=== PATIENT | male | born 1945 | race Caucasian/White ===

== ENCOUNTER → 2017-04-09 | Outpatient (CLI) | payer MEDICARE, BC ==
[2017-04-09 17:31] LABS: HCT 45.3 % (39.0-53.0); HGB 14.8 gm/dL (13.0-17.5); MCHC 32.7 g/dL (31.0-37.0); MCV 94.9 fL (80.0-100.0); Mean Platelet Volume 7.2; Platelet Count 237 k/uL (150-450); RBC 4.78 m/uL (4.30-5.90); RDW 14.6 % (11.5-15.5); WBC 8.3 k/uL (3.8-10.6)
[2017-04-09 17:47] LABS: Anion Gap 9 mmol/L; Blood Urea Nitrogen 32 mg/dL (9-20); Carbon Dioxide 28 mmol/L (22-30); Chloride 107 mmol/L (98-107); Potassium 5.3 mmol/L (3.5-5.1); Sodium 144 mmol/L (137-145)
== END | disposition home or self-care (01) ==
LOC: LABPAT 16:37
PROVIDERS: ATTEND Internal Medicine Cardiovascular Disease
DX: Z01.812 Encounter for preprocedural laboratory examination (principal); I25.10 Atherosclerotic heart disease of native coronary artery without angina pectoris
CPT/HCPCS: 36415; 80051; 82565; 84520; 85027

== ENCOUNTER → 2017-04-18 | Day surgery (SDC) | payer MEDICARE, BC ==
[2017-04-11 14:07] VITALS: BMI 38.6
[~2017-04-18] MED LIST: ADENOSINE 180 MG in SODIUM CHLORIDE 0.9% 30 ML IVP ONE; ADENOSINE 3 MG/ML 4 ML VIAL IVP ONE; ALBUTEROL NEBULIZED 2.5 MG/3 ML INHALATION PRN; ALPRAZolam 0.25 MG TAB PO PRN; ASPIRIN 325 MG TAB PO ONE; ASPIRIN 81 MG PO SCH; ATORVASTATIN 20 MG TAB PO SCH; BUDESONIDE 1 MG/2 ML NEBU INHALATION PRN; CLOPIDOGREL 75 MG TAB PO SCH; HEPARIN SODIUM 1,000 UN/ML (10ML VL) IV ONE; HEPARIN SODIUM 1,000 UN/ML (10ML VL) ONE; IOHEXOL 350 MG/ML 125ML BOTTLE INJ ONE; ISOSORBIDE MONONITRATE ER 30 MG TAB.ER.24H PO SCH; LIDOCAINE 2% INJ 20 MG/ML (20 ML MDV) ONE; LIDOCAINE 2% INJ 20 MG/ML SQ ONE; METOPROLOL TARTRATE 50 MG TAB PO SCH; MIDAZOLAM 2 MG/2 ML VIAL IVP ONE; MIDAZOLAM 2 MG/2 ML VIAL ONE; MONTELUKAST 10 MG TAB PO SCH; NITROGLYCERIN 1000MCG/10ML SYRINGE INTRACORON ONE; NON-FORMULARY DRUG (Multivitamin [Men's Multi-Vitamin] 1 TAB) PO SCH; QUINAPRIL HCL 10 MG PO SCH; RX INFO: IV CONTRAST WAS GIVEN 1 EACH MISC MISCELLANE PRN; SODIUM CHLORIDE 0.9% 1,000 ML IV SCH; SODIUM CHLORIDE 0.9% 1,000 ML in EMPTY BAG 1 BAG IV ONE; VERAPAMIL 2.5 MG/ML 2 ML AMP ONE; fentaNYL (PF) 50 MCG/ML 2 ML AMP IVP ONE; fentaNYL (PF) 50 MCG/ML 2 ML AMP ONE
[2017-04-18 07:06] VITALS: RESP 18
[2017-04-18] MEDS: VERAPAMIL SYRINGE (5 MG/10 ML) INTRAARTER ONE ×2 (07:51→08:32)
--- NOTE | 2017-04-18 08:34 | P.PCN ---
Date of Procedure: 04/18/17 Preoperative Diagnosis: Chest pain and positive stress test and history of CAD Postoperative Diagnosis: Borderline lesion in the OM branch of the circumflex, moderate disease in the proximal LAD, patent stents in the mid LAD, OM branch and also in the right coronary artery Description of Procedure: HISTORY: This is a 71-year-old gentleman with history of previous inferior wall AR and multivessel disease. Patient had stent placement of the RCA, OM branch and also left anterior descending coronary artery. Patient was recently seen with complaints of chest pain and had a stress test which showed a partially reversible defect involving the inferolateral segments. Patient is advised to have a cardiac catheterization for definite diagnosis. CONSENT:I have discussed the risks, benefits and alternative therapies for the above-mentioned procedure and for both sedation/analgesia as well as necessary blood product administration, if indicated, as they pertain to this patient. The patient has indicated understanding and acceptance of the risks and procedures discussed. PROCEDURE: Patient was brought to the lab in a fasting state. Patient was given some IV sedation. The right wrist is infiltrated with lidocaine and right radial artery was entered using Seldinger technique. A 6-Georgian catheter was left in place and selective coronary arteriography was performed. Patient tolerated the procedure well. Pt went on to have FFR of the OM branch by Dr. Rodriguez. No immediate complications were noted . Conscious Sedation: Versed 0.5mg Fentanyl 50 g Duration 20minutes HEMODYNAMICS: The aortic pressure is 120/70. Left ventricle end-diastolic pressure is a 12-15. There was no gradient across the aortic valve. SELECTIVE CORONARY ARTERIOGRAPHY: LEFT MAIN: Normal length and patent. THE LEFT ANTERIOR DESCENDING CORONARY ARTERY: This is a fair caliber vessel with a moderate disease in the proximal portion with about 50-60% stenosis. There is a diagonal branch which arises from the midportion which has about 80-90% ostial stenosis. The stent in mid LAD appears to be patent. The LAD becomes rather small in caliber in the distal distribution, but doesn't have any significant obstructive disease. THE LEFT CIRCUMFLEX AND IS CORONARY ARTERY: This is a moderate caliber vessel giving rise to good-sized OM branch. The stent in the OM branch is patent but proximal to the stent there appears to be an area of stenosis of about 60-70%. There is total occlusion of the distal circumflex THE RIGHT CORONARY ARTERY:. The right coronary artery is ectatic and huge in caliber but seemed to be patent throat its length and also the stent placement. PDA and PLV are good in caliber and free of occlusive disease except ectasia LEFT VENTRICULOGRAPHY: Not performed FINAL IMPRESSION:. Diffuse coronary artery disease with borderline lesion in the OM branch, Proximal to the stent, moderate disease in the proximal LAD with patent stent in the mid LAD and ectatic right coronary artery without any significant disease PLAN: Maximum medical therapy. FFR of the OM branch is being done by Dr. Rodriguez. If the FFR is normal patient will be continued on medical therapy. Otherwise patient will have stent placement of the OM branch PROGNOSIS: Fair
--- NOTE | 2017-04-18 10:07 | AS ---
ARTERIAL STUDY FRACTIONAL FLOW RESERVE MEASUREMENT: Mr. Moreira is a 71-year-old male with known history of coronary artery disease who has been complaining of episode of chest discomfort, underwent cardiac catheterization by Dr. Forde, was found to have a borderline lesion in the left circumflex. In view of that, recommendation made regarding fractional flow reserve measurement. The procedures, risks and complication were discussed with the patient who is in full understanding and agreement. PROCEDURE: A 6-[place] 3.5 guiding catheter introduced into the system after cannulating the left main. A Doppler flow wire was advanced across the lesion and positioned distally. Following that, IFR was measured at 1.0 and FFR after the infusion of adenosine per protocol measured at 0.95. At that point, the guiding catheter and then the wire were removed. The sheath was removed. Hemostasis was obtained with deployment of a TR band. There was no immediate complication. Patient was returned to his room in stable condition. RESULTS: Non hemodynamic significant lesion off the left circumflex. RECOMMENDATION: Patient will be continued on the present medical therapy and will be followed as an outpatient with Dr. Forde. Those findings and recommendation were discussed with the patient and his family who are in full understanding and agreement. MMODL / IJN: [id number] /
[2017-04-18 10:42] VITALS: TEMP 97.8
[2017-04-18 14:12] VITALS: BP 121/59; PULSE 65
== END | disposition home or self-care (01) ==
LOC: CATHCVL 06:22
PROVIDERS: ATTEND Internal Medicine Cardiovascular Disease
DX: I25.110 Atherosclerotic heart disease of native coronary artery with unstable angina pectoris (principal); Z95.5 Presence of coronary angioplasty implant and graft; R94.39 Abnormal result of other cardiovascular function study; I47.2 Ventricular tachycardia; E78.00 Pure hypercholesterolemia, unspecified; I10 Essential (primary) hypertension; I73.9 Peripheral vascular disease, unspecified; E66.9 Obesity, unspecified; Z68.38 Body mass index [BMI] 38.0-38.9, adult; I25.2 Old myocardial infarction; Z82.49 Family history of ischemic heart disease and other diseases of the circulatory system; Z79.02 Long term (current) use of antithrombotics/antiplatelets; Z79.82 Long term (current) use of aspirin; Z79.51 Long term (current) use of inhaled steroids; Z79.899 Other long term (current) drug therapy; Z87.891 Personal history of nicotine dependence
CPT/HCPCS: 93571; 93458; 84132; C1887; C1894; C1769; J2001; J2250; J3010; J1644; J0153; Q9967

== ENCOUNTER 2017-05-04 15:28 | Emergency (ER) | payer MEDICARE, BC ==
[2017-05-04 15:58] VITALS: BP 140/74; PULSE 56; RESP 16; TEMP 98.5
[2017-05-04] MEDS ORDERED: GELATIN SPONGE,ABSORB (SMALL) 1 EACH SPONGE TOPICAL STA (16:04)
--- NOTE | 2017-05-04 16:29 | ED ---
Wound/Laceration HPI - General Chief Complaint: Wound/Laceration Stated Complaint: Finger Laceration Time Seen by Provider: 05/04/17 15:58 Source: patient, RN notes reviewed Mode of arrival: ambulatory Limitations: no limitations - History of Present Illness Initial Comments: This is a 71-year-old male who presents to the emergency department with chief complaint of left fourth digit injury. Patient states that he was at the [facility] at approximately 1:30 this afternoon and hit his finger on something. He states that he went home and applied a bandage but the bleeding will not get under control. He states he is currently on blood thinners. Denies any other injury or trauma. Denies fever, chills, chest pain, shortness of breath, abdominal pain, nausea or vomiting, constipation or diarrhea, dysuria or hematuria, numbness or tingling, headache or vision changes. - Related Data Home Medications Medication Instructions Recorded Confirmed Albuterol Sulfate [Proair Hfa] 2 puff INHALATION Q6HR PRN 09/11/13 05/04/17 Aspirin 81 mg PO DAILY 09/11/13 05/04/17 Atorvastatin [Lipitor] 20 mg PO Q48H 09/11/13 05/04/17 Beclomethasone Dipropionate [Qvar 2 puff INHALATION BID PRN 09/11/13 05/04/17 80 mcg/puff] Clopidogrel [Plavix] 75 mg PO DAILY 09/11/13 05/04/17 Isosorbide Mononitrate ER [Imdur] 30 mg PO BID 09/11/13 05/04/17 Metoprolol Tartrate [Lopressor] 100 mg PO DAILY 09/11/13 05/04/17 Montelukast [Singulair] 10 mg PO DAILY 09/11/13 05/04/17 Multivitamin [Men's Multi-Vitamin] 1 tab PO DAILY 09/11/13 05/04/17 Nitroglycerin Sl Tabs [Nitrostat] 0.4 mg SL DIRECTED PRN 09/11/13 05/04/17 Quinapril HCl [Accupril] 10 mg PO DAILY 09/11/13 05/04/17 Allergies Allergy/AdvReac Type Severity Reaction Status Date / Time No Known Allergies Allergy Verified 05/04/17 15:58 Review of Systems ROS Statement: Those systems with pertinent positive or pertinent negative responses have been documented in the HPI. ROS Other: All systems not noted in ROS Statement are negative. Past Medical History Past Medical History: Asthma, Coronary Artery Disease (CAD), Hypertension, Myocardial Infarction ([place]) Additional Past Medical History / Comment(s): See Dr Forde's H&P. Multiple Sclerosis Last Myocardial Infarction Date:: 1988 History of Any Multi-Drug Resistant Organisms: None Reported Past Surgical History: Cholecystectomy, Heart Catheterization With Stent Additional Past Surgical History / Comment(s): AAA repair Past Anesthesia/Blood Transfusion Reactions: No Reported Reaction Date of Last Stent Placement:: 1994 Past Psychological History: No Psychological Hx Reported Smoking Status: Former smoker Past Alcohol Use History: None Reported Past Drug Use History: None Reported - Past Family History Mother Family Medical History: Cancer General Exam - General Exam Comments Initial Comments: General: Awake and alert, well-developed; in no apparent distress. Patient is hard of hearing. is at bedside. HEENT: Head atraumatic, normocephalic. Pupils are equal, round and reactive to light. Extraocular movements intact. Oropharynx moist without erythema or exudate. Neck: Supple. Normal ROM. Cardiovascular: Regular rate and rhythm. No murmurs, rubs or gallops. Chest symmetrical. Respiratory: Lungs clear to auscultation bilaterally. No wheezes, rales or rhonchi. Normal respiratory effort with no use of accessory muscles. Musculoskeletal: Normal ROM of the right fourth digit. There is a small avulsion of the skin at distal tip. No involvement of nail or nailbed. Bleeding continues. Sensation is intact. Radial pulses are 2+ equal and palpable bilaterally. Skin: [place], warm and dry without rashes or lesions. Neurological: Alert and oriented x3. CN II-XII grossly intact. Speech is fluent and answers are appropriate. No focal neuro deficits. Psychiatric: Normal mood and affect. No overt signs of depression or anxiety noted. Limitations: no limitations Course Vital Signs 05/04/17 15:56 Temperature 98.5 F Pulse Rate 56 L Respiratory 16 Rate Blood Pressure 140/74 O2 Sat by Pulse 98 Oximetry Medical Decision Making - Medical Decision Making This is a 71-year-old male who presents to the emergency department with chief complaint of right fourth digit laceration. There is an avulsion at the distal tip of the right fourth digit and bleeding is not controlled. Patient states he is on blood thinners. Gelfoam and a dressing were placed. Recommended patient to leave the Gelfoam on for 76 hours and to keep it dry and intact. Return parameters were discussed. Patient is in no acute distress and will be discharged home. Disposition Clinical Impression: Finger avulsion Disposition: HOME SELF-CARE Condition: Good Instructions: Skin Avulsion (ED) Additional Instructions: Please leave dressing and Gelfoam in place for 72 hours. If difficult to remove , may add some water. Please follow up with primary care provider within 1-2 days. Return to emergency department if symptoms should worsen or any concerns arise. Referrals: Cedric Giraldo MD [Primary Care Provider] - 1-2 days Time of Disposition: 16:31
== END 2017-05-04 16:42 | disposition home or self-care (01) ==
LOC: EC 15:28
DX: S61.314A Laceration without foreign body of right ring finger with damage to nail, initial encounter (principal); I25.10 Atherosclerotic heart disease of native coronary artery without angina pectoris; I25.2 Old myocardial infarction; I10 Essential (primary) hypertension; J45.909 Unspecified asthma, uncomplicated; Z87.891 Personal history of nicotine dependence; Z79.899 Other long term (current) drug therapy; Z79.01 Long term (current) use of anticoagulants; W45.8XXA Other foreign body or object entering through skin, initial encounter; Y92.89 Other specified places as the place of occurrence of the external cause
CPT/HCPCS: 99282

== ENCOUNTER 2017-12-13 07:47 | Day surgery (SDC) | payer MEDICARE, BC ==
[2017-12-10 10:38] VITALS: BMI 38.6
[~2017-12-13 07:47] MED LIST changes: -ADENOSINE 180 MG in SODIUM CHLORIDE 0.9% 30 ML IVP ONE; -ADENOSINE 3 MG/ML 4 ML VIAL IVP ONE; -ALBUTEROL NEBULIZED 2.5 MG/3 ML INHALATION PRN; -ALPRAZolam 0.25 MG TAB PO PRN; -ASPIRIN 325 MG TAB PO ONE; -ASPIRIN 81 MG PO SCH; -ATORVASTATIN 20 MG TAB PO SCH; -BUDESONIDE 1 MG/2 ML NEBU INHALATION PRN; -CLOPIDOGREL 75 MG TAB PO SCH; -HEPARIN SODIUM 1,000 UN/ML (10ML VL) IV ONE; -HEPARIN SODIUM 1,000 UN/ML (10ML VL) ONE; -IOHEXOL 350 MG/ML 125ML BOTTLE INJ ONE; -ISOSORBIDE MONONITRATE ER 30 MG TAB.ER.24H PO SCH; +LACTATED RINGERS 1,000 ML IV SCH; -LIDOCAINE 2% INJ 20 MG/ML (20 ML MDV) ONE; -LIDOCAINE 2% INJ 20 MG/ML SQ ONE; -METOPROLOL TARTRATE 50 MG TAB PO SCH; -MIDAZOLAM 2 MG/2 ML VIAL IVP ONE; -MIDAZOLAM 2 MG/2 ML VIAL ONE; -MONTELUKAST 10 MG TAB PO SCH; -NITROGLYCERIN 1000MCG/10ML SYRINGE INTRACORON ONE; -NON-FORMULARY DRUG (Multivitamin [Men's Multi-Vitamin] 1 TAB) PO SCH; -QUINAPRIL HCL 10 MG PO SCH; -RX INFO: IV CONTRAST WAS GIVEN 1 EACH MISC MISCELLANE PRN; -SODIUM CHLORIDE 0.9% 1,000 ML in EMPTY BAG 1 BAG IV ONE; -VERAPAMIL 2.5 MG/ML 2 ML AMP ONE; -fentaNYL (PF) 50 MCG/ML 2 ML AMP IVP ONE; -fentaNYL (PF) 50 MCG/ML 2 ML AMP ONE
[2017-12-13 08:37] VITALS: TEMP 97.6
[2017-12-13] MEDS ORDERED: SODIUM CHLORIDE 0.9% 500 ML IV ONE ×2 (08:57)
[2017-12-13] MEDS ORDERED: PROPOFOL 10 MG/ML 20 ML VIAL IV ONE (09:00)
--- NOTE | 2017-12-13 09:26 | P.PCN ---
Date of Procedure: 12/13/17 Preoperative Diagnosis: Persistent atrial fibrillation Postoperative Diagnosis: Persistent atrial fibrillation, failed cardioversion Procedure(s) Performed: Cardioversion Description of Procedure: This is 72-year-old gentleman with history of ischemic heart disease was noted to have persistent atrial fibrillation. Patient was brought in for cardioversion after anticoagulation for 4 weeks. Procedure: Patient was brought to the lab in a fasting state. He was prepped and draped in the usual fashion. Department of anesthesia provided anesthesia during the procedure with IV propofol. Synchronized shocks of 300 followed with 3602 was applied. Patient remained in atrial fibrillation. Tolerated the procedure well. Final impression: Failed cardioversion. Plan: Patient will be discharged home later today. He'll continue current medical therapy. Follow-up in the office in one week
[2017-12-13] MEDS ORDERED: SODIUM CHLORIDE 0.9% 1,000 ML IV SCH (09:30)
[2017-12-13 10:26] VITALS: BP 110/72; RESP 16
[2017-12-13 10:53] VITALS: PULSE 96
== END 2017-12-13 10:53 | disposition home or self-care (01) ==
LOC: CATHCVL 07:47
PROVIDERS: ATTEND Internal Medicine Cardiovascular Disease
DX: I48.1 Persistent atrial fibrillation (principal); I25.10 Atherosclerotic heart disease of native coronary artery without angina pectoris; I10 Essential (primary) hypertension; I25.2 Old myocardial infarction; I25.9 Chronic ischemic heart disease, unspecified; E78.5 Hyperlipidemia, unspecified; E78.00 Pure hypercholesterolemia, unspecified; I47.2 Ventricular tachycardia; I73.9 Peripheral vascular disease, unspecified; N40.0 Benign prostatic hyperplasia without lower urinary tract symptoms; Z82.49 Family history of ischemic heart disease and other diseases of the circulatory system; Z79.02 Long term (current) use of antithrombotics/antiplatelets; Z79.82 Long term (current) use of aspirin; Z79.51 Long term (current) use of inhaled steroids; Z79.899 Other long term (current) drug therapy; Z95.5 Presence of coronary angioplasty implant and graft; Z79.01 Long term (current) use of anticoagulants
CPT/HCPCS: 92960; J2704

== ENCOUNTER → 2018-02-28 | Outpatient (CLI) | payer MEDICARE, BC ==
--- NOTE | 2018-02-28 20:52 | CONS ---
CONSULTATION DATE OF SERVICE: 02/28/2018 This patient is a 72-year-old gentleman who has been evaluated in the sleep center for possible obstructive sleep apnea-hypopnea syndrome. HISTORY OF PRESENT ILLNESS/SLEEP-WAKE EVALUATION: Patient's usual sleep schedule 7 days a week is from around 10 p.m. until 7 or 8 a.m. Usually no problems with falling asleep, although he has a TV set in the bedroom. He sleeps with his with loud snoring and possible episodes of stopped breathing during sleep, according to her. He wakes up from sleeping gasping for air, dry mouth and nocturia up to 4 times per night. No history of hypnagogic hallucinations, sleep paralysis or cataplexy. Usually patient does not take any naps. [place] Sleepiness Scale is 2. PAST MEDICAL HISTORY: Positive for: 1. Atrial fibrillation. 2. Coronary artery disease, status post multiple stent insertions and cardiac ablation procedure. 3. Hypertension. 4. Asthma. 5. Multiple sclerosis with spine lesions. PAST SURGICAL HISTORY: 1. Surgery for abdominal aortic aneurysm. 2. Skin cancer removed. 3. Cholecystectomy. 4. Multiple stent insertions for coronary artery disease and stent insertion to femoral arteries. MEDICATIONS: 1. Lopressor. 2. Lipitor. 3. Imdur. 4. Singulair. 5. Aspirin. 6. Multivitamins. 7. Eliquis. 8. Lisinopril. 9. Symbicort. 10.ProAir. 11.Albuterol inhalers. SOCIAL HISTORY: Positive for smoking for 15 years up to 2 packs a day. Quit about 40 years ago. Alcohol consumption none at the present time. FAMILY HISTORY: Hypertension, heart problems, hyperlipidemia, asthma, cancer, snoring, diabetes. REVIEW OF SYSTEMS: Multiple awakenings from sleep, irregularities of heart beats. PHYSICAL EXAMINATION: GENERAL: A pleasant gentleman without distress. VITAL SIGNS: BP 132/78, HR 82, RR 18, height 5 feet 11 inches, weight 272.2, body mass index 37.9, temperature 97.0, oxygen saturation at room air 99%. HEENT: PERRLA, EOMI. Evaluation of oropharynx showed tongue protrudes midline. Low position of soft palate. NECK: Supple. No JVD. Thyroid is not palpable. Wide neck measuring 17-3/4 inches in circumference. LUNGS: Clear to percussion and to auscultation. Good air exchange. No wheezing or rhonchi. HEART: S1, S2 irregularly irregular. ABDOMEN: Slightly obese. EXTREMITIES: One to two plus bilateral ankle edema. IMPRESSION: 1. Snoring, witnessed episodes of stopped breathing during sleep, low position of soft palate, wide neck, obesity; obstructive sleep apnea-hypopnea syndrome. 2. Atrial fibrillation. 3. Coronary artery disease, status post multiple stent insertions. 4. Hypertension. 5. Status post surgery for abdominal aortic aneurysm. 6. Status post stent insertion to femoral arteries. 7. History of asthma. 8. 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 9. Status post cholecystectomy. PLAN: 1. Polysomnography for evaluation of patient's breathing during sleep. 2. CPAP/BiPAP titration if sleep study confirms obstructive sleep apnea-hypopnea syndrome. 3. Preferable position during sleep on the side. 4. No driving if patient feels any sleepiness. 5. I will see patient for follow up visit to explain results of testing and following plan. Thank you very much for referring this patient for consultation. Sincerely, Enrique Medina MD, PhD, FAASM Diplomat of [employer] Stockroom Selector of [facility] [place] MMODL / IJN: [id number] /
== END ==
LOC: SLEEP 15:04
PROVIDERS: ATTEND Internal Medicine
DX: G47.33 Obstructive sleep apnea (adult) (pediatric) (principal); I48.91 Unspecified atrial fibrillation; I25.10 Atherosclerotic heart disease of native coronary artery without angina pectoris; I10 Essential (primary) hypertension; J45.998 Other asthma; G35 Multiple sclerosis; Z90.49 Acquired absence of other specified parts of digestive tract; Z98.890 Other specified postprocedural states; Z95.828 Presence of other vascular implants and grafts; Z99.89 Dependence on other enabling machines and devices; Z87.891 Personal history of nicotine dependence; Z79.899 Other long term (current) drug therapy; Z79.82 Long term (current) use of aspirin; Z79.01 Long term (current) use of anticoagulants
CPT/HCPCS: 99211

== ENCOUNTER → 2018-06-06 | Outpatient (CLI) | payer MEDICARE, BC ==
--- NOTE | 2018-06-06 16:07 | PN ---
PROGRESS NOTE DATE OF SERVICE: 06/06/2018 This patient is a 72-year-old gentleman who has been followed in the sleep center for treatment of obstructive sleep apnea-hypopnea syndrome. Recently the patient had a polysomnogram and CPAP titration. Polysomnogram showed mild obstructive sleep apnea- hypopnea syndrome, but because of history of cardiac arrhythmia, coronary artery disease and hypertension, we proceeded with a polysomnogram and treatment with CPAP. Subsequently the patient received his CPAP unit. Today is his first visit after he was started on treatment with CPAP. The patient is able to use the machine every night and according to him he feels better with the machine. He is sleeping better and he feels better during the day; not so tired and sleepy as he felt before. [place] Sleepiness Scale today is zero. I checked his CPAP unit. Range of pressure is from 5 to 12 cm of water. Average pressure is 11.6 cm of water. Usage is 100% of the nights for more than 4 hours; average usage 9 hours. Leak is only 1 L/minute no leak at all. Apnea-hypopnea index is 4.6, which is in normal range, with total apnea index 3.7. MEDICATIONS: 1. Lopressor. 2. Lipitor. 3. Imdur. 4. Singulair. 5. Aspirin. 6. Eliquis. 7. Lisinopril. 8. Symbicort. 9. ProAir. 10.Albuterol inhaler. PHYSICAL EXAMINATION: GENERAL: A pleasant gentleman without distress. VITAL SIGNS: BP 125/76, HR 65, RR 14, weight 264.2, temperature 97.7, oxygen saturation at room air 98%. HEENT: PERRLA, EOMI. Evaluation of oropharynx showed tongue protrudes midline. Extremely low position of soft palate. Mallampati IV. NECK: Supple. No JVD. Thyroid is not palpable. LUNGS: Clear to percussion and to auscultation. Good air exchange. No wheezing or rhonchi. HEART: S1, S2 irregularly irregular. ABDOMEN: Obese. EXTREMITIES: One plus lower leg edema. SUPERVISOR CELL MAINTENANCE: Awake, alert, and oriented X3. Cranial nerves 2 to 7 intact. There is no fasciculation or atrophy. noted. No focal deficits observed. IMPRESSION: 1. Obstructive sleep apnea-hypopnea syndrome. The patient demonstrated 100% compliance with treatment, benefitting from treatment. 2. Atrial fibrillation. 3. Coronary artery disease, status post multiple stent insertions. 4. Hypertension. 5. Status post surgical treatment of abdominal aortic aneurysm. 6. Status post stent insertion to femoral arteries. 7. History of asthma. 8. 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 9. Status post cholecystectomy. PLAN: 1. Patient will continue to continue to use CPAP equipment every night for the whole night. We will increase his CPAP pressure range to 14 cm of water maximal with minimal range still 5. 2. Losing weight. 3. Sleep hygiene with regular time in bed for at least 8 hours. 4. No driving if feeling any sleepiness. Thank you very much for allowing me to participate in the management of your patient. Sincerely, Enrique Medina MD, PhD, FAASM Diplomat of [place] [employer] [place] [employer] Bad Work Gatherer of [facility] [place] MMODL / FREEDOMN: [id number] /
== END | disposition home or self-care (01) ==
LOC: SLEEP 14:01
PROVIDERS: ATTEND Internal Medicine
DX: G47.33 Obstructive sleep apnea (adult) (pediatric) (principal); I48.91 Unspecified atrial fibrillation; I25.10 Atherosclerotic heart disease of native coronary artery without angina pectoris; I10 Essential (primary) hypertension; J45.909 Unspecified asthma, uncomplicated; Z86.69 Personal history of other diseases of the nervous system and sense organs; Z95.5 Presence of coronary angioplasty implant and graft; Z90.49 Acquired absence of other specified parts of digestive tract; Z99.89 Dependence on other enabling machines and devices; Z98.890 Other specified postprocedural states; Z79.82 Long term (current) use of aspirin; Z79.01 Long term (current) use of anticoagulants; Z79.51 Long term (current) use of inhaled steroids; Z79.899 Other long term (current) drug therapy

== ENCOUNTER → 2018-11-21 | Outpatient (CLI) | payer MEDICARE, BC ==
--- NOTE | 2018-11-21 12:26 | PN ---
PROGRESS NOTE DATE OF SERVICE: 11/21/2018 A 73-year-old gentleman who has been followed in the Sleep Center for treatment of obstructive sleep apnea-hypopnea syndrome. Patient continued to use CPAP equipment every night for the whole night. No snoring with CPAP. [place] Sleepiness Scale today is only 1. Patient receiving his CPAP supplies in time. I checked CPAP unit, range of the pressure 5-14, average pressure 12.2, usage is 29/30 nights more than 4 hours with average usage 9 hours per night. Leak is only 2 L/minute. Apnea-hypopnea index for the last month 4.1, for the last 6 months 4.5 with average pressure 12.5 and showed 100% compliance with treatment. Apnea-hypopnea index in normal range. MEDICATIONS: Lopressor, Imdur, Lipitor, Quinapril, Nitrostat, QVAR, ProAir, tamsulosin, Eliquis, lisinopril, Singulair, aspirin. PHYSICAL EXAM: Patient in no distress, BP 122/71, HR 64, RR 18, height 5, 11, weight to 265, body mass index 36.9, temperature 97.6, oxygen saturation at room air 96%. OROPHARYNX: Low position of soft palate, Mallampati 4. HEART: S1, S2 irregularly, irregular. ABDOMEN: Obese. Neck Supple, no JVD. Thyroid is not palpable. LUNGS Clear to percussion and to auscultation. Good air exchange. No wheezing or rhonchi. EXTREMITIES No clubbing or cyanosis. LUNCH COOK Awake, alert, and oriented X3. Cranial nerves 2 to 7 intact. There is no fasciculation or atrophy. noted. No focal deficits observed. IMPRESSION: 1. Obstructive sleep apnea-hypopnea syndrome. Patient demonstrated 100% compliance with treatment benefitting from treatment. 2. Atrial fibrillation. 3. Coronary artery disease, status post multiple stent insertion. 4. Hypertension. 5. Status post surgical treatment for abdominal aortic aneurysm. 6. Status post stent insertion to femoral arteries. 7. History of asthma. 8. History of multiple sclerosis, lesion in the spinal cord. 9. Status post cholecystectomy. PLAN: 1. Patient will continue to use CPAP equipment every night for the whole night. 2. Losing weight. 3. Sleep hygiene with regular time in bed for at least 8 hours. 4. No driving if feeling sleepiness. 5. I will increase pressure to maximal level of 15 cm of water. Thank you very much for allowing me to participate in the management of your patient. Sincerely, Enrique Medina MD, PhD, FAASM Diplomat of [place] [employer] [employer] Cnc Machine Programmer of [facility] [place] MMODL / ASHLEY: [id number] /
== END | disposition home or self-care (01) ==
LOC: SLEEP 09:51
PROVIDERS: ATTEND Internal Medicine
DX: G47.33 Obstructive sleep apnea (adult) (pediatric) (principal); I48.91 Unspecified atrial fibrillation; I25.10 Atherosclerotic heart disease of native coronary artery without angina pectoris; I10 Essential (primary) hypertension; J45.909 Unspecified asthma, uncomplicated; G35 Multiple sclerosis; Z95.5 Presence of coronary angioplasty implant and graft; Z99.89 Dependence on other enabling machines and devices; Z90.49 Acquired absence of other specified parts of digestive tract; Z98.890 Other specified postprocedural states; Z79.01 Long term (current) use of anticoagulants; Z79.51 Long term (current) use of inhaled steroids; Z79.82 Long term (current) use of aspirin; Z79.899 Other long term (current) drug therapy

== ENCOUNTER → 2019-05-29 | Outpatient (CLI) | payer MEDICARE, BC ==
--- NOTE | 2019-05-29 15:28 | PN ---
PROGRESS NOTE DATE OF SERVICE: 05/29/2019 A 73-year-old gentleman who has been followed in the Sleep Center for treatment of obstructive sleep apnea-hypopnea syndrome. The patient continued to use CPAP equipment every night for the whole night without significant problems. He is using a full-face mask, heated tube, [place] Sleepiness Scale today is 0. I checked his CPAP unit, range of the pressure from 5-15 with average pressure 12.3. Usage is 100% of nights more than 4 hours. Average usage is 9.3 hours per night. Leak is 0 L/minute. Apnea-hypopnea index 3.0, which is normal. MEDICATIONS: Loratadine, vitamin B12, baby aspirin, albuterol, Symbicort, metoprolol, isosorbide, montelukast, lisinopril, atorvastatin, nitroglycerin as needed. PHYSICAL EXAM: Patient in no distress, BP 129/76, HR 66, RR 14, height 5,11-1/4 inches, weight 269.4, which is 4 pounds more than during previous visit, temperature 97.4, oxygen saturation on room air 96%. OROPHARYNX: Extremely low position of soft palate. Mallampati IV. HEART: S1, S2, irregular. ABDOMEN: Obese. NECK: Supple, no JVD. Thyroid is not palpable. LUNGS: Clear to percussion and to auscultation. Good air exchange. No wheezing or rhonchi. EXTREMITIES: No clubbing or cyanosis. VEST PRESSER: Awake, alert, and oriented X3. Cranial nerves 2 to 7 intact. There is no fasciculation or atrophy. noted. No focal deficits observed. IMPRESSION: 1. Obstructive sleep apnea-hypopnea syndrome. The patient demonstrated 100% compliance with treatment, benefitting from treatment. 2. History of atrial fibrillation. 3. Hypertension. 4. Coronary artery disease, status post multiple stent insertions. 5. Status post surgical treatment for abdominal aortic aneurysm. 6. Status post stent insertion to femoral arteries. 7. History of asthma. 8. 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 9. Status post cholecystectomy. PLAN: 1. Patient will continue to use CPAP equipment every night for the whole night. 2. Losing weight. 3. Sleep hygiene with regular time in bed for at least 7-1/2 to 8 hours. 4. No driving if feeling sleepiness. 5. Prescription for all necessary CPAP supplies including Simplex medium full-face mask, heated tube, filters. Thank you very much for allowing me to participate in the management of your patient. Sincerely, Enrique Medina MD, PhD, FAASM Diplomat of [place] [employer] Blind Lacer of [facility] [place] MMJOYCEL / FREEDOMN: [id number] /
== END | disposition home or self-care (01) ==
LOC: SLEEP 13:18
PROVIDERS: ATTEND Internal Medicine
DX: G47.33 Obstructive sleep apnea (adult) (pediatric) (principal); I10 Essential (primary) hypertension; I25.10 Atherosclerotic heart disease of native coronary artery without angina pectoris; Z86.79 Personal history of other diseases of the circulatory system; Z87.09 Personal history of other diseases of the respiratory system; Z90.49 Acquired absence of other specified parts of digestive tract; Z87.39 Personal history of other diseases of the musculoskeletal system and connective tissue; Z95.820 Peripheral vascular angioplasty status with implants and grafts; Z98.890 Other specified postprocedural states; Z79.82 Long term (current) use of aspirin; Z79.899 Other long term (current) drug therapy

== ENCOUNTER 2020-08-26 11:47 | Observation (INO) | payer MEDICARE, BC ==
[2020-08-26 12:36] LABS: Basophils # (A) 0.1 k/uL (0-0.2); Basophils % (A) 0 %; Eosinophils # (A) 0.1 k/uL (0-0.7); Eosinophils % (A) 1 %; HGB 15.6 gm/dL (13.0-17.5); Lymphocytes # (A) 1.1 k/uL (1.0-4.8); Lymphocytes % (A) 9 %; MCH 31.4 pg (25.0-35.0); MCHC 33.1 g/dL (31.0-37.0); MCV 94.8 fL (80.0-100.0); Mean Platelet Volume 7.1; Monocytes # (A) 0.5 k/uL (0-1.0); Monocytes % (A) 3 %; Neutrophils # (A) 11.2 k/uL (1.3-7.7); Neutrophils % (A) 86 %; Platelet Count 233 k/uL (150-450); RBC 4.96 m/uL (4.30-5.90); WBC 12.9 k/uL (3.8-10.6)
[2020-08-26 12:46] LABS: African American GFR (CKD) >90 (>60 ml/min/1.73 sqM); Alkaline Phosphatase 58 U/L (38-126); Anion Gap 6 mmol/L; Blood Urea Nitrogen 25 mg/dL (9-20); Calcium 9.3 mg/dL (8.4-10.2); Carbon Dioxide 26 mmol/L (22-30); Chloride 110 mmol/L (98-107); Glucose 147 mg/dL (74-99); Lipase 70 U/L (23-300); Non-African American GFR(CKD) >90 (>60 ml/min/1.73 sqM); Sodium 142 mmol/L (137-145)
[2020-08-26 12:54] LABS: Albumin 4.3 g/dL (3.5-5.0); Magnesium 2.2 mg/dL (1.6-2.3); Potassium 5.3 mmol/L (3.5-5.1); Total Protein 7.1 g/dL (6.3-8.2)
[2020-08-26 12:55] LABS: ALT 26 U/L (4-49); AST 50 U/L (17-59)
--- NOTE | 2020-08-26 12:55 | XR ---
EXAMINATION TYPE: XR chest 2V DATE OF EXAM: 08/26/2020 COMPARISON: 06/03/2014 INDICATION: Chest pain vomiting TECHNIQUE: Frontal and lateral views of the chest are obtained. FINDINGS: The heart size is normal. The pulmonary vasculature is normal. The lungs are clear. IMPRESSION: 1. No acute pulmonary process.
[2020-08-26] MEDS ORDERED: ONDANSETRON 4 MG/2 ML VIAL IVP STA (13:24)
[2020-08-26] MEDS ORDERED: SODIUM CHLORIDE 0.9% 1,000 ML IV ONE (13:24)
--- NOTE | 2020-08-26 13:27 | ED ---
Chest Pain HPI - General Chief Complaint: Chest Pain Stated Complaint: Chest pain/sweaty/vomiting Time Seen by Provider: 08/26/20 11:59 Source: patient, RN notes reviewed Mode of arrival: ambulatory Limitations: no limitations - History of Present Illness Initial Comments: 74-year-old male presents emergency Department with chief complaint of chest discomfort. Patient states he woke up states she's been having increased pressure in his chest, felt dizzy and nauseated with diaphoresis. Patient states that he felt very weak. He states this feels more tired than usual. No abdominal pain, lower extremity symptoms no headache or blurred vision no focal weakness patient does have a history of cardiac stents he states that he is also on blood thinner for A. fib. - Related Data Home Medications Medication Instructions Recorded Confirmed Albuterol Sulfate [Proair Hfa] 2 puff INHALATION Q6HR PRN 09/11/13 12/10/17 Aspirin 81 mg PO DAILY 09/11/13 12/13/17 Atorvastatin [Lipitor] 40 mg PO Q48H 09/11/13 12/13/17 Beclomethasone Dipropionate [Qvar 2 puff INHALATION BID PRN 09/11/13 12/10/17 80 mcg/puff] Isosorbide Mononitrate ER [Imdur] 30 mg PO BID 09/11/13 12/13/17 Metoprolol Tartrate [Lopressor] 75 mg PO BID 09/11/13 12/13/17 Montelukast [Singulair] 10 mg PO DAILY 09/11/13 12/13/17 Multivitamin [Men's Multi-Vitamin] 1 tab PO DAILY 09/11/13 12/13/17 Nitroglycerin Sl Tabs [Nitrostat] 0.4 mg SL DIRECTED PRN 09/11/13 12/10/17 Apixaban [Eliquis] 5 mg PO BID 12/10/17 12/13/17 Cholecalciferol [Vitamin D3] 1,000 unit PO DAILY 12/10/17 12/13/17 Cyanocobalamin (Vitamin B-12) 1,000 mcg PO DAILY 12/10/17 12/13/17 [Vitamin B-12] lisinopriL [Zestril] 10 mg PO DAILY 12/10/17 12/13/17 Allergies Allergy/AdvReac Type Severity Reaction Status Date / Time No Known Allergies Allergy Verified 08/26/20 11:52 Review of Systems ROS Statement: Those systems with pertinent positive or pertinent negative responses have been documented in the HPI. ROS Other: All systems not noted in ROS Statement are negative. EKG Findings - EKG Comments: EKG Findings:: EKG performed at 11:50 A. fib with a rate of 90 QRS 84 QT/QTC 370/452 - EKG Results: EKG: interpreted by ALPHONSO Past Medical History Past Medical History: Asthma, Coronary Artery Disease (CAD), Hypertension, Myocardial Infarction ([place]) Additional Past Medical History / Comment(s): See Dr Forde's H&P. Multiple Sclerosis Last Myocardial Infarction Date:: 1988 History of Any Multi-Drug Resistant Organisms: None Reported Past Surgical History: Cholecystectomy, Heart Catheterization With Stent Additional Past Surgical History / Comment(s): AAA repair ; Cataracts Past Anesthesia/Blood Transfusion Reactions: No Reported Reaction Date of Last Stent Placement:: 1994 Past Psychological History: No Psychological Hx Reported Smoking Status: Never smoker Past Alcohol Use History: None Reported Past Drug Use History: None Reported - Past Family History Mother Family Medical History: Cancer General Exam Limitations: no limitations General appearance: alert, in no apparent distress Head exam: Present: atraumatic, normocephalic, normal inspection Eye exam: Present: normal appearance, PERRL, EOMI. Absent: scleral icterus, conjunctival injection, periorbital swelling ENT exam: Present: normal exam, normal oropharynx, mucous membranes moist Neck exam: Present: normal inspection, full ROM. Absent: tenderness, meningismus, lymphadenopathy Respiratory exam: Present: normal lung sounds bilaterally. Absent: respiratory distress, wheezes, rales, rhonchi, stridor Cardiovascular Exam: Present: irregular rhythm, normal heart sounds. Absent: regular rate, normal rhythm, systolic murmur, diastolic murmur, rubs, gallop, clicks GI/Abdominal exam: Present: soft, normal bowel sounds. Absent: distended, tenderness, guarding, rebound, rigid Course Vital Signs 08/26/20 11:49 Temperature 98.3 F Pulse Rate 89 Respiratory 22 Rate Blood Pressure 162/77 O2 Sat by Pulse 97 Oximetry Chest Pain MDM - MDM Patient's initial troponin is negative though patient has significant cardiac disease with complaints of chest pain diaphoresis case discussed with Dr. Jalloh recommend inpatient treatment. Disposition Clinical Impression: Chest pain Disposition: ADMITTED IP TO THIS HOSP Condition: Fair Referrals: Cedric Giraldo MD [Primary Care Provider] - 1-2 days
[2020-08-26] MEDS ORDERED: NITROGLYCERIN SL TABS 0.4 MG TAB SUBLINGUAL PRN (13:28)
[2020-08-26 14:10] LABS: Partial Thromboplastin Time 21.8 sec (22.0-30.0); Prothrombin Time 10.4 sec (9.0-12.0)
[2020-08-27 07:38] VITALS: BP 111/75; PULSE 65; RESP 18; TEMP 97.5
[2020-08-27] MEDS ORDERED: NITROGLYCERIN SL TABS 0.4 MG TAB SUBLINGUAL PRN (08:12)
[2020-08-27] MEDS ORDERED: ALBUTEROL HFA INHALER INHALATION PRN (08:12)
[2020-08-27] MEDS ORDERED: APIXABAN 5 MG TAB PO SCH (09:00)
[2020-08-27] MEDS ORDERED: LORATADINE 10 MG TAB PO SCH (09:00)
[2020-08-27] MEDS ORDERED: ASPIRIN 81 MG PO SCH (09:00)
[2020-08-27] MEDS ORDERED: MULTIVITAMINS, THERA 1 EACH TAB PO SCH (09:00)
[2020-08-27] MEDS ORDERED: METOPROLOL TARTRATE 25 MG TAB PO SCH (09:00)
[2020-08-27] MEDS ORDERED: ASPIRIN 325 MG TAB PO SCH (09:00)
[2020-08-27] MEDS ORDERED: NON FORMULARY DRUG (Vitamin B Complex [Vitamin B Complex] 1 EACH Capsule) PO SCH (09:00)
[2020-08-27] MEDS ORDERED: ATORVASTATIN 20 MG TAB PO SCH (09:00)
[2020-08-27] MEDS ORDERED: ISOSORBIDE MONONITRATE ER 30 MG TAB.ER.24H PO SCH (09:00)
[2020-08-27] MEDS ORDERED: CHOLECALCIFEROL 25 MCG (1000 IU) TABLET PO SCH (09:00)
[2020-08-27] MEDS: MONTELUKAST 10 MG TAB PO SCH ×2 (09:38→09:43)
[2020-08-27] MEDS: lisinopriL 10 MG TAB PO SCH ×2 (09:39→09:43)
--- NOTE | 2020-08-27 10:12 | P.HPIM ---
History of Present Illness H&P Date: 08/27/20 Chief Complaint: chest pain This is a 74-year-old male patient who presented to the hospital with complaints of chest pain. Patient reports that chest pain was associated with diaphoresis and nausea similar to previous episodes he had with his heart attacks. Patient has a significant past medical history of coronary artery disease with stents, A. fib, AAA repair, multiple sclerosis, hyperlipidemia, hypertension, sleep apnea and chronic pain. Chest x-ray completed showing no acute pulmonary process. Troponins negative 3. EKG completed showing atrial fibrillation. Patient maintained on eliquis for anticoagulation. 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 At this time patient is sitting up in chair. Patient denies any further episodes of chest pain. Cardiology services have been consulted. 2-D echo has been ordered. Will order repeat labs and dimer Review of Systems please refer to HPI otherwise unremarkable Past Medical History Past Medical History: Atrial Fibrillation, Asthma, Coronary Artery Disease (CAD), Chest Pain / Angina, Hyperlipidemia, Hypertension, Myocardial Infarction ([place]), Musculoskeletal Disorder, Neurologic Disorder, Sleep Apnea/CPAP/BIPAP, Vascular Disorder Additional Past Medical History / Comment(s): Ishemic heart disease, paroxysmal VT, AAA with repair, MS treated experimentally with chemo, bilateral feet numbness, [place] with Cpap, cervical and low back pain, Last Myocardial Infarction Date:: 1995 History of Any Multi-Drug Resistant Organisms: None Reported Past Surgical History: Cholecystectomy, Heart Catheterization, Heart Catheterization With Stent Additional Past Surgical History / Comment(s): AAA repair, bilateral cataract removals, colonoscopy. Past Anesthesia/Blood Transfusion Reactions: No Reported Reaction Date of Last Stent Placement:: 1995 Smoking Status: Former smoker - Past Family History Mother Family Medical History: Cancer Additional Family Medical History / Comment(s): Mother at the age of 58yrs from metastatic cancer. Father Family Medical History: Myocardial Infarction ([place]) Additional Family Medical History / Comment(s): Father of a [place] at the age of 52 yrs. Medications and Allergies Home Medications Medication Instructions Recorded Confirmed Type Albuterol Sulfate [Proair Hfa] 2 puff INHALATION RT-QID PRN 09/11/13 08/26/20 History Isosorbide Mononitrate ER [Imdur] 30 mg PO BID 09/11/13 08/26/20 History Metoprolol Tartrate [Lopressor] 75 mg PO BID 09/11/13 08/26/20 History Montelukast [Singulair] 10 mg PO DAILY 09/11/13 08/26/20 History Multivitamin [Men's Multi-Vitamin] 1 tab PO DAILY 09/11/13 08/26/20 History Nitroglycerin Sl Tabs [Nitrostat] 0.4 mg SL Q5M PRN 09/11/13 08/26/20 History Apixaban [Eliquis] 5 mg PO BID 12/10/17 08/26/20 History lisinopriL [Zestril] 10 mg PO DAILY 12/10/17 08/26/20 History Aspirin EC [Ecotrin Low Dose] 81 mg PO DAILY 08/26/20 08/26/20 History Atorvastatin [Lipitor] 20 mg PO DAILY 08/26/20 08/26/20 History Budesonide/Formoterol Fumarate 2 puff INHALATION RT-BID 08/26/20 08/26/20 History [Symbicort 80-4.5 Mcg Inhaler] Cholecalciferol [Vitamin D3 (25 50 mcg PO DAILY 08/26/20 08/26/20 History Mcg = 1000 Iu)] Loratadine [Claritin] 10 mg PO DAILY 08/26/20 08/26/20 History Vitamin B Complex 1 cap PO DAILY 08/26/20 08/26/20 History Allergies Allergy/AdvReac Type Severity Reaction Status Date / Time No Known Allergies Allergy Verified 08/26/20 14:02 Physical Exam Vitals: Vital Signs Temp Pulse Pulse Resp BP BP Pulse Ox 08/27/20 07:53 95 08/27/20 07:00 97.5 F L 65 18 111/75 95 08/27/20 02:00 98.4 F 73 20 131/87 96 08/27/20 01:23 74 20 08/26/20 20:00 97.7 F 74 20 147/77 97 08/26/20 16:15 97.7 F 69 16 138/86 98 08/26/20 15:27 96 16 143/93 96 08/26/20 11:49 98.3 F 89 22 162/77 97 Intake and Output 08/26/20 08/27/20 08/27/20 22:59 06:59 14:59 Other: Voiding Method Toilet Toilet # Voids 1 2 Weight 131.542 kg Head normocephalic Neck supple Lungs clear to auscultation bilaterally no wheezing or crackles Heart regular rate and rhythm S1-S2, no rub or gallop Abdomen is soft nontender nondistended positive bowel sounds no hepatosplenomegaly Extremities no edema Neuro alert and orientated to 3 Results CBC & Chem 7: 08/26/20 12:04 08/26/20 12:04 Labs: Abnormal Lab Results - Last 24 Hours (Table) 08/26/20 08/26/20 08/26/20 Range/Units 12:04 12:04 13:32 WBC 12.9 H (3.8-10.6) k/uL Neutrophils # 11.2 H (1.3-7.7) k/uL APTT 21.8 L (22.0-30.0) sec Potassium 5.3 H (3.5-5.1) mmol/L Chloride 110 H (98-107) mmol/L BUN 25 H (9-20) mg/dL Glucose 147 H (74-99) mg/dL Thrombosis Risk Factor Assmnt - Choose All That Apply Any of the Below Risk Factors Present?: Yes Each Factor Represents 1 point: Obesity (BMI >25) Other Risk Factors: Yes Each Risk Factor Represents 2 Points: Age 61-74 years Other congenital or acquired thrombophilia - If yes, enter type in comment: No Thrombosis Risk Factor Assessment Total Risk Factor Score: 3 Thrombosis Risk Factor Assessment Level: Moderate Risk Assessment and Plan Assessment: 1. Chest pain. Troponins negative 3. Cardiology services have been cons ulted. D-dimer ordered. Chest x-ray negative 2. Significant history for coronary artery disease with multiple stents 3. Paroxysmal atrial fibrillation. maintained on eliquis 4. History of AAA repair 5. History of multiple sclerosis 6. History of hyperlipidemia. Maintained on statin 7. History of hypertension Time with Patient: Greater than 30 (Greater than 60% of the total time spent in counseling and coordination of care)
[2020-08-27 11:11] LABS: Basophils # (A) 0.1 k/uL (0-0.2); Basophils % (A) 1 %; Eosinophils # (A) 0.4 k/uL (0-0.7); Eosinophils % (A) 4 %; HCT 44.1 % (39.0-53.0); HGB 14.7 gm/dL (13.0-17.5); Lymphocytes # (A) 2.3 k/uL (1.0-4.8); Lymphocytes % (A) 25 %; MCH 31.3 pg (25.0-35.0); MCHC 33.2 g/dL (31.0-37.0); MCV 94.2 fL (80.0-100.0); Mean Platelet Volume 7.8; Monocytes # (A) 0.5 k/uL (0-1.0); Monocytes % (A) 5 %; Neutrophils % (A) 65 %; Platelet Count 238 k/uL (150-450); RBC 4.69 m/uL (4.30-5.90); RDW 13.8 % (11.5-15.5); WBC 9.2 k/uL (3.8-10.6)
[2020-08-27 11:32] LABS: ALT 25 U/L (4-49); AST 34 U/L (17-59); African American GFR (CKD) >90 (>60 ml/min/1.73 sqM); Albumin 3.9 g/dL (3.5-5.0); Albumin/Globulin Ratio 1.5; Alkaline Phosphatase 57 U/L (38-126); Anion Gap 8 mmol/L; Blood Urea Nitrogen 23 mg/dL (9-20); Calcium 8.8 mg/dL (8.4-10.2); Carbon Dioxide 24 mmol/L (22-30); Chloride 107 mmol/L (98-107); Globulin 2.6 g/dL; Glucose 145 mg/dL (74-99); Non-African American GFR(CKD) 90 (>60 ml/min/1.73 sqM); Potassium 4.2 mmol/L (3.5-5.1); Sodium 139 mmol/L (137-145); Total Bilirubin 0.7 mg/dL (0.2-1.3); Total Protein 6.5 g/dL (6.3-8.2)
--- NOTE | 2020-08-27 11:40 | P.CRDCN ---
History of Present Illness Consult date: 08/27/20 Chief complaint: chest pain History of present illness: This is a pleasant 74-year-old gentleman who sees Dr. Forde in the past with a past medical history significant for coronary artery disease and prior revascularization as well as permanent atrial fibrillation as well as hypertension and dyslipidemia and sleep apnea presented to the hospital with a chest discomfort. He was in his usual state of health until yesterday when he felt that he needed to go to the bathroom and after he was sitting he had heart time getting up. He felt weak. Subsequently he walked to his bed and when he was laying in his bed he developed chest discomfort. The discomfort was in the middle of the chest without any radiation and without any associated symptoms. He took nitroglycerin with improvement in the symptoms. He came into the hospital where an EKG showed atrial fibrillation without significant ST or T- wave abnormalities and a blood work came in to be unremarkable including negative troponin. Currently he is chest pain-free. He stated that he would like to go home later on today. From the cardiovascular standpoint of view, the patient can be discharged home. He underwent stress test in May of this year and that came in to be unremarkable. Past Medical History Past Medical History: Atrial Fibrillation, Asthma, Coronary Artery Disease (CAD), Chest Pain / Angina, Hyperlipidemia, Hypertension, Myocardial Infarction ([place]), Musculoskeletal Disorder, Neurologic Disorder, Sleep Apnea/CPAP/BIPAP, Vascular Disorder Additional Past Medical History / Comment(s): Ishemic heart disease, paroxysmal VT, AAA with repair, MS treated experimentally with chemo, bilateral feet numbness, [place] with Cpap, cervical and low back pain, Last Myocardial Infarction Date:: 1995 History of Any Multi-Drug Resistant Organisms: None Reported Past Surgical History: Cholecystectomy, Heart Catheterization, Heart Catheterization With Stent Additional Past Surgical History / Comment(s): AAA repair, bilateral cataract removals, colonoscopy. Past Anesthesia/Blood Transfusion Reactions: No Reported Reaction Date of Last Stent Placement:: 1995 Smoking Status: Former smoker - Past Family History Mother Family Medical History: Cancer Additional Family Medical History / Comment(s): Mother at the age of 58yrs from metastatic cancer. Father Family Medical History: Myocardial Infarction ([place]) Additional Family Medical History / Comment(s): Father of a [place] at the age o f 52 yrs. Medications and Allergies Home Medications Medication Instructions Recorded Confirmed Type Albuterol Sulfate [Proair Hfa] 2 puff INHALATION RT-QID PRN 09/11/13 08/26/20 History Isosorbide Mononitrate ER [Imdur] 30 mg PO BID 09/11/13 08/26/20 History Metoprolol Tartrate [Lopressor] 75 mg PO BID 09/11/13 08/26/20 History Montelukast [Singulair] 10 mg PO DAILY 09/11/13 08/26/20 History Multivitamin [Men's Multi-Vitamin] 1 tab PO DAILY 09/11/13 08/26/20 History Nitroglycerin Sl Tabs [Nitrostat] 0.4 mg SL Q5M PRN 09/11/13 08/26/20 History Apixaban [Eliquis] 5 mg PO BID 12/10/17 08/26/20 History lisinopriL [Zestril] 10 mg PO DAILY 12/10/17 08/26/20 History Aspirin EC [Ecotrin Low Dose] 81 mg PO DAILY 08/26/20 08/26/20 History Atorvastatin [Lipitor] 20 mg PO DAILY 08/26/20 08/26/20 History Budesonide/Formoterol Fumarate 2 puff INHALATION RT-BID 08/26/20 08/26/20 History [Symbicort 80-4.5 Mcg Inhaler] Cholecalciferol [Vitamin D3 (25 50 mcg PO DAILY 08/26/20 08/26/20 History Mcg = 1000 Iu)] Loratadine [Claritin] 10 mg PO DAILY 08/26/20 08/26/20 History Vitamin B Complex 1 cap PO DAILY 08/26/20 08/26/20 History Allergies Allergy/AdvReac Type Severity Reaction Status Date / Time No Known Allergies Allergy Verified 08/26/20 14:02 Physical Exam Vitals: Vital Signs Temp Pulse Pulse Resp BP BP Pulse Ox 08/27/20 07:53 95 08/27/20 07:00 97.5 F L 65 18 111/75 95 08/27/20 02:00 98.4 F 73 20 131/87 96 08/27/20 01:23 74 20 08/26/20 20:00 97.7 F 74 20 147/77 97 08/26/20 16:15 97.7 F 69 16 138/86 98 08/26/20 15:27 96 16 143/93 96 08/26/20 11:49 98.3 F 89 22 162/77 97 Intake and Output 08/26/20 08/27/20 08/27/20 22:59 06:59 14:59 Other: Voiding Method Toilet Toilet # Voids 1 2 Weight 131.542 kg - Constitutional General appearance: no acute distress - Respiratory Respiratory: bilateral: diminished - Cardiovascular Rhythm: irregularly irregular Results 08/27/20 10:23 08/27/20 10:23 Cardiac Enzymes 08/26/20 08/26/20 08/26/20 Range/Units 12:04 12:04 15:59 AST 50 (17-59) U/L Troponin I <0.012 <0.012 (0.000-0.034) ng/mL 08/26/20 08/27/20 Range/Units 19:04 10:23 AST 34 (17-59) U/L Troponin I <0.012 (0.000-0.034) ng/mL Coagulation 08/26/20 Range/Units 13:32 PT 10.4 (9.0-12.0) sec APTT 21.8 L (22.0-30.0) sec CBC 08/26/20 08/27/20 Range/Units 12:04 10:23 WBC 12.9 H 9.2 (3.8-10.6) k/uL RBC 4.96 4.69 (4.30-5.90) m/uL Hgb 15.6 14.7 (13.0-17.5) gm/dL Hct 47.0 44.1 (39.0-53.0) % Plt Count 233 238 (150-450) k/uL Comprehensive Metabolic Panel 08/26/20 08/27/20 Range/Units 12:04 10:23 Sodium 142 139 (137-145) mmol/L Potassium 5.3 H 4.2 (3.5-5.1) mmol/L Chloride 110 H 107 (98-107) mmol/L Carbon Dioxide 26 24 (22-30) mmol/L BUN 25 H 23 H (9-20) mg/dL Creatinine 0.67 0.78 (0.66-1.25) mg/dL Glucose 147 H 145 H (74-99) mg/dL Calcium 9.3 8.8 (8.4-10.2) mg/dL AST 50 34 (17-59) U/L ALT 26 25 (4-49) U/L Alkaline Phosphatase 58 57 (38-126) U/L Total Protein 7.1 6.5 (6.3-8.2) g/dL Albumin 4.3 3.9 (3.5-5.0) g/dL Current Medications Generic Name Dose Route Start Last Admin Trade Name Freq PRN Reason Stop Dose Admin Albuterol Sulfate 2 puff 08/27/20 08:12 Albuterol Hfa Inhaler INHALATION RT-QID PRN Shortness Of Breath Or Wheezing Apixaban 5 mg 08/27/20 09:00 08/27/20 09:39 Apixaban 5 Mg Tab PO 5 mg BID EVELIO Administration Protocol Aspirin 81 mg 08/27/20 09:00 08/27/20 09:39 Aspirin 81 Mg PO 81 mg DAILY EVELIO Administration Atorvastatin Calcium 20 mg 08/27/20 09:00 08/27/20 09:39 Atorvastatin 20 Mg Tab PO 20 mg DAILY EVELIO Administration Budesonide/Formoterol Fumarate 2 puff 08/27/20 20:00 Symbicort 80-4.5 Mcg Inhaler INHALATION RT-BID EVELIO Cholecalciferol 50 mcg 08/27/20 09:00 08/27/20 09:38 Cholecalciferol 25 Mcg (1000 Iu) Tablet PO 50 mcg DAILY EVELIO Administration Isosorbide Mononitrate 30 mg 08/27/20 09:00 08/27/20 09:38 Isosorbide Mononitrate Er 30 Mg Tab.Er.24h PO 30 mg BID EVELIO Administration Lisinopril 10 mg 08/27/20 21:00 Lisinopril 10 Mg Tab PO HS [facility] Loratadine 10 mg 08/27/20 09:00 08/27/20 09:39 Loratadine 10 Mg Tab PO 10 mg DAILY EVELIO Administration Metoprolol Tartrate 75 mg 08/27/20 09:00 08/27/20 09:45 Metoprolol Tartrate 25 Mg Tab PO 75 mg BID EVELIO Administration Montelukast Sodium 10 mg 08/27/20 21:00 Montelukast 10 Mg Tab PO HS [facility] Multivitamins 1 each 08/27/20 09:00 08/27/20 09:39 Multivitamins, Thera 1 Each Tab PO 1 each DAILY EVELIO Administration Nitroglycerin 0.4 mg 08/27/20 08:12 Nitroglycerin Sl Tabs 0.4 Mg Tab SUBLINGUAL Q5M PRN chest pain Intake and Output 08/26/20 08/27/20 08/27/20 22:59 06:59 14:59 Other: Voiding Method Toilet Toilet # Voids 1 2 Weight 131.542 kg 08/27/20 10:23 08/27/20 10:23 Assessment and Plan Assessment: assessment #1 atypical chest discomfort #2 coronary artery disease #3 multiple comorbid conditions #4 permanent atrial fibrillation Plan #1 continue the current medical regimen #2 from the cardiovascular standpoint of view, the patient can be discharged home
[2020-08-27 12:26] LABS: Chol/HDL Ratio 4.82; LDL Cholesterol,Calculated 103.6 mg/dL (0.0-131.0); VLDL Calculation 26.4 mg/dL (5.00-40.00)
--- NOTE | 2020-08-27 18:56 | ECHOF ---
Referral Reason:chest pain MEASUREMENTS -------- HEIGHT: 182.9 cm WEIGHT: 131.5 kg BP: RVIDd: 3.3 cm (< 3.3) IVSd: 1.3 cm (0.6 - 1.1) LVIDd: 4.7 cm (3.9 - 5.3) LVPWd: 1.4 cm (0.6 - 1.1) IVSs: 1.8 cm LVIDs: 3.2 cm LVPWs: 1.6 cm LA Diam: 4.0 cm (2.7 - 3.8) LAESV Index (A-L): 24.17 ml/m Ao Diam: 3.6 cm (2.0 - 3.7) AV Cusp: 2.5 cm (1.5 - 2.6) MV EXCURSION: 25.076 mm (> 18.000) MV EF SLOPE: 107 mm/s (70 - 150) EPSS: 0.3 cm RAP: 5.00 mmHg RVSP: 26.24 mmHg FINDINGS -------- Atrial fibrillation. This was a technically adequate study. The left ventricular size is normal. There is moderate concentric left ventricular hypertrophy. O verall left ventricular systolic function is mild-moderately impaired with, an EF between 40 - 45 %. The right ventricle is mildly enlarged. Normal LA size by volume 22+/-6 ml/m2. The right atrium is normal in size. Interatrial and interventricular septum intact. The aortic valve is trileaflet, and appears structurally normal. No aortic stenosis or regurgitation. The mitral valve is normal. The tricuspid valve appears structurally normal. There is no pulmonic regurgitation present. The aortic root size is normal. Normal inferior vena cava with normal inspiratory collapse consistent with estimated right atrial pre ssure of 5 mmHg. There is no pericardial effusion. CONCLUSIONS -------- 1. The left ventricular size is normal. 2. There is moderate concentric left ventricular hypertrophy. 3. Overall left ventricular systolic function is mild-moderately impaired with, an EF between 40 - 45 %. 4. The right ventricle is mildly enlarged. 5. The aortic valve is trileaflet, and appears structurally normal. No aortic stenosis or regurgitati on. 6. There is no pericardial effusion. ASSISTANT BOOKKEEPER: Annie Vicente RDCS
[2020-08-27] MEDS ORDERED: SYMBICORT 80-4.5 MCG INHALER INHALATION SCH (20:00)
[2020-08-27] MEDS ORDERED: lisinopriL 10 MG TAB PO SCH (21:00)
[2020-08-27] MEDS ORDERED: MONTELUKAST 10 MG TAB PO SCH (21:00)
--- NOTE | 2020-09-09 10:09 | P.DS ---
Providers Date of admission: 08/26/20 13:27 Expected date of discharge: 08/27/20 Attending physician: Cedric Giraldo Consults: 08/26/20 13:28 Consult Physician Urgent Consulting Provider: Linden Valdes Consult Reason/Comments: chest pain Do you want consulting provider notified?: Yes Primary care physician: Cedric Kristal [facility] Course: Diagnosis on discharge: 1. Chest pain. Troponins negative 3. Cardiology services have been consulted. D-dimer ordered. Chest x-ray negative 2. Significant history for coronary artery disease with multiple stents 3. Paroxysmal atrial fibrillation. maintained on eliquis 4. History of AAA repair 5. History of multiple sclerosis 6. History of hyperlipidemia. Maintained on statin 7. History of hypertension Hospital course: This is a 74-year-old male patient who presented to the hospital with complaints of chest pain. Patient reports that chest pain was associated with diaphoresis and nausea similar to previous episodes he had with his heart attacks. Patient has a significant past medical history of coronary artery disease with stents, A. fib, AAA repair, multiple sclerosis, hyperlipidemia, hypertension, sleep apnea and chronic pain. Chest x-ray completed showing no acute pulmonary process. Troponins negative 3. EKG completed showing atrial fibrillation. Patient maintained on eliquis for anticoagulation. 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 At this time patient is sitting up in chair. Patient denies any further episodes of chest pain. Cardiology services have been consulted. 2-D echo has been ordered. Will order repeat labs and dimer On 08/27/2020 patient was evaluated by cardiology services chest pain atypical chest discomfort cleared for discharge from cardiology standpoint. Continue current medication regime. This time patient denies chest pain or shortness breath. Patient denies nausea vomiting or diarrhea. Patient denies any urinary burning or frequency Patient Condition at Discharge: Stable Plan - Discharge Summary Discharge Rx Participant: No New Discharge Prescriptions: Continue Nitroglycerin Sl Tabs [Nitrostat] 0.4 mg SL Q5M PRN PRN Reason: chest pain Albuterol Sulfate [Proair Hfa] 2 puff INHALATION RT-QID PRN PRN Reason: Shortness Of Breath Or Wheezing Montelukast [Singulair] 10 mg PO DAILY Metoprolol Tartrate [Lopressor] 75 mg PO BID Isosorbide Mononitrate ER [Imdur] 30 mg PO BID Multivitamin [Men's Multi-Vitamin] 1 tab PO DAILY Apixaban [Eliquis] 5 mg PO BID lisinopriL [Zestril] 10 mg PO DAILY Budesonide/Formoterol Fumarate [Symbicort 80-4.5 Mcg Inhaler] 2 puff INHALATION RT-BID Aspirin EC [Ecotrin Low Dose] 81 mg PO DAILY Vitamin B Complex 1 cap PO DAILY Cholecalciferol [Vitamin D3 (25 Mcg = 1000 Iu)] 50 mcg PO DAILY Atorvastatin [Lipitor] 20 mg PO DAILY Loratadine [Claritin] 10 mg PO DAILY Discharge Medication List Albuterol Sulfate [Proair Hfa] 2 puff INHALATION RT-QID PRN 09/11/13 [History] Isosorbide Mononitrate ER [Imdur] 30 mg PO BID 09/11/13 [History] Metoprolol Tartrate [Lopressor] 75 mg PO BID 09/11/13 [History] Montelukast [Singulair] 10 mg PO DAILY 09/11/13 [History] Multivitamin [Men's Multi-Vitamin] 1 tab PO DAILY 09/11/13 [History] Nitroglycerin Sl Tabs [Nitrostat] 0.4 mg SL Q5M PRN 09/11/13 [History] Apixaban [Eliquis] 5 mg PO BID 12/10/17 [History] lisinopriL [Zestril] 10 mg PO DAILY 12/10/17 [History] Aspirin EC [Ecotrin Low Dose] 81 mg PO DAILY 08/26/20 [History] Atorvastatin [Lipitor] 20 mg PO DAILY 08/26/20 [History] Budesonide/Formoterol Fumarate [Symbicort 80-4.5 Mcg Inhaler] 2 puff INHALATION RT-BID 08/26/20 [History] Cholecalciferol [Vitamin D3 (25 Mcg = 1000 Iu)] 50 mcg PO DAILY 08/26/20 [History] Loratadine [Claritin] 10 mg PO DAILY 08/26/20 [History] Vitamin B Complex 1 cap PO DAILY 08/26/20 [History] Follow up Appointment(s)/Referral(s): Cedric Giraldo MD [Primary Care Provider] - 1-2 days (Please call office Sunday morning to make appointment) Juancarlos Forde MD [STAFF PHYSICIAN] - 09/07/20 10:00 am Patient Instructions/Handouts: Chest Pain (DC)
== END 2020-08-27 14:24 ==
LOC: EC 11:47 → 6NMEDSUR 13:27
PROVIDERS: ADMIT Internal Medicine; ATTEND Internal Medicine
DX: R07.89 Other chest pain (principal); I25.10 Atherosclerotic heart disease of native coronary artery without angina pectoris; I48.21 Permanent atrial fibrillation; Z20.822 Contact with and (suspected) exposure to COVID-19; G35 Multiple sclerosis; I25.2 Old myocardial infarction; E78.5 Hyperlipidemia, unspecified; I10 Essential (primary) hypertension; G47.33 Obstructive sleep apnea (adult) (pediatric); I71.4 Abdominal aortic aneurysm, without rupture; R11.2 Nausea with vomiting, unspecified; R42 Dizziness and giddiness; R20.0 Anesthesia of skin; J45.909 Unspecified asthma, uncomplicated; G89.29 Other chronic pain; M54.5 Low back pain; Z79.899 Other long term (current) drug therapy; Z79.82 Long term (current) use of aspirin; Z79.51 Long term (current) use of inhaled steroids; Z79.01 Long term (current) use of anticoagulants; Z87.891 Personal history of nicotine dependence; Z86.79 Personal history of other diseases of the circulatory system; Z90.49 Acquired absence of other specified parts of digestive tract; Z98.41 Cataract extraction status, right eye; Z95.5 Presence of coronary angioplasty implant and graft; Z98.42 Cataract extraction status, left eye; Z82.49 Family history of ischemic heart disease and other diseases of the circulatory system; Z80.9 Family history of malignant neoplasm, unspecified
CPT/HCPCS: 93005 ×2; 96360; 96361; 99285; 36415; 94760; 93306; 85379; 83880; 80061; 80053 ×2; 83690; 83735; 84484; 85025 ×2; 85610; 85730; 87635; 71046; G0378 ×2

== ENCOUNTER → 2021-01-06 | Outpatient (CLI) | payer MEDICARE, BC ==
--- NOTE | 2021-01-06 21:39 | SFUN ---
SLEEP CENTER FOLLOW UP NOTE DATE OF SERVICE: 01/06/2021 This 75-year-old gentleman has been followed in Sleep Center for treatment of obstructive sleep apnea-hypopnea syndrome. The patient has not been seen in the office for about 1-1/2 years. He continues to use his equipment. His weight has significantly changed; it is up by 32 pounds since previous visit. [place] Sleepiness Scale today is 1, which is normal. I checked his CPAP unit. Range of the pressure is 5 to 15, average pressure 13.8. Usage 30/30 nights for more than 4 hours, average 9.5 hours per night. Leak is only 1 L/minute, which is perfect. Apnea-hypopnea index increased to 10.8, which includes apnea index 8.9 and central apnea index 2.9. MEDICATIONS: 1. Loratadine. 2. Vitamin B12. 3. Aspirin 81 mg once a day. 4. Albuterol. 5. Symbicort. 6. Metoprolol. 7. Isosorbide. 8. Montelukast. 9. Lisinopril. 10.Atorvastatin. 11.Nitroglycerin as needed. The patient did not bring a list of his medications; said there are no changes of medications. This is the list of medications from the previous visit. PHYSICAL EXAMINATION: GENERAL: Pleasant patient in no distress. VITAL SIGNS: BP 133/91, HR 70, RR 18, height 5 feet 11 inches, weight 301.6, body mass index 41.9, temperature 96.2, oxygen saturation at room air 96%. HEENT: PERRLA, EOMI, evaluation of oropharynx showed tongue protrudes midline. Extremely low position of soft palate; Mallampati IV. NECK: Supple, no JVD. Thyroid is not palpable. LUNGS: Clear to percussion and to auscultation. Good air exchange. No wheezing or rhonchi. HEART: S1, S2 irregular. ABDOMEN: Obese. EXTREMITIES: No clubbing or cyanosis. RAWHIDE TRIMMER: Awake, alert, and oriented X3. Cranial nerves 2 to 7 intact. There is no fasciculation or atrophy. noted. No focal deficits observed. IMPRESSION: 1. Obstructive sleep apnea-hypopnea syndrome. Patient demonstrated 100% compliance with treatment. Apnea-hypopnea index from the reading from the machine increased to 10.8. During previous visit 1-1/2 years ago, it was 3.0. Increasing index is most probably related to increasing weight. 2. Obesity. Patient's weight increased by 32 pounds; body mass index 41.9. 3. Atrial fibrillation. 4. Hypertension. 5. Coronary artery disease, status post multiple stent insertions. 6. Status post surgical treatment for abdominal aortic aneurysm. 7. Status post stent insertion to femoral arteries. 8. History of asthma. 9. 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 10.Status post cholecystectomy. PLAN: 1. I changed regimen of the machine to the range of the pressure 5 to 20 cm of water, automatic regimen. 2. Patient will continue to use PAP equipment every night for the whole night. 3. Sleep hygiene with regular time in bed for at least 7-1/2 to 8 hours. 4. Precautions related to driving. No driving if feeling sleepiness. 5. I will maintain all necessary prescription for PAP supplies including mask, tube, filters. 6. Watching weight. 7. Follow-up visit in 6 months or earlier if patient has any problems. Thank you very much for allowing me to participate in the management of your patient. Sincerely, Enrique Medina MD, PhD, FAASM Diplomat of [employer] Sleep Medicine Board of [employer] Neurology Specialist of [facility] [place] [email or web address] / FREEDOMN: [id number] /
== END | disposition home or self-care (01) ==
LOC: SLEEP 15:01
PROVIDERS: ATTEND Internal Medicine
DX: G47.33 Obstructive sleep apnea (adult) (pediatric) (principal); E66.9 Obesity, unspecified; I48.91 Unspecified atrial fibrillation; I10 Essential (primary) hypertension; I25.10 Atherosclerotic heart disease of native coronary artery without angina pectoris; Z68.41 Body mass index [BMI] 40.0-44.9, adult

== ENCOUNTER → 2021-07-06 | Outpatient (CLI) | payer MEDICARE, BC ==
--- NOTE | 2021-07-06 18:32 | SFUN ---
SLEEP CENTER FOLLOW UP NOTE DATE OF SERVICE: 07/06/2021 75-year-old gentleman has been followed in Sleep Center for treatment of obstructive sleep apnea-hypopnea syndrome. Patient continued to use his CPAP equipment every night for the whole night. During the previous visit I changed range of the pressure from 5-15 cm of water to 5 to 20 cm of water. [place] Sleepiness Scale today is 3 which is totally normal. I checked CPAP unit. Range of pressure 5-20 average 15.2, usage 30/30 nights for more than 4 hours. Average 9.2 hours per night. Great compliance. Leak is only 2 L/minute. Apnea-hypopnea index increased to 13.6 and that is included central apnea-hypopnea index of 4.7. CURRENT MEDICATIONS: Loratadine 10 mg once a day, lisinopril 10 mg once a day, isosorbide 30 mg twice a day, metoprolol 50 mg 1-1/2 tablet twice a day, apixaban 5 mg twice a day, aspirin 81 mg once a day, albuterol inhaler, fluticasone, montelukast 10 mg once a day, atorvastatin 40 mg once a day, nitroglycerin as needed, Lasix 20 mg once a day, Klor-Con supplement. PHYSICAL EXAMINATION: gentleman without distress. BP 116/70, HR around 100, RR 18, weight 303.8 which is only 2 pounds more than during previous visit. Temperature 97.2, oxygen saturation at room air 97%. Oropharynx: Extremely low position of soft palate, Mallampati 4. NECK: Supple, no JVD. Thyroid is not palpable. LUNGS: Clear to percussion and to auscultation. Good air exchange. No wheezing or rhonchi. HEART: S1, S2 irregular. No murmurs, gallops, or rubs. ABDOMEN: Obese. Soft and nontender. Bowel sounds are present. No organomegaly appreciated. EXTREMITIES: No clubbing or cyanosis. ASSEMBLER GARMENT FORM: Awake, alert, and oriented X3. Cranial nerves 2 to 7 intact. There is no fasciculation or atrophy. noted. No focal deficits observed. IMPRESSION: 1. Obstructive sleep apnea-hypopnea syndrome. Patient demonstrated great compliance with treatment, benefitting from treatment. Apnea-hypopnea index increased to mild range, including some central events. 2. Obesity. 3. Atrial fibrillation. 4. Hypertension. 5. Coronary artery disease, status post multiple stent insertions. 6. Status post surgical treatment for abdominal aortic aneurysm. 7. Status post stent insertion to femoral arteries. 8. Asthma. 9. History of multiple sclerosis with lesions in the spinal cord. 10.Status post cholecystectomy. PLAN: 1. Patient will continue to use PAP equipment every night for the whole night. 2. Sleep hygiene with regular time in bed for at least 7-1/2 to 8 hours. 3. Precautions related to driving. No driving if feeling sleepiness. 4. I will maintain all necessary prescription for PAP supplies including mask, tube, filters. 5. Watching weight. 6. Follow-up visit in 4 months or earlier if patient has any problems. Thank you very much for allowing me to participate in management of your patient. Sincerely, Enrique Medina MD, PhD, FAASM Diplomat of [employer] Sleep Medicine Board of [employer] Reducing Salon Attendant of [facility] [place] MMODL / FREEDOMN: [id number] /
== END | disposition home or self-care (01) ==
LOC: SLEEP 13:53
PROVIDERS: ATTEND Internal Medicine
DX: G47.33 Obstructive sleep apnea (adult) (pediatric) (principal); J45.909 Unspecified asthma, uncomplicated; E66.9 Obesity, unspecified; I10 Essential (primary) hypertension; I48.91 Unspecified atrial fibrillation; I25.10 Atherosclerotic heart disease of native coronary artery without angina pectoris; G35 Multiple sclerosis; Z90.49 Acquired absence of other specified parts of digestive tract

== ENCOUNTER → 2021-10-03 | Outpatient (CLI) | payer MEDICARE, BC ==
[2021-10-03 11:05] LABS: ALT 25 U/L (10-49); AST 32 U/L (14-35); African American GFR (CKD) 97.8 (60.0-200.0); Albumin 3.9 g/dL (3.8-4.9); Albumin/Globulin Ratio 1.39 (1.60-3.17); Alkaline Phosphatase 56 U/L (41-126); BUN/Creat Ratio 27.87 Ratio (12.00-20.00); Blood Urea Nitrogen 24.3 mg/dL (9.0-27.0); Calcium 9.1 mg/dL (8.7-10.3); Carbon Dioxide 27.3 mmol/L (20.0-27.5); Chloride 106 mmol/L (96-109); Chol/HDL Ratio 4.47 Ratio; Globulin 2.8 g/dL (1.6-3.3); Glucose 111 mg/dL (70-110); LDL Cholesterol,Calculated 76.5 mg/dL (0.0-131.0); Non-African American GFR(CKD) 84.3 (60.0-200.0); Potassium 4.8 mmol/L (3.5-5.5); Sodium 142 mmol/L (135-145); Total Protein 6.8 g/dL (6.2-8.2)
== END | disposition home or self-care (01) ==
LOC: LABWHC1 07:11
PROVIDERS: ATTEND Internal Medicine Interventional Cardiology
DX: E78.2 Mixed hyperlipidemia (principal)
CPT/HCPCS: 36415; 80053; 80061

== ENCOUNTER 2022-06-02 14:04 | Observation (INO) | payer MEDICARE, BC ==
--- NOTE | 2022-06-02 15:27 | XR ---
EXAMINATION TYPE: XR chest 2V DATE OF EXAM: 06/02/2022 3:24 PM COMPARISON: Chest radiographs from 08/26/2020. TECHNIQUE: XR chest 2V Frontal and lateral views of the chest. CLINICAL INDICATION:Male, 76 years old with history of Chest Pain; FINDINGS: Lungs/Pleura: There is no evidence of pleural effusion, focal consolidation, or pneumothorax. Pulmonary vascularity: Unremarkable. Heart/mediastinum: Cardiomediastinal silhouette is unremarkable. Atherosclerotic calcifications are seen in the aorta. Musculoskeletal: Multiple level degenerative disc disease changes seen throughout the spine. No acute osseous abnormality. Other findings: Surgical clips in upper abdomen. IMPRESSION: No acute cardiopulmonary disease/process.
--- NOTE | 2022-06-02 15:28 | ED ---
Chest Pain HPI - General Chief Complaint: Chest Pain Stated Complaint: NVD Time Seen by Provider: 06/02/22 15:07 Source: patient Mode of arrival: ambulatory Limitations: no limitations - History of Present Illness Initial Comments: This patient is 76-year-old man who presents here to have evaluation for constellation of symptoms that started this morning when he was at the pool. The patient states that he had been swimming and then when he got out of the pool he started feeling lightheaded. He had 2 leaning against the wall for balance. The patient also noted that there was a little bit of nausea, diffuse lately sweating, and he had some lower sternal discomfort. He states that this was very similar to what he had with the previous myocardial infarction. The patient also then experienced some dry heaves and diarrhea, then his convinced him to come to the hospital after he got home. The patient states all of the symptoms have resolved now. MD Complaint: chest pain -: hour(s) Onset: during exertion Pain Location: substernal Pain Radiation: none Severity: mild Quality: dull Consistency: now resolved Improves With: rest Worsens With: nothing Anginal Symptoms: nausea, vomiting, diaphoresis Treatments Prior to Arrival: none - Related Data Home Medications Medication Instructions Recorded Confirmed Albuterol Sulfate [Proair Hfa] 2 puff INHALATION RT-QID PRN 09/11/13 06/02/22 Isosorbide Mononitrate ER [Imdur] 30 mg PO DIRECTED 09/11/13 06/02/22 Metoprolol Tartrate [Lopressor] 75 mg PO BID 09/11/13 06/02/22 Montelukast [Singulair] 10 mg PO DAILY 09/11/13 06/02/22 Multivitamin [Men's Multi-Vitamin] 1 tab PO DAILY 09/11/13 06/02/22 Nitroglycerin Sl Tabs [Nitrostat] 0.4 mg SL Q5M PRN 09/11/13 06/02/22 Apixaban [Eliquis] 5 mg PO BID 12/10/17 06/02/22 lisinopriL [Zestril] 10 mg PO HS 12/10/17 06/02/22 Aspirin EC [Ecotrin Low Dose] 81 mg PO DAILY 08/26/20 06/02/22 Atorvastatin [Lipitor] 20 mg PO Q48H 08/26/20 06/02/22 Loratadine [Claritin] 10 mg PO DAILY 08/26/20 06/02/22 Cholecalciferol [Vitamin D3 (125 125 mcg PO DAILY 06/02/22 06/02/22 Mcg = 5000 Iu)] Cyanocobalamin (Vitamin B-12) 1,000 mcg PO DAILY 06/02/22 06/02/22 [Vitamin B-12] Fluticasone Propion/Salmeterol 1 puff INHALATION RT-BID 06/02/22 06/02/22 [Fluticasone-Salmeterol 250-50] Furosemide [Lasix] 20 mg PO DAILY 06/02/22 06/02/22 HYDROcodone/APAP 10-325MG [[place] 1 tab PO Q8H PRN 06/02/22 06/02/22 10-325] Neuriva Brain Supplement 1 tab PO BID 06/02/22 06/02/22 Potassium Chloride ER [K-Dur 10] 10 meq PO DAILY 06/02/22 06/02/22 Allergies Allergy/AdvReac Type Severity Reaction Status Date / Time No Known Allergies Allergy Verified 06/02/22 15:18 Review of Systems ROS Statement: Those systems with pertinent positive or pertinent negative responses have been documented in the HPI. ROS Other: All systems not noted in ROS Statement are negative. Constitutional: Denies: fever, chills, weakness Eyes: Denies: vision change Respiratory: Denies: cough, dyspnea Cardiovascular: Reports: chest pain Gastrointestinal: Reports: nausea, vomiting, diarrhea. Denies: abdominal pain Genitourinary: Denies: dysuria, hematuria Musculoskeletal: Denies: back pain Skin: Denies: rash Neurological: Reports: vertigo. Denies: headache, weakness, numbness EKG Findings - EKG Results: EKG: interpreted by ERMD, normal axis EKG shows: atrial fibrillation (With occasional PVCs, rate approximately 91 bpm) - Blocks, [place], Hypertrophy, ST Abn: Repolarization changes or abnormalities: nonspecific abnormality, ST segment, and/or T wave Past Medical History Past Medical History: Atrial Fibrillation, Asthma, Coronary Artery Disease (CAD), Chest Pain / Angina, Hyperlipidemia, Hypertension, Myocardial Infarction (IA), Musculoskeletal Disorder, Neurologic Disorder, Sleep Apnea/CPAP/BIPAP, Vascular Disorder Additional Past Medical History / Comment(s): Ishemic heart disease, paroxysmal VT, AAA with repair, MS treated experimentally with chemo, bilateral feet numbness, [place] with Cpap, cervical and low back pain, Last Myocardial Infarction Date:: 1995 History of Any Multi-Drug Resistant Organisms: None Reported Past Surgical History: Cholecystectomy, Heart Catheterization, Heart Cath eterization With Stent Additional Past Surgical History / Comment(s): AAA repair, bilateral cataract removals, colonoscopy. Past Anesthesia/Blood Transfusion Reactions: No Reported Reaction Date of Last Stent Placement:: 1995 Past Psychological History: No Psychological Hx Reported Smoking Status: Former smoker Past Alcohol Use History: None Reported Past Drug Use History: None Reported - Past Family History Mother Family Medical History: Cancer Additional Family Medical History / Comment(s): Mother at the age of 58yrs from metastatic cancer. Father Family Medical History: Myocardial Infarction (IA) Additional Family Medical History / Comment(s): Father of a IA at the age of 52 yrs. General Exam Limitations: no limitations General appearance: alert, in no apparent distress Head exam: Present: atraumatic, normocephalic Eye exam: Present: normal appearance. Absent: scleral icterus, conjunctival injection Neck exam: Present: normal inspection Respiratory exam: Present: normal lung sounds bilaterally. Absent: respiratory distress, wheezes, rales, rhonchi, stridor Cardiovascular Exam: Present: irregular rhythm, normal heart sounds. Absent: systolic murmur, diastolic murmur, rubs, gallop GI/Abdominal exam: Present: soft. Absent: distended, tenderness, guarding, rebound, rigid, mass Extremities exam: Present: normal inspection, normal capillary refill. Absent: pedal edema, calf tenderness Back exam: Present: normal inspection. Absent: CVA tenderness (R), CVA tenderness (L) Neurological exam: Present: alert Skin exam: Present: warm, dry, intact, normal color. Absent: rash Course Vital Signs 06/02/22 06/02/22 14:11 19:26 Pulse Rate 52 L 78 Respiratory 24 16 Rate Blood Pressure 134/73 150/90 O2 Sat by Pulse 99 96 Oximetry Chest Pain MDM - MDM The patient had chest x-ray which I interpreted as not showing acute infiltrate, congestive heart failure or pneumothorax. This patient is 76-year-old man who presents with constellation of symptoms, some suggestive of possible anginal etiology, some suggestive possible GI etiology. His initial workup here is negative. Patient will be admitted to have serial cardiac enzymes, telemetry monitoring, cardiology consultation. Was pt. sent in by a medical professional or institution (BRIAN Tucker, ORGANIZATIONAL DEVELOPMENT SPECIALIST, urgent care, hospital, or fpc...) When possible be specific @ -[No] Did you speak to anyone other than the patient for history (EMS, parent, family, police, friend...)? What history was obtained from this source @ -[ Did you review nursing and triage notes (agree or disagree)? Why? @ -[I reviewed and agree with nursing and triage notes] Were old charts reviewed (outside hosp., previous admission, EMS record, old EKG, old radiological studies, urgent care reports/EKG's, fpc records)? Report findings @ -[No old charts were reviewed] Differential Diagnosis (chest pain, altered mental status, abdominal pain women, abdominal pain men, vaginal bleeding, weakness, fever, dyspnea, syncope, headache, dizziness, GI bleed, back pain, seizure, CVA, palpatations, mental health, musculoskeletal)? @ -[Differential Chest Pain: Stable Angina, Unstable Angina, STEMI, NSTEMI Aortic Dissection, Pneumothorax, Musculoskeletal, Esophageal Spasm GERD, Cholecystitis, Pancreatitis, Zoster, this is not meant to be an all-inclusive list. EKG interpreted by me (3pts min.). @ -[As above] X-rays interpreted by me (1pt min.). @ -[As above CT interpreted by me (1pt min.). @ -[None done] U/S interpreted by me (1pt. min.). @ -[None done] What testing was considered but not performed or refused? (CT, X-rays, U/S, labs)? Why? @ -[None] What meds were considered but not given or refused? Why? @ -[None] Did you discuss the management of the patient with other professionals (professionals i.e. BRIAN Tucker, ORGANIZATIONAL DEVELOPMENT SPECIALIST, lab, RT, psych nurse, social work professor, radial drill press operator for plastic, teacher, commanding officer motorized squad, telephonic nurse case manager)? Give summary @ -[Case discussed with admitting physician Was smoking cessation discussed for >3mins.? @ -[No] Was critical care preformed (if so, how long)? @ -[No] Were there social determinants of health that impacted care today? How? (Homelessness, low income, unemployed, alcoholism, drug addiction, transportation, low edu. Level, literacy, decrease access to med. care, half-way, rehab)? @ -[No] Was there de-escalation of care discussed even if they declined (Discuss DNR or withdrawal of care, Hospice)? DNR status @ -[No] What co-morbidities impacted this encounter? (DM, HTN, Smoking, COPD, CAD, Cancer, CVA, ARF, Chemo, Hep., AIDS, mental health diagnosis, sleep apnea, morbid obesity)? @ -[CAD/hypertension Was patient admitted / discharged? Hospital course, mention meds given and route, prescriptions, significant lab abnormalities, going to OR and other pertinent info. @ -[Patient admitted Undiagnosed new problem with uncertain prognosis? @ -[No] Drug Therapy requiring intensive monitoring for toxicity (Heparin, Nitro, Insulin, Cardizem)? @ -[No] Were any procedures done? @ -[No] Diagnosis/symptom? @ -[Acute chest pain, uncomplicated Acute, or Chronic, or Acute on Chronic? @ -[default] Uncomplicated (without systemic symptoms) or Complicated (systemic symptoms)? @ -[default] Side effects of treatment? @ -[No] Exacerbation, Progression, or Severe Exacerbation? @ -[No] Poses a threat to life or bodily function? How? (Chest pain, [place], [place], pneumonia, PE, COPD, DKA, ARF, appy, cholecystitis, CVA, Diverticulitis, Homicidal, S uicidal, threat to staff... and all critical care pts) @ -[Yes Disposition Clinical Impression: Chest pain Disposition: ADMITTED IP TO THIS HOSP Condition: Good Instructions (If sedation given, give patient instructions): Chest Pain (ED) Is patient prescribed a controlled substance at d/c from ED?: No Referrals: Cedric Giraldo MD [Primary Care Provider] - 1-2 days
[2022-06-02 15:42] LABS: ALT 54 U/L (4-49); AST 48 U/L (17-59); African American GFR (CKD) >90 (>60 ml/min/1.73 sqM); Alkaline Phosphatase 65 U/L (38-126); Anion Gap 2 mmol/L; Blood Urea Nitrogen 30 mg/dL (9-20); Calcium 9.2 mg/dL (8.4-10.2); Carbon Dioxide 32 mmol/L (22-30); Chloride 106 mmol/L (98-107); Glucose 137 mg/dL (74-99); Magnesium 2.5 mg/dL (1.6-2.3); Non-African American GFR(CKD) 88 (>60 ml/min/1.73 sqM); Potassium 5.3 mmol/L (3.5-5.1); Sodium 140 mmol/L (137-145); Total Bilirubin 0.4 mg/dL (0.2-1.3); Total Protein 6.9 g/dL (6.3-8.2)
[2022-06-02 15:50] LABS: Basophils # (A) 0.1 k/uL (0-0.2); Basophils % (A) 1 %; Eosinophils # (A) 0.1 k/uL (0-0.7); Eosinophils % (A) 1 %; HCT 44.8 % (39.0-53.0); HGB 15.2 gm/dL (13.0-17.5); Lymphocytes # (A) 1.3 k/uL (1.0-4.8); Lymphocytes % (A) 11 %; MCH 31.8 pg (25.0-35.0); MCV 93.5 fL (80.0-100.0); Mean Platelet Volume 7.4; Monocytes # (A) 0.5 k/uL (0-1.0); Monocytes % (A) 4 %; Neutrophils # (A) 9.5 k/uL (1.3-7.7); Neutrophils % (A) 82 %; Platelet Count 295 k/uL (150-450); RBC 4.79 m/uL (4.30-5.90); RDW 13.7 % (11.5-15.5); WBC 11.5 k/uL (3.8-10.6)
[2022-06-02 15:52] LABS: Partial Thromboplastin Time 23.7 sec (22.0-30.0); Prothrombin Time 10.8 sec (9.0-12.0)
[2022-06-02 19:27] LABS: Appearance,Urine Turbid (Clear); Bacteria,Urine Many /hpf; Bilirubin,Urine Negative (Negative); Blood,Urine Large (Negative); Color,Urine Red; Glucose,Urine (UA) Negative (Negative); Ketones,Urine 1+ (Negative); Leukocyte Esterase,Urine Trace (Negative); Mucus,Urine Few /hpf; Nitrite,Urine Negative (Negative); PH, Urine 5.5 (5.0-8.0); Protein,Urine 1+ (Negative); RBC,Urine >182 /hpf (0-5); Specific Gravity,Urine 1.023 (1.001-1.035); Urobilinogen,Urine <2.0 mg/dL (<2.0); WBC,Urine 5 /hpf (0-5)
[2022-06-02] MEDS ORDERED: NITROGLYCERIN SL TABS 0.4 MG TAB SUBLINGUAL PRN (20:23)
[2022-06-02] MEDS ORDERED: HYDROcodone/APAP 10-325MG 1 EACH TAB PO PRN (20:25)
[2022-06-02] MEDS ORDERED: ALBUTEROL HFA INHALER INHALATION PRN (20:25)
[2022-06-02] MEDS ORDERED: ALBUTEROL NEBULIZED 2.5 MG/3 ML INHALATION PRN (20:45)
[2022-06-02] MEDS ORDERED: lisinopriL 10 MG TAB PO SCH (21:00)
[2022-06-02] MEDS: APIXABAN 5 MG TAB PO SCH (21:44)
[2022-06-02] MEDS: METOPROLOL TARTRATE 25 MG TAB PO SCH (21:44)
[2022-06-02] MEDS: ISOSORBIDE MONONITRATE ER 30 MG TAB.ER.24H PO SCH (21:44)
[2022-06-03 07:50] VITALS: BP 118/60; PULSE 63; RESP 16; TEMP 97.4
[2022-06-03] MEDS ORDERED: SYMBICORT 80-4.5 MCG INHALER INHALATION SCH (08:00)
[2022-06-03] MEDS ORDERED: ASPIRIN 325 MG TAB PO SCH (09:00)
[2022-06-03] MEDS ORDERED: ASPIRIN 81 MG PO SCH (09:00)
[2022-06-03] MEDS ORDERED: POTASSIUM CHLORIDE ER 10 MEQ TAB.ER.PRT PO SCH (09:00)
[2022-06-03] MEDS ORDERED: MONTELUKAST 10 MG TAB PO SCH (09:00)
[2022-06-03] MEDS ORDERED: FUROSEMIDE 20 MG TAB PO SCH (09:00)
[2022-06-03] MEDS ORDERED: CYANOCOBALAMIN 500 MCG TAB PO SCH (09:00)
[2022-06-03] MEDS ORDERED: ATORVASTATIN 40 MG TAB PO SCH (09:00)
[2022-06-03] MEDS ORDERED: CHOLECALCIFEROL 125 MCG (5000 IU) TABLET PO SCH (09:00)
[2022-06-03] MEDS ORDERED: NITROGLYCERIN SL TABS 0.4 MG TAB SUBLINGUAL PRN (09:14)
--- NOTE | 2022-06-03 10:45 | P.CRDCN ---
History of Present Illness History of present illness: HISTORY OF PRESENTING ILLNESS Patient is pleasant 76-year-old male with history of CAD status post PCI, paroxysmal atrial fibrillation, hypertension, hyperlipidemia, sleep apnea, multiple sclerosis who presents secondary chest pain. He states overall he had been feeling fine and had actually just finished swimming at the [employer] which she does 3 days a week. In the locker room he started to develop substernal chest pain associated with some nausea however no diaphoresis and no shortness breath. He states he felt somewhat foggy as well. Chest pain persisted for a few hours until he had a room up in the hospital. He had been feeling better however convinced him to go the hospital. EKG initially showed atrial fibrillation however this morning patient is in normal sinus rhythm. For his atrial fibrillation appeared relatively controlled with heart rates in the 80s to 90s. Currently he feels like his normal self and denies any chest pain or shortness breath. He does have testing scheduled including stress test and echo in the office. Troponin was noted to be normal 3. REVIEW OF SYSTEMS At the time of my exam: CONSTITUTIONAL: Denies fever or chills. CARDIOVASCULAR: +chest pain, no shortness of breath, orthopnea, PND or palpitations. RESPIRATORY: Denies cough. GASTROINTESTINAL: Denies abdominal pain, diarrhea, constipation, +nausea, no vomiting. MUSCULOSKELETAL: Denies myalgias. NEUROLOGIC: Denies numbness, tingling or weakness. ENDOCRINE: Denies fatigue, weight change, polydipsia or polyurina. GENITOURINARY: Denies burning, hematuria or urgency with micturation. HEMATOLOGIC: Denies history of anemia or bleeding. PHYSICAL EXAMINATION Vital signs reviewed. CONSTITUTIONAL: No apparent distress. HEENT: Head is normocephalic. Pupils are equal, round. Sclerae anicteric. Mucous membranes of the mouth are moist. No JVD. No carotid bruit. CHEST EXAMINATION: Lungs are clear to auscultation. No chest wall tenderness is noted on palpation or with deep breathing. HEART EXAMINATION: Regular rate and rhythm. S1, S2 heard. No murmurs, gallops or rub. ABDOMEN: Soft, nontender. Positive bowel sounds. EXTREMITIES: 2+ peripheral pulses, no lower extremity edema and no calf tenderness. NEUROLOGIC EXAMINATION: Patient is awake, alert and oriented x3. ASSESSMENT 1. Episode of chest pain atypical and may be musculoskeletal however also noted to be in A. fib with a relatively controlled ventricular rates on presentation and back in sinus rhythm this morning. May be related to symptomatic A. fib 2. Paroxysmal atrial fibrillation 3. CAD with history of PCI in the past 4. Hypertension 5. Hyperlipidemia 6. Obstructive sleep apnea 7. History of multiple sclerosis PLAN Patient's chest pain is atypical with troponins noted to be normal 3. He was however noted to be in A. fib with a relatively controlled ventricular rates and episode may be related to symptomatic A. fib with patient being in normal rhythm currently. Not a clear correlation if the chest pain resolved with him converting to normal sinus rhythm. Recommend outpatient event monitor to evaluate Afib burden. Otherwise patient may have outpatient stress testing which is artery been scheduled. Appears stable for discharge home. Continue with current regimen including anticoagulation as well as beta paige and as needed nitro. Follow-up with Dr. Rodriguez in one week. Past Medical History Past Medical History: Atrial Fibrillation, Asthma, Coronary Artery Disease (CAD), Chest Pain / Angina, Hyperlipidemia, Hypertension, Myocardial Infarction ([place]), Musculoskeletal Disorder, Neurologic Disorder, Sleep Apnea/CPAP/BIPAP, Vascular Disorder Additional Past Medical History / Comment(s): Ishemic heart disease, paroxysmal VT, AAA with repair, MS treated experimentally with chemo, bilateral feet numbness, [place] with Cpap, cervical and low back pain, Last Myocardial Infarction Date:: 1995 History of Any Multi-Drug Resistant Organisms: None Reported Past Surgical History: Cholecystectomy, Heart Catheterization, Heart Catheterization With Stent Additional Past Surgical History / Comment(s): AAA repair, bilateral cataract removals, colonoscopy. Past Anesthesia/Blood Transfusion Reactions: No Reported Reaction Date of Last Stent Placement:: 1995 Past Psychological History: No Psychological Hx Reported Additional Psychological History / Comment(s): Pt resides with his spouse. He uses a rollator walker. He is independent. He served in the [employer]. Smoking Status: Former smoker Past Alcohol Use History: None Reported Additional Past Alcohol Use History / Comment(s): Pt started smoking as a teen and quit in 1987. He was a 2.5 ppd smoker. Past Drug Use History: None Reported - Past Family History Mother Family Medical History: Cancer Additional Family Medical History / Comment(s): Mother at the age of 58yrs from metastatic cancer. Father Family Medical History: Myocardial Infarction ([place]) Additional Family Medical History / Comment(s): Father of a [place] at the age of 52 yrs. Medications and Allergies Home Medications Medication Instructions Recorded Confirmed Type Albuterol Sulfate [Proair Hfa] 2 puff INHALATION RT-QID PRN 09/11/13 06/02/22 History Isosorbide Mononitrate ER [Imdur] 30 mg PO DIRECTED 09/11/13 06/02/22 History Metoprolol Tartrate [Lopressor] 75 mg PO BID 09/11/13 06/02/22 History Montelukast [Singulair] 10 mg PO DAILY 09/11/13 06/02/22 History Multivitamin [Men's Multi-Vitamin] 1 tab PO DAILY 09/11/13 06/02/22 History Nitroglycerin Sl Tabs [Nitrostat] 0.4 mg SL Q5M PRN 09/11/13 06/02/22 History Apixaban [Eliquis] 5 mg PO BID 12/10/17 06/02/22 History lisinopriL [Zestril] 10 mg PO HS 12/10/17 06/02/22 History Aspirin EC [Ecotrin Low Dose] 81 mg PO DAILY 08/26/20 06/02/22 History Atorvastatin [Lipitor] 20 mg PO Q48H 08/26/20 06/02/22 History Loratadine [Claritin] 10 mg PO DAILY 08/26/20 06/02/22 History Cholecalciferol [Vitamin D3 (125 125 mcg PO DAILY 06/02/22 06/02/22 History Mcg = 5000 Iu)] Cyanocobalamin (Vitamin B-12) 1,000 mcg PO DAILY 06/02/22 06/02/22 History [Vitamin B-12] Fluticasone Propion/Salmeterol 1 puff INHALATION RT-BID 06/02/22 06/02/22 History [Fluticasone-Salmeterol 250-50] Furosemide [Lasix] 20 mg PO DAILY 06/02/22 06/02/22 History HYDROcodone/APAP 10-325MG [[place] 1 tab PO Q8H PRN 06/02/22 06/02/22 History 10-325] Neuriva Brain Supplement 1 tab PO BID 06/02/22 06/02/22 History Potassium Chloride ER [K-Dur 10] 10 meq PO DAILY 06/02/22 06/02/22 History Allergies Allergy/AdvReac Type Severity Reaction Status Date / Time No Known Allergies Allergy Verified 06/02/22 15:18 Physical Exam Vitals: Vital Signs Temp Pulse Pulse Resp BP BP Pulse Ox 06/03/22 09:03 95 06/03/22 07:00 97.4 F L 63 16 118/60 93 L 06/03/22 05:08 97.6 F 74 18 126/73 96 06/03/22 01:40 20 06/02/22 22:33 83 20 137/78 96 06/02/22 21:43 90 14 140/86 96 06/02/22 19:26 78 16 150/90 96 06/02/22 14:11 52 L 24 134/73 99 FiO2 06/03/22 09:03 21 06/03/22 07:00 06/03/22 05:08 06/03/22 01:40 06/02/22 22:33 06/02/22 21:43 06/02/22 19:26 06/02/22 14:11 Intake and Output 06/02/22 06/03/22 06/03/22 22:59 06:59 14:59 Intake Total 250 250 Balance 250 250 Intake: Oral 250 250 Other: Voiding Method Toilet # Voids 1 Weight 131.542 kg Results 06/02/22 15:12 06/02/22 15:12 Cardiac Enzymes 06/02/22 06/02/22 06/02/22 Range/Units 15:12 15:12 20:49 AST 48 (17-59) U/L Troponin I <0.012 <0.012 (0.000-0.034) ng/mL 06/02/22 Range/Units 23:42 AST (17-59) U/L Troponin I <0.012 (0.000-0.034) ng/mL Coagulation 06/02/22 Range/Units 15:12 PT 10.8 (9.0-12.0) sec APTT 23.7 (22.0-30.0) sec Lipids 06/02/22 Range/Units 15:12 Triglycerides 191.00 H (0.00-149.00) mg/dL Cholesterol 197.00 (0.00-200.00) mg/dL HDL Cholesterol 35.80 L (40.00-60.00) mg/dL Cholesterol/HDL Ratio 5.50 Ratio CBC 06/02/22 Range/Units 15:12 WBC 11.5 H (3.8-10.6) k/uL RBC 4.79 (4.30-5.90) m/uL Hgb 15.2 (13.0-17.5) gm/dL Hct 44.8 (39.0-53.0) % Plt Count 295 (150-450) k/uL Comprehensive Metabolic Panel 06/02/22 Range/Units 15:12 Sodium 140 (137-145) mmol/L Potassium 5.3 H (3.5-5.1) mmol/L Chloride 106 (98-107) mmol/L Carbon Dioxide 32 H (22-30) mmol/L BUN 30 H (9-20) mg/dL Creatinine 0.80 (0.66-1.25) mg/dL Glucose 137 H (74-99) mg/dL Calcium 9.2 (8.4-10.2) mg/dL AST 48 (17-59) U/L ALT 54 H (4-49) U/L Alkaline Phosphatase 65 (38-126) U/L Total Protein 6.9 (6.3-8.2) g/dL Albumin 4.0 (3.5-5.0) g/dL Current Medications Generic Name Dose Route Start Last Admin Trade Name Freq PRN Reason Stop Dose Admin Hydrocodone Bitart/Acetaminophen 1 each 06/02/22 20:25 Hydrocodone/Apap 10-325mg 1 Each Tab PO Q8H PRN Pain Albuterol Sulfate 2.5 mg 06/02/22 20:45 Albuterol Nebulized 2.5 Mg/3 Ml INHALATION RT-QID PRN Shortness Of Breath Or Wheezing Apixaban 5 mg 06/02/22 21:00 06/02/22 21:44 Apixaban 5 Mg Tab PO 5 mg BID EVELIO Administration Protocol Aspirin 81 mg 06/03/22 09:00 Aspirin 81 Mg PO DAILY [facility] Atorvastatin Calcium 20 mg 06/03/22 09:00 Atorvastatin 40 Mg Tab PO Q48H [facility] Budesonide/Formoterol Fumarate 2 puff 06/03/22 08:00 06/03/22 08:57 Symbicort 80-4.5 Mcg Inhaler INHALATION 2 puff RT-BID EVELIO Administration Cholecalciferol 125 mcg 06/03/22 09:00 Cholecalciferol 125 Mcg (5000 Iu) Tablet PO DAILY [facility] Cyanocobalamin 1,000 mcg 06/03/22 09:00 Cyanocobalamin 500 Mcg Tab PO DAILY [facility] Furosemide 20 mg 06/03/22 09:00 Furosemide 20 Mg Tab PO DAILY [facility] Isosorbide Mononitrate 30 mg 06/02/22 21:00 06/02/22 21:44 Isosorbide Mononitrate Er 30 Mg Tab.Er.24h PO 30 mg BID [facility] Administration Lisinopril 10 mg 06/02/22 21:00 06/02/22 21:44 Lisinopril 10 Mg Tab PO 10 mg HS EVELIO Administration Loratadine 10 mg 06/04/22 09:00 Loratadine 10 Mg Tab PO DAILY [facility] Metoprolol Tartrate 75 mg 06/02/22 21:00 06/02/22 21:44 Metoprolol Tartrate 25 Mg Tab PO 75 mg BID [facility] Administration Montelukast Sodium 10 mg 06/03/22 09:00 Montelukast 10 Mg Tab PO DAILY [facility] Multivitamins 1 each 06/04/22 09:00 Multivitamins, Thera 1 Each Tab PO DAILY [facility] Nitroglycerin 0.4 mg 06/03/22 09:14 Nitroglycerin Sl Tabs 0.4 Mg Tab SUBLINGUAL Q5M PRN chest pain Potassium Chloride 10 meq 06/03/22 09:00 Potassium Chloride Er 10 Meq Tab.Er.Prt PO DAILY [facility] Intake and Output 06/02/22 06/03/22 06/03/22 22:59 06:59 14:59 Intake Total 250 250 Balance 250 250 Intake: Oral 250 250 Other: Voiding Method Toilet # Voids 1 Weight 131.542 kg 06/02/22 15:12 06/02/22 15:12
[2022-06-03] MEDS: METOPROLOL TARTRATE 25 MG TAB PO SCH (11:11)
[2022-06-03] MEDS: ISOSORBIDE MONONITRATE ER 30 MG TAB.ER.24H PO SCH (11:11)
[2022-06-03] MEDS: APIXABAN 5 MG TAB PO SCH (11:11)
--- NOTE | 2022-06-03 12:22 | P.HPIM ---
History of Present Illness H&P Date: 06/03/22 José Miguel Moreira, is a 76-year-old male who presented to [facility] emergency room with a chief complaint of chest pain, patient describes an episode of chest pain that started while he was in the pool, he was also feeling nauseated and lightheaded and diffuse sweating He was evaluated in the emergency room vital examination on presentation revealed a temperature of 98 pulse 52 respiration 24 blood pressure 134/73 pulse ox 99% on room air Laboratory data revealed a white blood count of 11.5 hemoglobin 15.2 platelet count 295 potassium 5.6 platelet creatinine 0.8 magnesium level 2.5 troponin level 0.012 Testing in the emergency room revealed chest x-ray done in the emergency room revealed no acute cardiopulmonary process EKG done in the emergency room revealed atrial fibrillation heart rate 90 Patient was admitted to medical floor for further evaluation and treatment Past Medical History Past Medical History: Atrial Fibrillation, Asthma, Coronary Artery Disease (CAD), Chest Pain / Angina, Hyperlipidemia, Hypertension, Myocardial Infarction ([place]), Musculoskeletal Disorder, Neurologic Disorder, Sleep Apnea/CPAP/BIPAP, Vascular Disorder Additional Past Medical History / Comment(s): Ishemic heart disease, paroxysmal VT, AAA with repair, MS treated experimentally with chemo, bilateral feet numbness, [place] with Cpap, cervical and low back pain, Last Myocardial Infarction Date:: 1995 History of Any Multi-Drug Resistant Organisms: None Reported Past Surgical History: Cholecystectomy, Heart Catheterization, Heart Catheterization With Stent Additional Past Surgical History / Comment(s): AAA repair, bilateral cataract removals, colonoscopy. Past Anesthesia/Blood Transfusion Reactions: No Reported Reaction Date of Last Stent Placement:: 1995 Past Psychological History: No Psychological Hx Reported Additional Psychological History / Comment(s): Pt resides with his spouse. He uses a rollator walker. He is independent. He served in the [employer]. Smoking Status: Former smoker Past Alcohol Use History: None Reported Additional Past Alcohol Use History / Comment(s): Pt started smoking as a teen and quit in 1987. He was a 2.5 ppd smoker. Past Drug Use History: None Reported - Past Family History Mother Family Medical History: Cancer Additional Family Medical History / Comment(s): Mother at the age of 58yrs from metastatic cancer. Father Family Medical History: Myocardial Infarction ([place]) Additional Family Medical History / Comment(s): Father of a [place] at the age of 52 yrs. Medications and Allergies Home Medications Medication Instructions Recorded Confirmed Type Albuterol Sulfate [Proair Hfa] 2 puff INHALATION RT-QID PRN 09/11/13 06/02/22 History Isosorbide Mononitrate ER [Imdur] 30 mg PO DIRECTED 09/11/13 06/02/22 History Metoprolol Tartrate [Lopressor] 75 mg PO BID 09/11/13 06/02/22 History Montelukast [Singulair] 10 mg PO DAILY 09/11/13 06/02/22 History Multivitamin [Men's Multi-Vitamin] 1 tab PO DAILY 09/11/13 06/02/22 History Nitroglycerin Sl Tabs [Nitrostat] 0.4 mg SL Q5M PRN 09/11/13 06/02/22 History Apixaban [Eliquis] 5 mg PO BID 12/10/17 06/02/22 History lisinopriL [Zestril] 10 mg PO HS 12/10/17 06/02/22 History Aspirin EC [Ecotrin Low Dose] 81 mg PO DAILY 08/26/20 06/02/22 History Atorvastatin [Lipitor] 20 mg PO Q48H 08/26/20 06/02/22 History Loratadine [Claritin] 10 mg PO DAILY 08/26/20 06/02/22 History Cholecalciferol [Vitamin D3 (125 125 mcg PO DAILY 06/02/22 06/02/22 History Mcg = 5000 Iu)] Cyanocobalamin (Vitamin B-12) 1,000 mcg PO DAILY 06/02/22 06/02/22 History [Vitamin B-12] Fluticasone Propion/Salmeterol 1 puff INHALATION RT-BID 06/02/22 06/02/22 History [Fluticasone-Salmeterol 250-50] Furosemide [Lasix] 20 mg PO DAILY 06/02/22 06/02/22 History HYDROcodone/APAP 10-325MG [[place] 1 tab PO Q8H PRN 06/02/22 06/02/22 History 10-325] Neuriva Brain Supplement 1 tab PO BID 06/02/22 06/02/22 History Potassium Chloride ER [K-Dur 10] 10 meq PO DAILY 06/02/22 06/02/22 History Allergies Allergy/AdvReac Type Severity Reaction Status Date / Time No Known Allergies Allergy Verified 06/02/22 15:18 Physical Exam Vitals: Vital Signs Temp Pulse Pulse Resp BP BP Pulse Ox 06/03/22 09:03 95 06/03/22 07:00 97.4 F L 63 16 118/60 93 L 06/03/22 05:08 97.6 F 74 18 126/73 96 06/03/22 01:40 20 06/02/22 22:33 83 20 137/78 96 06/02/22 21:43 90 14 140/86 96 06/02/22 19:26 78 16 150/90 96 06/02/22 14:11 52 L 24 134/73 99 FiO2 06/03/22 09:03 21 06/03/22 07:00 06/03/22 05:08 06/03/22 01:40 06/02/22 22:33 06/02/22 21:43 06/02/22 19:26 06/02/22 14:11 Intake and Output 06/02/22 06/03/22 06/03/22 22:59 06:59 14:59 Intake Total 250 250 Balance 250 250 Intake: Oral 250 250 Other: Voiding Method Toilet # Voids 1 Weight 131.542 kg In general patient is alert and oriented x 3 in no distress HEENT head normocephalic and atraumatic Neck is supple no JVD no goiter no lymphadenopathy no carotid bruit Chest examination is clear to auscultation no crackles no wheezing Cardiac exam reveals regular heart sounds S1 and S2 no gallops no murmurs Abdomen is soft nontender no organomegaly with normal bowel sounds Extremity exam reveals no edema no cyanosis or clubbing Neurological examination reveals no gross focal deficits Results CBC & Chem 7: 06/02/22 15:12 06/02/22 15:12 Labs: Abnormal Lab Results - Last 24 Hours (Table) 06/02/22 06/02/22 06/02/22 Range/Units 15:12 15:12 19:10 WBC 11.5 H (3.8-10.6) k/uL Neutrophils # 9.5 H (1.3-7.7) k/uL Potassium 5.3 H (3.5-5.1) mmol/L Carbon Dioxide 32 H (22-30) mmol/L BUN 30 H (9-20) mg/dL Glucose 137 H (74-99) mg/dL Magnesium 2.5 H (1.6-2.3) mg/dL ALT 54 H (4-49) U/L Urine Protein 1+ H (Negative) Urine Ketones 1+ H (Negative) Urine Blood Large H (Negative) Ur Leukocyte Esterase Trace H (Negative) Urine RBC >182 H (0-5) /hpf Urine Bacteria Many H (None) /hpf Urine Mucus Few H (None) /hpf Assessment and Plan Plan: Episode of chest pain Atrial fibrillation with controlled heart rate on presentation Known history of paroxysmal atrial fibrillation Known history of coronary artery disease with history of angioplasty and stent placement in the past Underlying history of hypertension Underlying history of hyperlipidemia Underlying history of obstructive sleep. Underlying history of multiple sclerosis At this time patient is admitted to telemetry floor Serial EKG and cardiac enzymes were ordered cardiology consultation requested Home medications reviewed and reordered Continue with Eliquis as prior to admission Will follow closely.
--- NOTE | 2022-06-03 12:27 | P.DS ---
Providers Date of admission: 06/02/22 20:23 Expected date of discharge: 06/03/22 Attending physician: Cedric Giraldo Consults: 06/02/22 20:23 Consult Physician Routine Consulting Provider: Linden Valdes Consult Reason/Comments: chest pain Do you want consulting provider notified?: Yes Primary care physician: Cedric Giraldo [facility] Course: Diagnosis on discharge: Episode of chest pain Atrial fibrillation with controlled heart rate on presentation Known history of paroxysmal atrial fibrillation Known history of coronary artery disease with history of angioplasty and stent placement in the past Underlying history of hypertension Underlying history of hyperlipidemia Underlying history of obstructive sleep. Underlying history of multiple sclerosis Hospital course: José Miguel Moreira, is a 76-year-old male who presented to [facility] emergency room with a chief complaint of chest pain, patient describes an episode of chest pain that started while he was in the pool, he was also feeling nauseated and lightheaded and diffuse sweating He was evaluated in the emergency room vital examination on presentation revealed a temperature of 98 pulse 52 respiration 24 blood pressure 134/73 pulse ox 99% on room air Laboratory data revealed a white blood count of 11.5 hemoglobin 15.2 platelet count 295 potassium 5.6 platelet creatinine 0.8 magnesium level 2.5 troponin level 0.012 Testing in the emergency room revealed chest x-ray done in the emergency room revealed no acute cardiopulmonary process EKG done in the emergency room revealed atrial fibrillation heart rate 90 Patient was admitted to medical floor for further evaluation and treatment On 06/03/2022 patient was seen and examined on the telemetry floor he is alert and oriented times daily no apparent distress he denies any symptoms at this time there is no fever or chills no headache or dizziness no chest pain no shortness of breath no cough no nausea or vomiting no abdominal pain no diarrhea no blood in the stools no burning with urination no frequency or urgency and no hematuria. There is no weakness or numbness in any of the extremities there is no change in vision speech or gait. Patient was evaluated by cardiology and was cleared for discharge, recommendation is to follow-up was Dr. Rodriguez in 1 week, for further evaluation with outpatient stress test and event monitor. Patient Condition at Discharge: Good Plan - Discharge Summary New Discharge Prescriptions: Continue Nitroglycerin Sl Tabs [Nitrostat] 0.4 mg SL Q5M PRN PRN Reason: chest pain Albuterol Sulfate [Proair Hfa] 2 puff INHALATION RT-QID PRN PRN Reason: Shortness Of Breath Or Wheezing Montelukast [Singulair] 10 mg PO DAILY Metoprolol Tartrate [Lopressor] 75 mg PO BID Isosorbide Mononitrate ER [Imdur] 30 mg PO DIRECTED Multivitamin [Men's Multi-Vitamin] 1 tab PO DAILY Apixaban [Eliquis] 5 mg PO BID lisinopriL [Zestril] 10 mg PO HS Aspirin EC [Ecotrin Low Dose] 81 mg PO DAILY Atorvastatin [Lipitor] 20 mg PO Q48H Loratadine [Claritin] 10 mg PO DAILY HYDROcodone/APAP 10-325MG [[place] 10-325] 1 tab PO Q8H PRN PRN Reason: Pain Neuriva Brain Supplement 1 tab PO BID Cyanocobalamin (Vitamin B-12) [Vitamin B-12] 1,000 mcg PO DAILY Potassium Chloride ER [K-Dur 10] 10 meq PO DAILY Cholecalciferol [Vitamin D3 (125 Mcg = 5000 Iu)] 125 mcg PO DAILY Fluticasone Propion/Salmeterol [Fluticasone-Salmeterol 250-50] 1 puff INHALATION RT-BID Furosemide [Lasix] 20 mg PO DAILY Discharge Medication List Albuterol Sulfate [Proair Hfa] 2 puff INHALATION RT-QID PRN 09/11/13 [History] Isosorbide Mononitrate ER [Imdur] 30 mg PO DIRECTED 09/11/13 [History] Metoprolol Tartrate [Lopressor] 75 mg PO BID 09/11/13 [History] Montelukast [Singulair] 10 mg PO DAILY 09/11/13 [History] Multivitamin [Men's Multi-Vitamin] 1 tab PO DAILY 09/11/13 [History] Nitroglycerin Sl Tabs [Nitrostat] 0.4 mg SL Q5M PRN 09/11/13 [History] Apixaban [Eliquis] 5 mg PO BID 12/10/17 [History] lisinopriL [Zestril] 10 mg PO HS 12/10/17 [History] Aspirin EC [Ecotrin Low Dose] 81 mg PO DAILY 08/26/20 [History] Atorvastatin [Lipitor] 20 mg PO Q48H 08/26/20 [History] Loratadine [Claritin] 10 mg PO DAILY 08/26/20 [History] Cholecalciferol [Vitamin D3 (125 Mcg = 5000 Iu)] 125 mcg PO DAILY 06/02/22 [History] Cyanocobalamin (Vitamin B-12) [Vitamin B-12] 1,000 mcg PO DAILY 06/02/22 [History] Fluticasone Propion/Salmeterol [Fluticasone-Salmeterol 250-50] 1 puff INHALATION RT-BID 06/02/22 [History] Furosemide [Lasix] 20 mg PO DAILY 06/02/22 [History] HYDROcodone/APAP 10-325MG [[place] 10-325] 1 tab PO Q8H PRN 06/02/22 [History] Neuriva Brain Supplement 1 tab PO BID 06/02/22 [History] Potassium Chloride ER [K-Dur 10] 10 meq PO DAILY 06/02/22 [History] Follow up Appointment(s)/Referral(s): Cedric Giraldo MD [Primary Care Provider] - 1-2 days Patient Instructions/Handouts: Chest Pain (ED)
[2022-06-04] MEDS ORDERED: MULTIVITAMINS, THERA 1 EACH TAB PO SCH (09:00)
[2022-06-04] MEDS ORDERED: LORATADINE 10 MG TAB PO SCH (09:00)
== END 2022-06-03 14:02 | disposition home or self-care (01) ==
LOC: EC 14:04 → 6NMEDSUR 20:23
PROVIDERS: ADMIT Internal Medicine; ATTEND Internal Medicine
DX: I48.0 Paroxysmal atrial fibrillation (principal); I25.10 Atherosclerotic heart disease of native coronary artery without angina pectoris; I10 Essential (primary) hypertension; E78.5 Hyperlipidemia, unspecified; G47.33 Obstructive sleep apnea (adult) (pediatric); G35 Multiple sclerosis; Z87.891 Personal history of nicotine dependence; Z98.890 Other specified postprocedural states; J45.909 Unspecified asthma, uncomplicated; I25.2 Old myocardial infarction; R29.90 Unspecified symptoms and signs involving the nervous system; Z92.21 Personal history of antineoplastic chemotherapy; M54.2 Cervicalgia; M54.50 Low back pain, unspecified; Z90.49 Acquired absence of other specified parts of digestive tract; Z95.5 Presence of coronary angioplasty implant and graft; Z98.42 Cataract extraction status, left eye; Z98.41 Cataract extraction status, right eye; Z80.9 Family history of malignant neoplasm, unspecified; Z82.49 Family history of ischemic heart disease and other diseases of the circulatory system; Z79.01 Long term (current) use of anticoagulants; Z79.82 Long term (current) use of aspirin; Z79.899 Other long term (current) drug therapy
CPT/HCPCS: 99285; 36415; 94640; 94760; 93005; 80061; 80053; 83735; 84484; 85025; 85610; 85730; 81001; 71046; G0378 ×2

== ENCOUNTER → 2022-08-03 | Outpatient (CLI) | payer MEDICARE, BC ==
[2022-08-03 14:59] LABS: ALT 22 U/L (10-49); AST 21 U/L (14-35); Chol/HDL Ratio 3.57 Ratio; LDL Cholesterol,Calculated 63.1 mg/dL (0.0-131.0)
== END | disposition home or self-care (01) ==
LOC: LABWHC1 09:12
PROVIDERS: ATTEND Nurse Practitioner Adult Health
DX: E78.2 Mixed hyperlipidemia (principal)
CPT/HCPCS: 36415; 80061; 84450; 84460

== ENCOUNTER → 2022-08-10 | Outpatient (CLI) | payer MEDICARE, BC ==
--- NOTE | 2022-08-10 12:08 | P.PN ---
Subjective DATE: 08/10/2022 FOLLOW UP VISIT. Patient with obstructive sleep apnea hypopnea syndrome return to sleep center for follow-up visit. Information from previous visit have been reviewed. Patient received new BiPAP unit. Patient is using PAP equipment every night for the whole night, getting PAP supplies in time. The patient does not have significant problems with the mask, BPAP unit and humidification. [place] sleepiness scale is 2. I checked information from BPAP unit. BPAP unit pressure maximal inspiratory pressure 20, minimal expiratory pressure 10, pressure-support 4, average pressure 17.3 over 13.3 cm H2O. Usage is 100 % for more then 4 hours, average 9 hours per night. Leak is 17.0 l/m, which is in acceptable range. Apnea Hypopnea Index is 9.5, which include 6.8 central apneas. Patient sleeps well. MEDICATIONS:1. Metoprolol 75 mg twice a day 2. Eliquis 5 mg twice a day 3. Lisinopril 10 mg once a day 4. Atorvastatin 40 mg every other day 5. Singulair 10 mg once a day During physical exam: GENERAL: A pleasant patient without any distress. VITAL SIGNS: BP 123/80, HR 51, RR 16 , weight 290, temperature 97.7, oxygen saturation at room air 97 % . HEENT: PERRLA, EOMI.low position of soft palate, Mallapati 4 . NECK: Supple. No JVD. LUNGS: Clear to percussion and to auscultation. Good air exchange. No wheezing or rhonchi. HEART: S1, S2 regular. ABDOMEN: Soft and nontender. Obese EXTREMITIES: No clubbing or cyanosis. ASSOCIATE GENETICS PROFESSOR: Awake, alert, and oriented x3. No focal deficit. Impressions: 1. Obstructive sleep apnea-hypopnea syndrome with central apneas. Patient demonstrated great compliance with treatment, benefiting from treatment. 2. Obesity, patient lost 15 pounds since previous visit. 3. atrial fibrillation. 4. Hypertension. 5. Coronary artery disease status post multiple stent insertion. 6. Status post surgical treatment for abdominal aortic aneurysm. 7. Status post stent insertion to femoral arteries. 8. Asthma. 9. 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 10. Status post cholecystectomy. Plan: 1. Continue using PAP equipment every night for the whole night. 2. To change air filter at least 1-2 times per month. 3. PAP unit should stay lower then position of the head. 4. Advised patient to remove all remaining water from humidifier canister daily and make it dry after each usage. Refill canister with fresh distilled water before each usage. 5. Sleep hygiene with regular time in bed for at least 8 hours. 6. Precautions related to driving. No driving if feel any sleepiness. 7. I will maintain prescription for PAP supplies including mask, tube, filters. 8. Watching and continue losing weight. 9. Follow up visit in 6 months or earlier if patient has any problems. Thank you very much for allowing me to participate in the management of your patient. Enrique Medina MD, PhD, FAASM. Diplomat of [place] [employer], Sleep Medicine Board by [place] [employer] Conference Service Coordinator of [facility]
== END ==
LOC: SLEEP 11:07
PROVIDERS: ATTEND Internal Medicine
DX: G47.33 Obstructive sleep apnea (adult) (pediatric) (principal); Z79.899 Other long term (current) drug therapy; Z79.01 Long term (current) use of anticoagulants; E66.9 Obesity, unspecified; I48.91 Unspecified atrial fibrillation; G35 Multiple sclerosis; I10 Essential (primary) hypertension; I25.10 Atherosclerotic heart disease of native coronary artery without angina pectoris; J45.909 Unspecified asthma, uncomplicated; Z86.79 Personal history of other diseases of the circulatory system; Z90.49 Acquired absence of other specified parts of digestive tract; Z95.5 Presence of coronary angioplasty implant and graft; Z99.89 Dependence on other enabling machines and devices; Z87.891 Personal history of nicotine dependence
CPT/HCPCS: 99212

== ENCOUNTER 2023-01-26 02:05 | Observation (INO) | payer MEDICARE, BC ==
[2023-01-26] MEDS ORDERED: SODIUM CHLORIDE 0.9% 1,000 ML IV STA ×2 (02:27)
[2023-01-26] MEDS ORDERED: ACETAMINOPHEN IV (For NPO) 1,000 MG in EMPTY BAG 1 BAG IVPB STA (02:30)
--- NOTE | 2023-01-26 02:31 | ED ---
Weakness HPI - General Chief complaint: Back Pain/Injury Stated complaint: Weakness Time Seen by Provider: 01/26/23 02:14 Source: EMS, RN notes reviewed, old records reviewed, Caregiver Mode of arrival: EMS Limitations: language barrier, altered mental status, physical limitation (Significantly difficult hearing) - History of Present Illness Initial comments: This is a 77-year-old male DF today. This patient Dese for evaluation regards to weakness. Patient states he has not been feeling well all day reiterates that he has not been feeling all day he is complaining of significant generalized body aches and pains and was unable to get out of bed tonight. Patient called EMS to come the house where he was found to be sweating lightheaded dizzy and weak. MD Complaint: generalized weakness -: hour(s) Location: generalized Severity: severe Severity scale (1-10): 10 Consistency: constant Improves with: none Worsens with: none Context: recent illness (Patient has not been feeling well all day) Associated Symptoms: denies other symptoms - Related Data Home Medications Medication Instructions Recorded Confirmed Albuterol Sulfate [Proair Hfa] 2 puff INHALATION RT-QID PRN 09/11/13 06/02/22 Isosorbide Mononitrate ER [Imdur] 30 mg PO DIRECTED 09/11/13 06/02/22 Metoprolol Tartrate [Lopressor] 75 mg PO BID 09/11/13 06/02/22 Montelukast [Singulair] 10 mg PO DAILY 09/11/13 06/02/22 Multivitamin [Men's Multi-Vitamin] 1 tab PO DAILY 09/11/13 06/02/22 Nitroglycerin Sl Tabs [Nitrostat] 0.4 mg SL Q5M PRN 09/11/13 06/02/22 Apixaban [Eliquis] 5 mg PO BID 12/10/17 06/02/22 lisinopriL [Zestril] 10 mg PO HS 12/10/17 06/02/22 Aspirin EC [Ecotrin Low Dose] 81 mg PO DAILY 08/26/20 06/02/22 Atorvastatin [Lipitor] 20 mg PO Q48H 08/26/20 06/02/22 Loratadine [Claritin] 10 mg PO DAILY 08/26/20 06/02/22 Cholecalciferol [Vitamin D3 (125 125 mcg PO DAILY 06/02/22 06/02/22 Mcg = 5000 Iu)] Cyanocobalamin (Vitamin B-12) 1,000 mcg PO DAILY 06/02/22 06/02/22 [Vitamin B-12] Fluticasone Propion/Salmeterol 1 puff INHALATION RT-BID 06/02/22 06/02/22 [Fluticasone-Salmeterol 250-50] Furosemide [Lasix] 20 mg PO DAILY 06/02/22 06/02/22 HYDROcodone/APAP 10-325MG [[place] 1 tab PO Q8H PRN 06/02/22 06/02/22 10-325] Neuriva Brain Supplement 1 tab PO BID 06/02/22 06/02/22 Potassium Chloride ER [K-Dur 10] 10 meq PO DAILY 06/02/22 06/02/22 Allergies Allergy/AdvReac Type Severity Reaction Status Date / Time No Known Allergies Allergy Verified 01/26/23 02:12 Review of Systems ROS Statement: Those systems with pertinent positive or pertinent negative responses have been documented in the HPI. ROS Other: All systems not noted in ROS Statement are negative. Past Medical History Past Medical History: Atrial Fibrillation, Asthma, Coronary Artery Disease (CAD), Chest Pain / Angina, Hyperlipidemia, Hypertension, Myocardial Infarction (CO), Musculoskeletal Disorder, Neurologic Disorder, Sleep Apnea/CPAP/BIPAP, Vascular Disorder Additional Past Medical History / Comment(s): Ishemic heart disease, paroxysmal VT, AAA with repair, MS treated experimentally with chemo, bilateral feet numbness, [place] with Cpap, cervical and low back pain, Last Myocardial Infarction Date:: 1995 History of Any Multi-Drug Resistant Organisms: None Reported Past Surgical History: Cholecystectomy, Heart Catheterization, Heart Catheterization With Stent Additional Past Surgical History / Comment(s): AAA repair, bilateral cataract removals, colonoscopy. Past Anesthesia/Blood Transfusion Reactions: No Reported Reaction Date of Last Stent Placement:: 1995 Past Psychological History: No Psychological Hx Reported Smoking Status: Former smoker Past Alcohol Use History: None Reported Past Drug Use History: None Reported - Past Family History Mother Family Medical History: Cancer Additional Family Medical History / Comment(s): Mother at the age of 58yrs from metastatic cancer. Father Family Medical History: Myocardial Infarction (CO) Additional Family Medical History / Comment(s): Father of a CO at the age of 52 yrs. General Exam General appearance: alert, in no apparent distress Head exam: Present: atraumatic, normocephalic, normal inspection Eye exam: Present: normal appearance, PERRL, EOMI. Absent: scleral icterus, conjunctival injection, periorbital swelling ENT exam: Present: normal exam, mucous membranes moist Neck exam: Present: normal inspection. Absent: tenderness, meningismus, lymphadenopathy Respiratory exam: Present: normal lung sounds bilaterally. Absent: respiratory distress, wheezes, rales, rhonchi, stridor Cardiovascular Exam: Present: regular rate, normal rhythm, normal heart sounds. Absent: systolic murmur, diastolic murmur, rubs, gallop, clicks GI/Abdominal exam: Present: soft, normal bowel sounds. Absent: distended, tende rness, guarding, rebound, rigid Extremities exam: Present: normal inspection, full ROM, normal capillary refill. Absent: tenderness, pedal edema, joint swelling, calf tenderness Back exam: Present: normal inspection Neurological exam: Present: alert, oriented X3, CN II-XII intact Psychiatric exam: Present: normal affect, normal mood Skin exam: Present: warm, dry, intact, normal color. Absent: rash Course Vital Signs 01/26/23 01/26/23 01/26/23 02:06 03:12 04:12 Temperature 97.8 F Pulse Rate 85 72 68 Respiratory 18 18 18 Rate Blood Pressure 125/67 112/68 124/72 O2 Sat by Pulse 96 95 95 Oximetry 01/26/23 06:26 Temperature Pulse Rate 67 Respiratory 18 Rate Blood Pressure 133/70 O2 Sat by Pulse 96 Oximetry - Reevaluation(s) Reevaluation #1: 01/26/23 02:31 Medical records reviewed Reevaluation #2: 01/26/23 07:28 A she has no recurrent syncope here in the ER Reevaluation #3: 01/26/23 07:28 Patient informed of results questions answered Reevaluation #4: 01/26/23 02:31 Was pt. sent in by a medical professional or institution (, PA, RECOATING MACHINE OPERATOR, urgent ca re, hospital, or prison...) When possible be specific @ -no Did you speak to anyone other than the patient for history (EMS, parent, family, police, friend...)? What history was obtained from this source @ -no Did you review nursing and triage notes (agree or disagree)? Why? @ -agree Are old charts reviewed (outside hosp., previous admission, EMS record, old EKG, old radiological studies, urgent care reports/EKG's, prison records)? Report findings @ -yes Differential Diagnosis (chest pain, altered mental status, abdominal pain women, abdominal pain men, vaginal bleeding, weakness, fever, dyspnea, syncope, headache, dizziness, GI bleed, back pain, seizure, CVA, palpatations, mental health, musculoskeletal)? @ -prior EKG interpreted by me (3pts min.). @ -yes X-rays interpreted by me (1pt min.). @ -yes CT interpreted by me (1pt min.). @ -no U/S interpreted by me (1pt. min.). @ -no What testing was considered but not performed or refused? (CT, X-rays, U/S, labs)? Why? @ -none What meds were considered but not given or refused? Why? @ -none Did you discuss the management of the patient with other professionals (professionals i.e. , PA, RECOATING MACHINE OPERATOR, lab, RT, psych nurse, social services director, supervisor boilermaking shop, teacher, chief clinical officer, case technician)? Give summary @ -no Was smoking cessation discussed for >3mins.? @ -no Was critical care preformed (if so, how long)? @ -no Were there social determinants of health that impacted care today? How? (Homelessness, low income, unemployed, alcoholism, drug addiction, transportation, low edu. Level, literacy, decrease access to med. care, detention, rehab)? @ -none Was there de-escalation of care discussed even if they declined (Discuss DNR or withdrawal of care, Hospice)? DNR status @ -no What co-morbidities impacted this encounter? (DM, HTN, Smoking, COPD, CAD, Cancer, CVA, ARF, Chemo, Hep., AIDS, mental health diagnosis, sleep apnea, morbid obesity)? @ -none Was patient admitted / discharged? Hospital course, mention meds given and route, prescriptions, significant lab abnormalities, going to OR and other pertinent info. @ - Undiagnosed new problem with uncertain prognosis? @ -no Drug Therapy requiring intensive monitoring for toxicity (Heparin, Nitro, Insulin, Cardizem)? @ -no Were any procedures done? @ -no Diagnosis/symptom? @ - Acute, or Chronic, or Acute on Chronic? @ -Acute Uncomplicated (without systemic symptoms) or Complicated (systemic symptoms)? @ -Complicated Side effects of treatment? @ -no Exacerbation, Progression, or Severe Exacerbation? @ -exacerbation Poses a threat to life or bodily function? How? (Chest pain, [place], CO, pneumonia, PE, COPD, DKA, ARF, appy, cholecystitis, CVA, Diverticulitis, Homicidal, Suicidal, threat to staff... and all critical care pts) @ -yes Reevaluation #5: 01/26/23 02:31 Differential Weakness: Hypoglycemia, shock, sepsis, hyponatremia, anemia, infection, CO, ETOH, adverse medicine reaction, overdose, stroke, this is not meant to be an all-inclusive list. - Consultations Consultation #1: Spoke with Dr. Giraldo who agrees to admit this patient EKG Findings - EKG Comments: EKG Findings:: EKG is A. fib 85 QRS 89 QTC 421 Medical Decision Making - Medical Decision Making 77 male with a near syncopal event. No acute cause of near syncope found here and near-syncope, patient has no recurrent syncope here in the ER. Patient states she does not feel well he feels little lightheaded is concerned about his heart is having significant heart history and concern for arrhythmia. - Lab Data Result diagrams: 01/26/23 02:37 01/26/23 02:37 Lab Results 01/26/23 01/26/23 01/26/23 Range/Units 02:37 02:37 02:37 WBC 11.4 H (3.8-10.6) k/uL RBC 4.60 (4.30-5.90) m/uL Hgb 14.7 (13.0-17.5) gm/dL Hct 44.8 (39.0-53.0) % MCV 97.3 (80.0-100.0) fL MCH 31.9 (25.0-35.0) pg MCHC 32.8 (31.0-37.0) g/dL RDW 13.7 (11.5-15.5) % Plt Count 211 (150-450) k/uL MPV 8.3 Neutrophils % 73 % Lymphocytes % 17 % Monocytes % 7 % Eosinophils % 1 % Basophils % 0 % Neutrophils # 8.4 H (1.3-7.7) k/uL Lymphocytes # 2.0 (1.0-4.8) k/uL Monocytes # 0.8 (0-1.0) k/uL Eosinophils # 0.1 (0-0.7) k/uL Basophils # 0.0 (0-0.2) k/uL PT 11.4 (10.0-12.5) sec INR 1.1 (<1.2) APTT 24.1 (22.0-30.0) sec Sodium (137-145) mmol/L Potassium (3.5-5.1) mmol/L Chloride (98-107) mmol/L Carbon Dioxide (22-30) mmol/L Anion Gap mmol/L BUN (9-20) mg/dL Creatinine (0.66-1.25) mg/dL Est GFR (CKD-EPI)AfAm (>60 ml/min/1.73 sqM) Est GFR (CKD-EPI)NonAf (>60 ml/min/1.73 sqM) Glucose (74-99) mg/dL Lactic Ac Sepsis Rflx Plasma Lactic Acid Caleb (0.7-2.0) mmol/L Calcium (8.4-10.2) mg/dL Phosphorus (2.5-4.5) mg/dL Magnesium (1.6-2.3) mg/dL Total Bilirubin (0.2-1.3) mg/dL AST (17-59) U/L ALT (4-49) U/L Alkaline Phosphatase (38-126) U/L Troponin I (0.000-0.034) ng/mL NT-Pro-B Natriuret Pep pg/mL Total Protein (6.3-8.2) g/dL Albumin (3.5-5.0) g/dL Influenza Type A (PCR) Not Detected (Not Detectd) Influenza Type B (PCR) Not Detected (Not Detectd) RSV (PCR) Not Detected (Not Detectd) SARS-CoV-2 (PCR) Not Detected (Not Detectd) 01/26/23 01/26/23 01/26/23 Range/Units 02:37 02:37 02:37 WBC (3.8-10.6) k/uL RBC (4.30-5.90) m/uL Hgb (13.0-17.5) gm/dL Hct (39.0-53.0) % MCV (80.0-100.0) fL MCH (25.0-35.0) pg MCHC (31.0-37.0) g/dL RDW (11.5-15.5) % Plt Count (150-450) k/uL MPV Neutrophils % % Lymphocytes % % Monocytes % % Eosinophils % % Basophils % % Neutrophils # (1.3-7.7) k/uL Lymphocytes # (1.0-4.8) k/uL Monocytes # (0-1.0) k/uL Eosinophils # (0-0.7) k/uL Basophils # (0-0.2) k/uL PT (10.0-12.5) sec INR (<1.2) APTT (22.0-30.0) sec Sodium 139 (137-145) mmol/L Potassium 4.7 (3.5-5.1) mmol/L Chloride 104 (98-107) mmol/L Carbon Dioxide 25 (22-30) mmol/L Anion Gap 10 mmol/L BUN 26 H (9-20) mg/dL Creatinine 0.86 (0.66-1.25) mg/dL Est GFR (CKD-EPI)AfAm >90 (>60 ml/min/1.73 sqM) Est GFR (CKD-EPI)NonAf 84 (>60 ml/min/1.73 sqM) Glucose 209 H (74-99) mg/dL Lactic Ac Sepsis Rflx Plasma Lactic Acid Caleb 2.2 H* (0.7-2.0) mmol/L Calcium 8.6 (8.4-10.2) mg/dL Phosphorus 3.7 (2.5-4.5) mg/dL Magnesium 2.1 (1.6-2.3) mg/dL Total Bilirubin 0.8 (0.2-1.3) mg/dL AST 35 (17-59) U/L ALT 25 (4-49) U/L Alkaline Phosphatase 52 (38-126) U/L Troponin I <0.012 (0.000-0.034) ng/mL NT-Pro-B Natriuret Pep 1140 pg/mL Total Protein 6.6 (6.3-8.2) g/dL Albumin 3.7 (3.5-5.0) g/dL Influenza Type A (PCR) (Not Detectd) Influenza Type B (PCR) (Not Detectd) RSV (PCR) (Not Detectd) SARS-CoV-2 (PCR) (Not Detectd) 01/26/23 Range/Units 04:04 WBC (3.8-10.6) k/uL RBC (4.30-5.90) m/uL Hgb (13.0-17.5) gm/dL Hct (39.0-53.0) % MCV (80.0-100.0) fL MCH (25.0-35.0) pg MCHC (31.0-37.0) g/dL RDW (11.5-15.5) % Plt Count (150-450) k/uL MPV Neutrophils % % Lymphocytes % % Monocytes % % Eosinophils % % Basophils % % Neutrophils # (1.3-7.7) k/uL Lymphocytes # (1.0-4.8) k/uL Monocytes # (0-1.0) k/uL Eosinophils # (0-0.7) k/uL Basophils # (0-0.2) k/uL PT (10.0-12.5) sec INR (<1.2) APTT (22.0-30.0) sec Sodium (137-145) mmol/L Potassium (3.5-5.1) mmol/L Chloride (98-107) mmol/L Carbon Dioxide (22-30) mmol/L Anion Gap mmol/L BUN (9-20) mg/dL Creatinine (0.66-1.25) mg/dL Est GFR (CKD-EPI)AfAm (>60 ml/min/1.73 sqM) Est GFR (CKD-EPI)NonAf (>60 ml/min/1.73 sqM) Glucose (74-99) mg/dL Lactic Ac Sepsis Rflx Y Plasma Lactic Acid Caleb (0.7-2.0) mmol/L Calcium (8.4-10.2) mg/dL Phosphorus (2.5-4.5) mg/dL Magnesium (1.6-2.3) mg/dL Total Bilirubin (0.2-1.3) mg/dL AST (17-59) U/L ALT (4-49) U/L Alkaline Phosphatase (38-126) U/L Troponin I (0.000-0.034) ng/mL NT-Pro-B Natriuret Pep pg/mL Total Protein (6.3-8.2) g/dL Albumin (3.5-5.0) g/dL Influenza Type A (PCR) (Not Detectd) Influenza Type B (PCR) (Not Detectd) RSV (PCR) (Not Detectd) SARS-CoV-2 (PCR) (Not Detectd) - Radiology Data Radiology results: report reviewed (Chest x-ray and CT and she'll aorta is negative for acute disease does have postsurgical changes in the abdomen), image reviewed Disposition Clinical Impression: Weakness, Near syncope Disposition: HOME SELF-CARE Condition: Good Is patient prescribed a controlled substance at d/c from ED?: No Referrals: Cedric Giraldo MD [Primary Care Provider] - 1-2 days Time of Disposition: 07:10
[2023-01-26 03:02] LABS: INR 1.1 (<1.2)
[2023-01-26 03:03] LABS: Partial Thromboplastin Time 24.1 sec (22.0-30.0); Prothrombin Time 11.4 sec (10.0-12.5)
[2023-01-26 03:05] LABS: ALT 25 U/L (4-49); AST 35 U/L (17-59); African American GFR (CKD) >90 (>60 ml/min/1.73 sqM); Albumin 3.7 g/dL (3.5-5.0); Alkaline Phosphatase 52 U/L (38-126); Anion Gap 10 mmol/L; Blood Urea Nitrogen 26 mg/dL (9-20); Calcium 8.6 mg/dL (8.4-10.2); Carbon Dioxide 25 mmol/L (22-30); Chloride 104 mmol/L (98-107); Glucose 209 mg/dL (74-99); Magnesium 2.1 mg/dL (1.6-2.3); Non-African American GFR(CKD) 84 (>60 ml/min/1.73 sqM); Phosphorus 3.7 mg/dL (2.5-4.5); Sodium 139 mmol/L (137-145); Total Bilirubin 0.8 mg/dL (0.2-1.3); Total Protein 6.6 g/dL (6.3-8.2)
[2023-01-26 03:13] LABS: NT-Pro-B-Type Natriuretic Pept 1140 pg/mL
[2023-01-26 03:17] LABS: Basophils % (A) 0 %; Eosinophils # (A) 0.1 k/uL (0-0.7); Eosinophils % (A) 1 %; HCT 44.8 % (39.0-53.0); HGB 14.7 gm/dL (13.0-17.5); Lymphocytes % (A) 17 %; MCH 31.9 pg (25.0-35.0); MCHC 32.8 g/dL (31.0-37.0); MCV 97.3 fL (80.0-100.0); Mean Platelet Volume 8.3; Monocytes # (A) 0.8 k/uL (0-1.0); Monocytes % (A) 7 %; Neutrophils # (A) 8.4 k/uL (1.3-7.7); Neutrophils % (A) 73 %; Platelet Count 211 k/uL (150-450); RDW 13.7 % (11.5-15.5); WBC 11.4 k/uL (3.8-10.6)
[2023-01-26 04:02] LABS: Potassium 4.7 mmol/L (3.5-5.1)
--- NOTE | 2023-01-26 06:37 | XR ---
EXAM: XR Chest, 1 View CLINICAL HISTORY: Cough TECHNIQUE: Frontal view of the chest. COMPARISON: 06 02 22 FINDINGS: Lungs: Low lung volumes. Pleural space: Unremarkable. No pneumothorax. Heart: Enlarged cardiac silhouette may be exaggerated due to low lung volumes. Mediastinum: Unremarkable. Bones/joints: Unremarkable. IMPRESSION: Low lung volumes. No evidence of acute cardiopulmonary disease.
--- NOTE | 2023-01-26 06:54 | CT ---
EXAM: CT Angiography Chest With Intravenous Contrast CLINICAL HISTORY: ITS.REASON CT Reason: pain Patient was brought into facility for all over back pain. EMS states that he was diaphoretic and SOB. Hx of dissection. TECHNIQUE: Axial computed tomographic angiography images of the chest with intravenous contrast. CTDI is 103.5 mGy and DLP is 4673.2 mGy-cm. This CT exam was performed using one or more of the following dose reduction techniques: automated exposure control, adjustment of the mA and/or kV according to patient size, and/or use of iterative reconstruction technique. MIP reconstructed images were created and reviewed. COMPARISON: No relevant prior studies available. FINDINGS: Pulmonary arteries: No central pulmonary embolism.. Breathing motion artifact and suboptimal bolus limits evaluation of the peripheral arteries. Aorta: Moderate thoracic aortic calcifications. No thoracic aortic aneurysm. Lungs: Mild bibasilar atelectasis. No mass. Pleural space: Unremarkable. No significant effusion. No pneumothorax. Heart: Coronary calcifications. No significant pericardial effusion. No evidence of RV dysfunction. 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 No acute fracture. No dislocation. Soft tissues: Unremarkable. Lymph nodes: Unremarkable. No enlarged lymph nodes. IMPRESSION: 1. No evidence of thoracic aortic aneurysm or dissection. 2. Mild bibasilar atelectasis.
--- NOTE | 2023-01-26 07:07 | CT ---
EXAMINATION TYPE: CT abdomen pelvis w con CT DLP: 4673.2 mGycm, Automated exposure control for dose reduction was used. DATE OF EXAM: 01/26/2023 4:47 AM COMPARISON: CTA chest 01/26/2023, CTA abdomen and pelvis 10/25/2011 CLINICAL INDICATION:Male, 77 years old with history of pain; TECHNIQUE: Standard CT of the abdomen and pelvis following the administration of 100 cc of Isovue 3 00 IV contrast material. Coronal and sagittal reformats were performed. FINDINGS: LOWER CHEST: Please see dedicated CT chest for findings ABDOMEN LIVER: Unremarkable GALLBLADDER AND BILE DUCTS: The gallbladder is surgically absent. PANCREAS: Unremarkable. SPLEEN: Unremarkable. ADRENAL GLANDS: Unremarkable. KIDNEYS AND URETERS: No evidence of hydronephrosis. Nonobstructive right inferior pole 8 mm calculus. The kidneys enhance symmetrically. Nonspecific bilateral perinephric fat stranding. Contrast is demo nstrated within both collecting systems on the delayed phase. PELVIS BLADDER: Incompletely distended but grossly unremarkable. REPRODUCTIVE: Unremarkable. ABDOMEN & PELVIS STOMACH AND BOWEL: Small hiatal hernia, duodenum is unremarkable. No focal wall thickening or surroun ding inflammatory changes. The appendix is within normal limits. No evidence of bowel obstruction. PERITONEUM: No evidence of pneumoperitoneum or free fluid. VASCULATURE: Postsurgical changes from aortobiiliac stent graft. This appears grossly patent however evaluation is limited due to phase of contrast. The excluded aneurysm sac measures up to 3.7 cm. MUSCULOSKELETAL: No acute osseous abnormalities. Moderate disc degeneration changes are present throu ghout the thoracolumbar spine. LYMPH NODES: No gross evidence for lymphadenopathy. SOFT TISSUE/ABDOMINAL WALL: Small to moderate sized fat filled umbilical hernia. Fat filled ventral w all epigastric hernia with defect measuring 3.5 cm. IMPRESSION: 1. No acute abdominal/pelvic process. 2. Post surgical changes from aortobiiliac stent graft. 3. Ventral epigastric wall and umbilical fat filled hernias. 4. Nonobstructive right renal calculus.
[2023-01-26] MEDS ORDERED: NALOXONE 0.4 MG/ML 1 ML VIAL IV PRN (07:24)
[2023-01-26] MEDS ORDERED: ONDANSETRON 4 MG/2 ML VIAL IVP PRN (07:24)
[2023-01-26] MEDS ORDERED: MORPHINE SULFATE 4 MG/ML SYRINGE IV PRN (07:24)
[2023-01-26] MEDS: SODIUM CHLORIDE 0.9% 1,000 ML IV SCH ×3 (08:04→23:58)
[2023-01-26] MEDS ORDERED: FUROSEMIDE 10 MG/ML 4 ML VIAL IV STA (08:54)
[2023-01-26] MEDS: METOPROLOL TARTRATE 50 MG TAB PO SCH ×2 (09:20→20:37)
[2023-01-26] MEDS: ASPIRIN 81 MG PO SCH (09:20)
[2023-01-26] MEDS: ISOSORBIDE MONONITRATE ER 30 MG TAB.ER.24H PO SCH (09:20)
[2023-01-26] MEDS: APIXABAN 5 MG TAB PO SCH ×2 (09:20→20:36)
--- NOTE | 2023-01-26 10:05 | P.CRDCN ---
History of Present Illness History of present illness: HISTORY OF PRESENT ILLNESS: This is a 77-year-old male with a past medical history significant for coronary artery disease, atrial fibrillation, peripheral arterial disease, hypertension, hyperlipidemia, and congestive heart failure. Patient follows in the office with Dr. Rodriguez. We have been asked to see the patient in consultation for syncope. Patient examined at the bedside in the emergency room. Patient states last night he went to the bathroom and was unable to get up. He states he has been extremely weak at home. He called his for assistance. He reported feeling dizzy at that time. However he did not pass out. He reports mild shortness of breath which is his baseline. He reports that his heart "didn't feel right' but is not exactly sure if he was having palpitations. * EKG reveals atrial fibrillation with controlled ventricular rate. PVCs. * Chest xray low lung volumes. No evidence for acute cardiopulmonary process * Laboratory data: W BC 11.4. Lactic acid 2.9. Troponin negative 2. ProBNP 1140. * Current home cardiac medications include lisinopril 10 mg at night, metoprolol tartrate 100 mg twice a day, Imdur 30 mg daily, Lasix 20 mg daily, atorvastatin 20 mg every 48 hours, aspirin 81 mg daily, and Eliquis 5 mg twice a day * Most recent echocardiogram obtained in July 2022 revealing ejection fraction 50-55%, mild mitral regurgitation, mild tricuspid regurgitation * Patient underwent Lexiscan stress test in July 2022 revealing evidence of prior myocardial infarction involving basal lateral and basal inferior wall consistent with prior myocardial infarction. No evidence of stress-induced ischemia * Cardiac catheterization history: March 2017 revealing 50% proximal LAD, 100% distal circumflex, 60% proximal OM1, normal FFR of left circumflex. REVIEW OF SYSTEMS: At the time of my exam: CONSTITUTIONAL: Denies fever or chills. HEENT: Denies blurred vision, vision changes, or eye pain. Denies hemoptysis CARDIOVASCULAR: Denies chest pain. Denies orthopnea. Denies PND. Denies palpitations RESPIRATORY: Denies shortness of breath. GASTROINTESTINAL: Denies abdominal pain. Denies nausea or vomiting. HEMATOLOGIC: Denies bleeding disorders. GENITOURINARY: Denies any blood in urine. SKIN: Denies pruitis. Denies rash. PHYSICAL EXAM: VITAL SIGNS: Reviewed. GENERAL: Well-developed in no acute distress. HEENT: Head is normocephalic. Pupils are equal, round. Sclerae anicteric. Mucous membranes of the mouth are moist. Neck supple. No JVD or thyromegaly LUNGS: Respirations even and unlabored. Lungs essentially clear to auscultation bilaterally. HEART: Irregular rate and rhythm. S1 and S2 heard. Systolic murmur noted. ABDOMEN: Soft. Nondistended. Nontender. EXTREMITIES: Normal range of motion. No clubbing or cyanosis. Peripheral pulses intact. 2+ bilateral lower extremity edema NEUROLOGIC: Awake and alert. Oriented x 3. ASSESSMENT: Generalized weakness Elevated lactic acid Presyncope Persistent atrial fibrillation Coronary artery disease with previous stenting of LAD, RCA, and OM branch of left circumflex Peripheral arterial disease Hypertension Hyperlipidemia Chronic congestive heart failure with preserved LV systolic function PLAN: No need to repeat echocardiogram as this was performed in the office in July 2022 Resume home cardiac medications Continue telemetry monitoring Give 1 dose of IV Lasix secondary to lower extremity edema Further recommendations pending patient's course Nurse practitioner note has been reviewed by physician. Signing provider agrees with the documented findings, assessment, and plan of care. Past Medical History Past Medical History: Atrial Fibrillation, Asthma, Coronary Artery Disease (CAD), Chest Pain / Angina, Hyperlipidemia, Hypertension, Myocardial Infarction ([place]), Musculoskeletal Disorder, Neurologic Disorder, Sleep Apnea/CPAP/BIPAP, Vascular Disorder Additional Past Medical History / Comment(s): Ishemic heart disease, paroxysmal VT, AAA with repair, MS treated experimentally with chemo, bilateral feet numbness, [place] with Cpap, cervical and low back pain, Last Myocardial Infarction Date:: 1995 History of Any Multi-Drug Resistant Organisms: None Reported Past Surgical History: Cholecystectomy, Heart Catheterization, Heart Catheterization With Stent Additional Past Surgical History / Comment(s): AAA repair, bilateral cataract removals, colonoscopy. Past Anesthesia/Blood Transfusion Reactions: No Reported Reaction Date of Last Stent Placement:: 1995 Past Psychological History: No Psychological Hx Reported Smoking Status: Former smoker Past Alcohol Use History: None Reported Past Drug Use History: None Reported - Past Family History Mother Family Medical History: Cancer Additional Family Medical History / Comment(s): Mother at the age of 58yrs from metastatic cancer. Father Family Medical History: Myocardial Infarction ([place]) Additional Family Medical History / Comment(s): Father of a SC at the age of 52 yrs. Medications and Allergies Home Medications Medication Instructions Recorded Confirmed Type Isosorbide Mononitrate ER [Imdur] 30 mg PO DAILY 09/11/13 01/26/23 History Montelukast [Singulair] 10 mg PO DAILY 09/11/13 01/26/23 History Multivitamin [Men's Multi-Vitamin] 1 tab PO DAILY 09/11/13 01/26/23 History Nitroglycerin Sl Tabs [Nitrostat] 0.4 mg SL Q5M PRN 09/11/13 01/26/23 History Apixaban [Eliquis] 5 mg PO BID 12/10/17 01/26/23 History lisinopriL [Zestril] 10 mg PO HS 12/10/17 01/26/23 History Aspirin EC [Ecotrin Low Dose] 81 mg PO DAILY 08/26/20 01/26/23 History Atorvastatin [Lipitor] 20 mg PO Q48H 08/26/20 01/26/23 History Loratadine [Claritin] 10 mg PO DAILY 08/26/20 01/26/23 History Cholecalciferol [Vitamin D3 (125 125 mcg PO DAILY 06/02/22 01/26/23 History Mcg = 5000 Iu)] Fluticasone Propion/Salmeterol 1 puff INHALATION RT-BID 06/02/22 01/26/23 H istory [Fluticasone-Salmeterol 250-50] Furosemide [Lasix] 20 mg PO DAILY 06/02/22 01/26/23 History Potassium Chloride ER [K-Dur 10] 10 meq PO DAILY 06/02/22 01/26/23 History Metoprolol Tartrate [Lopressor] 100 mg PO BID 01/26/23 01/26/23 History Vitamin B Complex 1 cap PO DAILY 01/26/23 01/26/23 History Allergies Allergy/AdvReac Type Severity Reaction Status Date / Time No Known Allergies Allergy Verified 01/26/23 07:39 Physical Exam Vitals: Vital Signs Temp Pulse Resp BP Pulse Ox 01/26/23 08:04 75 18 125/81 96 01/26/23 06:26 67 18 133/70 96 01/26/23 04:12 68 18 124/72 95 01/26/23 03:12 72 18 112/68 95 01/26/23 02:06 97.8 F 85 18 125/67 96 Intake and Output 01/25/23 01/26/23 01/26/23 22:59 06:59 14:59 Other: Weight 136.078 kg Results 01/26/23 02:37 01/26/23 02:37 Cardiac Enzymes 01/26/23 01/26/23 Range/Units 02:37 02:37 AST 35 (17-59) U/L Troponin I <0.012 (0.000-0.034) ng/mL Coagulation 01/26/23 Range/Units 02:37 PT 11.4 (10.0-12.5) sec APTT 24.1 (22.0-30.0) sec CBC 01/26/23 Range/Units 02:37 WBC 11.4 H (3.8-10.6) k/uL RBC 4.60 (4.30-5.90) m/uL Hgb 14.7 (13.0-17.5) gm/dL Hct 44.8 (39.0-53.0) % Plt Count 211 (150-450) k/uL Comprehensive Metabolic Panel 01/26/23 Range/Units 02:37 Sodium 139 (137-145) mmol/L Potassium 4.7 (3.5-5.1) mmol/L Chloride 104 (98-107) mmol/L Carbon Dioxide 25 (22-30) mmol/L BUN 26 H (9-20) mg/dL Creatinine 0.86 (0.66-1.25) mg/dL Glucose 209 H (74-99) mg/dL Calcium 8.6 (8.4-10.2) mg/dL AST 35 (17-59) U/L ALT 25 (4-49) U/L Alkaline Phosphatase 52 (38-126) U/L Total Protein 6.6 (6.3-8.2) g/dL Albumin 3.7 (3.5-5.0) g/dL Current Medications Generic Name Dose Route Start Last Admin Trade Name Freq PRN Reason Stop Dose Admin Apixaban 5 mg 01/26/23 09:00 Apixaban 5 Mg Tab PO BID [facility] Protocol Atorvastatin Calcium 20 mg 01/26/23 09:00 Atorvastatin 40 Mg Tab PO Q48H [facility] Sodium Chloride 1,000 mls @ 130 mls/hr 01/26/23 02:27 01/26/23 02:49 Saline 0.9% IV 01/26/23 10:08 130 mls/hr .Q7H42M STA Administration Sodium Chloride 1,000 mls @ 130 mls/hr 01/26/23 07:30 01/26/23 08:04 Saline 0.9% IV Not Given .Q7H42M [facility] Isosorbide Mononitrate 30 mg 01/26/23 09:00 Isosorbide Mononitrate Er 30 Mg Tab.Er.24h PO DAILY [facility] Lisinopril 10 mg 01/26/23 21:00 Lisinopril 10 Mg Tab PO HS [facility] Morphine Sulfate 4 mg 01/26/23 07:24 Morphine Sulfate 4 Mg/Ml Syringe IV Q4HR PRN Severe Pain (Scale 7 to 10) Naloxone HCl 0.2 mg 01/26/23 07:24 Naloxone 0.4 Mg/Ml 1 Ml Vial IV Q2M PRN Opioid Reversal Non-Formulary Medication 81 mg 01/26/23 09:00 Aspirin Ec PO DAILY [facility] Non-Formulary Medication 100 mg 01/26/23 09:00 Metoprolol Tartrate [Lopressor] PO BID [facility] Ondansetron HCl 4 mg 01/26/23 07:24 Ondansetron 4 Mg/2 Ml Vial IVP Q8HR PRN Nausea And Vomiting Intake and Output 01/25/23 01/26/23 01/26/23 22:59 06:59 14:59 Other: Weight 136.078 kg 01/26/23 02:37 01/26/23 02:37
--- NOTE | 2023-01-26 12:21 | P.HPIM ---
History of Present Illness H&P Date: 01/26/23 Chief Complaint: Near syncope This is a 77-year-old male patient who presents to the ER with concerns of weakness and generalized body aches. Per patient's at bedside patient was on the toilet and became very sweaty unable to stand. Patient has a significant past medical history of atrial fibrillation, asthma, CAD, MS, hyperlipidemia, hypertension, myocardial infarction with previous stent placement, sleep apnea, AAA repair and chronic cervical and low back pain. Chest x-ray completed showing low lung volumes no evidence for acute cardiopulmonary disease. CTA c ompleted showing no evidence of thoracic aortic aneurysm or dissection mild bibasilar atelectasis. Abdominal CT completed showing no acute abdominal pelvic process. Post surgical changes from aortic bili stent graft ventral epigastric wall and umbilical fat filled hernia is nonobstructive right renal calculus. Troponins negative. BNP elevated at 1140. Lactic acid elevated at 2.0. Repeat 2.9. Patient negative for influenza Covid and RSV. WBC slightly elevated at 11.4. Patient denies any recent illness. Due to elevated lactic acid will order urine and blood cultures. Carotid Doppler will be ordered for dizziness. 2-D echo recently completed per cardiology no need to repeat. Cardiology service is consulted. We'll also consult neurology services for history of MS and increasing weakness. Patient was given 1 dose IV Lasix per cardiology recommendation. Home meds resumed. At this time patient denies chest pain or shortness breath. Patient denies nausea vomiting or diarrhea. Patient denies any urinary burning or frequency Review of Systems Please refer to HPI otherwise unremarkable Past Medical History Past Medical History: Atrial Fibrillation, Asthma, Coronary Artery Disease (CAD), Chest Pain / Angina, Hyperlipidemia, Hypertension, Myocardial Infarction ([place]), Musculoskeletal Disorder, Neurologic Disorder, Sleep Apnea/CPAP/BIPAP, Vascular Disorder Additional Past Medical History / Comment(s): Ishemic heart disease, paroxysmal VT, AAA with repair, MS treated experimentally with chemo, bilateral feet numbness, [place] with Cpap, cervical and low back pain, Last Myocardial Infarction Date:: 1995 History of Any Multi-Drug Resistant Organisms: None Reported Past Surgical History: Cholecystectomy, Heart Catheterization, Heart Catheterization With Stent Additional Past Surgical History / Comment(s): AAA repair, bilateral cataract removals, colonoscopy. Past Anesthesia/Blood Transfusion Reactions: No Reported Reaction Date of Last Stent Placement:: 1995 Past Psychological History: No Psychological Hx Reported Smoking Status: Former smoker Past Alcohol Use History: None Reported Past Drug Use History: None Reported - Past Family History Mother Family Medical History: Cancer Additional Family Medical History / Comment(s): Mother at the age of 58yrs from metastatic cancer. Father Family Medical History: Myocardial Infarction ([place]) Additional Family Medical History / Comment(s): Father of a [place] at the age of 52 yrs. Medications and Allergies Home Medications Medication Instructions Recorded Confirmed Type Isosorbide Mononitrate ER [Imdur] 30 mg PO DAILY 09/11/13 01/26/23 History Montelukast [Singulair] 10 mg PO DAILY 09/11/13 01/26/23 History Multivitamin [Men's Multi-Vitamin] 1 tab PO DAILY 09/11/13 01/26/23 History Nitroglycerin Sl Tabs [Nitrostat] 0.4 mg SL Q5M PRN 09/11/13 01/26/23 History Apixaban [Eliquis] 5 mg PO BID 12/10/17 01/26/23 History lisinopriL [Zestril] 10 mg PO HS 12/10/17 01/26/23 History Aspirin EC [Ecotrin Low Dose] 81 mg PO DAILY 08/26/20 01/26/23 History Atorvastatin [Lipitor] 20 mg PO Q48H 08/26/20 01/26/23 History Loratadine [Claritin] 10 mg PO DAILY 08/26/20 01/26/23 History Cholecalciferol [Vitamin D3 (125 125 mcg PO DAILY 06/02/22 01/26/23 History Mcg = 5000 Iu)] Fluticasone Propion/Salmeterol 1 puff INHALATION RT-BID 06/02/22 01/26/23 History [Fluticasone-Salmeterol 250-50] Furosemide [Lasix] 20 mg PO DAILY 06/02/22 01/26/23 History Potassium Chloride ER [K-Dur 10] 10 meq PO DAILY 06/02/22 01/26/23 History Metoprolol Tartrate [Lopressor] 100 mg PO BID 01/26/23 01/26/23 History Vitamin B Complex 1 cap PO DAILY 01/26/23 01/26/23 History Allergies Allergy/AdvReac Type Severity Reaction Status Date / Time No Known Allergies Allergy Verified 01/26/23 07:39 Physical Exam Vitals: Vital Signs Temp Pulse Resp BP Pulse Ox 01/26/23 09:24 80 18 124/97 97 01/26/23 09:00 71 18 124/97 97 01/26/23 08:04 75 18 125/81 96 01/26/23 06:26 67 18 133/70 96 01/26/23 04:12 68 18 124/72 95 01/26/23 03:12 72 18 112/68 95 01/26/23 02:06 97.8 F 85 18 125/67 96 Intake and Output 01/25/23 01/26/23 01/26/23 22:59 06:59 14:59 Other: Weight 136.078 kg 136.078 kg Head normocephalic Neck supple Lungs clear to auscultation bilaterally no wheezing or crackles Heart irregular heart rate Abdomen is soft nontender nondistended positive bowel sounds no hepatosplenomegaly Extremities no edema Neuro alert and orientated to 3 Results CBC & Chem 7: 01/26/23 02:37 01/26/23 02:37 Labs: Abnormal Lab Results - Last 24 Hours (Table) 01/26/23 01/26/23 01/26/23 Range/Units 02:37 02:37 02:37 WBC 11.4 H (3.8-10.6) k/uL Neutrophils # 8.4 H (1.3-7.7) k/uL BUN 26 H (9-20) mg/dL Glucose 209 H (74-99) mg/dL Plasma Lactic Acid Caleb 2.2 H* (0.7-2.0) mmol/L 01/26/23 Range/Units 07:12 WBC (3.8-10.6) k/uL Neutrophils # (1.3-7.7) k/uL BUN (9-20) mg/dL Glucose (74-99) mg/dL Plasma Lactic Acid Caleb 2.9 H* (0.7-2.0) mmol/L Assessment and Plan Assessment: Generalized weakness Near-syncope Elevated lactic acid. Acute on chronic diastolic congestive heart failure History of coronary artery disease with previous stenting Persistent atrial fibrillation History of multiple sclerosis History of essential hypertension History of hyperlipidemia History of peripheral arterial disease DVT prophylaxis eliquis. GI prophylaxis Protonix Cardiology consult placed No need for repeat 2-D echo per cardiology completed in July Carotid Doppler ordered Blood and urine cultures ordered Neurology consulted Time with Patient: Greater than 30 (Greater than 60% of the total time spent in counseling and coordination of care)
--- NOTE | 2023-01-26 12:52 | US ---
EXAMINATION TYPE: US carotid duplex BILAT DATE OF EXAM: 01/26/2023 COMPARISON: US 2013 CLINICAL INDICATION: Male, 77 years old with history of near syncope; TECHNIQUE: Carotid duplex ultrasound examination. Indirect Doppler criteria was utilized. FINDINGS: EXAM MEASUREMENTS: RIGHT: Peak Systolic Velocity (PSV) cm/sec ----- Right CCA: 88.6 ----- Right ICA: 56.6 ----- Right ECA: 50.8 ICA/CCA ratio: 0.6 RIGHT: End Diastole cm/sec ----- Right CCA: 12.7 ----- Right ICA: 15.2 ----- Right ECA: 9.7 LEFT: Peak Systolic Velocity (PSV) cm/sec ----- Left CCA: 72.6 ----- Left ICA: 80.3 ----- Left ECA: 64.7 ICA/CCA ratio: 1.1 LEFT: End Diastole cm/sec ----- Left CCA: 13.9 ----- Left ICA: 24.3 ----- Left ECA: 0.0 VERTEBRALS (direction of flow): Right Vertebral: Antegrade Left Vertebral: Antegrade Rhythm: Arrhythmia No significant stenosis. Mild atherosclerotic plaque. IMPRESSION: 1. No significant hemodynamic stenosis. 2. Cardiac dysrhythmia. Criteria for Assigning % of Stenosis / Diameter reduction (Estimation based on the indirect measurements of the internal carotid artery velocities (ICA PSV). 1. Normal (no stenosis)=ICA PSV < 125 cm/s: ratio < 2.0: ICA EDV<40 cm/s. 2. Less than 50% stenosis=ICA PSV < 125 cm/s: ratio < 2.0: ICA EDV<40 cm/s. 3. 50 to 69% stenosis=ICA PSV of 125 to 230 cm/s: ration 2.0 ? 4.0: ICA EDV 40-100 cm/s. 4. Greater than 70% stenosis to near occlusion= ICA PSV > 230 cm/s: ratio > 4.0: ICA EDV > 100 cm/s. 5. Near occlusion= ICA PSV velocities may be low or undetectable: variable ratio and ICA EDV. 6. Total occlusion=unable to detect flow.
--- NOTE | 2023-01-26 15:57 | P.CNNES ---
History of Present Illness Consult date: 01/26/23 Requesting physician: Cedric Giraldo Reason for Consult: hx of MS, increased weakness History of Present Illness: This is a 77-year-old gentleman with history of multiple sclerosis in his 30s and has not been on the MS medication since 1988, vertigo, severe hearing loss with tinnitus, coronary artery disease status post multiple stent , atrial fibrillation on Angie course, congestive heart failure who presents because of dizziness. Patient's is at bedside to helps with some of the history. Neurology is consulted because of MS with increased weakness. The patient states that last 1-2 days he felt dizzy when he got out of bed. He could not describe this dizziness. But felt that was with position. Denies of any nausea or vomiting. Denies of any visual disturbance. It was somewhat hard to get the history from the patient because of his severe hearing loss. Denies of any focal weakness or any falls. He stated that he is having worsening or shortness of breath. He has a history of multiple sclerosis and his 31 years old and follows up with Dr. Catalan and he stated that he had chemotherapy for multiple sclerosis. He stated that the last time he was on the medication for multiple sclerosis was 1988. He does have the severe cervical and lumbar stenosis and followed up with a surgeon is an outpatient and was told that he cannot have surgery because of the severity. Patient also has history of atrial fibrillation on Ahlquist, peripheral vascular disease, hypertension, hyperlipidemia, congestive heart failure Some other workup during his hospital visit consisted of: Initial serum glucoses tone on, sodium, calcium, phosphorus, AST ALT the end creatinine is within normal limits Review of Systems The positive and negative as per HPI. Past Medical History Past Medical History: Atrial Fibrillation, Asthma, Coronary Artery Disease (CAD), Chest Pain / Angina, Hyperlipidemia, Hypertension, Myocardial Infarction (LA), Musculoskeletal Disorder, Neurologic Disorder, Sleep Apnea/CPAP/BIPAP, Vascular Disorder Additional Past Medical History / Comment(s): Ishemic heart disease, paroxysmal VT, AAA with repair, MS treated experimentally with chemo, bilateral feet numbness, [place] with Cpap, cervical and low back pain, Last Myocardial Infarction Date:: 1995 History of Any Multi-Drug Resistant Organisms: None Reported Past Surgical History: Cholecystectomy, Heart Catheterization, Heart Catheterization With Stent Additional Past Surgical History / Comment(s): AAA repair, bilateral cataract removals, colonoscopy. Past Anesthesia/Blood Transfusion Reactions: No Reported Reaction Date of Last Stent Placement:: 1995 Past Psychological History: No Psychological Hx Reported Smoking Status: Former smoker Past Alcohol Use History: None Reported Past Drug Use History: None Reported - Past Family History Mother Family Medical History: Cancer Additional Family Medical History / Comment(s): Mother at the age of 58yrs from metastatic cancer. Father Family Medical History: Myocardial Infarction (LA) Additional Family Medical History / Comment(s): Father of a LA at the age of 52 yrs. Medications and Allergies Home Medications Medication Instructions Recorded Confirmed Type Isosorbide Mononitrate ER [Imdur] 30 mg PO DAILY 09/11/13 01/26/23 History Montelukast [Singulair] 10 mg PO DAILY 09/11/13 01/26/23 History Multivitamin [Men's Multi-Vitamin] 1 tab PO DAILY 09/11/13 01/26/23 History Nitroglycerin Sl Tabs [Nitrostat] 0.4 mg SL Q5M PRN 09/11/13 01/26/23 History Apixaban [Eliquis] 5 mg PO BID 12/10/17 01/26/23 History lisinopriL [Zestril] 10 mg PO HS 12/10/17 01/26/23 History Aspirin EC [Ecotrin Low Dose] 81 mg PO DAILY 08/26/20 01/26/23 History Atorvastatin [Lipitor] 20 mg PO Q48H 08/26/20 01/26/23 History Loratadine [Claritin] 10 mg PO DAILY 08/26/20 01/26/23 History Cholecalciferol [Vitamin D3 (125 125 mcg PO DAILY 06/02/22 01/26/23 History Mcg = 5000 Iu)] Fluticasone Propion/Salmeterol 1 puff INHALATION RT-BID 06/02/22 01/26/23 History [Fluticasone-Salmeterol 250-50] Furosemide [Lasix] 20 mg PO DAILY 06/02/22 01/26/23 History Potassium Chloride ER [K-Dur 10] 10 meq PO DAILY 06/02/22 01/26/23 History Metoprolol Tartrate [Lopressor] 100 mg PO BID 01/26/23 01/26/23 History Vitamin B Complex 1 cap PO DAILY 01/26/23 01/26/23 History Allergies Allergy/AdvReac Type Severity Reaction Status Date / Time No Known Allergies Allergy Verified 01/26/23 07:39 Physical Examination - Vital Signs Vital Signs: Vital Signs Temp Pulse Pulse Resp BP BP Pulse Ox 01/26/23 14:44 97.8 F 50 L 16 101/55 96 01/26/23 09:24 80 18 124/97 97 01/26/23 09:00 71 18 124/97 97 01/26/23 08:04 75 18 125/81 96 01/26/23 06:26 67 18 133/70 96 01/26/23 04:12 68 18 124/72 95 01/26/23 03:12 72 18 112/68 95 01/26/23 02:06 97.8 F 85 18 125/67 96 Intake and Output 01/26/23 01/26/23 01/26/23 06:59 14:59 22:59 Intake Total 118 Balance 118 Intake: Oral 118 Other: # Voids 2 Weight 136.078 kg 136.078 kg GENERAL: The patient is an obese gentleman, lying in bed and is not in acute distress. NEUROLOGICAL: Higher mental function: The patient is awake, alert, oriented to self, place and time. Patient is following commands. No aphasia and no neglect. Cranial nerves: The pupils are round, equal and reactive to light and accommodation. Visual valdes are full to confrontation throughout. Extraocular movement is intact no nystagmus is noted. Facial sensation is normal to touch throughout. The facial strength is normal throughout. Hearing is is severely decreased to hand rub. Tongue is midline and moved [id number] without any difficulty. No dysarthria is noted. Shoulder shrug is normal bilaterally. Motor: Was very short of breath even with few steps but not feeling dizzy. The strength is 5 over 5 throughout. Normal tone and bulk. Cerebellum: Normal finger to nose bilaterally. Sensation: Sensation is normal to touch throughout. Reflexes (right/left): 2+ uppers, patellars are 1-2+ and ankles are 1+. Plantars are mute bilaterally. Results - Laboratory Findings CBC and BMP: 01/26/23 02:37 01/26/23 02:37 Abnormal Lab Findings: Abnormal Labs 01/26/23 01/26/23 01/26/23 02:37 02:37 02:37 WBC 11.4 H Neutrophils # 8.4 H BUN 26 H Glucose 209 H Plasma Lactic Acid Caleb 2.2 H* 01/26/23 01/26/23 01/26/23 07:12 11:01 14:05 WBC Neutrophils # BUN Glucose Plasma Lactic Acid Caleb 2.9 H* 2.8 H* 2.2 H* Assessment and Plan Assessment: This is a 77-year-old gentleman with history of multiple sclerosis was not been on any medication since 1988, he for ablation on eliquis, congestive heart failure, chronic hearing loss resented because of the dizziness with position. Upon examining the patient was very short of breath taken a few steps. He denies of any focal weakness and denies of any generalized weakness. Dizziness with questionable concern of generalized weakness by the primary team seems possible due to worsening of shortness of breath and the patient has underlying congestive heart failure. There is no focality on examination. Patient was very short of breath upon walking a few steps History of multiple sclerosis and has not been on any medication since 1988 and he follows up with a neurologist Dr. Braswell Chronic history of severe hearing loss Congestive heart failure Atrial fibrillation on eliquis History of peripheral artery disease History of coronary artery disease status post multiple stents Hyperlipidemia Severe Obesity Plan: I ordered a CT of the head and the CT cervical spine, orthostatic vitals, vitamin B12, folate, hemoglobin A1c Patient had a recent TSH on 08/23/2022 which was 1.710 and no need for repeat from a neurologic perspective Cardiology is on board Consider 2-D echo if the workup is negative. Consult PT and OT for gait training We'll defer the rest of the medical management to primary team Upon discharge recommend the patient to follow-up with his neurologist as an outpatient Dr. Catalan. Patient stated that the he follows up with Dr. Catalan for years and he has not been on any disease modifying therapy since 1988 for his MS. Plan discussed with the patient, his was at bedside and his nurse Thank you for the consultation Time with Patient: Greater than 30
--- NOTE | 2023-01-26 19:12 | CT ---
EXAMINATION TYPE: CT brain cspine wo con CT DLP: 1812.9 mGycm, Automated exposure control for dose reduction was used. DATE OF EXAM: 01/26/2023 6:29 PM COMPARISON: None. CLINICAL INDICATION:Male, 77 years old with history of vertigo; Vertigo. TECHNIQUE: Brain: Multiple axial CT images of the brain were obtained without IV contrast. Cspine: Axial CT images from the skull base to the inferior aspect of T2 we obtained without intraven ous contrast. Coronal and sagittal reformatted images were also reviewed. FINDINGS: Brain: Extra-axial spaces: No abnormal extra-axial fluid collections. Ventricular system: Dilatation in proportion to cerebral atrophy. Cerebral parenchyma: Mild to moderate generalized atrophy. No acute intraparenchymal hemorrhage or ma ss affect. The haley/white matter distinction appears preserved. There is hypoattenuation in the right parietal lobe which appears relatively defined and there is mild ex vacuo dilatation of the adjacent lateral ventricle suggested, most likely related to remote infarct. Cerebellum: Atrophic. No acute abnormality suggested. Mass effect: No evidence of midline shift. Intracranial vasculature: unremarkable Soft tissues: Normal. Calvarium/osseous structures: No depressed skull fracture. Paranasal sinuses and mastoid air cells: Scattered mucosal thickening in the left maxillary sinus and bilateral ethmoid air cells. Visualized orbits: Orbital contents are grossly intact. *MRI is more sensitive for detecting acute processes such as infarct, and may be considered if clinic ally warranted. Cervical spine: Fracture: None. Osseous structures, canal and neural foramina: Generalized osteopenia. Mild/moderate multilevel degen erative disc disease and facet arthrosis with scattered mild canal and foraminal stenoses. Vertebral alignment: No traumatic malalignment. Neck soft tissues: Prevertebral soft tissues are within normal limits. Other: The airway is patent. The lung apices are clear. IMPRESSION: No CT evidence of an acute intracranial abnormality. Atrophy and chronic microvascular ischemic white matter changes. 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 No evidence of cervical spine fracture. Mild/moderate multilevel cervical spondylosis.
[2023-01-26] MEDS: SYMBICORT 80-4.5 MCG INHALER INHALATION SCH (20:08)
[2023-01-26] MEDS ORDERED: lisinopriL 10 MG TAB PO SCH (21:00)
[2023-01-26 21:12] LABS: Appearance,Urine Cloudy (Clear); Bilirubin,Urine Negative (Negative); Blood,Urine Large (Negative); Color,Urine Yellow; Glucose,Urine (UA) Negative (Negative); Ketones,Urine Negative (Negative); Leukocyte Esterase,Urine Negative (Negative); Mucus,Urine Rare /hpf; Nitrite,Urine Negative (Negative); Protein,Urine Trace (Negative); RBC,Urine >182 /hpf (0-5); Specific Gravity,Urine 1.023 (1.001-1.035); Squamous Epithelial Cell,Urine <1 /hpf (0-4); Urobilinogen,Urine <2.0 mg/dL (<2.0); WBC,Urine 4 /hpf (0-5)
[2023-01-27] MEDS: SODIUM CHLORIDE 0.9% 1,000 ML IV SCH (05:51)
[2023-01-27] MEDS ORDERED: PANTOPRAZOLE 40 MG TABLET PO SCH (07:30)
[2023-01-27 07:50] VITALS: RESP 22; TEMP 97.5
[2023-01-27] MEDS: SYMBICORT 80-4.5 MCG INHALER INHALATION SCH (08:08)
[2023-01-27] MEDS ORDERED: MONTELUKAST 10 MG TAB PO SCH (09:00)
[2023-01-27] MEDS ORDERED: FUROSEMIDE 20 MG TAB PO SCH (09:00)
[2023-01-27] MEDS ORDERED: POTASSIUM CHLORIDE ER 10 MEQ TAB.ER.PRT PO SCH (09:00)
[2023-01-27] MEDS ORDERED: MULTIVITAMINS, THERA 1 EACH TAB PO SCH (09:00)
[2023-01-27] MEDS ORDERED: LORATADINE 10 MG TAB PO SCH (09:00)
[2023-01-27] MEDS ORDERED: ATORVASTATIN 20 MG TAB PO SCH (09:00)
[2023-01-27] MEDS ORDERED: CHOLECALCIFEROL 125 MCG (5000 IU) TABLET PO SCH (09:00)
[2023-01-27] MEDS: METOPROLOL TARTRATE 50 MG TAB PO SCH (09:02)
[2023-01-27] MEDS: ASPIRIN 81 MG PO SCH (09:02)
[2023-01-27] MEDS: APIXABAN 5 MG TAB PO SCH (09:02)
[2023-01-27] MEDS: ISOSORBIDE MONONITRATE ER 30 MG TAB.ER.24H PO SCH (09:02)
--- NOTE | 2023-01-27 09:49 | P.PN ---
Subjective HISTORY OF PRESENT ILLNESS: This is a 77-year-old male with a past medical history significant for coronary artery disease, atrial fibrillation, peripheral arterial disease, hypertension, hyperlipidemia, and congestive heart failure. Patient follows in the office with Dr. Rodriguez. We have been asked to see the patient in consultation for syncope. Patient examined at the bedside in the emergency room. Patient states last night he went to the bathroom and was unable to get up. He states he has been extremely weak at home. He called his for assistance. He reported feeling dizzy at that time. However he did not pass out. He reports mild shortness of breath which is his baseline. He reports that his heart "didn't feel right' but is not exactly sure if he was having palpitations. * EKG reveals atrial fibrillation with controlled ventricular rate. PVCs. * Chest xray low lung volumes. No evidence for acute cardiopulmonary process * Laboratory data: W BC 11.4. Lactic acid 2.9. Troponin negative 2. ProBNP 1140. * Current home cardiac medications include lisinopril 10 mg at night, metoprolol tartrate 100 mg twice a day, Imdur 30 mg daily, Lasix 20 mg daily, atorvastatin 20 mg every 48 hours, aspirin 81 mg daily, and Eliquis 5 mg twice a day * Most recent echocardiogram obtained in July 2022 revealing ejection fraction 50-55%, mild mitral regurgitation, mild tricuspid regurgitation * Patient underwent Lexiscan stress test in July 2022 revealing evidence of prior myocardial infarction involving basal lateral and basal inferior wall consistent with prior myocardial infarction. No evidence of stress-induced ischemia * Cardiac catheterization history: March 2017 revealing 50% proximal LAD, 100% distal circumflex, 60% proximal OM1, normal FFR of left circumflex. 01/27/2023 Patient examined this morning at the bedside. Patient is sitting up in the chair. Patient currently denies chest pain or pressure. He reports mild shortness of breath. He denies any dizziness or lightheadedness. Vital signs are stable. PHYSICAL EXAM: VITAL SIGNS: Reviewed. GENERAL: Well-developed in no acute distress. HEENT: Head is normocephalic. Pupils are equal, round. Sclerae anicteric. Mucous membranes of the mouth are moist. Neck supple. No JVD or thyromegaly LUNGS: Respirations even and unlabored. Lungs essentially clear to auscultation bilaterally. HEART: Irregular rate and rhythm. S1 and S2 heard. Systolic murmur noted. ABDOMEN: Soft. Nondistended. Nontender. EXTREMITIES: Normal range of motion. No clubbing or cyanosis. Peripheral pulses intact. Trace bilateral bilateral lower extremity edema NEUROLOGIC: Awake and alert. Oriented x 3. ASSESSMENT: Generalized weakness Elevated lactic acid Presyncope Persistent atrial fibrillation Coronary artery disease with previous stenting of LAD, RCA, and OM branch of left circumflex Peripheral arterial disease Hypertension Hyperlipidemia Chronic congestive heart failure with preserved LV systolic function PLAN: Continue current cardiac medications Patient is currently stable from a cardiac standpoint with no further inpatient recommendations We will sign off. Please reconsult if needed Nurse practitioner note has been reviewed by physician. Signing provider agrees with the documented findings, assessment, and plan of care. Objective - Vital Signs Vital signs: Vital Signs Temp 97.5 F L 01/27/23 07:00 Pulse 75 01/27/23 07:00 Resp 22 01/27/23 07:00 BP 127/75 01/27/23 07:00 Pulse Ox 96 01/27/23 07:00 FiO2 Intake & Output 01/26/23 01/27/23 01/27/23 18:59 06:59 18:59 Intake Total 118 Output Total 450 Balance 118 -450 Weight 136.078 kg Intake: Oral 118 Output: Urine 450 Other: Voiding Method Urinal # Voids 2 - Labs CBC & Chem 7: 01/26/23 02:37 01/26/23 02:37 Labs: Abnormal Lab Results - Last 24 Hours (Table) 01/26/23 01/26/23 01/26/23 Range/Units 11: 14:05 17:01 Hemoglobin A1c 6.4 H (<=6.0) % Plasma Lactic Acid Caleb 2.8 H* 2.2 H* (0.7-2.0) mmol/L Vitamin B12 (200.0-944.0) pg/mL Urine Protein (Negative) Urine Blood (Negative) Urine RBC (0-5) /hpf Urine Mucus (None) /hpf 01/26/23 01/26/23 01/26/23 Range/Units 17:01 17:01 20:35 Hemoglobin A1c (<=6.0) % Plasma Lactic Acid Caleb 2.1 H* 2.3 H* (0.7-2.0) mmol/L Vitamin B12 1315.0 H (200.0-944.0) pg/mL Urine Protein (Negative) Urine Blood (Negative) Urine RBC (0-5) /hpf Urine Mucus (None) /hpf 01/26/23 Range/Units 20:35 Hemoglobin A1c (<=6.0) % Plasma Lactic Acid Caleb (0.7-2.0) mmol/L Vitamin B12 (200.0-944.0) pg/mL Urine Protein Trace H (Negative) Urine Blood Large H (Negative) Urine RBC >182 H (0-5) /hpf Urine Mucus Rare H (None) /hpf
[2023-01-27 11:02] LABS: Basophils # (A) 0.05 X 10*3/uL (0.00-0.10); Basophils % (A) 0.6 %; Eosinophils # (A) 0.15 X 10*3/uL (0.04-0.35); Eosinophils % (A) 1.7 %; HCT 41.1 % (39.6-50.0); HGB 13.3 g/dL (13.0-17.0); Lymphocytes # (A) 2.38 X 10*3/uL (0.90-5.00); Lymphocytes % (A) 26.2 %; MCH 30.9 pg (27.0-32.0); MCHC 32.4 g/dL (32.0-37.0); MCV 95.6 FL (80.0-97.0); Mean Platelet Volume 10.5 FL (9.5-12.2); Monocytes # (A) 1.12 X 10*3/uL (0.20-1.00); Monocytes % (A) 12.3 %; NRBC Per 100 WBC 0 X 10*3/uL (0.00-0.01); Neutrophils # (A) 5.35 X 10*3/uL (1.80-7.70); Neutrophils % (A) 58.8 %; Platelet Count 191 X 10*3/uL (140-440); RDW 14.5 % (11.5-14.5); WBC 9.09 X 10*3/uL (4.50-10.00)
[2023-01-27 11:22] LABS: ALT 23 U/L (10-49); AST 26 U/L (14-35); Albumin 3.4 g/dL (3.8-4.9); Albumin/Globulin Ratio 1.48 Ratio (1.60-3.17); Alkaline Phosphatase 50 U/L (41-126); BUN/Creat Ratio 27.12 Ratio (12.00-20.00); Blood Urea Nitrogen 21.7 mg/dL (9.0-27.0); Calcium 8.5 mg/dL (8.7-10.3); Carbon Dioxide 23.5 mmol/L (21.6-31.8); Chloride 106 mmol/L (96-109); Globulin 2.3 g/dL (1.6-3.3); Glucose 117 mg/dL (70-110); Magnesium 2.1 mg/dL (1.5-2.4); Phosphorus 3.1 mg/dL (2.4-5.1); Potassium 4.1 mmol/L (3.5-5.5); Sodium 142 mmol/L (135-145); Total Bilirubin 0.3 mg/dL (0.3-1.2); Total Protein 5.7 g/dL (6.2-8.2)
--- NOTE | 2023-01-27 11:28 | P.DS ---
Providers Date of admission: 01/26/23 07:27 Expected date of discharge: 01/27/23 Attending physician: Cedric Giraldo Consults: 01/26/23 10:55 Consult Physician Routine Consulting Provider: River Barnard Consult Reason/Comments: History of MS. Increased weakness Do you want consulting provider notified?: Yes Primary care physician: Cedric Giraldo [facility] Course: Diagnosis on discharge: Generalized weakness Near-syncope Elevated lactic acid. Acute on chronic diastolic congestive heart failure History of coronary artery disease with previous stenting Persistent atrial fibrillation History of multiple sclerosis History of essential hypertension History of hyperlipidemia History of peripheral arterial disease Hospital course: This is a 77-year-old male patient who presents to the ER with concerns of weakness and generalized body aches. Per patient's at bedside patient was on the toilet and became very sweaty unable to stand. Patient has a significant past medical history of atrial fibrillation, asthma, CAD, MS, hyperlipidemia, hypertension, myocardial infarction with previous stent placement, sleep apnea, AAA repair and chronic cervical and low back pain. Chest x-ray completed showing low lung volumes no evidence for acute cardiopulmonary disease. CTA completed showing no evidence of thoracic aortic aneurysm or dissection mild bibasilar atelectasis. Abdominal CT completed showing no acute abdominal pelvic process. Post surgical changes from aortic bili stent graft ventral epigastric wall and umbilical fat filled hernia is nonobstructive right renal calculus. Troponins negative. BNP elevated at 1140. Lactic acid elevated at 2.0. Repeat 2.9. Patient negative for influenza Covid and RSV. WBC slightly elevated at 11.4. Patient denies any recent illness. Due to elevated lactic acid will order urine and blood cultures. Carotid Doppler will be ordered for dizziness. 2-D echo recently completed per cardiology no need to repeat. Cardiology service is consulted. We'll also consult neurology services for history of MS and increasing weakness. Patient was given 1 dose IV Lasix per cardiology recommendation. Home meds resumed. At this time patient denies chest pain or shortness breath. Patient denies nausea vomiting or diarrhea. Patient denies any urinary burning or frequency On 01/27/2023 patient was seen and examined on the telemetry floor he is alert and oriented 3 in no apparent distress he is feeling well at this time and denies any complaints there is no fever or chills no headache or dizziness no chest pain no shortness of breath no cough no nausea or vomiting no abdominal pain no diarrhea and no urinary symptoms. During this admission patient was evaluated by cardiology and neurology, he underwent carotid Doppler, computed tomography scan of the head and cervical spine, CT angiogram of the chest, all tests did not reveal any significant abnormality patient was cleared for discharge he will be followed as outpatient for further evaluation and treatment Patient Condition at Discharge: Good Plan - Discharge Summary New Discharge Prescriptions: Continue Nitroglycerin Sl Tabs [Nitrostat] 0.4 mg SL Q5M PRN PRN Reason: chest pain Montelukast [Singulair] 10 mg PO DAILY Isosorbide Mononitrate ER [Imdur] 30 mg PO DAILY Multivitamin [Men's Multi-Vitamin] 1 tab PO DAILY Apixaban [Eliquis] 5 mg PO BID lisinopriL [Zestril] 10 mg PO HS Aspirin EC [Ecotrin Low Dose] 81 mg PO DAILY Vitamin B Complex 1 cap PO DAILY Atorvastatin [Lipitor] 20 mg PO Q48H Loratadine [Claritin] 10 mg PO DAILY Potassium Chloride ER [K-Dur 10] 10 meq PO DAILY Cholecalciferol [Vitamin D3 (125 Mcg = 5000 Iu)] 125 mcg PO DAILY Fluticasone Propion/Salmeterol [Fluticasone-Salmeterol 250-50] 1 puff INHALATION RT-BID Furosemide [Lasix] 20 mg PO DAILY Metoprolol Tartrate [Lopressor] 100 mg PO BID Discharge Medication List Isosorbide Mononitrate ER [Imdur] 30 mg PO DAILY 09/11/13 [History] Montelukast [Singulair] 10 mg PO DAILY 09/11/13 [History] Multivitamin [Men's Multi-Vitamin] 1 tab PO DAILY 09/11/13 [History] Nitroglycerin Sl Tabs [Nitrostat] 0.4 mg SL Q5M PRN 09/11/13 [History] Apixaban [Eliquis] 5 mg PO BID 12/10/17 [History] lisinopriL [Zestril] 10 mg PO HS 12/10/17 [History] Aspirin EC [Ecotrin Low Dose] 81 mg PO DAILY 08/26/20 [History] Atorvastatin [Lipitor] 20 mg PO Q48H 08/26/20 [History] Loratadine [Claritin] 10 mg PO DAILY 08/26/20 [History] Cholecalciferol [Vitamin D3 (125 Mcg = 5000 Iu)] 125 mcg PO DAILY 06/02/22 [History] Fluticasone Propion/Salmeterol [Fluticasone-Salmeterol 250-50] 1 puff INHALATION RT-BID 06/02/22 [History] Furosemide [Lasix] 20 mg PO DAILY 06/02/22 [History] Potassium Chloride ER [K-Dur 10] 10 meq PO DAILY 06/02/22 [History] Metoprolol Tartrate [Lopressor] 100 mg PO BID 01/26/23 [History] Vitamin B Complex 1 cap PO DAILY 01/26/23 [History] Follow up Appointment(s)/Referral(s): Mandy Rodriguez MD [STAFF PHYSICIAN] - 2 Weeks Cedric Giraldo MD [Primary Care Provider] - 1-2 days
--- NOTE | 2023-01-27 13:17 | P.PN ---
Subjective Progress Note Date: 01/27/23 I am following-up with patient and he feels he is about the same. He continues to feels short of breathing taking few steps. Per nurse he continues to have swelling of lower extremities. Objective - Vital Signs Vital signs: Vital Signs Temp 97.5 F L 01/27/23 07:00 Pulse 75 01/27/23 07:00 Resp 22 01/27/23 07:00 BP 127/75 01/27/23 07:00 Pulse Ox 96 01/27/23 07:00 FiO2 Intake & Output 01/26/23 01/27/23 01/27/23 18:59 06:59 18:59 Intake Total 118 120 Output Total 450 Balance 118 -450 120 Weight 136.078 kg Intake: Oral 118 120 Output: Urine 450 Other: Voiding Method Urinal # Voids 2 - Exam GENERAL: The patient is an obese gentleman, sitting in a recliner chair and is not in acute distress. NEUROLOGICAL: Higher mental function: The patient is awake, alert, oriented to self, place and time. Patient is following commands. No aphasia and no neglect. Cranial nerves: The pupils are round, equal and reactive to light and accommodation. Visual valdes are full to confrontation throughout. Extraocular movement is intact no nystagmus is noted. Facial sensation is normal to touch throughout. The facial strength is normal throughout. Hearing is is severely decreased to hand rub. Tongue is midline and moved [id number] without any difficulty. No dysarthria is noted. Shoulder shrug is normal bilaterally. Motor: The strength is 5 over 5 throughout. Normal tone and bulk. Cerebellum: Normal finger to nose bilaterally. Sensation: Sensation is normal to touch throughout. Some other workup during his hospital visit consisted of: Initial serum glucoses tone on, sodium, calcium, phosphorus, AST ALT the end creatinine is within normal limits Vitamin B12 was 1315. Hemoglobin A1c 6.4. CT head and CT cervical spine is reported as no CT evidence for acute intracranial abnormality. Atrophy and chronic microvascular ischemic white matter changes. 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 No evidence of cervical spine fracture. Mild to moderate multilevel cervical spondylosis. I pursue reviewed the CT of the head and I agree is seems to old right parietal but also seems on the boundary of also temporal region. Carotid duplex was reported as no significant hemodynamic stenosis. Cardiac dysrhythmia. - Labs CBC & Chem 7: 01/27/23 03:59 01/27/23 03:59 Labs: Abnormal Lab Results - Last 24 Hours (Table) 01/26/23 01/26/23 01/26/23 Range/Units 14:05 17:01 17:01 RBC (4.40-5.60) X 10*6/uL Monocytes # (0.20-1.00) X 10*3/uL Anion Gap (4.00-12.00) mmol/L BUN/Creatinine Ratio (12.00-20.00) Ratio Glucose (70-110) mg/dL Hemoglobin A1c 6.4 H (<=6.0) % Plasma Lactic Acid Caleb 2.2 H* (0.7-2.0) mmol/L Calcium (8.7-10.3) mg/dL Total Protein (6.2-8.2) g/dL Albumin (3.8-4.9) g/dL Albumin/Globulin Ratio (1.60-3.17) Ratio Vitamin B12 1315.0 H (200.0-944.0) pg/mL Urine Protein (Negative) Urine Blood (Negative) Urine RBC (0-5) /hpf Urine Mucus (None) /hpf 01/26/23 01/26/23 01/26/23 Range/Units 17:01 20:35 20:35 RBC (4.40-5.60) X 10*6/uL Monocytes # (0.20-1.00) X 10*3/uL Anion Gap (4.00-12.00) mmol/L BUN/Creatinine Ratio (12.00-20.00) Ratio Glucose (70-110) mg/dL Hemoglobin A1c (<=6.0) % Plasma Lactic Acid Caleb 2.1 H* 2.3 H* (0.7-2.0) mmol/L Calcium (8.7-10.3) mg/dL Total Protein (6.2-8.2) g/dL Albumin (3.8-4.9) g/dL Albumin/Globulin Ratio (1.60-3.17) Ratio Vitamin B12 (200.0-944.0) pg/mL Urine Protein Trace H (Negative) Urine Blood Large H (Negative) Urine RBC >182 H (0-5) /hpf Urine Mucus Rare H (None) /hpf 01/27/23 01/27/23 Range/Units 03:59 03:59 RBC 4.30 L (4.40-5.60) X 10*6/uL Monocytes # 1.12 H (0.20-1.00) X 10*3/uL Anion Gap 12.50 H (4.00-12.00) mmol/L BUN/Creatinine Ratio 27.12 H (12.00-20.00) Ratio Glucose 117 H (70-110) mg/dL Hemoglobin A1c (<=6.0) % Plasma Lactic Acid Caleb (0.7-2.0) mmol/L Calcium 8.5 L (8.7-10.3) mg/dL Total Protein 5.7 L (6.2-8.2) g/dL Albumin 3.4 L (3.8-4.9) g/dL Albumin/Globulin Ratio 1.48 L (1.60-3.17) Ratio Vitamin B12 (200.0-944.0) pg/mL Urine Protein (Negative) Urine Blood (Negative) Urine RBC (0-5) /hpf Urine Mucus (None) /hpf Assessment and Plan Assessment: This is a 77-year-old gentleman with history of multiple sclerosis was not been on any medication since 1988, he for ablation on eliquis, congestive heart failure, chronic hearing loss resented because of the dizziness with position. Upon examining the patient was very short of breath taken a few steps. He denies of any focal weakness and denies of any generalized weakness. Dizziness with questionable concern of generalized weakness by the primary team seems possible due to worsening of shortness of breath and the patient has underlying congestive heart failure. There is no focality on examination. Patient was very short of breath upon walking a few steps. Again I feel his symptoms are due to cardiac in etiology. History of multiple sclerosis and has not been on any medication since 1988 since received chemotherapy and he follows up with a neurologist Dr. Braswell Chronic history of severe hearing loss CT head that shows old right parietal and I felt was right parietal/temporal region. Congestive heart failure Atrial fibrillation on eliquis History of peripheral artery disease History of coronary artery disease status post multiple stents Hyperlipidemia Severe Obesity Plan: Orthostatic vitals: Supine is 126/74 with sitting is 140/90 and standing is 1 25/80. Recommend repeat orthostatic. I feel it's mostly due to cardiac in etiology with a history of congestive heart failure and he is very short of breath even take a few steps. Pending folate. Patient had a recent TSH on 08/23/2022 which was 1.710 and no need for repeat from a neurologic perspective Cardiology is on board. Consider 2-D echo if the workup is negative. Consult PT and OT for gait training We'll defer the rest of the medical management to primary team Upon discharge recommend the patient to follow-up with his neurologist as an outpatient Dr. Catalan. Patient stated that the he follows up with Dr. Catalan for years and he has not been on any disease modifying therapy since 1988 for his MS since had chemotherapy. Plan discussed with the patient and his nurse Otherwise there is no further neurological workup. Time with Patient: Less than 30
[2023-01-27 14:02] VITALS: BP 102/70; PULSE 90
== END 2023-01-27 15:04 | disposition home or self-care (01) ==
LOC: EC 02:05 → 6NMEDSUR 07:27
PROVIDERS: ADMIT Internal Medicine; ATTEND Internal Medicine
DX: R53.1 Weakness (principal); R55 Syncope and collapse; I48.19 Other persistent atrial fibrillation; G35 Multiple sclerosis; H91.90 Unspecified hearing loss, unspecified ear; J45.909 Unspecified asthma, uncomplicated; I25.10 Atherosclerotic heart disease of native coronary artery without angina pectoris; E78.5 Hyperlipidemia, unspecified; G47.33 Obstructive sleep apnea (adult) (pediatric); I73.9 Peripheral vascular disease, unspecified; I11.0 Hypertensive heart disease with heart failure; I50.33 Acute on chronic diastolic (congestive) heart failure; R79.89 Other specified abnormal findings of blood chemistry; I25.2 Old myocardial infarction; R22.43 Localized swelling, mass and lump, lower limb, bilateral; E66.01 Morbid (severe) obesity due to excess calories; Z68.41 Body mass index [BMI] 40.0-44.9, adult; Z20.822 Contact with and (suspected) exposure to COVID-19; Z92.21 Personal history of antineoplastic chemotherapy; Z95.5 Presence of coronary angioplasty implant and graft; Z87.891 Personal history of nicotine dependence; Z79.01 Long term (current) use of anticoagulants; Z79.82 Long term (current) use of aspirin; Z79.899 Other long term (current) drug therapy
CPT/HCPCS: 96361 ×2; 96365; 96375; 99285; 36415; 94640 ×2; 93005; 83880; 80053 ×2; 82607; 82746; 83605 ×2; 83735 ×2; 84100 ×2; 84484; 85025 ×2; 85610; 85730; 81001; 87040; 87086; 83036; 87636; 71045; 93880; 72125; 70450; 71275; 74177; G0378 ×2; J1940; J0131; Q9967

== ENCOUNTER → 2023-02-05 | Outpatient (CLI) | payer MEDICARE, BC ==
--- NOTE | 2023-02-05 13:18 | US ---
EXAMINATION TYPE: US venous doppler duplex LE LT DATE OF EXAM: 02/05/2023 1:08 PM COMPARISON: NONE CLINICAL INDICATION: Male, 77 years old with history of M79.662 PAIN IN LEG R22.42 SWELLING IN LEG; P t states left leg pain and swelling SIDE PERFORMED: Left TECHNIQUE: The lower extremity deep venous system is examined utilizing real time linear array sonog jai with graded compression, doppler sonography and color-flow sonography. VESSELS IMAGED: Common Femoral Vein Deep Femoral Vein Greater Saphenous Vein * Femoral Vein Popliteal Vein Small Saphenous Vein * Proximal Calf Veins (* superficial vessels) Left Leg: Negative for DVT Attempted to call Dr's office with results- no answer IMPRESSION: Grayscale, color doppler, spectral doppler imaging performed of the deep veins of the lo wer extremities. There is normal flow, compressibility, vascular waveforms.
== END | disposition home or self-care (01) ==
LOC: RADUSWWP 12:30
PROVIDERS: ATTEND Internal Medicine
DX: M79.662 Pain in left lower leg (principal); R22.42 Localized swelling, mass and lump, left lower limb

== ENCOUNTER → 2023-02-15 | Outpatient (CLI) | payer MEDICARE, BC ==
--- NOTE | 2023-02-15 11:24 | P.PN ---
Subjective DATE: 02/15/2023 FOLLOW UP VISIT. Patient with obstructive sleep apnea hypopnea syndrome return to sleep center for follow-up visit. Information from previous visit have been reviewed. Patient is using PAP equipment every night for the whole night, getting PAP supplies in time. The patient does not have significant problems with the mask, PAP unit and humidification. Irwin sleepiness scale is 0. I checked information from BPAP unit. BPAP unit pressure maximal inspiratory pressure 20, minimal expiratory pressure 10, pressure-support 4, average pressure 16.5 /12.4 cm H2O. Usage is 100 % for more then 4 hours, average 9 hours per night. Leak is 20.1 l/m, which is in acceptable range. Apnea Hypopnea Index is significantly increased to 13.9 including 11.2 central apneas for the last months, 15.3 for the last week and 24.9 including 18.7 central apnea for the last night. MEDICATIONS:1. Metoprolol 75 mg twice a day 2. Isosorbide 30 mg once a day 3. Lisinopril 10 mg once a day 4. Atorvastatin 40 mg once a day 5. Lasix 20 mg once a day During physical exam: GENERAL: A pleasant patient without any distress. VITAL SIGNS: BP 90/67, HR 63, RR 12 , weight 307.8, temperature 98.4, oxygen saturation at room air 97 % . HEENT: PERRLA, EOMI.low position of soft palate, Mallapati 4 . NECK: Supple. No JVD. LUNGS: Clear to percussion and to auscultation. Good air exchange. No wheezing or rhonchi. HEART: S1, S2 irregularly irregular. ABDOMEN: Soft and nontender. Obese EXTREMITIES: No clubbing or cyanosis. MASTER PLUMBER: Awake, alert, and oriented x3. No focal deficit. Impressions: 1. 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 Patient demonstrated great compliance with treatment, benefiting from treatment, but AHI significantly increased. 2. Significant amount of central apneas by reading from the machine. 3. Obesity, patient increased weight 117 pounds comparing with previous visit. 4. On atrial fibrillation. 5. Hypertension, slightly low blood pressure today in the office. 6. Coronary artery disease status post multiple stent insertion. 7. Status post surgical treatment for abdominal aortic aneurysm. 8. Status post stent insertion to femoral arteries. 9. Asthma. 10. 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 11. Status post cholecystectomy. Plan: 1. Continue using BPAP equipment every night for the whole night. 2. We will repeat BiPAP titration, patient will need BiPAP ST mode treatment for central sleep apnea. 3. Following plan after reading sleep study. 4. Advised patient to remove all remaining water from humidifier canister daily and make it dry after each usage. Refill canister with fresh distilled water before each usage. 5. Sleep hygiene with regular time in bed for at least 8 hours. 6. Precautions related to driving. No driving if feel any sleepiness. 7. I will maintain prescription for PAP supplies including mask, tube, filters. 8. Watching and losing weight. Thank you very much for allowing me to participate in the management of your patient. Enrique Medina MD, PhD, FAASM. Diplomat of [place] [employer], Sleep Medicine Board by [employer] Debit Agent of [facility] [place]
== END ==
LOC: 3 N SLEEP 10:25
PROVIDERS: ATTEND Internal Medicine
DX: G47.33 Obstructive sleep apnea (adult) (pediatric) (principal); G47.31 Primary central sleep apnea; E66.9 Obesity, unspecified; G35 Multiple sclerosis; I10 Essential (primary) hypertension; I25.10 Atherosclerotic heart disease of native coronary artery without angina pectoris; I48.91 Unspecified atrial fibrillation; J45.909 Unspecified asthma, uncomplicated; Z79.899 Other long term (current) drug therapy; Z86.79 Personal history of other diseases of the circulatory system; Z90.49 Acquired absence of other specified parts of digestive tract; Z95.5 Presence of coronary angioplasty implant and graft; Z99.89 Dependence on other enabling machines and devices; Z79.82 Long term (current) use of aspirin; Z79.01 Long term (current) use of anticoagulants; Z87.891 Personal history of nicotine dependence
CPT/HCPCS: 99212

== ENCOUNTER 2023-02-28 19:25 | Outpatient (CLI) | payer MEDICARE, BC ==
--- NOTE | 2023-03-05 17:28 | P.PCN ---
Description of Procedure: CLINICAL: Titration with positive air pressure has been done for correction of respiratory abnormalities during sleep. DESCRIPTION OF PROCEDURE: The standard montage for clinical polysomnography included the electroencephalogram, the electrocardiogram, the mentalis surface electromyography and Lead II cardiography. The respiratory battery consisted of measurements of nasal /buccal air flow, pressure transducer measurements from the nose, thoracic and /or abdominal effort and intercostal surface electromyography. Video monitoring has been done to check for any parasomnia events. Nocturnal oxyhemoglobin saturations were obtained by finger oximetry. Step-willard titration with positive airway pressure was utilized to control respiratory events. Raw data of sleep recording has been reviewed and is adequate. RESULTS: Sleep efficiency was decreased to 72.2 %. Latency to sleep onset was short 7 minutes.]. Sleep architecture showed stage N1 was significantly increased to 17.7 %, Delta sleep was absent %, REM sleep was decreased to 16.8 %. Heart rate was minimum 50 BPM, maximum 84 BPM, average 71 BPM. EMG showed 109.1 periodic limb movements per hour with 1.1 micriarousals per hour. PAP titration have been done with CPAP up to the pressure 12 cm H2O. Patient had problems with CPAP, switched to BPAP. BPAP titrated up to 21/[address] mode with respiratory rate 16. The best results were at the pressure 21/[address] mode with respiratory rate 16 . Apnea hypopnea index reduced to 0. IMPRESSION: 1. 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 2. Severe periodic limb movements have been documented but with only few micro- arousals. Please see other impressions from consultation. PLAN: 1. The patient will have treatment with BiPAP ST mode20/16 cm H2O with respiratory rate 16 and should use it every night for the whole night. 2. Watching and losing weight. 3. Sleep hygiene with regular time in bed for at least 8 hours. 4. No driving if feeling any sleepiness. 5. I will see the patient for follow up visit to explain the results of the test, recommendations, check compliance with treatment and make any necessary adjustment related to mask fitting, pressure and humidification. 6. Please check iron profile including ferritin level. Low level of iron may increase risk for periodic limb movements Thank you very much for allowing me to participate in the management of your patient. Sincerely, Enrique Medina MD, PhD, FAASM Diplomat of [employer] [employer] Sleep Medicine Board of [place] [employer] Operator of [facility] [place]
== END 2023-03-01 05:50 | disposition home or self-care (01) ==
LOC: 3 N SLEEP 19:25
PROVIDERS: ATTEND Internal Medicine
DX: G47.33 Obstructive sleep apnea (adult) (pediatric) (principal); G47.61 Periodic limb movement disorder; G47.31 Primary central sleep apnea; Z79.82 Long term (current) use of aspirin; Z87.891 Personal history of nicotine dependence
CPT/HCPCS: 95811

== ENCOUNTER → 2023-08-02 | Outpatient (CLI) | payer MEDICARE, BC ==
[2023-08-02 14:11] VITALS: BP 140/73; PULSE 76; RESP 18; TEMP 97.6
--- NOTE | 2023-08-02 15:00 | P.PROGSL ---
Subjective DATE: [] FOLLOW UP VISIT. Patient with obstructive sleep apnea hypopnea syndrome return to sleep center for follow-up visit. During previous visit it was documented that patient has significant amount of central apneas while using BPAP. Patient had titration which showed that on BiPAP ST mode his respiration normalized. Please see his first visit on treatment with BiPAP ST mode unit. Patient was able to use BPAP equipment every night for the whole night. Patient presently has significant problems related to his fullface mask. Bee sleepiness scale is 2, which is normal. I checked information from BPAP ST unit. BPAP unit pressure 20 over 16 cm of water cm H2O, respiratory rate 16. Usage is 97% % for more then 4 hours, average 8.8 hours per night. Leak is 29.5 l/m, which is in acceptable range. Apnea Hypopnea Index is 6.2, which is borderline and showed significant improvement comparing with the reading from BiPAP during previous visit when it was in the range between 15 and 25. MEDICATIONS: Please see below During physical exam: GENERAL: A pleasant patient without any distress. VITAL SIGNS: Please see below weight 302.2 pounds, BMI 42.1. HEENT: PERRLA, EOMI.low position of soft palate, Mallapati 4 . NECK: Supple. No JVD. LUNGS: Clear to percussion and to auscultation. Good air exchange. No wheezing or rhonchi. HEART: S1, S2 regular. ABDOMEN: Soft and nontender. Obese EXTREMITIES: No clubbing or cyanosis. EXHIBITION ORGANISER: Awake, alert, and oriented x3. No focal deficit. Impressions: 1. Obstructive and central sleep apnea-hypopnea syndrome. Patient demonstrated great compliance with treatment, benefiting from treatment. 2. Obesity, BMI 42.1. 3. History of atrial fibrillation. 4. Hypertension. 5. Coronary artery disease status post multiple stent insertions. 6. Status post surgical treatment for abdominal aortic aneurysm. 7. Status post stent insertion to femoral arteries. 8. 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 9. Asthma. Plan: 1. Continue using PAP equipment every night for the whole night. Prescription for Simplus full facemask medium size. 2. To change air filter at least 1-2 times per month. 3. PAP unit should stay lower then position of the head. 4. Advised patient to remove all remaining water from humidifier canister daily and make it dry after each usage. Refill canister with fresh distilled water before each usage. 5. Sleep hygiene with regular time in bed for at least 8 hours. 6. Precautions related to driving. No driving if feel any sleepiness. 7. I will maintain prescription for PAP supplies including mask, tube, filters. 8. Follow up visit in 6 months or earlier if patient has any problems. 9. Watching and losing weight. Thank you very much for allowing me to participate in the management of your patient. Enrique Medina MD, PhD, FAASM. Diplomat of [place] [employer], Sleep Medicine Board by [place] [employer] Data Warehouse Administrator of [facility] [place] Objective - Vital Signs Vital Signs: Vital Signs Temp 97.6 F 08/02/23 14:03 Pulse 76 08/02/23 14:03 Resp 18 08/02/23 14:03 BP 140/73 08/02/23 14:03 Pulse Ox 96 08/02/23 14:03 FiO2 Intake & Output 08/01/23 08/02/23 08/02/23 18:59 06:59 18:59 Weight 137.042 kg Home Medications: Home Medications Medication Instructions Recorded Confirmed Type Isosorbide Mononitrate ER [Imdur] 30 mg PO DAILY 09/11/13 01/26/23 History Montelukast [Singulair] 10 mg PO DAILY 09/11/13 01/26/23 History Multivitamin [Men's Multi-Vitamin] 1 tab PO DAILY 09/11/13 01/26/23 History Nitroglycerin Sl Tabs [Nitrostat] 0.4 mg SL Q5M PRN 09/11/13 01/26/23 History Apixaban [Eliquis] 5 mg PO BID 12/10/17 01/26/23 History lisinopriL [Zestril] 10 mg PO HS 12/10/17 01/26/23 History Aspirin EC [Ecotrin Low Dose] 81 mg PO DAILY 08/26/20 01/26/23 History Atorvastatin [Lipitor] 20 mg PO Q48H 08/26/20 01/26/23 History Loratadine [Claritin] 10 mg PO DAILY 08/26/20 01/26/23 History Cholecalciferol [Vitamin D3 (125 125 mcg PO DAILY 06/02/22 01/26/23 History Mcg = 5000 Iu)] Fluticasone Propion/Salmeterol 1 puff INHALATION RT-BID 06/02/22 01/26/23 History [Fluticasone-Salmeterol 250-50] Furosemide [Lasix] 20 mg PO DAILY 06/02/22 01/26/23 History Potassium Chloride ER [K-Dur 10] 10 meq PO DAILY 06/02/22 01/26/23 History Metoprolol Tartrate [Lopressor] 100 mg PO BID 01/26/23 01/26/23 History Vitamin B Complex 1 cap PO DAILY 01/26/23 01/26/23 History
== END ==
LOC: 3 N SLEEP 13:47
PROVIDERS: ATTEND Internal Medicine
DX: G47.33 Obstructive sleep apnea (adult) (pediatric) (principal); E66.9 Obesity, unspecified; I48.91 Unspecified atrial fibrillation; I10 Essential (primary) hypertension; I25.10 Atherosclerotic heart disease of native coronary artery without angina pectoris; I71.40 Abdominal aortic aneurysm, without rupture, unspecified; J45.909 Unspecified asthma, uncomplicated; Z99.89 Dependence on other enabling machines and devices; Z68.41 Body mass index [BMI] 40.0-44.9, adult; Z87.891 Personal history of nicotine dependence
CPT/HCPCS: 99212

== ENCOUNTER 2023-08-03 10:30 | Observation (INO) | payer MEDICARE, BC ==
--- NOTE | 2023-08-03 11:03 | ED ---
Back Pain HPI - General Chief Complaint: Back Pain/Injury Stated Complaint: Fall on thinner-R shoulder/back pain Time Seen by Provider: 08/03/23 11:00 Source: patient, family, RN notes reviewed Mode of arrival: ambulatory Limitations: no limitations - History of Present Illness Initial Comments: 77-year-old male presented to the ER with a chief complaint of back pain. Patient does have a past medical history significant of MS and heart failure. reports for the past 3 weeks patient has been having an increase in back pain. He reports he has been having more frequent falls as his legs will "give out". He denies any head injury or loss of consciousness. Patient does take a baby aspirin daily. Patient states he is having difficulty ambulating due to the pain. He does state for the past couple of weeks he has noticed bilateral lower extremity edema and increase in exertional dyspnea. reports she believes this is from the pain. Patient has been using lidocaine patches and [place] for pain control without relief. Patient denies orthopnea but does wear a CPAP at night. Patient denies any chest pain, abdominal pain, constipation /diarrhea or urinary complaints. Denies fever or chills, saddle paresthesias, bowel or bladder incontinence. - Related Data Home Medications Medication Instructions Recorded Confirmed Isosorbide Mononitrate ER [Imdur] 30 mg PO DAILY 09/11/13 08/03/23 Montelukast [Singulair] 10 mg PO DAILY 09/11/13 08/03/23 Apixaban [Eliquis] 5 mg PO BID 12/10/17 08/03/23 lisinopriL [Zestril] 10 mg PO DAILY 12/10/17 08/03/23 Aspirin EC [Ecotrin Low Dose] 81 mg PO DAILY 08/26/20 08/03/23 Atorvastatin [Lipitor] 20 mg PO DAILY 08/26/20 08/03/23 Loratadine [Claritin] 10 mg PO DAILY 08/26/20 08/03/23 Cholecalciferol [Vitamin D3 (125 125 mcg PO DAILY 06/02/22 08/03/23 Mcg = 5000 Iu)] Fluticasone Propion/Salmeterol 1 puff INHALATION RT-BID 06/02/22 08/03/23 [Fluticasone-Salmeterol 250-50] Furosemide [Lasix] 20 mg PO DAILY 06/02/22 08/03/23 Potassium Chloride ER [K-Dur 10] 10 meq PO DAILY 06/02/22 08/03/23 Metoprolol Tartrate [Lopressor] 100 mg PO BID 01/26/23 08/03/23 Albuterol Sulfate [Albuterol 2 puff PO RT-Q6H PRN 08/03/23 08/03/23 Sulfate Hfa] Coffee Xt/Phosphatidyl Serine 1 cap PO DAILY 08/03/23 08/03/23 [Neuriva Original 100-100Mg Cap] HYDROcodone/APAP 10-325MG [[place] 1 tab PO Q8H PRN 08/03/23 08/03/23 10-325] Mv-Min/Folic/K1/Lycopen/Lutein 1 tab PO DAILY 08/03/23 08/03/23 [Centrum Silver Men Tablet] Allergies Allergy/AdvReac Type Severity Reaction Status Date / Time No Known Allergies Allergy Verified 08/03/23 14:44 Review of Systems ROS Statement: Those systems with pertinent positive or pertinent negative responses have been documented in the HPI. ROS Other: All systems not noted in ROS Statement are negative. Past Medical History Past Medical History: Atrial Fibrillation, Asthma, Coronary Artery Disease (CAD), Chest Pain / Angina, Hyperlipidemia, Hypertension, Myocardial Infarction ([place]), Musculoskeletal Disorder, Neurologic Disorder, Sleep Apnea/CPAP/BIPAP, Vascular Disorder Additional Past Medical History / Comment(s): Ishemic heart disease, paroxysmal VT, AAA with repair, MS treated experimentally with chemo, bilateral feet numbness, [place] with Cpap, cervical and low back pain,. MS Last Myocardial Infarction Date:: 1995 History of Any Multi-Drug Resistant Organisms: None Reported Past Surgical History: Cholecystectomy, Heart Catheterization, Heart Catheterization With Stent Additional Past Surgical History / Comment(s): AAA repair, bilateral cataract removals, colonoscopy. Past Anesthesia/Blood Transfusion Reactions: No Reported Reaction Date of Last Stent Placement:: 1995 Past Psychological History: No Psychological Hx Reported Smoking Status: Former smoker Past Alcohol Use History: None Reported Past Drug Use History: None Reported - Past Family History Mother Family Medical History: Cancer Additional Family Medical History / Comment(s): Mother at the age of 58yrs from metastatic cancer. Father Family Medical History: Myocardial Infarction ([place]) Additional Family Medical History / Comment(s): Father of a [place] at the age of 52 yrs. General Exam Limitations: no limitations General appearance: alert, in no apparent distress Neck exam: Present: normal inspection. Absent: tenderness, meningismus, lymphadenopathy Respiratory exam: Present: normal lung sounds bilaterally, other (Patient does appear to be having conversational dyspnea). Absent: respiratory distress, wheezes, rales, rhonchi, stridor Cardiovascular Exam: Present: regular rate, normal rhythm, normal heart sounds. Absent: systolic murmur, diastolic murmur, rubs, gallop, clicks Extremities exam: Present: other (Limited range of motion of bilateral lower extremities due to pain. 1+ pretibial pitting edema bilaterally. 2+ bilateral dorsalis pedis pulse. Sensation intact. Bilateral lower extremity strength is equal) Back exam: Present: tenderness (Lower thoracic and lumbar spine. ) Skin exam: Present: diaphoretic (Mild) Course Vital Signs 08/03/23 08/03/23 08/03/23 10:31 12:01 12:23 Temperature 97.8 F 97.7 F Pulse Rate 83 91 Respiratory 18 26 H Rate Blood Pressure 131/79 143/80 O2 Sat by Pulse 98 95 Oximetry 08/03/23 13:10 Temperature Pulse Rate 65 Respiratory 18 Rate Blood Pressure 127/78 O2 Sat by Pulse 97 Oximetry - Reevaluation(s) Reevaluation #1: 08/03/23 12:09 Upon reevaluation, patient diaphoretic and complaining of nausea. Patient denying any chest pain or shortness of breath. Reevaluation #2: 08/03/23 13:[address] Giraldo who accepts medical admission. Medical Decision Making - Medical Decision Making Was pt. sent in by a medical professional or institution (, PA, SURFACE GRINDING MACHINE [employer], urgent care, hospital, or correction...) When possible be specific @ -No Did you speak to anyone other than the patient for history (EMS, parent, family, police, friend...)? What history was obtained from this source @ - aiding in HPI Did you review nursing and triage notes (agree or disagree)? Why? @ -I reviewed and agree with nursing and triage notes Were old charts reviewed (outside hosp., previous admission, EMS record, old EKG, old radiological studies, urgent care reports/EKG's, correction records)? Report findings @ -No old charts were reviewed Differential Diagnosis (chest pain, altered mental status, abdominal pain women, abdominal pain men, vaginal bleeding, weakness, fever, dyspnea, syncope, headache, dizziness, GI bleed, back pain, seizure, CVA, palpatations, mental health, musculoskeletal)? @ -Differential Back Pain:Strain, zoster, cauda equina syndrome, epidural abscess, vertebral osteomyelitis, discitis, fracture, subluxation, disc he rniation, DJD, spinal stenosis, dissection, AAA, pancreatitis, peptic ulcer disease, pyelonephritis, kidney stone, this is not meant to be an all-inclusive list. EKG interpreted by me (3pts min.). @ -As above X-rays interpreted by me (1pt min.). @ -[Chest x-ray interpreted by me significant for mild pulmonary vascular congestion. CT interpreted by me (1pt min.). @ -CT lumbar spine significant for multilevel degenerative disc disease and mild central stenosis at L2-L3 and L3-L4. U/S interpreted by me (1pt. min.). @ -None done What testing was considered but not performed or refused? (CT, X-rays, U/S, labs)? Why? @ -None What meds were considered but not given or refused? Why? @ -None Did you discuss the management of the patient with other professionals (professionals i.e. , PA, [employer]ACH[employer], lab, RT, psych nurse, mental health social worker, central lab technician, teacher, chief nursing officer, continuous pillowcase cutter)? Give summary @ -Yes, case discussed with Dr. Giraldo who accepts medical admission. Was smoking cessation discussed for >3mins.? @ -No Was critical care preformed (if so, how long)? @ -No Were there social determinants of health that impacted care today? How? (Homelessness, low income, unemployed, alcoholism, drug addiction, transportation, low edu. Level, literacy, decrease access to med. care, alf, rehab)? @ -No Was there de-escalation of care discussed even if they declined (Discuss DNR or withdrawal of care, Hospice)? DNR status @ -No What co-morbidities impacted this encounter? (DM, HTN, Smoking, COPD, CAD, Cancer, CVA, ARF, Chemo, Hep., AIDS, mental health diagnosis, sleep apnea, morbid obesity)? @ -MS, obese Was patient admitted / discharged? Hospital course, mention meds given and route, prescriptions, significant lab abnormalities, going to OR and other pertinent info. @ - Admitted. 77-year-old male presented to the ER with chief complaint of back pain. History and physical exam completed. Vitals stable. Upon examination patient appeared to be having conversational dyspnea. 1+ pretibial pitting edema bilaterally. Patient does take Lasix daily. Due to patient's p ast medical history significant of CHF and physical exam findings laboratory studies obtained. Labs obtained significant for white blood cell count 9.2, D- dimer 0.57, troponin less than 0.012, BNP 876. EKG showing atrial fibrillation with the occasional PVC. Chest x-ray significant for mild pulmonary vascular congestion. CT lumbar spine obtained showing multilevel degenerative disc disease and mild central stenosis at L2-L3 and L3-L4. On reevaluation, patient diaphoretic and nauseated. Patient received IV fluids and Zofran for symptom control, with improvement of symptoms. Due to patient presentation and unclear cause, admission was considered. Case discussed with Dr. Giraldo, who accepts medical admission. Patient agreeable for admission. Case discussed with ED attending, Dr. Trujillo. Undiagnosed new problem with uncertain prognosis? @ -No Drug Therapy requiring intensive monitoring for toxicity (Heparin, Nitro, Insulin, Cardizem)? @ -No Were any procedures done? @ -No Diagnosis/symptom? @ -Back pain Acute, or Chronic, or Acute on Chronic? @ -Chronic Uncomplicated (without systemic symptoms) or Complicated (systemic symptoms)? @ -Uncomplicated Side effects of treatment? @ -No Exacerbation, Progression, or Severe Exacerbation? @ -No Poses a threat to life or bodily function? How? (Chest pain, [place], [place], pneumonia, PE, COPD, DKA, ARF, appy, cholecystitis, CVA, Diverticulitis, Homicidal, Suicidal, threat to staff... and all critical care pts) @ -No - Lab Data Result diagrams: 08/03/23 11:16 08/03/23 11:16 Lab Results 08/03/23 08/03/23 08/03/23 Range/Units 11:16 11:16 11:16 WBC 9.2 (3.8-10.6) k/uL RBC 4.50 (4.30-5.90) m/uL Hgb 14.0 (13.0-17.5) gm/dL Hct 43.1 (39.0-53.0) % MCV 95.8 (80.0-100.0) fL MCH 31.2 (25.0-35.0) pg MCHC 32.5 (31.0-37.0) g/dL RDW 13.5 (11.5-15.5) % Plt Count 205 (150-450) k/uL MPV 7.4 Neutrophils % 74 % Lymphocytes % 14 % Monocytes % 6 % Eosinophils % 4 % Basophils % 1 % Neutrophils # 6.8 (1.3-7.7) k/uL Lymphocytes # 1.3 (1.0-4.8) k/uL Monocytes # 0.6 (0-1.0) k/uL Eosinophils # 0.4 (0-0.7) k/uL Basophils # 0.1 (0-0.2) k/uL PT 11.6 (10.0-12.5) sec INR 1.1 (<1.2) APTT 26.3 (22.0-30.0) sec D-Dimer (<0.60) mg/L FEU Sodium 141 (137-145) mmol/L Potassium 4.1 (3.5-5.1) mmol/L Chloride 110 H (98-107) mmol/L Carbon Dioxide 28 (22-30) mmol/L Anion Gap 3 mmol/L BUN 27 H (9-20) mg/dL Creatinine 0.71 (0.66-1.25) mg/dL Est GFR (CKD-EPI)AfAm >90 (>60 ml/min/1.73 sqM) Est GFR (CKD-EPI)NonAf >90 (>60 ml/min/1.73 sqM) Glucose 135 H (74-99) mg/dL Calcium 8.9 (8.4-10.2) mg/dL Total Bilirubin 0.8 (0.2-1.3) mg/dL AST 32 (17-59) U/L ALT 27 (4-49) U/L Alkaline Phosphatase 63 (38-126) U/L Troponin I (0.000-0.034) ng/mL NT-Pro-B Natriuret Pep 876 pg/mL Total Protein 6.3 (6.3-8.2) g/dL Albumin 3.6 (3.5-5.0) g/dL 08/03/23 08/03/23 Range/Units 11:16 11:16 WBC (3.8-10.6) k/uL RBC (4.30-5.90) m/uL Hgb (13.0-17.5) gm/dL Hct (39.0-53.0) % MCV (80.0-100.0) fL MCH (25.0-35.0) pg MCHC (31.0-37.0) g/dL RDW (11.5-15.5) % Plt Count (150-450) k/uL MPV Neutrophils % % Lymphocytes % % Monocytes % % Eosinophils % % Basophils % % Neutrophils # (1.3-7.7) k/uL Lymphocytes # (1.0-4.8) k/uL Monocytes # (0-1.0) k/uL Eosinophils # (0-0.7) k/uL Basophils # (0-0.2) k/uL PT (10.0-12.5) sec INR (<1.2) APTT (22.0-30.0) sec D-Dimer 0.57 (<0.60) mg/L FEU Sodium (137-145) mmol/L Potassium (3.5-5.1) mmol/L Chloride (98-107) mmol/L Carbon Dioxide (22-30) mmol/L Anion Gap mmol/L BUN (9-20) mg/dL Creatinine (0.66-1.25) mg/dL Est GFR (CKD-EPI)AfAm (>60 ml/min/1.73 sqM) Est GFR (CKD-EPI)NonAf (>60 ml/min/1.73 sqM) Glucose (74-99) mg/dL Calcium (8.4-10.2) mg/dL Total Bilirubin (0.2-1.3) mg/dL AST (17-59) U/L ALT (4-49) U/L Alkaline Phosphatase (38-126) U/L Troponin I <0.012 (0.000-0.034) ng/mL NT-Pro-B Natriuret Pep pg/mL Total Protein (6.3-8.2) g/dL Albumin (3.5-5.0) g/dL - EKG Data -: EKG Interpreted by Me EKG Comments: EKG taken at 11: 11 showing atrial fibrillation with occasional PVC. Ventricular rate 83, QRS duration 87, QT/QTc 347/387. - Radiology Data Radiology results: report reviewed, image reviewed Disposition Clinical Impression: Back pain Disposition: ADMITTED IP TO THIS [facility] Condition: Good Time of Disposition: 13:41
[2023-08-03] MEDS: KETOROLAC 15 MG/ML 1 ML VIAL IVP STA (11:13)
[2023-08-03 11:32] LABS: Basophils # (A) 0.1 k/uL (0-0.2); Basophils % (A) 1 %; Eosinophils # (A) 0.4 k/uL (0-0.7); Eosinophils % (A) 4 %; HCT 43.1 % (39.0-53.0); Lymphocytes # (A) 1.3 k/uL (1.0-4.8); Lymphocytes % (A) 14 %; MCH 31.2 pg (25.0-35.0); MCHC 32.5 g/dL (31.0-37.0); MCV 95.8 fL (80.0-100.0); Mean Platelet Volume 7.4; Monocytes # (A) 0.6 k/uL (0-1.0); Monocytes % (A) 6 %; Neutrophils # (A) 6.8 k/uL (1.3-7.7); Neutrophils % (A) 74 %; Platelet Count 205 k/uL (150-450); RDW 13.5 % (11.5-15.5); WBC 9.2 k/uL (3.8-10.6)
[2023-08-03 11:40] LABS: INR 1.1 (<1.2); Partial Thromboplastin Time 26.3 sec (22.0-30.0); Prothrombin Time 11.6 sec (10.0-12.5)
[2023-08-03 11:49] LABS: ALT 27 U/L (4-49); AST 32 U/L (17-59); African American GFR (CKD) >90 (>60 ml/min/1.73 sqM); Albumin 3.6 g/dL (3.5-5.0); Alkaline Phosphatase 63 U/L (38-126); Anion Gap 3 mmol/L; Blood Urea Nitrogen 27 mg/dL (9-20); Calcium 8.9 mg/dL (8.4-10.2); Carbon Dioxide 28 mmol/L (22-30); Chloride 110 mmol/L (98-107); Glucose 135 mg/dL (74-99); Non-African American GFR(CKD) >90 (>60 ml/min/1.73 sqM); Potassium 4.1 mmol/L (3.5-5.1); Sodium 141 mmol/L (137-145); Total Bilirubin 0.8 mg/dL (0.2-1.3); Total Protein 6.3 g/dL (6.3-8.2)
[2023-08-03 11:58] LABS: NT-Pro-B-Type Natriuretic Pept 876 pg/mL
--- NOTE | 2023-08-03 11:58 | CT ---
Perihilar EXAMINATION TYPE: CT lumbar spine wo con DATE OF EXAM: 08/03/2023 11:49 AM COMPARISON: None HISTORY: pain CT DLP: 1762.4 mGycm Automated exposure control for dose reduction was used. Unenhanced CT of the lumbar spine was performed. Bone and soft tissue window settings are submitted as well as coronal and sagittal reconstructions. L1-L2: Normal disc space height. No disc herniation protrusion or central stenosis. No facet joint arthropathy. No evidence for foraminal encroachment. L2-L3: Vacuum disc changes and posterior disc bulge partially encapsulated resulting disc endplate co mplex there is mild central stenosis noted. Bilateral foraminal encroachment. Facet joint arthropathy . L3-L4: Vacuum disc changes and posterior disc bulge partially encapsulated resulting disc endplate co mplex there is mild central stenosis noted. Bilateral foraminal encroachment. Facet joint arthropathy . L4-L5: Vacuum disc changes noted. Posterior disc bulge with mild effacement of ventral thecal sac. No evidence for herniation or protrusion. Bilateral foraminal encroachment mild in degree. L5-S1: Vacuum disks noted with minimal posterior disc bulge. No herniation or protrusion. No central stenosis. Facet joint arthropathy resulting in bilateral foraminal encroachment. No paraspinal masses are identified. Lumbar segments are intact. Aortoiliac stent graft. Right renal calculus measuring 9 mm. IMPRESSION: 1. Multilevel degenerative disc disease as discussed. 2. Mild central stenosis at L2-3 and L3-4.
--- NOTE | 2023-08-03 12:06 | XR ---
EXAMINATION TYPE: XR chest 2V DATE OF EXAM: 08/03/2023 11:40 AM CLINICAL INDICATION:Male, 77 years old with history of dyspnea; COMPARISON: Chest radiographs from 01/26/2023 TECHNIQUE: XR chest 2V Frontal and lateral views of the chest. FINDINGS: Lungs/Pleura: There is no evidence of pleural effusion, focal consolidation, or pneumothorax. Pulmonary vascularity: Pulmonary vascular congestion. Heart/mediastinum: Cardiomediastinal silhouette is enlarged and stable. Musculoskeletal: No acute osseous pathology. IMPRESSION: Cardiomegaly and mild pulmonary vascular congestion. Correlate with BNP for congestive heart failure.
[2023-08-03] MEDS: ONDANSETRON 4 MG/2 ML VIAL IVP STA (12:17)
[2023-08-03] MEDS: SODIUM CHLORIDE 0.9% 500 ML 500 ML IV STA (12:24)
[2023-08-03] MEDS: HYDROmorphone 1 MG/ML 1 ML SYRINGE IVP STA (12:49)
[2023-08-03] MEDS: METOCLOPRAMIDE 5 MG/ML 2 ML VIAL IVP STA (13:30)
[2023-08-03] MEDS ORDERED: NALOXONE 0.4 MG/ML 1 ML VIAL IV PRN (13:39)
[2023-08-03] MEDS ORDERED: ONDANSETRON 4 MG/2 ML VIAL IVP PRN (13:39)
[2023-08-03] MEDS ORDERED: ACETAMINOPHEN TAB 325 MG TAB PO PRN (13:39)
[2023-08-03] MEDS: HYDROmorphone 0.5 MG/0.5 ML SYRINGE IVP PRN (14:12)
--- NOTE | 2023-08-03 15:23 | P.HPIM ---
History of Present Illness H&P Date: 08/03/23 José Miguel Moreira, is a 77-year-old male who presented to [facility] emergency room with a chief complaint of back pain, patient has a known history of multiple sclerosis, he reports worsening back pain in the last 3 weeks with frequent falls, and difficulty ambulating due to pain. He was also complaining of worsening shortness of breath and bilateral lower extremity edema. He was evaluated in the emergency room vital examination on presentation revealed a temperature of 97.8 pulse 83 respiration 18 blood pressure 131/79 pulse ox 98% on room air Laboratory data revealed a white blood count of 9.2 hemoglobin 14.2 platelet count 205 sodium 141 potassium 4.1 chloride 110 CO2 28 BUN 27 creatinine 0.71 d- dimer 0.57 troponin less than 0.012 BNP 876 Testing in the emergency room revealed lumbar spine computed tomography scan revealed multilevel degenerative disc disease with mild central stenosis at L2-3 and L3-4, chest x-ray revealed cardiomegaly and mild pulmonary vascular c ongestion, EKG revealed atrial fibrillation with controlled heart rate. Patient was admitted to medical floor for further evaluation and treatment Past Medical History Past Medical History: Atrial Fibrillation, Asthma, Coronary Artery Disease (CAD), Chest Pain / Angina, Hyperlipidemia, Hypertension, Myocardial Infarction ([place]), Musculoskeletal Disorder, Neurologic Disorder, Sleep Apnea/CPAP/BIPAP, Vascular Disorder Additional Past Medical History / Comment(s): Ishemic heart disease, paroxysmal VT, AAA with repair, MS treated experimentally with chemo, bilateral feet numbness, [place] with Cpap, cervical and low back pain,. MS Last Myocardial Infarction Date:: 1995 History of Any Multi-Drug Resistant Organisms: None Reported Past Surgical History: Cholecystectomy, Heart Catheterization, Heart Catheterization With Stent Additional Past Surgical History / Comment(s): AAA repair, bilateral cataract removals, colonoscopy. Past Anesthesia/Blood Transfusion Reactions: No Reported Reaction Date of Last Stent Placement:: 1995 Past Psychological History: No Psychological Hx Reported Smoking Status: Former smoker Past Alcohol Use History: None Reported Past Drug Use History: None Reported - Past Family History Mother Family Medical History: Cancer Additional Family Medical History / Comment(s): Mother at the age of 58yrs from metastatic cancer. Father Family Medical History: Myocardial Infarction ([place]) Additional Family Medical History / Comment(s): Father of a [place] at the age of 52 yrs. Medications and Allergies Home Medications Medication Instructions Recorded Confirmed Type Isosorbide Mononitrate ER [Imdur] 30 mg PO DAILY 09/11/13 08/03/23 History Montelukast [Singulair] 10 mg PO DAILY 09/11/13 08/03/23 History Apixaban [Eliquis] 5 mg PO BID 12/10/17 08/03/23 History lisinopriL [Zestril] 10 mg PO DAILY 12/10/17 08/03/23 History Aspirin EC [Ecotrin Low Dose] 81 mg PO DAILY 08/26/20 08/03/23 History Atorvastatin [Lipitor] 20 mg PO DAILY 08/26/20 08/03/23 History Loratadine [Claritin] 10 mg PO DAILY 08/26/20 08/03/23 History Cholecalciferol [Vitamin D3 (125 125 mcg PO DAILY 06/02/22 08/03/23 History Mcg = 5000 Iu)] Fluticasone Propion/Salmeterol 1 puff INHALATION RT-BID 06/02/22 08/03/23 History [Fluticasone-Salmeterol 250-50] Furosemide [Lasix] 20 mg PO DAILY 06/02/22 08/03/23 History Potassium Chloride ER [K-Dur 10] 10 meq PO DAILY 06/02/22 08/03/23 History Metoprolol Tartrate [Lopressor] 100 mg PO BID 01/26/23 08/03/23 History Albuterol Sulfate [Albuterol 2 puff PO RT-Q6H PRN 08/03/23 08/03/23 History Sulfate Hfa] Coffee Xt/Phosphatidyl Serine 1 cap PO DAILY 08/03/23 08/03/23 History [Neuriva Original 100-100Mg Cap] HYDROcodone/APAP 10-325MG [[place] 1 tab PO Q8H PRN 08/03/23 08/03/23 History 10-325] Mv-Min/Folic/K1/Lycopen/Lutein 1 tab PO DAILY 08/03/23 08/03/23 History [Centrum Silver Men Tablet] Allergies Allergy/AdvReac Type Severity Reaction Status Date / Time No Known Allergies Allergy Verified 08/03/23 14:44 Physical Exam Vitals: Vital Signs Temp Pulse Resp BP Pulse Ox 08/03/23 13:10 65 18 127/78 97 08/03/23 12:23 97.7 F 08/03/23 12:01 91 26 H 143/80 95 08/03/23 10:31 97.8 F 83 18 131/79 98 Intake and Output 08/02/23 08/03/23 08/03/23 22:59 06:59 14:59 Other: Weight 133.81 kg In general patient is alert and oriented x 3 in no distress HEENT head normocephalic and atraumatic Neck is supple no JVD no goiter no lymphadenopathy no carotid bruit Chest examination is clear to auscultation no crackles no wheezing Cardiac exam reveals irregular heart sounds S1 and S2 no gallops no murmurs Abdomen is soft nontender no organomegaly with normal bowel sounds Extremity exam reveals no edema no cyanosis or clubbing Neurological examination reveals no gross focal deficits Results CBC & Chem 7: 08/03/23 11:16 08/03/23 11:16 Labs: Abnormal Lab Results - Last 24 Hours (Table) 08/03/23 Range/Units 11:16 Chloride 110 H (98-107) mmol/L BUN 27 H (9-20) mg/dL Glucose 135 H (74-99) mg/dL Assessment and Plan Plan: worsening back pain, with episodes of generalized weakness gait disturbance and multiple falls Underlying history of multiple sclerosis Episodes of upper back pain Underlying history of congestive heart failure Underlying history of atrial fibrillation Underlying history of hypertension Underlying history of hyperlipidemia underlying history of coronary artery disease at this time patient was seen and examined Home medications reviewed and reordered Serial EKG and cardiac enzymes ordered Cardiology consultation and neurology consultation requested Will follow closely
[2023-08-03] MEDS ORDERED: HYDROcodone/APAP 10-325MG 1 EACH TAB PO PRN (15:24)
[2023-08-03] MEDS ORDERED: ALBUTEROL NEBULIZED 2.5 MG/3 ML INHALATION PRN (15:24)
[2023-08-03] MEDS: hydrALAZINE HCL 20 MG/ML 1 ML VIAL IVP PRN (18:12)
[2023-08-03] MEDS: APIXABAN 5 MG TAB PO SCH (20:31)
[2023-08-03] MEDS: METOPROLOL TARTRATE 50 MG TAB PO SCH (20:31)
[2023-08-03] MEDS: SYMBICORT 80-4.5 MCG INHALER INHALATION SCH (21:08)
--- NOTE | 2023-08-04 03:23 | P.CRDCN ---
History of Present Illness Consult date: 08/04/23 History of present illness: HISTORY OF PRESENTING ILLNESS 27-year-old male who is known to Dr. Rodriguez. He has a past medical history of coronary artery disease with known 100% occlusion of distal LCx back from 2018. In July 2022 had a Lexiscan nuclear stress test which showed fixed perfusion defect in inferolateral wall suggestive of prior AR. There was no reversible ischemia. His prior echocardiogram from July 2022 shows preserved EF with no major valvular abnormalities. He also has history of heart failure with preserved ejection fraction and chronic atrial fibrillation on rate control strategy. Medical history includes history of multiple sclerosis. Hearing impairment. He presented to the hospital because of 3 weeks of lower back pain which has been g radually getting worse to the point that is making it difficult to walk. He is also having frequent falls because of that. He denies any passing out. He denies any syncope. He denies any palpitations lightheadedness dizziness. He denies any chest pressure or chest pain. He denies any new or worsening shortness of breath or any new increased lower extremity swelling. His ECG shows atrial fibrillation, rate controlled heart rate 83, not specific ST changes, normal axis Chest x-ray shows mild pulmonary congestion. patient appears minimally hypervolemic, the mild 1+ pitting edema in bilateral lower extremity. No elevated JVD. REVIEW OF SYSTEMS 14 point review of system is negative except what is mentioned above in HPI. PHYSICAL EXAMINATION Vital signs reviewed. Head: Normocephalic. Eyes: Sclerae nonicteric. Neck: Brisk carotid upstroke, no jugular venous distention. Lungs: Clear to auscultation. Minimal crackles in bilateral bases Heart: Irregularly irregular, S1-S2, no S3, no rub. Abdomen: Soft nontender, positive bowel sounds. Extremities:1+ pitting edema bilateral lower extremity, mild erythema bilateral rice Neuro: Alert, oritented, no focal deficits. Detailed neuro exam was not performed. ASSESSMENT Acute back pain causing limitation ambulating Chronic HFpEF. Minimally fluid overloaded. Chronic atrial fibrillation CAD, known 100% distal LCx occlusion. Last MPI stress from July 2022 did not show any reversible ischemia PLAN Initial troponin was negative. Continue to trend troponin. Less likely cardiac etiology. Continue his current medical regimen without any changes. Includes lisinopril 10 mg, Lasix 20 mg, metoprolol 100 mg twice daily, Imdur 30 mg, atorvastatin 20 mg, aspirin 81 mg, Eliquis 5 mg twice daily Add Jardiance 10 mg daily. NO Need to repeat echocardiogram Ger Baker MD, [facility], [facility] Thank you for allowing [facility] to participate in this patient's care. Feel free to reach out in case of any followup questions. Past Medical History Past Medical History: Atrial Fibrillation, Asthma, Coronary Artery Disease (CAD), Chest Pain / Angina, Hyperlipidemia, Hypertension, Myocardial Infarction (AR), Musculoskeletal Disorder, Neurologic Disorder, Sleep Apnea/CPAP/BIPAP, Vascular Disorder Additional Past Medical History / Comment(s): Ishemic heart disease, paroxysmal VT, AAA with repair, MS treated experimentally with chemo, bilateral feet numbness, [place] with Cpap, cervical and low back pain,. MS Last Myocardial Infarction Date:: 1995 History of Any Multi-Drug Resistant Organisms: None Reported Past Surgical History: Cholecystectomy, Heart Catheterization, Heart Catheterization With Stent Additional Past Surgical History / Comment(s): AAA repair, bilateral cataract removals, colonoscopy. Past Anesthesia/Blood Transfusion Reactions: No Reported Reaction Date of Last Stent Placement:: 1995 Past Psychological History: No Psychological Hx Reported Smoking Status: Former smoker Past Alcohol Use History: None Reported Past Drug Use History: None Reported - Past Family History Mother Family Medical History: Cancer Additional Family Medical History / Comment(s): Mother at the age of 58yrs from metastatic cancer. Father Family Medical History: Myocardial Infarction (AR) Additional Family Medical History / Comment(s): Father of a AR at the age of 52 yrs. Medications and Allergies Home Medications Medication Instructions Recorded Confirmed Type Isosorbide Mononitrate ER [Imdur] 30 mg PO DAILY 09/11/13 08/03/23 History Montelukast [Singulair] 10 mg PO DAILY 09/11/13 08/03/23 History Apixaban [Eliquis] 5 mg PO BID 12/10/17 08/03/23 History lisinopriL [Zestril] 10 mg PO DAILY 12/10/17 08/03/23 History Aspirin EC [Ecotrin Low Dose] 81 mg PO DAILY 08/26/20 08/03/23 History Atorvastatin [Lipitor] 20 mg PO DAILY 08/26/20 08/03/23 History Loratadine [Claritin] 10 mg PO DAILY 08/26/20 08/03/23 History Cholecalciferol [Vitamin D3 (125 125 mcg PO DAILY 06/02/22 08/03/23 History Mcg = 5000 Iu)] Fluticasone Propion/Salmeterol 1 puff INHALATION RT-BID 06/02/22 08/03/23 History [Fluticasone-Salmeterol 250-50] Furosemide [Lasix] 20 mg PO DAILY 06/02/22 08/03/23 History Potassium Chloride ER [K-Dur 10] 10 meq PO DAILY 06/02/22 08/03/23 History Metoprolol Tartrate [Lopressor] 100 mg PO BID 01/26/23 08/03/23 History Albuterol Sulfate [Albuterol 2 puff PO RT-Q6H PRN 08/03/23 08/03/23 History Sulfate Hfa] Coffee Xt/Phosphatidyl Serine 1 cap PO DAILY 08/03/23 08/03/23 History [Neuriva Original 100-100Mg Cap] HYDROcodone/APAP 10-325MG [Sarita 1 tab PO Q8H PRN 08/03/23 08/03/23 History 10-325] Mv-Min/Folic/K1/Lycopen/Lutein 1 tab PO DAILY 08/03/23 08/03/23 History [Centrum Silver Men Tablet] Allergies Allergy/AdvReac Type Severity Reaction Status Date / Time No Known Allergies Allergy Verified 08/03/23 14:44 Physical Exam Vitals: Vital Signs Temp Pulse Pulse Resp BP BP Pulse Ox 08/04/23 02:00 99 F 91 16 129/83 96 08/03/23 20:00 97.8 F 60 16 119/74 99 08/03/23 17:10 97.4 F L 82 17 166/99 99 08/03/23 16:43 74 18 122/78 97 08/03/23 13:10 65 18 127/78 97 08/03/23 12:23 97.7 F 08/03/23 12:01 91 26 H 143/80 95 08/03/23 10:31 97.8 F 83 18 131/79 98 Intake and Output 08/03/23 08/03/23 08/04/23 14:59 22:59 06:59 Other: Voiding Method Toilet # Voids 1 Weight 133.81 kg 133.81 kg Results 08/03/23 11:16 08/03/23 11:16 Cardiac Enzymes 08/03/23 08/03/23 Range/Units 11:16 11:16 AST 32 (17-59) U/L Troponin I <0.012 (0.000-0.034) ng/mL Coagulation 08/03/23 Range/Units 11:16 PT 11.6 (10.0-12.5) sec APTT 26.3 (22.0-30.0) sec CBC 08/03/23 Range/Units 11:16 WBC 9.2 (3.8-10.6) k/uL RBC 4.50 (4.30-5.90) m/uL Hgb 14.0 (13.0-17.5) gm/dL Hct 43.1 (39.0-53.0) % Plt Count 205 (150-450) k/uL Comprehensive Metabolic Panel 08/03/23 Range/Units 11:16 Sodium 141 (137-145) mmol/L Potassium 4.1 (3.5-5.1) mmol/L Chloride 110 H (98-107) mmol/L Carbon Dioxide 28 (22-30) mmol/L BUN 27 H (9-20) mg/dL Creatinine 0.71 (0.66-1.25) mg/dL Glucose 135 H (74-99) mg/dL Calcium 8.9 (8.4-10.2) mg/dL AST 32 (17-59) U/L ALT 27 (4-49) U/L Alkaline Phosphatase 63 (38-126) U/L Total Protein 6.3 (6.3-8.2) g/dL Albumin 3.6 (3.5-5.0) g/dL Current Medications Generic Name Dose Route Start Last Admin Trade Name Freq PRN Reason Stop Dose Admin Acetaminophen 650 mg 08/03/23 13:39 Acetaminophen Tab 325 Mg Tab PO Q6HR PRN Mild Pain or Fever > 100.5 Hydrocodone Bitart/Acetaminophen 1 each 08/03/23 15:24 Hydrocodone/Apap 10-325mg 1 Each Tab PO Q8H PRN Pain Albuterol Sulfate 2.5 mg 08/03/23 15:24 Albuterol Nebulized 2.5 Mg/3 Ml INHALATION RT-Q6H PRN Shortness Of Breath Apixaban 5 mg 08/03/23 21:00 08/03/23 20:31 Apixaban 5 Mg Tab PO 5 mg BID [facility] Administration Protocol Aspirin 81 mg 08/04/23 09:00 Aspirin 81 Mg PO DAILY [facility] Atorvastatin Calcium 20 mg 08/04/23 09:00 Atorvastatin 20 Mg Tab PO DAILY [facility] Budesonide/Formoterol Fumarate 2 puff 08/03/23 20:00 08/03/23 21:08 Symbicort 80-4.5 Mcg Inhaler INHALATION 2 puff RT-BID [facility] Administration Cholecalciferol 125 mcg 08/04/23 09:00 Cholecalciferol 125 Mcg (5000 Iu) Tablet PO DAILY [facility] Furosemide 20 mg 08/04/23 09:00 Furosemide 20 Mg Tab PO DAILY [facility] Hydralazine HCl 10 mg 08/03/23 18:04 08/03/23 18:12 Hydralazine Hcl 20 Mg/Ml 1 Ml Vial IVP 10 mg Q6HR PRN Administration Blood Pressure - High Hydromorphone HCl 0.5 mg 08/03/23 13:39 08/03/23 14:12 Hydromorphone 0.5 Mg/0.5 Ml Syringe IVP 0.5 mg Q3HR PRN Administration Moderate Pain (Scale 4 to 6) Isosorbide Mononitrate 30 mg 08/04/23 09:00 Isosorbide Mononitrate Er 30 Mg Tab.Er.24h PO DAILY [facility] Lisinopril 10 mg 08/04/23 09:00 Lisinopril 10 Mg Tab PO DAILY [facility] Loratadine 10 mg 08/04/23 09:00 Loratadine 10 Mg Tab PO DAILY [facility] Metoprolol Tartrate 100 mg 08/03/23 21:00 08/03/23 20:31 Metoprolol Tartrate 50 Mg Tab PO 100 mg BID [facility] Administration Montelukast Sodium 10 mg 08/04/23 09:00 Montelukast 10 Mg Tab PO DAILY [facility] Multivitamins 1 each 08/04/23 09:00 Multivitamins, Thera 1 Each Tab PO DAILY [facility] Naloxone HCl 0.2 mg 08/03/23 13:39 Naloxone 0.4 Mg/Ml 1 Ml Vial IV Q2M PRN Opioid Reversal Ondansetron HCl 4 mg 08/03/23 13:39 Ondansetron 4 Mg/2 Ml Vial IVP Q8HR PRN Nausea And Vomiting Potassium Chloride 10 meq 08/04/23 09:00 Potassium Chloride Er 10 Meq Tab.Er.Prt PO DAILY [facility] Intake and Output 08/03/23 08/03/23 08/04/23 14:59 22:59 06:59 Other: Voiding Method Toilet # Voids 1 Weight 133.81 kg 133.81 kg Patient Weight 08/04/23 06:59 Weight 133.81 kg 08/03/23 11:16 08/03/23 11:16
[2023-08-04 09:40] LABS: Basophils # (A) 0.03 X 10*3/uL (0.00-0.10); Basophils % (A) 0.3 %; Eosinophils # (A) 0.27 X 10*3/uL (0.04-0.35); Eosinophils % (A) 2.6 %; HCT 41.7 % (39.6-50.0); HGB 13.5 g/dL (13.0-17.0); Lymphocytes # (A) 2.05 X 10*3/uL (0.90-5.00); Lymphocytes % (A) 19.8 %; MCH 30.8 pg (27.0-32.0); MCHC 32.4 g/dL (32.0-37.0); Mean Platelet Volume 10.2 FL (9.5-12.2); Monocytes # (A) 1.23 X 10*3/uL (0.20-1.00); Monocytes % (A) 11.9 %; NRBC Per 100 WBC 0 X 10*3/uL (0.00-0.01); Neutrophils # (A) 6.71 X 10*3/uL (1.80-7.70); Platelet Count 198 X 10*3/uL (140-440); RBC 4.39 X 10*6/uL (4.40-5.60); RDW 14.4 % (11.5-14.5); WBC 10.33 X 10*3/uL (4.50-10.00)
[2023-08-04 10:00] LABS: ALT 23 U/L (10-49); AST 24 U/L (14-35); Albumin 3.6 g/dL (3.8-4.9); Albumin/Globulin Ratio 1.71 Ratio (1.60-3.17); Alkaline Phosphatase 60 U/L (41-126); BUN/Creat Ratio 36.43 Ratio (12.00-20.00); Blood Urea Nitrogen 25.5 mg/dL (9.0-27.0); Calcium 8.7 mg/dL (8.7-10.3); Carbon Dioxide 26.9 mmol/L (21.6-31.8); Chloride 108 mmol/L (96-109); Globulin 2.1 g/dL (1.6-3.3); Glucose 98 mg/dL (70-110); Potassium 4.3 mmol/L (3.5-5.5); Sodium 143 mmol/L (135-145); Total Bilirubin 0.6 mg/dL (0.3-1.2); Total Protein 5.7 g/dL (6.2-8.2)
[2023-08-04] MEDS: LORATADINE 10 MG TAB PO SCH (10:25)
[2023-08-04] MEDS: ASPIRIN 81 MG PO SCH (10:25)
[2023-08-04] MEDS: ISOSORBIDE MONONITRATE ER 30 MG TAB.ER.24H PO SCH (10:25)
[2023-08-04] MEDS: FUROSEMIDE 20 MG TAB PO SCH (10:25)
[2023-08-04] MEDS: ATORVASTATIN 20 MG TAB PO SCH (10:25)
[2023-08-04] MEDS: POTASSIUM CHLORIDE ER 10 MEQ TAB.ER.PRT PO SCH (10:25)
[2023-08-04] MEDS: lisinopriL 10 MG TAB PO SCH (10:25)
[2023-08-04] MEDS: MULTIVITAMINS, THERA 1 EACH TAB PO SCH (10:25)
[2023-08-04] MEDS: MONTELUKAST 10 MG TAB PO SCH (10:25)
[2023-08-04] MEDS: CHOLECALCIFEROL 125 MCG (5000 IU) TABLET PO SCH (10:25)
--- NOTE | 2023-08-04 13:31 | P.PN ---
Subjective Progress Note Date: 08/04/23 José Miguel Moreira, is a 77-year-old male who presented to [facility] emergency room with a chief complaint of back pain, patient has a known history of multiple sclerosis, he reports worsening back pain in the last 3 weeks with frequent falls, and difficulty ambulating due to pain. He was also complaining of worsening shortness of breath and bilateral lower extremity edema. He was evaluated in the emergency room vital examination on presentation revealed a temperature of 97.8 pulse 83 respiration 18 blood pressure 131/79 pulse ox 98% on room air Laboratory data revealed a white blood count of 9.2 hemoglobin 14.2 platelet count 205 sodium 141 potassium 4.1 chloride 110 CO2 28 BUN 27 creatinine 0.71 d- dimer 0.57 troponin less than 0.012 BNP 876 Testing in the emergency room revealed lumbar spine computed tomography scan revealed multilevel degenerative disc disease with mild central stenosis at L2-3 and L3-4, chest x-ray revealed cardiomegaly and mild pulmonary vascular conges tion, EKG revealed atrial fibrillation with controlled heart rate. Patient was admitted to medical floor for further evaluation and treatment on 08/04/2023 patient was seen and examined on the medical floor he is alert and oriented 3 in no apparent distress he is still complaining of back pain and complaining of frequency and discoloration in his urine today otherwise he denies any complaints there is no fever or chills no headache or dizziness no chest pain no shortness of breath no cough no nausea or vomiting no abdominal pain no diarrhea. At this time will check urine analysis and urine culture if needed will check kidney ultrasound. Objective - Vital Signs Vital signs: Vital Signs Temp 98.2 F 08/04/23 07:30 Pulse 72 08/04/23 07:30 Resp 17 08/04/23 07:30 BP 117/58 08/04/23 07:30 Pulse Ox 97 08/04/23 08:01 FiO2 Intake & Output 08/03/23 08/04/23 08/04/23 18:59 06:59 18:59 Intake Total 118 Balance 118 Weight 133.81 kg Intake: Oral 118 Other: Voiding Method Toilet # Voids 2 - Exam In general patient is alert and oriented x 3 in no distress HEENT head normocephalic and atraumatic Neck is supple no JVD no goiter no lymphadenopathy no carotid bruit Chest examination is clear to auscultation no crackles no wheezing Cardiac exam reveals irregular heart sounds S1 and S2 no gallops no murmurs Abdomen is soft nontender no organomegaly with normal bowel sounds Extremity exam reveals no edema no cyanosis or clubbing Neurological examination reveals no gross focal deficits - Labs CBC & Chem 7: 08/04/23 05:50 08/04/23 05:50 Labs: Abnormal Lab Results - Last 24 Hours (Table) 08/03/23 08/04/23 08/04/23 Range/Units 11:16 05:50 05:50 WBC 10.33 H (4.50-10.00) X 10*3/uL RBC 4.39 L (4.40-5.60) X 10*6/uL Monocytes # 1.23 H (0.20-1.00) X 10*3/uL Chloride 110 H (98-107) mmol/L BUN 27 H (9-20) mg/dL BUN/Creatinine Ratio 36.43 H (12.00-20.00) Ratio Glucose 135 H (74-99) mg/dL Total Protein 5.7 L (6.2-8.2) g/dL Albumin 3.6 L (3.8-4.9) g/dL Assessment and Plan Plan: worsening back pain, with episodes of generalized weakness gait disturbance and multiple falls Underlying history of multiple sclerosis Episodes of upper back pain Underlying history of congestive heart failure Underlying history of atrial fibrillation Underlying history of hypertension Underlying history of hyperlipidemia underlying history of coronary artery disease at this time patient was seen and examined Home medications reviewed and reordered Serial EKG and cardiac enzymes ordered Cardiology consultation and neurology consultation requested Will follow closely
--- NOTE | 2023-08-04 16:35 | US ---
EXAMINATION TYPE: US kidneys/renal and bladder DATE OF EXAM: 08/04/2023 COMPARISON: CT CLINICAL INDICATION: Male, 77 years old with history of back pain, urine discoloration; Patient denie s any other signs, symptoms, or relevant history EXAM MEASUREMENTS: Right Kidney: 12.8 x 7.6 x 5.9 cm Left Kidney: 12.3 x 6.2 x 5.9 cm Post Void Residual Volume: NA mL Right Kidney: wnl Left Kidney: wnl Bladder: wnl Bilateral Jets seen: Yes Normal Post Void Residual: NA There is no evidence for hydronephrosis at this point in time. No nephrolithiasis is seen. No augie s are identified. The urinary bladder is anechoic. Bilateral ureteral jets are seen. IMPRESSION: No evidence for acute process.
[2023-08-04] MEDS ORDERED: DAPAGLIFLOZIN PROPANEDIOL 10 MG TABLET PO SCH (17:15)
[2023-08-04 17:27] LABS: Appearance,Urine Clear (Clear); Bacteria,Urine Rare /hpf; Bilirubin,Urine Negative (Negative); Blood,Urine Moderate (Negative); Color,Urine Colorless; Glucose,Urine (UA) Negative (Negative); Ketones,Urine Negative (Negative); Leukocyte Esterase,Urine Negative (Negative); Mucus,Urine Rare /hpf; Nitrite,Urine Negative (Negative); Protein,Urine Negative (Negative); RBC,Urine 82 /hpf (0-5); Specific Gravity,Urine 1.008 (1.001-1.035); Squamous Epithelial Cell,Urine <1 /hpf (0-4); Urobilinogen,Urine <2.0 mg/dL (<2.0); WBC,Urine 2 /hpf (0-5)
--- NOTE | 2023-08-04 17:50 | CA ---
Transthoracic Echo Report Name: José Miguel Moreira Age: 77 Gender: M : 1945 Exam Date: 08/04/2023 12:45 Exam Location: [facility] Ht (in): 73 Wt (lb): 295 Ordering Physician: Cedric Giraldo MD Attending/Referring Phys: Investigator [employer] Shikha Olea RDCS Procedure CPT: Indications: chf Cardiac Hx: Technical Quality: Poor, Technically difficult study Contrast 1: Definity Total Dose (mL): 2 Contrast 2: Total Dose (mL): MEASUREMENTS (Male / Female) Normal Values 2D ECHO LV Diastolic Diameter PLAX 5.1 cm 4.2 - 5.9 / 3.9 - 5.3 cm LV Systolic Diameter PLAX 3.8 cm IVS Diastolic Thickness 1.2 cm 0.6 - 1.0 / 0.6 - 0.9 cm LVPW Diastolic Thickness 1.4 cm 0.6 - 1.0 / 0.6 - 0.9 cm LV Relative Wall Thickness 0.5 RV Internal Dim ED PLAX 2.6 cm LA Systolic Diameter LX 4.2 cm 3.0 - 4.0 / 2.7 - 3.8 cm LV Diastolic Volume MOD 4C 119.1 cm??? LV Systolic Volume MOD 4C 59.6 cm??? LV Ejection Fraction MOD 4C 50.0 % LV Cardiac Index MOD 4C 1957.7 cm???/min???m??? LV Diastolic Length 4C 7.7 cm LV Systolic Length 4C 6.3 cm LA Volume 103.2 cm??? 18 - 58 / 22 - 52 cm??? LA Volume Index 38.6 cm???/m??? 16 - 28 cm???/m??? M-MODE Aortic Root Diameter MM 3.4 cm LA Systolic Diameter MM 5.0 cm LA Ao Ratio MM 1.5 AV Cusp Separation MM 2.2 cm DOPPLER AV Peak Velocity 93.2 cm/s AV Peak Gradient 3.5 mmHg TR Peak Velocity 211.7 cm/s TR Peak Gradient 17.9 mmHg Right Atrial Pressure 10.0 mmHg Pulmonary Artery Systolic Pressu 27.9 mmHg Right Ventricular Systolic Press 32.0 mmHg FINDINGS Left Ventricle Left ventricular ejection fraction is estimated at 45-50%. Reduced global left ventricular systolic function. Mildly increased septal wall thickness. Right Ventricle Severe right ventricular dilatation. Right ventricular systolic pressure within normal limits. Generalized right ventricular hypokinesis. Right Atrium Moderate right atrial dilatation. Left Atrium Mildly increased left atrial diameter. Moderately increased left atrial volume. Moderately increased left atrial area. Mitral Valve Structurally normal mitral valve. [id number] mitral regurgitation. Aortic Valve Trileaflet aortic valve. No aortic regurgitation. No aortic stenosis. Tricuspid Valve Structurally normal tricuspid valve. Mild tricuspid regurgitation. Pulmonic Valve Structurally normal pulmonic valve. Trace pulmonic regurgitation. No pulmonic stenosis. Pericardium No pericardial or pleural effusion. Aorta Normal size aortic root and proximal ascending aorta. CONCLUSIONS Poor, Technically difficult study. Left ventricular ejection fraction is estimated at 45-50%. Reduced global left ventricular systolic function. Mildly increased septal wall thickness. Severe right ventricular dilatation. Generalized right ventricular hypokinesis. [id number] mitral regurgitation. Previewed by: Dr Ger Baker (Electronically Signed) Final Date: 04 Aug 2023 17:49
[2023-08-04] MEDS: DAPAGLIFLOZIN PROPANEDIOL 10 MG TABLET PO SCH (21:17)
[2023-08-05 09:31] LABS: Basophils # (A) 0.07 X 10*3/uL (0.00-0.10); Basophils % (A) 0.7 %; Eosinophils % (A) 4.8 %; HCT 41.9 % (39.6-50.0); HGB 13.7 g/dL (13.0-17.0); Lymphocytes % (A) 19.1 %; MCH 30.9 pg (27.0-32.0); MCHC 32.7 g/dL (32.0-37.0); MCV 94.6 FL (80.0-97.0); Mean Platelet Volume 10.4 FL (9.5-12.2); Monocytes # (A) 1.32 X 10*3/uL (0.20-1.00); Monocytes % (A) 12.6 %; NRBC Per 100 WBC 0 X 10*3/uL (0.00-0.01); Neutrophils # (A) 6.55 X 10*3/uL (1.80-7.70); Neutrophils % (A) 62.3 %; Platelet Count 196 X 10*3/uL (140-440); RBC 4.43 X 10*6/uL (4.40-5.60); RDW 14.4 % (11.5-14.5); WBC 10.49 X 10*3/uL (4.50-10.00)
--- NOTE | 2023-08-05 09:38 | P.PN ---
Subjective Progress Note Date: 08/05/23 José Miguel Moreira, is a 77-year-old male who presented to [facility] emergency room with a chief complaint of back pain, patient has a known history of multiple sclerosis, he reports worsening back pain in the last 3 weeks with frequent falls, and difficulty ambulating due to pain. He was also complaining of worsening shortness of breath and bilateral lower extremity edema. He was evaluated in the emergency room vital examination on presentation revealed a temperature of 97.8 pulse 83 respiration 18 blood pressure 131/79 pulse ox 98% on room air Laboratory data revealed a white blood count of 9.2 hemoglobin 14.2 platelet count 205 sodium 141 potassium 4.1 chloride 110 CO2 28 BUN 27 creatinine 0.71 d- dimer 0.57 troponin less than 0.012 BNP 876 Testing in the emergency room revealed lumbar spine computed tomography scan revealed multilevel degenerative disc disease with mild central stenosis at L2-3 and L3-4, chest x-ray revealed cardiomegaly and mild pulmonary vascular conges tion, EKG revealed atrial fibrillation with controlled heart rate. Patient was admitted to medical floor for further evaluation and treatment on 08/04/2023 patient was seen and examined on the medical floor he is alert and oriented 3 in no apparent distress he is still complaining of back pain and complaining of frequency and discoloration in his urine today otherwise he denies any complaints there is no fever or chills no headache or dizziness no chest pain no shortness of breath no cough no nausea or vomiting no abdominal pain no diarrhea. At this time will check urine analysis and urine culture if needed will check kidney ultrasound. On 08/05/2023 patient is alert and oriented 3.patient reports improvement in overall back pain. UA was negative for infection. Ultrasound of kidney and renal and bladder completed showing no evidence for acute process. Current vital signs temp 97.9, heart rate 95, respiratory rate 15, blood pressure 129/77 with pulse ox 96% on room air. Objective - Vital Signs Vital signs: Vital Signs Temp 97.9 F 08/05/23 07:25 Pulse 95 08/05/23 07:25 Resp 15 08/05/23 07:25 BP 129/77 08/05/23 07:25 Pulse Ox 96 08/05/23 07:25 FiO2 Intake & Output 05/18/24 05/19/24 05/19/24 18:59 06:59 18:59 Intake Total 826 Balance 826 Intake: Oral 826 Other: Voiding Method Toilet Toilet # Voids 2 3 # Bowel Movements 1 - Exam In general patient is alert and oriented x 3 in no distress HEENT head normocephalic and atraumatic Neck is supple no JVD no goiter no lymphadenopathy no carotid bruit Chest examination is clear to auscultation no crackles no wheezing Cardiac exam reveals irregular heart sounds S1 and S2 no gallops no murmurs Abdomen is soft nontender no organomegaly with normal bowel sounds Extremity exam reveals no edema no cyanosis or clubbing Neurological examination reveals no gross focal deficits - Labs CBC & Chem 7: 08/05/23 04:10 08/04/23 05:50 Labs: Abnormal Lab Results - Last 24 Hours (Table) 08/04/23 08/04/23 08/04/23 Range/Units 05:50 05:50 16:54 WBC 10.33 H (4.50-10.00) X 10*3/uL RBC 4.39 L (4.40-5.60) X 10*6/uL Immature Gran # (0.00-0.04) X 10*3/uL Monocytes # 1.23 H (0.20-1.00) X 10*3/uL Eosinophils # (0.04-0.35) X 10*3/uL BUN/Creatinine Ratio 36.43 H (12.00-20.00) Ratio Total Protein 5.7 L (6.2-8.2) g/dL Albumin 3.6 L (3.8-4.9) g/dL Urine Blood Moderate H (Negative) Urine RBC 82 H (0-5) /hpf Urine Bacteria Rare H (None) /hpf Urine Mucus Rare H (None) /hpf 08/05/23 Range/Units 04:10 WBC 10.49 H (4.50-10.00) X 10*3/uL RBC (4.40-5.60) X 10*6/uL Immature Gran # 0.05 H (0.00-0.04) X 10*3/uL Monocytes # 1.32 H (0.20-1.00) X 10*3/uL Eosinophils # 0.50 H (0.04-0.35) X 10*3/uL BUN/Creatinine Ratio (12.00-20.00) Ratio Total Protein (6.2-8.2) g/dL Albumin (3.8-4.9) g/dL Urine Blood (Negative) Urine RBC (0-5) /hpf Urine Bacteria (None) /hpf Urine Mucus (None) /hpf Assessment and Plan Plan: worsening back pain, with episodes of generalized weakness gait disturbance and multiple falls Underlying history of multiple sclerosis Episodes of upper back pain Underlying history of congestive heart failure Underlying history of atrial fibrillation Underlying history of hypertension Underlying history of hyperlipidemia underlying history of coronary artery disease at this time patient was seen and examined Home medications reviewed and reordered Serial EKG and cardiac enzymes ordered Cardiology consultation and neurology consultation requested Will follow closely
[2023-08-05 09:52] LABS: ALT 23 U/L (10-49); AST 25 U/L (14-35); Albumin 3.7 g/dL (3.8-4.9); Albumin/Globulin Ratio 1.68 Ratio (1.60-3.17); Alkaline Phosphatase 66 U/L (41-126); BUN/Creat Ratio 24.62 Ratio (12.00-20.00); Blood Urea Nitrogen 19.7 mg/dL (9.0-27.0); Calcium 8.8 mg/dL (8.7-10.3); Carbon Dioxide 25.2 mmol/L (21.6-31.8); Chloride 109 mmol/L (96-109); Globulin 2.2 g/dL (1.6-3.3); Glucose 102 mg/dL (70-110); Potassium 4.2 mmol/L (3.5-5.5); Sodium 144 mmol/L (135-145); Total Bilirubin 0.6 mg/dL (0.3-1.2); Total Protein 5.9 g/dL (6.2-8.2)
--- NOTE | 2023-08-05 10:00 | P.CNNES ---
History of Present Illness Consult date: 08/04/23 Requesting physician: Cedric Giraldo Reason for Consult: multiple sclerosis, back pain, frequent falls History of Present Illness: Patient is a 77-year-old left-handed male with history of MS, low back pain, came to the hospital yesterday at 10:30 AM for low back pain for 3 weeks. He feels that it is getting worse, and his legs are getting weak and tendency to fall. Patient states that his legs quit working, and he fell about 3 times in the last couple weeks. Patient states that he gets these episodes about couple times a year, takes pain medication and the symptoms goes away. This time he started with the back pain, legs getting weaker, tried the pain medication but is not getting better, in fact was getting worse, therefore came to the hospital. Last week, he was getting difficulty getting in and out of bed. When he came, he was having back pain 10/10. He was started on some pain medication and now the back pain is only 2/10. He is still getting trouble getting out of bed. Patient states he was diagnosed with MS in around [address] Braswell. Patient states that he used to get flareup every 2 years, although once he had a relapse in 6 months. Patient states that he was given "low-dose chemotherapy" in 1988, which was investigational medication, and the name he does not remember. It helped remarkably, and he has not had any relapses since then. Patient has not tried any disease modifying medication since then. He still follows up with Dr. Braswell. He uses the walker, with the back is hurting. Patient for the last 4 to 5 weeks has been using walker with seat and brakes. Inside his home he uses a cane. Vital signs on arrival blood pressure 131/79, pulse rate 83 temperature 97.8. Blood test shows normal CBC, PT PTT, normal CMP, troponin. UA is negative although showed moderate amount of blood and 82 RBC. Chest x-ray showed cardiomegaly and mild pulmonary vascular congestion. Correlate with BNP for congestive heart failure. CT of the lumbar spine showed multilevel degenerative disc disease. Mild central canal stenosis at L2-3 and L3-4. EKG showed atrial fibrillation. Abdominal/bladder ultrasound showed no evidence for acute process. Patient had a carotid Doppler on 01/26/2023 which revealed no significant hemodynamic stenosis. Antegrade flow in both vertebral arteries. Cardiac dysrhythmia. Patient has hypertension, denies diabetes. Patient has smoked 1-1/2 pack/day for 20 years, quit 38 years ago. Denies any alcohol use. Patient has history of multiple sclerosis since in his 30s, and has not been taking any MS medications since 1988. Patient's son also has MS. Has atrial fibrillation, on Eliquis. CHF, chronic hearing loss, Review of Systems As mentioned in detail in HPI. All other review of systems are noncontributory. Pertinent positive and negative mentioned. Past Medical History Past Medical History: Atrial Fibrillation, Asthma, Coronary Artery Disease (CAD), Chest Pain / Angina, Hyperlipidemia, Hypertension, Myocardial Infarction (DE), Musculoskeletal Disorder, Neurologic Disorder, Sleep Apnea/CPAP/BIPAP, Vascular Disorder Additional Past Medical History / Comment(s): Ishemic heart disease, paroxysmal VT, AAA with repair, MS treated experimentally with chemo, bilateral feet numbness, [place] with Cpap, cervical and low back pain,. MS Last Myocardial Infarction Date:: 1995 History of Any Multi-Drug Resistant Organisms: None Reported Past Surgical History: Cholecystectomy, Heart Catheterization, Heart Catheterization With Stent Additional Past Surgical History / Comment(s): AAA repair, bilateral cataract removals, colonoscopy. Past Anesthesia/Blood Transfusion Reactions: No Reported Reaction Date of Last Stent Placement:: 1995 Past Psychological History: No Psychological Hx Reported Smoking Status: Former smoker Past Alcohol Use History: None Reported Past Drug Use History: None Reported - Past Family History Mother Family Medical History: Cancer Additional Family Medical History / Comment(s): Mother at the age of 58yrs from metastatic cancer. Father Family Medical History: Myocardial Infarction (DE) Additional Family Medical History / Comment(s): Father of a DE at the age of 52 yrs. Medications and Allergies Home Medications Medication Instructions Recorded Confirmed Type Isosorbide Mononitrate ER [Imdur] 30 mg PO DAILY 09/11/13 08/03/23 History Montelukast [Singulair] 10 mg PO DAILY 09/11/13 08/03/23 History Apixaban [Eliquis] 5 mg PO BID 12/10/17 08/03/23 History lisinopriL [Zestril] 10 mg PO DAILY 12/10/17 08/03/23 History Aspirin EC [Ecotrin Low Dose] 81 mg PO DAILY 08/26/20 08/03/23 History Atorvastatin [Lipitor] 20 mg PO DAILY 08/26/20 08/03/23 History Loratadine [Claritin] 10 mg PO DAILY 08/26/20 08/03/23 History Cholecalciferol [Vitamin D3 (125 125 mcg PO DAILY 06/02/22 08/03/23 History Mcg = 5000 Iu)] Fluticasone Propion/Salmeterol 1 puff INHALATION RT-BID 06/02/22 08/03/23 History [Fluticasone-Salmeterol 250-50] Furosemide [Lasix] 20 mg PO DAILY 06/02/22 08/03/23 History Potassium Chloride ER [K-Dur 10] 10 meq PO DAILY 06/02/22 08/03/23 History Metoprolol Tartrate [Lopressor] 100 mg PO BID 01/26/23 08/03/23 History Albuterol Sulfate [Albuterol 2 puff PO RT-Q6H PRN 08/03/23 08/03/23 History Sulfate Hfa] Coffee Xt/Phosphatidyl Serine 1 cap PO DAILY 08/03/23 08/03/23 History [Neuriva Original 100-100Mg Cap] HYDROcodone/APAP 10-325MG [[place] 1 tab PO Q8H PRN 08/03/23 08/03/23 History 10-325] Mv-Min/Folic/K1/Lycopen/Lutein 1 tab PO DAILY 08/03/23 08/03/23 History [Centrum Silver Men Tablet] Allergies Allergy/AdvReac Type Severity Reaction Status Date / Time No Known Allergies Allergy Verified 08/03/23 14:44 Physical Examination - Vital Signs Vital Signs: Vital Signs Temp Pulse Resp BP BP Pulse Ox 08/04/23 13:30 98.5 F 76 16 91/57 99 08/04/23 10:29 72 122/74 08/04/23 08:01 97 08/04/23 07:30 98.2 F 72 17 117/58 100 08/04/23 02:00 99 F 91 16 129/83 96 08/03/23 20:00 97.8 F 60 16 119/74 99 Intake and Output 08/04/23 08/04/23 08/04/23 06:59 14:59 22:59 Intake Total 708 Balance 708 Intake: Oral 708 Other: Voiding Method Toilet # Voids 2 2 # Bowel Movements 1 Patient is an elderly male, in no acute distress. Patient is alert awake oriented to time place and person. Speech and language functions are normal. Patient can name and repeat very well. No aphasia or dysarthria. Attention, concentration and fund of knowledge is adequate. On cranial nerve examination, pupils are equal, round and reacting to light, visual valdes are full on confrontation, with no neglect on double simultaneous stimulation. Extraocular muscles are intact with no nystagmus. Face is symmetric, tongue protrudes to the midline. Palatal elevation and sensation normal, hearing is moderately decreased and shoulder shrug normal, facial sensation normal. On muscle strength testing, there is no pronator drift and the strength is normal in arms and legs distally and proximally, except hip flexion, which is no rmal on the right, 4 left. Deep tendon reflexes are symmetric biceps 2+, brachioradialis 2+, knees 2+3, ankles 1, plantars are upgoing bilaterally. Sensory to touch is equal with no neglect on double simultaneous stimulation. Cerebellar function showed no ataxia for [id number] testing. No dy sdiadochokinesia. No ataxia for [id number] testing on either side. Tone and bulk of muscles normal. Gait deferred.. On general examination, there is no carotid bruit or murmur, S1-S2 audible. C hest is clear on consultation. Abdomen is soft nontender. No organomegaly, bowel sounds present. Peripheral pulses are present. Moderate peripheral edema. Results - Laboratory Findings CBC and BMP: 08/05/23 04:10 08/04/23 05:50 Abnormal Lab Findings: Abnormal Labs 08/03/23 08/04/23 08/04/23 11:16 05:50 05:50 WBC 10.33 H RBC 4.39 L Monocytes # 1.23 H Chloride 110 H BUN 27 H BUN/Creatinine Ratio 36.43 H Glucose 135 H Total Protein 5.7 L Albumin 3.6 L Urine Blood Urine RBC Urine Bacteria Urine Mucus 08/04/23 16:54 WBC RBC Monocytes # Chloride BUN BUN/Creatinine Ratio Glucose Total Protein Albumin Urine Blood Moderate H Urine RBC 82 H Urine Bacteria Rare H Urine Mucus Rare H Assessment and Plan Assessment: * Chronic, intermittent low back pain, came with worsening back pain. Symptoms have remarkably improved since received pain medication. * History of multiple sclerosis, currently in remission. * Atrial fibrillation, on anticoagulation * CAD * Hypertension * Hyperlipidemia * Sleep apnea Plan: * Patient states that his back pain has remarkably improved since he got pain medication. At present, the back pain is at baseline 2/10. (Came with 10/10 back pain) * CT of the lumbar spine showed mild degenerative changes without significant spinal stenosis. * Consider anti-inflammatory medication like Celebrex, although has to be caution with anticoagulants. * PT OT, evaluate gait. * Continue Eliquis 5 mg twice daily and aspirin 81 mg for atrial fibrillation. Continue Lipitor 20 mg. * Patient's B12 was 1315, folate 24 and TSH normal 1.91, vitamin D 61.9 on 01/26/2023. No need to repeat. * Patient has an appointment with his neurologist Dr. Braswell on 08/07/2023. * Neurologically clear for discharge. Thank you for the consult.
--- NOTE | 2023-08-05 14:15 | P.PN ---
Subjective Progress Note Date: 08/05/23 Patient was seen for a follow-up. Patient's was also present today. Patient states that she is legs still feel numb, but no pain. He feels like how his symptoms started when he was diagnosed with MS. The back pain has much improved. Objective - Vital Signs Vital signs: Vital Signs Temp 97.9 F 08/05/23 07:25 Pulse 62 08/05/23 11:40 Resp 15 08/05/23 07:25 BP 130/70 08/05/23 11:40 Pulse Ox 96 08/05/23 07:25 FiO2 Intake & Output 08/04/23 08/05/23 08/05/23 18:59 06:59 18:59 Intake Total 826 Balance 826 Intake: Oral 826 Other: Voiding Method Toilet Toilet Toilet # Voids 2 3 # Bowel Movements 1 - Exam Unchanged. - Labs CBC & Chem 7: 08/05/23 04:10 08/05/23 04:10 Labs: Abnormal Lab Results - Last 24 Hours (Table) 08/04/23 08/05/23 08/05/23 Range/Units 16:54 04:10 04:10 WBC 10.49 H (4.50-10.00) X 10*3/uL Immature Gran # 0.05 H (0.00-0.04) X 10*3/uL Monocytes # 1.32 H (0.20-1.00) X 10*3/uL Eosinophils # 0.50 H (0.04-0.35) X 10*3/uL BUN/Creatinine Ratio 24.62 H (12.00-20.00) Ratio Total Protein 5.9 L (6.2-8.2) g/dL Albumin 3.7 L (3.8-4.9) g/dL Urine Blood Moderate H (Negative) Urine RBC 82 H (0-5) /hpf Urine Bacteria Rare H (None) /hpf Urine Mucus Rare H (None) /hpf Assessment and Plan Assessment: * Chronic, intermittent low back pain, came with worsening back pain. Symptoms have remarkably improved since received pain medication. * Leg numbness and weakness, frequent falls. Rule out MS exacerbation. * History of multiple sclerosis. * Atrial fibrillation, on anticoagulation * CAD * Hypertension * Hyperlipidemia * Sleep apnea Plan: * Patient states that his back pain has remarkably improved since he got pain medication. At present, the back pain is at baseline 2/10. (Came with 10/10 back pain) * CT of the lumbar spine showed mild degenerative changes without significant s rene stenosis. * Consider anti-inflammatory medication like Celebrex, although has to be caution with anticoagulants. * PT OT, evaluate gait. * Patient is complaining of leg numbness and weakness, like he has when he was first diagnosed with MS. Discussed with patient about empiric treatment with IV Solu-Medrol for 3 to 5 days, or further MRI testing. Patient declined any testing or treatment, as he plans to see Dr. Braswell, his neurologist on 08/07/2023. * Continue Eliquis 5 mg twice daily and aspirin 81 mg for atrial fibrillation. Continue Lipitor 20 mg. * Patient's B12 was 1315, folate 24 and TSH normal 1.91, vitamin D 61.9 on 01/26/2023. No need to repeat. * Patient has an appointment with his neurologist Dr. Braswell on 08/07/2023. * Neurologically clear for discharge. Dr. River Barnard starting neurology service from the morning, if any neurological concerns.
[2023-08-05 16:29] VITALS: BP 114/55; PULSE 100; RESP 16; TEMP 98
== END 2023-08-05 18:22 | disposition home or self-care (01) ==
LOC: EC 10:30 → 6NMEDSUR 14:02
PROVIDERS: ADMIT Internal Medicine; ATTEND Internal Medicine
DX: M54.50 Low back pain, unspecified (principal); R29.818 Other symptoms and signs involving the nervous system; R53.1 Weakness; G35 Multiple sclerosis; I11.0 Hypertensive heart disease with heart failure; I48.20 Chronic atrial fibrillation, unspecified; I50.32 Chronic diastolic (congestive) heart failure; M54.6 Pain in thoracic spine; E78.5 Hyperlipidemia, unspecified; I25.10 Atherosclerotic heart disease of native coronary artery without angina pectoris; Z92.21 Personal history of antineoplastic chemotherapy; Z82.49 Family history of ischemic heart disease and other diseases of the circulatory system; Z79.899 Other long term (current) drug therapy; Z79.82 Long term (current) use of aspirin; Z79.01 Long term (current) use of anticoagulants
CPT/HCPCS: 96367; 96375; 96365; 99285; 36415; 94640 ×4; 94760; 93005; 85379; 83880; 80053 ×3; 83735; 84484 ×3; 85025 ×3; 85610; 85730; 81001; 71046; 76770; 72131; G0378 ×3; C8929; J0360; J2765; J2405; Q9957; J1885; J1170; 93306

== ENCOUNTER → 2024-02-21 | Outpatient (CLI) | payer MEDICARE, BC ==
[2024-02-21 13:29] VITALS: BP 116/80; PULSE 76; RESP 16; TEMP 97.7
--- NOTE | 2024-02-21 14:13 | P.PROGSL ---
Subjective DATE: 02/21/2024 FOLLOW UP VISIT. Patient with obstructive sleep apnea hypopnea syndrome return to sleep center for follow-up visit. Information from previous visit have been reviewed. Patient is using PAP equipment every night for the whole night, getting PAP supplies in time. The patient does not have significant problems with the mask, PAP unit and humidification. Josephine sleepiness scale is 1, which is normal. I checked information from PAP unit. CPAP unit is old, sometimes noisy. PAP unit pressure 5-20, average 13.3 cm H2O. Usage is 100% for more then 4 hours, average 9 hours per night. Leak is 8 l/m, which is in acceptable range. Apnea Hypopnea Index is slightly increased to 8.2, that include central apnea hypopnea index 3.0. Previously patient was tried on BiPAP ST mode machine, but he prefers CPAP unit. MEDICATIONS have been reviewed, please see below. During physical exam: GENERAL: A pleasant patient without any distress. VITAL SIGNS: Please see below, weight is 285.2 lbs. HEENT: PERRLA, EOMI.low position of soft palate, Mallapati 4 . NECK: Supple. No JVD. LUNGS: Clear to percussion and to auscultation. Good air exchange. No wheezing or rhonchi. HEART: S1, S2 regular. ABDOMEN: Soft and nontender. Obese EXTREMITIES: No clubbing or cyanosis. CASINO MANAGER: Awake, alert, and oriented x3. No focal deficit. Impressions: 1. Obstructive sleep apnea-hypopnea syndrome. Patient demonstrated great compliance with treatment, benefiting from treatment. 2. Obesity, BMI 40.3. 3. Atrial fibrillation. 4. Hypertension. 5. Coronary artery disease, status post multiple stent insertions. 6. Status post surgical treatment for abdominal aortic aneurysm. 7. Asthma. 8. 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 9. Status post stent insertion to femoral arteries. Plan: 1. Continue using PAP equipment every night for the whole night. Prescription to replace CPAP. CPAP unit is old and sometimes noisy. 2. Sleep hygiene with regular time in bed for at least 7.5-8 hours 3. PAP unit should stay lower then position of the head. 4. Advised patient to remove all remaining water from humidifier canister daily and make it dry after each usage. Refill canister with fresh distilled water before each usage. 5. Watching weight. 6. Precautions related to driving. No driving if feel any sleepiness. 7. I will maintain prescription for PAP supplies including mask, tube, filters. 8. Follow up visit in 1-3 months after patient will get new unit to check compliance with treatment, clinical response on treatment and [place] adjustments related to mask fitting pressure and humidification. Thank you very much for allowing me to participate in the management of your patient. Enrique Medina MD, PhD, FAASM. Diplomat of [place] [employer], Sleep Medicine Board by [place] [employer] [facility] [place] Objective - Vital Signs Vital Signs: Vital Signs Temp 97.7 F 02/21/24 13:27 Pulse 76 02/21/24 13:27 Resp 16 02/21/24 13:27 BP 116/80 02/21/24 13:27 Pulse Ox 97 02/21/24 13:27 FiO2 Intake & Output 02/20/24 02/21/24 02/21/24 18:59 06:59 18:59 Weight 129.331 kg Home Medications: Home Medications Medication Instructions Recorded Confirmed Type Isosorbide Mononitrate ER [Imdur] 30 mg PO DAILY 09/11/13 08/17/23 History Montelukast [Singulair] 10 mg PO DAILY 09/11/13 08/17/23 History Apixaban [Eliquis] 5 mg PO BID 12/10/17 08/17/23 History lisinopriL [Zestril] 10 mg PO DAILY 12/10/17 08/17/23 History Aspirin EC [Ecotrin Low Dose] 81 mg PO DAILY 08/26/20 08/17/23 History Atorvastatin [Lipitor] 20 mg PO DAILY 08/26/20 08/17/23 History Loratadine [Claritin] 10 mg PO DAILY 08/26/20 08/17/23 History Cholecalciferol [Vitamin D3 (125 125 mcg PO DAILY 06/02/22 08/17/23 History Mcg = 5000 Iu)] Fluticasone Propion/Salmeterol 1 puff INHALATION RT-BID 06/02/22 08/17/23 History [Fluticasone-Salmeterol 250-50] Furosemide [Lasix] 20 mg PO DAILY 06/02/22 08/17/23 History Potassium Chloride ER [K-Dur 10] 10 meq PO DAILY 06/02/22 08/17/23 History Metoprolol Tartrate [Lopressor] 100 mg PO BID 01/26/23 08/17/23 History Albuterol Sulfate [Albuterol 2 puff PO RT-Q6H PRN 08/03/23 08/17/23 History Sulfate Hfa] Coffee Xt/Phosphatidyl Serine 1 cap PO DAILY 08/03/23 08/17/23 History [Neuriva Original 100-100Mg Cap] HYDROcodone/APAP 10-325MG [[place] 1 tab PO Q8H PRN 08/03/23 08/17/23 History 10-325] Mv-Min/Folic/K1/Lycopen/Lutein 1 tab PO DAILY 08/03/23 08/17/23 History [Centrum Silver Men Tablet] Dapagliflozin Propanediol [Farxiga] 10 mg PO DAILY 30 Days #30 tab 08/05/23 08/17/23 Rx
== END ==
LOC: 3 N SLEEP 13:09
PROVIDERS: ATTEND Internal Medicine
DX: G47.33 Obstructive sleep apnea (adult) (pediatric) (principal); E66.9 Obesity, unspecified; I48.91 Unspecified atrial fibrillation; I10 Essential (primary) hypertension; I25.10 Atherosclerotic heart disease of native coronary artery without angina pectoris; J45.909 Unspecified asthma, uncomplicated; Z95.5 Presence of coronary angioplasty implant and graft; Z86.69 Personal history of other diseases of the nervous system and sense organs; Z99.89 Dependence on other enabling machines and devices; Z98.890 Other specified postprocedural states; Z68.41 Body mass index [BMI] 40.0-44.9, adult; Z79.899 Other long term (current) drug therapy; Z79.01 Long term (current) use of anticoagulants; Z79.51 Long term (current) use of inhaled steroids; Z87.891 Personal history of nicotine dependence
CPT/HCPCS: 99212

== ENCOUNTER → 2024-02-26 | Outpatient (CLI) | payer MEDICARE, BC ==
[2024-02-26 15:51] LABS: Basophils # (A) 0.09 X 10*3/uL (0.00-0.10); Basophils % (A) 1.2 %; Eosinophils # (A) 0.28 X 10*3/uL (0.04-0.35); Eosinophils % (A) 3.6 %; HCT 49.4 % (39.6-50.0); HGB 15.5 g/dL (13.0-17.0); Lymphocytes % (A) 32.5 %; MCH 30.2 pg (27.0-32.0); MCHC 31.4 g/dL (32.0-37.0); MCV 96.1 FL (80.0-97.0); Mean Platelet Volume 10.2 FL (9.5-12.2); Monocytes # (A) 0.76 X 10*3/uL (0.20-1.00); Monocytes % (A) 9.9 %; NRBC Per 100 WBC 0 X 10*3/uL (0.00-0.01); Neutrophils # (A) 4.04 X 10*3/uL (1.80-7.70); Neutrophils % (A) 52.4 %; Platelet Count 242 X 10*3/uL (140-440); RBC 5.14 X 10*6/uL (4.40-5.60); RDW 15.9 % (11.5-14.5)
[2024-02-26 16:03] LABS: ALT 23 U/L (10-49); AST 27 U/L (14-35); Albumin 4.1 g/dL (3.8-4.9); Albumin/Globulin Ratio 1.78 Ratio (1.60-3.17); Alkaline Phosphatase 74 U/L (41-126); Blood Urea Nitrogen 19.8 mg/dL (9.0-27.0); Calcium 9.3 mg/dL (8.7-10.3); Carbon Dioxide 28.6 mmol/L (21.6-31.8); Chloride 107 mmol/L (96-109); Chol/HDL Ratio 3.21 Ratio; Globulin 2.3 g/dL (1.6-3.3); Glucose 113 mg/dL (70-110); LDL Cholesterol,Calculated 60.5 mg/dL (0.0-131.0); Potassium 4.9 mmol/L (3.5-5.5); Sodium 144 mmol/L (135-145); Total Bilirubin 0.6 mg/dL (0.3-1.2); Total Protein 6.4 g/dL (6.2-8.2)
== END | disposition home or self-care (01) ==
LOC: LABWHC1 09:30
PROVIDERS: ATTEND Internal Medicine
DX: I10 Essential (primary) hypertension (principal); E55.9 Vitamin D deficiency, unspecified; E78.2 Mixed hyperlipidemia; R39.12 Poor urinary stream; R53.83 Other fatigue; R73.01 Impaired fasting glucose; R73.09 Other abnormal glucose; Z79.899 Other long term (current) drug therapy
CPT/HCPCS: 36415; 80053; 80061; 82306; 83036; 84443; 85025

== ENCOUNTER 2024-08-29 18:57 | Inpatient (IN) | payer MEDICARE, BC ==
--- NOTE | 2024-08-29 19:29 | ED ---
Back Pain HPI - General Chief Complaint: Back Pain/Injury Stated Complaint: R Flank Pain Time Seen by Provider: 08/29/24 19:16 Source: patient Limitations: no limitations - History of Present Illness Initial Comments: 78-year-old male presenting with chief complaint of lower back pain. Patient states that he was at the gym and getting dressed in the locker room when he started having sudden onset sharp pain in his right lower back. States that this pain made him fall back onto the bench and hit his back on the lockers as well. He did not hit his head. He denies any loss of consciousness, he does take Eliquis. He states that he has been having persistent pain since then it has been difficult for him to change positions and complete his ADLs. He denies any abdominal pain, dysuria, hematuria, fever, chills, nausea, vomiting. Denies any loss of bowel or bladder control or saddle paresthesia. - Related Data Home Medications Medication Instructions Recorded Confirmed Isosorbide Mononitrate ER [Imdur] 30 mg PO DAILY 09/11/13 08/17/23 Montelukast [Singulair] 10 mg PO DAILY 09/11/13 08/17/23 Apixaban [Eliquis] 5 mg PO BID 12/10/17 08/17/23 lisinopriL [Zestril] 10 mg PO DAILY 12/10/17 08/17/23 Aspirin EC [Ecotrin Low Dose] 81 mg PO DAILY 08/26/20 08/17/23 Atorvastatin [Lipitor] 20 mg PO DAILY 08/26/20 08/17/23 Loratadine [Claritin] 10 mg PO DAILY 08/26/20 08/17/23 Cholecalciferol [Vitamin D3 (125 125 mcg PO DAILY 06/02/22 08/17/23 Mcg = 5000 Iu)] Fluticasone Propion/Salmeterol 1 puff INHALATION RT-BID 06/02/22 08/17/23 [Fluticasone-Salmeterol 250-50] Furosemide [Lasix] 20 mg PO DAILY 06/02/22 08/17/23 Potassium Chloride ER [K-Dur 10] 10 meq PO DAILY 06/02/22 08/17/23 Metoprolol Tartrate [Lopressor] 100 mg PO BID 01/26/23 08/17/23 Albuterol Sulfate [Albuterol 2 puff PO RT-Q6H PRN 08/03/23 08/17/23 Sulfate Hfa] Coffee Xt/Phosphatidyl Serine 1 cap PO DAILY 08/03/23 08/17/23 [Neuriva Original 100-100Mg Cap] HYDROcodone/APAP 10-325MG [[place] 1 tab PO Q8H PRN 08/03/23 08/17/23 10-325] Mv-Min/Folic/K1/Lycopen/Lutein 1 tab PO DAILY 08/03/23 08/17/23 [Centrum Silver Men Tablet] Previous Rx's Medication Instructions Recorded Dapagliflozin Propanediol [Farxiga] 10 mg PO DAILY 30 Days #30 tab 08/05/23 Allergies Allergy/AdvReac Type Severity Reaction Status Date / Time No Known Allergies Allergy Verified 08/29/24 19:15 Review of Systems ROS Statement: Those systems with pertinent positive or pertinent negative responses have been documented in the HPI. ROS Other: All systems not noted in ROS Statement are negative. Past Medical History Past Medical History: Atrial Fibrillation, Asthma, Coronary Artery Disease (CAD), Chest Pain / Angina, Hyperlipidemia, Hypertension, Myocardial Infarction (MA), Musculoskeletal Disorder, Neurologic Disorder, Sleep Apnea/CPAP/BIPAP, Vascular Disorder Additional Past Medical History / Comment(s): Ishemic heart disease, paroxysmal VT, AAA with repair, MS treated experimentally with chemo, bilateral feet numbness, [place] with Cpap, cervical and low back pain,. MS Last Myocardial Infarction Date:: 1995 History of Any Multi-Drug Resistant Organisms: None Reported Past Surgical History: Cholecystectomy, Heart Catheterization, Heart Catheterization With Stent Additional Past Surgical History / Comment(s): AAA repair, bilateral cataract removals, colonoscopy. Past Anesthesia/Blood Transfusion Reactions: No Reported Reaction Date of Last Stent Placement:: 1995 Past Psychological History: No Psychological Hx Reported Smoking Status: Former smoker Past Alcohol Use History: None Reported Past Drug Use History: None Reported - Past Family History Mother Family Medical History: Cancer Additional Family Medical History / Comment(s): Mother at the age of 58yrs from metastatic cancer. Father Family Medical History: Myocardial Infarction (MA) Additional Family Medical History / Comment(s): Father of a MA at the age of 52 yrs. General Exam Limitations: no limitations General appearance: alert, in no apparent distress Head exam: Present: atraumatic, normocephalic, normal inspection Eye exam: Present: normal appearance, EOMI Neck exam: Present: normal inspection. Absent: meningismus Respiratory exam: Absent: respiratory distress Cardiovascular Exam: Present: regular rate Back exam: Present: normal inspection, tenderness Neurological exam: Present: alert, oriented X3 Psychiatric exam: Present: normal affect, normal mood Skin exam: Present: warm, dry, normal color Course Vital Signs 08/29/24 08/29/24 08/29/24 19:13 22:36 23:32 Temperature 97.9 F 97.7 F Pulse Rate 82 79 86 Respiratory 18 22 18 Rate Blood Pressure 111/73 133/94 140/84 O2 Sat by Pulse 96 94 L 92 L Oximetry 08/30/24 08/30/24 00:19 01:34 Temperature Pulse Rate 87 80 Respiratory 18 18 Rate Blood Pressure 116/63 137/86 O2 Sat by Pulse 95 96 Oximetry Medical Decision Making - Medical Decision Making Was pt. sent in by a medical professional or institution (, PA, RIGHT OF WAY MAINTENANCE SUPERVISOR, urgent care, hospital, or jail...) When possible be specific @ -No Did you speak to anyone other than the patient for history (EMS, parent, family, police, friend...)? What history was obtained from this source @ -No Did you review nursing and triage notes (agree or disagree)? Why? @ -I reviewed and agree with nursing and triage notes Were old charts reviewed (outside hosp., previous admission, EMS record, old EKG, old radiological studies, urgent care reports/EKG's, jail records)? Report findings @ -No old charts were reviewed Differential Diagnosis (chest pain, altered mental status, abdominal pain women, abdominal pain men, vaginal bleeding, weakness, fever, dyspnea, syncope, headache, dizziness, GI bleed, back pain, seizure, CVA, palpatations, mental health, musculoskeletal)? @ - MDM Differential Back Pain: Strain, zoster, cauda equina syndrome, epidural abscess, vertebral osteomyelitis, discitis, fracture, subluxation, disc herniation, DJD, spinal stenosis, dissection, AAA, pancreatitis, peptic ulcer disease, pyelonephritis, kidney stone… this is not meant to be an all-inclusive list. EKG interpreted by me (3pts min.). @ -EKG shows atrial fibrillation ventricular rate 89. QRS 110 QT 381 QTc 428 X-rays interpreted by me (1pt min.). @ -None done CT interpreted by me (1pt min.). @ -Lumbar spine CT shows no evidence for spinal fracture. Moderate multilevel degeneration changes throughout the spine. Pseudoarthrosis of the spinous processes. Correlate for Wetzel's disease. CTA shows no aortic aneurysm or dissection. Nonobstructing 11 mm right renal stone. Diverticulosis without acute diverticulitis no small bowel obstruction. No free air. U/S interpreted by me (1pt. min.). @ -None done What testing was considered but not performed or refused? (CT, X-rays, U/S, labs)? Why? @ -None What meds were considered but not given or refused? Why? @ -None Did you discuss the management of the patient with other professionals (professionals i.e. , PA, RIGHT OF WAY MAINTENANCE SUPERVISOR, lab, RT, psych nurse, social services manager, contract post office clerk, teacher, credit compliance officer, home health care case manager)? Give summary @ -Spoke with Dr. Giraldo who accepts admission Was smoking cessation discussed for >3mins.? @ -No Was critical care preformed (if so, how long)? @ -No Were there social determinants of health that impacted care today? How? (Homelessness, low income, unemployed, alcoholism, drug addiction, transportation, low edu. Level, literacy, decrease access to med. care, nursing home, rehab)? @ -No Was there de-escalation of care discussed even if they declined (Discuss DNR or withdrawal of care, Hospice)? DNR status @ -No What co-morbidities impacted this encounter? (DM, HTN, Smoking, COPD, CAD, Cancer, CVA, ARF, Chemo, Hep., AIDS, mental health diagnosis, sleep apnea, morbid obesity)? @ -CAD Was patient admitted / discharged? Hospital course, mention meds given and route, prescriptions, significant lab abnormalities, going to OR and other pertinent info. @ -78-year-old male presenting with chief complaint of lower back pain. Pain started today which caused him to fall over. Denies head injury. He denies any red flag symptoms. CT is obtained which does show some mild disc bulging at various levels. On reassessment the patient is profusely diaphoretic and feeling nauseous and dizzy. He is unsure what brought this on. He is having no chest pain. Cardiac workup was initiated. EKG shows atrial fibrillation with rate control. White count 10.6. Troponin 0.013. CT is obtained which shows no aortic aneurysm or dissection. Urine is still pending. Considering the patient's cardiac history and his acutely symptomatic episode, I believe it is in his best interest to be admitted for observation. Patient is agreeable with this plan. I discussed this case with my attending Dr. Gibbs Undiagnosed new problem with uncertain prognosis? @ -No Drug Therapy requiring intensive monitoring for toxicity (Heparin, Nitro, Insulin, Cardizem)? @ -No Were any procedures done? @ -No Diagnosis/symptom? @ -Back pain, near syncope Acute, or Chronic, or Acute on Chronic? @ -Acute Uncomplicated (without systemic symptoms) or Complicated (systemic symptoms)? @ -Complicated Side effects of treatment? @ -No Exacerbation, Progression, or Severe Exacerbation? @ -No Poses a threat to life or bodily function? How? (Chest pain, [place], MA, pneumonia, PE, COPD, DKA, ARF, appy, cholecystitis, CVA, Diverticulitis, Homicidal, Suicidal, threat to staff... and all critical care pts) @ -Yes - Lab Data Result diagrams: 08/29/24 21:15 08/29/24 21:15 Lab Results 08/29/24 08/29/24 08/29/24 Range/Units 21:15 21:15 21:15 WBC 10.60 H (4.50-10.00) 10*3/uL RBC 5.08 (4.40-5.60) 10*6/uL Hgb 15.6 (13.0-17.0) g/dL Hct 47.1 (39.6-50.0) % MCV 92.7 (80.0-97.0) fL MCH 30.7 (27.0-32.0) pg MCHC 33.1 (32.0-37.0) g/dL Plt Count 238 (140-440) 10*3/uL MPV 9.3 L (9.5-12.2) fL Immature Gran % (Auto) 0.4 % Neutrophils % 44.0 % Lymphocytes % 41.4 % Monocytes % 9.6 % Eosinophils % 3.9 % Basophils % 0.7 % Immature Gran # 0.04 (0.00-0.04) 10*3/uL Neutrophils # 4.67 (1.80-7.70) 10*3/uL Lymphocytes # 4.39 (0.90-5.00) 10*3/uL Monocytes # 1.02 H (0.20-1.00) 10*3/uL Eosinophils # 0.41 H (0.04-0.35) 10*3/uL Basophils # 0.07 (0.00-0.10) 10*3/uL PT 11.0 (10.0-12.5) sec INR 1.0 (<1.2) APTT 22.3 (22.0-30.0) sec Sodium 141 (137-145) mmol/L Potassium 5.1 (3.5-5.1) mmol/L Chloride 111 H (98-107) mmol/L Carbon Dioxide 23 (22-30) mmol/L Anion Gap 7 mmol/L BUN 30 H (9-20) mg/dL Creatinine 0.91 (0.66-1.25) mg/dL Est GFR (CKD-EPI)AfAm >90 (>60 ml/min/1.73 sqM) Est GFR (CKD-EPI)NonAf 81 (>60 ml/min/1.73 sqM) Glucose 135 H (74-99) mg/dL Calcium 9.3 (8.4-10.2) mg/dL Total Bilirubin 1.0 (0.2-1.3) mg/dL AST 52 (17-59) U/L ALT 32 (4-49) U/L Alkaline Phosphatase 56 (38-126) U/L Troponin I (0.000-0.034) ng/mL Total Protein 7.2 (6.3-8.2) g/dL Albumin 4.4 (3.5-5.0) g/dL 08/29/24 Range/Units 21:15 WBC (4.50-10.00) 10*3/uL RBC (4.40-5.60) 10*6/uL Hgb (13.0-17.0) g/dL Hct (39.6-50.0) % MCV (80.0-97.0) fL MCH (27.0-32.0) pg MCHC (32.0-37.0) g/dL Plt Count (140-440) 10*3/uL MPV (9.5-12.2) fL Immature Gran % (Auto) % Neutrophils % % Lymphocytes % % Monocytes % % Eosinophils % % Basophils % % Immature Gran # (0.00-0.04) 10*3/uL Neutrophils # (1.80-7.70) 10*3/uL Lymphocytes # (0.90-5.00) 10*3/uL Monocytes # (0.20-1.00) 10*3/uL Eosinophils # (0.04-0.35) 10*3/uL Basophils # (0.00-0.10) 10*3/uL PT (10.0-12.5) sec INR (<1.2) APTT (22.0-30.0) sec Sodium (137-145) mmol/L Potassium (3.5-5.1) mmol/L Chloride (98-107) mmol/L Carbon Dioxide (22-30) mmol/L Anion Gap mmol/L BUN (9-20) mg/dL Creatinine (0.66-1.25) mg/dL Est GFR (CKD-EPI)AfAm (>60 ml/min/1.73 sqM) Est GFR (CKD-EPI)NonAf (>60 ml/min/1.73 sqM) Glucose (74-99) mg/dL Calcium (8.4-10.2) mg/dL Total Bilirubin (0.2-1.3) mg/dL AST (17-59) U/L ALT (4-49) U/L Alkaline Phosphatase (38-126) U/L Troponin I 0.013 (0.000-0.034) ng/mL Total Protein (6.3-8.2) g/dL Albumin (3.5-5.0) g/dL Disposition Clinical Impression: Back pain, Diaphoresis, Near syncope Disposition: ADMITTED IP TO THIS [facility] Condition: Fair Time of Disposition: 23:43
[2024-08-29] MEDS: HYDROmorphone 1 MG/ML 1 ML SYRINGE IM STA (19:48)
--- NOTE | 2024-08-29 20:34 | CT ---
EXAMINATION TYPE: CT lumbar spine wo con DATE OF EXAM: 08/29/2024 8:19 PM COMPARISON: 08/03/2023. CLINICAL INDICATION: Male, 78 years old with history of pain; PHH, lower back pain before fall, fell and pain has worsened TECHNIQUE: Multiple axial images were obtained from the midportion of T11 through the sacroiliac maritza nts. Soft tissue and bone windows in coronal and sagittal planes were obtained and reviewed. Contrast used: mL of , (None, if empty). Oral contrast used: (None, if empty). CT DLP: 2124.6 mGycm, Automated exposure control for dose reduction was used. FINDINGS: Alignment: There are 5 lumbar type vertebral bodies within normal alignment. Bone: No evidence of fracture is identified. Multilevel degeneration changes with osteophyte formati on, disc space narrowing, vacuum disc phenomenon facet joint arthropathy. Ankylosis of the bilateral sacroiliac joints. Pseudoarthrosis of the spinous processes. Discs: T12-L1: No spinal canal or neural foraminal stenosis is identified. L1-L2: No spinal canal or neural foraminal stenosis is identified. L2-L3: Facet joint arthropathy and disc bulging result in mild spinal canal stenosis and mild bilater al neural foraminal stenosis. L3-L4: No spinal canal or neural foraminal stenosis is identified. L4-L5: Facet joint arthropathy and disc bulging result in mild spinal canal stenosis and mild bilater al neural foraminal stenosis. L5-S1: No spinal canal or neural foraminal stenosis is identified. Other: Nonobstructing right renal 11 mm calculus. Aortobiiliac stent grafts are present. IMPRESSION: 1. No evidence for spinal fracture. 2. Moderate multilevel degeneration changes throughout the spine. 3. Pseudoarthrosis of the spinous processes. Correlate for [place]'s disease. [facility], , 08/29/2024 8:32 PM
[2024-08-29 21:27] LABS: Basophils # (A) 0.07 10*3/uL (0.00-0.10); Basophils % (A) 0.7 %; Eosinophils # (A) 0.41 10*3/uL (0.04-0.35); Eosinophils % (A) 3.9 %; HCT 47.1 % (39.6-50.0); HGB 15.6 g/dL (13.0-17.0); Lymphocytes # (A) 4.39 10*3/uL (0.90-5.00); Lymphocytes % (A) 41.4 %; MCH 30.7 pg (27.0-32.0); MCHC 33.1 g/dL (32.0-37.0); MCV 92.7 fL (80.0-97.0); Mean Platelet Volume 9.3 fL (9.5-12.2); Monocytes # (A) 1.02 10*3/uL (0.20-1.00); Monocytes % (A) 9.6 %; Neutrophils # (A) 4.67 10*3/uL (1.80-7.70); Platelet Count 238 10*3/uL (140-440); RBC 5.08 10*6/uL (4.40-5.60); RDW 15.3 % (11.5-14.5)
[2024-08-29] MEDS: ONDANSETRON 4 MG/2 ML VIAL IVP STA (21:45)
[2024-08-29] MEDS: SODIUM CHLORIDE 0.9% 500 ML 500 ML IV ONE (21:46)
[2024-08-29 21:56] LABS: Partial Thromboplastin Time 22.3 sec (22.0-30.0)
[2024-08-29 22:36] LABS: ALT 32 U/L (4-49); AST 52 U/L (17-59); African American GFR (CKD) >90 (>60 ml/min/1.73 sqM); Albumin 4.4 g/dL (3.5-5.0); Alkaline Phosphatase 56 U/L (38-126); Anion Gap 7 mmol/L; Blood Urea Nitrogen 30 mg/dL (9-20); Calcium 9.3 mg/dL (8.4-10.2); Carbon Dioxide 23 mmol/L (22-30); Chloride 111 mmol/L (98-107); Glucose 135 mg/dL (74-99); Non-African American GFR(CKD) 81 (>60 ml/min/1.73 sqM); Sodium 141 mmol/L (137-145); Total Protein 7.2 g/dL (6.3-8.2)
[2024-08-29 22:39] LABS: Potassium 5.1 mmol/L (3.5-5.1)
[2024-08-29] MEDS ORDERED: ONDANSETRON 4 MG/2 ML VIAL IVP PRN (23:40)
[2024-08-29] MEDS ORDERED: ACETAMINOPHEN TAB 325 MG TAB PO PRN (23:40)
[2024-08-29] MEDS ORDERED: NALOXONE 0.4 MG/ML 1 ML VIAL IV PRN (23:40)
[2024-08-30] MEDS: SODIUM CHLORIDE 0.9% 1,000 ML IV SCH (00:14)
[2024-08-30] MEDS: METOCLOPRAMIDE 5 MG/ML 2 ML VIAL IVP STA (00:17)
--- NOTE | 2024-08-30 01:15 | CT ---
EXAM: CT Angiography Chest With Intravenous Contrast CLINICAL HISTORY: ITS.REASON CT Reason: pain, hx of aneurysm repair TECHNIQUE: Axial computed tomographic angiography images of the chest with intravenous contrast. CTDI is 43.09 mGy and DLP is 1994.9 mGy-cm. This CT exam was performed using one or more of the following dose reduction techniques: automated exposure control, adjustment of the mA and/or kV according to patient size, and/or use of iterative reconstruction technique. MIP reconstructed images were created and reviewed. COMPARISON: No relevant prior studies available. FINDINGS: Pulmonary arteries: Unremarkable. No pulmonary embolism. Aorta: Atherosclerotic changes of the aorta. No thoracic aortic aneurysm. Lungs: Unremarkable. No mass. No consolidation. Pleural space: Unremarkable. No significant effusion. No pneumothorax. Heart: Unremarkable. No cardiomegaly. No significant pericardial effusion. No evidence of RV dysfunction. Bones/joints: Degenerative changes of the spine. No acute fracture. No dislocation. Soft tissues: Unremarkable. Lymph nodes: Unremarkable. No enlarged lymph nodes. IMPRESSION: No aortic aneurysm or dissection. EXAM: CT Angiography Abdomen and Pelvis With Intravenous Contrast CLINICAL HISTORY: ITS.REASON CT Reason: pain, hx of aneurysm repair TECHNIQUE: Axial computed tomographic angiography images of the abdomen and pelvis with intravenous contrast. CTDI is 43.09 mGy and DLP is 1994.9 mGy-cm. This CT exam was performed using one or more of the following dose reduction techniques: automated exposure control, adjustment of the mA and/or kV according to patient size, and/or use of iterative reconstruction technique. MIP reconstructed images were created and reviewed. COMPARISON: No relevant prior studies available. FINDINGS: VASCULATURE: Aorta: Atherosclerotic changes of the aorta. No abdominal aortic aneurysm. No dissection. Celiac trunk and mesenteric arteries: No acute findings. No occlusion or significant stenosis. Renal arteries: No acute findings. No occlusion or significant stenosis. Iliac arteries: No acute findings. No occlusion or significant stenosis. Lung bases: Unremarkable. No mass. No consolidation. ABDOMEN: Liver: Unremarkable. No mass. Gallbladder and bile ducts: Cholecystectomy. No ductal dilation. Pancreas: Unremarkable. No ductal dilation. No mass. Spleen: Unremarkable. No splenomegaly. Adrenals: Unremarkable. No mass. Kidneys and ureters: Nonobstructing 11 mm right renal stone. Stomach and bowel: Diverticulosis, without acute diverticulitis. No small bowel obstruction. No free air. PELVIS: Appendix: No findings to suggest acute appendicitis. Bladder: Unremarkable. No mass. Reproductive: Unremarkable as visualized. ABDOMEN and PELVIS: Intraperitoneal space: See above. Bones/joints: Degenerative changes of the spine. No acute fracture. No dislocation. Soft tissues: Unremarkable. Lymph nodes: Unremarkable. No enlarged lymph nodes. Other findings: Aortoiliac stent graft. IMPRESSION: 1. No aortic aneurysm or dissection. 2. Nonobstructing 11 mm right renal stone. 3. Diverticulosis, without acute diverticulitis. No small bowel obstruction. No free air.
[2024-08-30] MEDS: HYDROmorphone 1 MG/ML 1 ML SYRINGE IVP PRN (01:30)
[2024-08-30 07:22] LABS: Appearance,Urine Clear (Clear); Bilirubin,Urine Negative (Negative); Blood,Urine Large (Negative); Color,Urine Light Yellow; Glucose,Urine (UA) 4+ (Negative); Ketones,Urine 1+ (Negative); Leukocyte Esterase,Urine Negative (Negative); Nitrite,Urine Negative (Negative); Protein,Urine Negative (Negative); RBC,Urine 154 /hpf (0-5); Squamous Epithelial Cell,Urine <1 /hpf (0-4); Urobilinogen,Urine <2.0 mg/dL (<2.0); WBC,Urine 17 /hpf (0-5)
[2024-08-30 07:23] LABS: Specific Gravity,Urine >1.050 (1.001-1.035)
[2024-08-30] MEDS: APIXABAN 5 MG TAB PO SCH (10:04)
[2024-08-30] MEDS: METOPROLOL TARTRATE 50 MG TAB PO SCH (10:05)
--- NOTE | 2024-08-30 10:16 | P.CRDCN ---
History of Present Illness History of present illness: HISTORY OF PRESENT ILLNESS: This is a 78-year-old male with a past medical history significant for AAA with endograft repair, atrial fibrillation, hypertension, hyperlipidemia, and darby ry artery disease with previous stenting. Patient follows in the office with Dr. Rodriguez. We have been asked to see the patient in consultation for presyncope. Patient examined at the bedside in the emergency room. Patient states yesterday he was at the gym when he was experiencing back pain. He states he fell into the lockers and hurt his hand. He denied having any chest pain or pressure. Denied having any shortness of breath. Patient continues to report back pain this morning and states he was unable to lay on the stretcher yesterday due to worsening back pain. DIAGNOSTICS: - EKG reveals atrial fibrillation with controlled ventricular rate. - Thoracic aorta CT: No aortic aneurysm or dissection - Laboratory data: WBC 10.6. Hemoglobin 15.6. Platelet count 238. Sodium 141. Potassium 5.1. BUN 30. Creatinine 0.91. Troponin negative x 3. - Current home cardiac medications include lisinopril 10 mg daily, Jardiance 10 mg daily, metoprolol tartrate 100 mg twice daily, Imdur 30 mg daily, Lasix 20 mg daily, Lipitor 20 mg daily, aspirin 81 mg daily, Eliquis 5 mg twice a day. - Most recent echocardiogram obtained in July 2023 revealed ejection fraction 45 to 50%, mild to moderate mitral regurgitation, mild tricuspid digitation - Cardiac catheterization history: 2018 revealing 50% proximal LAD, 100% distal circumflex, 60% proximal OM1, normal FFR of left circumflex. REVIEW OF SYSTEMS: At the time of my exam: CONSTITUTIONAL: Denies fever or chills. Reports back pain HEENT: Denies blurred vision, vision changes, or eye pain. Denies hemoptysis CARDIOVASCULAR: Denies chest pain. Denies orthopnea. Denies PND. Denies palpitations RESPIRATORY: Denies shortness of breath. GASTROINTESTINAL: Denies abdominal pain. Denies nausea or vomiting. HEMATOLOGIC: Denies bleeding disorders. GENITOURINARY: Denies any blood in urine. SKIN: Denies pruitis. Denies rash. PHYSICAL EXAM: VITAL SIGNS: Reviewed. GENERAL: Well-developed in no acute distress. HEENT: Head is normocephalic. Pupils are equal, round. Sclerae anicteric. Mucous membranes of the mouth are moist. Neck supple. No JVD or thyromegaly LUNGS: Respirations even and unlabored. Lungs essentially clear to auscultation bilaterally. HEART: Irregular rate and rhythm. S1 and S2 heard. ABDOMEN: Soft. Nondistended. Nontender. EXTREMITIES: Normal range of motion. No clubbing or cyanosis. Peripheral pulses intact. No lower extremity edema NEUROLOGIC: Awake and alert. Oriented x 3. ASSESSMENT: Back pain No evidence of presyncope/syncope Paroxysmal atrial fibrillation History of AAA with endograft repair Coronary artery disease with previous stenting Hypertension Hyperlipidemia Obesity: BMI 36.9 PLAN: An acute coronary Venn has been ruled out Patient without evidence of presyncope or syncope Obtain 2D echo to assess cardiac structure and function Resume home cardiac medications Evaluation and management of patient's back pain per primary medicine Patient is stable from a cardiac standpoint Patient to follow-up postdischarge in the office with Dr. Rodriguez Nurse practitioner note has been reviewed by physician. Signing provider agrees with the documented findings, assessment, and plan of care documented by EVENT MARKETING MANAGER as a scribe. Past Medical History Past Medical History: Atrial Fibrillation, Asthma, Coronary Artery Disease (CAD), Chest Pain / Angina, Hyperlipidemia, Hypertension, Myocardial Infarction ([place]), Musculoskeletal Disorder, Neurologic Disorder, Sleep Apnea/CPAP/BIPAP, Vascular Disorder Additional Past Medical History / Comment(s): Ishemic heart disease, paroxysmal VT, AAA with repair, MS treated experimentally with chemo, bilateral feet numbness, [place] with Cpap, cervical and low back pain,. MS Last Myocardial Infarction Date:: 1995 History of Any Multi-Drug Resistant Organisms: None Reported Past Surgical History: Cholecystectomy, Heart Catheterization, Heart Catheterization With Stent Additional Past Surgical History / Comment(s): AAA repair, bilateral cataract removals, colonoscopy. Past Anesthesia/Blood Transfusion Reactions: No Reported Reaction Date of Last Stent Placement:: 1995 Past Psychological History: No Psychological Hx Reported Smoking Status: Former smoker Past Alcohol Use History: None Reported Past Drug Use History: None Reported - Past Family History Mother Family Medical History: Cancer Additional Family Medical History / Comment(s): Mother at the age of 58yrs from metastatic cancer. Father Family Medical History: Myocardial Infarction ([place]) Additional Family Medical History / Comment(s): Father of a [place] at the age of 52 yrs. Medications and Allergies Home Medications Medication Instructions Recorded Confirmed Type Isosorbide Mononitrate ER [Imdur] 30 mg PO DAILY 09/11/13 08/30/24 History Montelukast [Singulair] 10 mg PO DAILY 09/11/13 08/30/24 History Apixaban [Eliquis] 5 mg PO BID 12/10/17 08/30/24 History lisinopriL [Zestril] 10 mg PO DAILY 12/10/17 08/30/24 History Aspirin EC [Ecotrin Low Dose] 81 mg PO DAILY 08/26/20 08/30/24 History Atorvastatin [Lipitor] 20 mg PO DAILY 08/26/20 08/30/24 History Loratadine [Claritin] 10 mg PO DAILY 08/26/20 08/30/24 History Cholecalciferol [Vitamin D3 (125 125 mcg PO DAILY 06/02/22 08/30/24 History Mcg = 5000 Iu)] Furosemide [Lasix] 20 mg PO DAILY 06/02/22 08/30/24 History Potassium Chloride ER [K-Dur 10] 10 meq PO DAILY 06/02/22 08/30/24 History Metoprolol Tartrate [Lopressor] 100 mg PO BID 01/26/23 08/30/24 History Albuterol Sulfate [Albuterol 2 puff INHALATION RT-BID 08/03/23 08/30/24 History Sulfate Hfa] Coffee Xt/Phosphatidyl Serine 1 cap PO DAILY 08/03/23 08/30/24 History [Neuriva Original 100-100Mg Cap] HYDROcodone/APAP 10-325MG [[place] 1 tab PO Q8H PRN 08/03/23 08/30/24 History 10-325] Mv-Min/Folic/K1/Lycopen/Lutein 1 tab PO DAILY 08/03/23 08/30/24 History [Centrum Silver Men Tablet] Empagliflozin [Jardiance] 10 mg PO DAILY 08/30/24 08/30/24 History Nitroglycerin Sl Tabs [Nitrostat] 0.4 mg SUBLINGUAL Q5M PRN 08/30/24 08/30/24 History Allergies Allergy/AdvReac Type Severity Reaction Status Date / Time No Known Allergies Allergy Verified 08/30/24 09:30 Physical Exam Vitals: Vital Signs Temp Pulse Resp BP Pulse Ox 08/30/24 09:55 125/78 08/30/24 05:50 94 18 134/95 94 L 08/30/24 04:00 86 18 122/79 94 L 08/30/24 01:34 80 18 137/86 96 08/30/24 00:19 87 18 116/63 95 08/29/24 23:32 86 18 140/84 92 L 08/29/24 22:36 97.7 F 79 22 133/94 94 L 08/29/24 19:13 97.9 F 82 18 111/73 96 Intake and Output 08/29/24 08/30/24 08/30/24 22:59 06:59 14:59 Other: Weight 127.006 kg Results 08/29/24 21:15 08/29/24 21:15 Cardiac Enzymes 08/29/24 08/29/24 08/30/24 Range/Units 21:15 21:15 00:05 AST 52 (17-59) U/L Troponin I 0.013 <0.012 (0.000-0.034) ng/mL 08/30/24 Range/Units 02:46 AST (17-59) U/L Troponin I <0.012 (0.000-0.034) ng/mL Coagulation 08/29/24 Range/Units 21:15 PT 11.0 (10.0-12.5) sec APTT 22.3 (22.0-30.0) sec CBC 08/29/24 Range/Units 21:15 WBC 10.60 H (4.50-10.00) 10*3/uL RBC 5.08 (4.40-5.60) 10*6/uL Hgb 15.6 (13.0-17.0) g/dL Hct 47.1 (39.6-50.0) % Plt Count 238 (140-440) 10*3/uL Comprehensive Metabolic Panel 08/29/24 Range/Units 21:15 Sodium 141 (137-145) mmol/L Potassium 5.1 (3.5-5.1) mmol/L Chloride 111 H (98-107) mmol/L Carbon Dioxide 23 (22-30) mmol/L BUN 30 H (9-20) mg/dL Creatinine 0.91 (0.66-1.25) mg/dL Glucose 135 H (74-99) mg/dL Calcium 9.3 (8.4-10.2) mg/dL AST 52 (17-59) U/L ALT 32 (4-49) U/L Alkaline Phosphatase 56 (38-126) U/L Total Protein 7.2 (6.3-8.2) g/dL Albumin 4.4 (3.5-5.0) g/dL Current Medications Generic Name Dose Route Start Last Admin Trade Name Freq PRN Reason Stop Dose Admin Acetaminophen 650 mg 08/29/24 23:40 Acetaminophen Tab 325 Mg Tab PO Q6HR PRN Mild Pain or Fever > 100.5 Apixaban 5 mg 08/30/24 09:00 Apixaban 5 Mg Tab PO BID [facility] Protocol Hydromorphone HCl 1 mg 08/29/24 23:40 Hydromorphone 1 Mg/Ml 1 Ml Syringe IVP Q3HR PRN Severe Pain (Scale 7 to 10) Sodium Chloride 1,000 mls @ 75 mls/hr 08/29/24 23:45 08/30/24 00:14 Saline 0.9% IV 75 mls/hr .[id number] EVELIO Administration Ketorolac Tromethamine 15 mg 08/29/24 23:40 Ketorolac 15 Mg/Ml 1 Ml Vial IVP 09/01/24 23:41 Q6HR PRN Moderate Pain (Scale 4 to 6) Metoprolol Tartrate 100 mg 08/30/24 09:00 Metoprolol Tartrate 50 Mg Tab PO BID EVELIO Naloxone HCl 0.2 mg 08/29/24 23:40 Naloxone 0.4 Mg/Ml 1 Ml Vial IV Q2M PRN Opioid Reversal Ondansetron HCl 4 mg 08/29/24 23:40 Ondansetron 4 Mg/2 Ml Vial IVP Q8HR PRN Nausea And Vomiting Intake and Output 08/29/24 08/30/24 08/30/24 22:59 06:59 14:59 Other: Weight 127.006 kg 08/29/24 21:15 08/29/24 21:15
[2024-08-30] MEDS: ASPIRIN 81 MG PO SCH (10:44)
[2024-08-30] MEDS: ATORVASTATIN 20 MG TAB PO SCH (10:44)
[2024-08-30] MEDS: lisinopriL 10 MG TAB PO SCH (10:45)
[2024-08-30] MEDS: FUROSEMIDE 20 MG TAB PO SCH (10:45)
[2024-08-30] MEDS: ISOSORBIDE MONONITRATE ER 30 MG TAB.ER.24H PO SCH (11:19)
[2024-08-30] MEDS: DAPAGLIFLOZIN PROPANEDIOL 5 MG TABLET PO SCH (11:20)
[2024-08-30] MEDS ORDERED: NITROGLYCERIN SL TABS 0.4 MG TAB SUBLINGUAL PRN (12:49)
--- NOTE | 2024-08-30 12:52 | P.HPIM ---
History of Present Illness H&P Date: 08/30/24 José Miguel Moreira, is a 78-year-old male who presented to [facility] emergency room with a chief complaint of severe back pain with subsequent fall. Patient denies any dizziness or loss of consciousness, he stated that he felt severe sharp pain in his lower back, then he fell down to the floor and was not able to stand up, EMS were called and patient was brought into emergency room. He was evaluated in the emergency room vital examination on presentation revealed a temperature of 97.9 pulse 82 respiration 18 blood pressure 111/73 pulse ox 96% on room air Laboratory data revealed a white blood count of 10.0 hemoglobin 15.6 platelet count 238 BUN 30 creatinine 0.91 troponin level 0.013 urine analysis revealed large blood and 17 white blood cells in high-power field Testing in the emergency room revealed CT scan of the lumbar spine revealed no evidence for spinal fracture, moderate multilevel degenerative changes, and pseudoarthrosis of the spinous processes. Thoracic angiogram revealed no acute aneurysm or dissection. There was evidence of 11 mm right renal stone. Patient was admitted to medical floor for further evaluation and treatment Past medical history is significant for degenerative disc disease with chronic back pain, history of coronary artery disease with history of angioplasty and stent placement, history of paroxysmal atrial fibrillation, history of abdominal aortic aneurysm with endograft repair, history of hypertension, history of hyperlipidemia, and history of morbid obesity. On review of systems patient is alert and oriented x 3 in no apparent distress, he stated that he is having severe back pain, he stated that he is having difficulty standing up and inability to walk, otherwise he denies any complaints there is no fever or chills no headache or dizziness no chest pain no shortness of breath no cough no nausea or vomiting no abdominal pain no diarrhea no urinary symptoms. Past Medical History Past Medical History: Atrial Fibrillation, Asthma, Coronary Artery Disease (CAD), Chest Pain / Angina, Hyperlipidemia, Hypertension, Myocardial Infarction ([place]), Musculoskeletal Disorder, Neurologic Disorder, Sleep Apnea/CPAP/BIPAP, Vascular Disorder Additional Past Medical History / Comment(s): Ishemic heart disease, paroxysmal VT, AAA with repair, MS treated experimentally with chemo, bilateral feet numbness, [place] with Cpap, cervical and low back pain,. MS Last Myocardial Infarction Date:: 1995 History of Any Multi-Drug Resistant Organisms: None Reported Past Surgical History: Cholecystectomy, Heart Catheterization, Heart Catheterization With Stent Additional Past Surgical History / Comment(s): AAA repair, bilateral cataract removals, colonoscopy. Past Anesthesia/Blood Transfusion Reactions: No Reported Reaction Date of Last Stent Placement:: 1995 Past Psychological History: No Psychological Hx Reported Smoking Status: Former smoker Past Alcohol Use History: None Reported Past Drug Use History: None Reported - Past Family History Mother Family Medical History: Cancer Additional Family Medical History / Comment(s): Mother at the age of 58yrs from metastatic cancer. Father Family Medical History: Myocardial Infarction ([place]) Additional Family Medical History / Comment(s): Father of a [place] at the age of 52 yrs. Medications and Allergies Home Medications Medication Instructions Recorded Confirmed Type Isosorbide Mononitrate ER [Imdur] 30 mg PO DAILY 09/11/13 08/30/24 History Montelukast [Singulair] 10 mg PO DAILY 09/11/13 08/30/24 History Apixaban [Eliquis] 5 mg PO BID 12/10/17 08/30/24 History lisinopriL [Zestril] 10 mg PO DAILY 12/10/17 08/30/24 History Aspirin EC [Ecotrin Low Dose] 81 mg PO DAILY 08/26/20 08/30/24 History Atorvastatin [Lipitor] 20 mg PO DAILY 08/26/20 08/30/24 History Loratadine [Claritin] 10 mg PO DAILY 08/26/20 08/30/24 History Cholecalciferol [Vitamin D3 (125 125 mcg PO DAILY 06/02/22 08/30/24 History Mcg = 5000 Iu)] Furosemide [Lasix] 20 mg PO DAILY 06/02/22 08/30/24 History Potassium Chloride ER [K-Dur 10] 10 meq PO DAILY 06/02/22 08/30/24 History Metoprolol Tartrate [Lopressor] 100 mg PO BID 01/26/23 08/30/24 History Albuterol Sulfate [Albuterol 2 puff INHALATION RT-BID 08/03/23 08/30/24 History Sulfate Hfa] Coffee Xt/Phosphatidyl Serine 1 cap PO DAILY 08/03/23 08/30/24 History [Neuriva Original 100-100Mg Cap] HYDROcodone/APAP 10-325MG [Media 1 tab PO Q8H PRN 08/03/23 08/30/24 History 10-325] Mv-Min/Folic/K1/Lycopen/Lutein 1 tab PO DAILY 08/03/23 08/30/24 History [Centrum Silver Men Tablet] Empagliflozin [Jardiance] 10 mg PO DAILY 08/30/24 08/30/24 History Nitroglycerin Sl Tabs [Nitrostat] 0.4 mg SUBLINGUAL Q5M PRN 08/30/24 08/30/24 History Allergies Allergy/AdvReac Type Severity Reaction Status Date / Time No Known Allergies Allergy Verified 08/30/24 09:30 Physical Exam Vitals: Vital Signs Temp Pulse Resp BP Pulse Ox 08/30/24 11:21 74 18 105/58 95 08/30/24 09:55 125/78 08/30/24 05:50 94 18 134/95 94 L 08/30/24 04:00 86 18 122/79 94 L 08/30/24 01:34 80 18 137/86 96 08/30/24 00:19 87 18 116/63 95 08/29/24 23:32 86 18 140/84 92 L 08/29/24 22:36 97.7 F 79 22 133/94 94 L 08/29/24 19:13 97.9 F 82 18 111/73 96 Intake and Output 08/29/24 08/30/24 08/30/24 22:59 06:59 14:59 Other: Weight 127.006 kg In general patient is alert and oriented x 3 in no distress HEENT head normocephalic and atraumatic Neck is supple no JVD no goiter no lymphadenopathy no carotid bruit Chest examination is clear to auscultation no crackles no wheezing Cardiac exam reveals regular heart sounds S1 and S2 no gallops no murmurs Abdomen is soft nontender no organomegaly with normal bowel sounds Extremity exam reveals no edema no cyanosis or clubbing Neurological examination reveals no gross focal deficits Results CBC & Chem 7: 08/29/24 21:15 08/29/24 21:15 Labs: Abnormal Lab Results - Last 24 Hours (Table) 08/29/24 08/29/24 08/29/24 Range/Units 06:00 21:15 21:15 WBC 10.60 H (4.50-10.00) 10*3/uL MPV 9.3 L (9.5-12.2) fL Monocytes # 1.02 H (0.20-1.00) 10*3/uL Eosinophils # 0.41 H (0.04-0.35) 10*3/uL Chloride 111 H (98-107) mmol/L BUN 30 H (9-20) mg/dL Glucose 135 H (74-99) mg/dL Ur Specific [place] >1.050 H (1.001-1.035) Urine Glucose (UA) 4+ H (Negative) Urine Ketones 1+ H (Negative) Urine Blood Large H (Negative) Urine RBC 154 H (0-5) /hpf Urine WBC 17 H (0-5) /hpf Assessment and Plan Plan: Severe acute low back pain on top of chronic back pain Inability to stand or walk Known history of degenerative disc disease Underlying history of hypertension Underlying history of hyperlipidemia Underlying history of paroxysmal atrial fibrillation Underlying history of coronary artery disease with previous history of angioplasty and stent placement Underlying history of abdominal aortic aneurysm with endograft repair Underlying history of morbid obesity At this time patient will be admitted to medical floor Home medications reviewed and reordered Cardiology consultation was requested in the emergency room for possible presyncope with fall At this time will consult pain management and spine surgery Physical therapy and Occupational Therapy Will follow closely, patient may need rehab if he continues to be unable to stand and walk.
[2024-08-30] MEDS: ALBUTEROL NEBULIZED 2.5 MG/3 ML INHALATION SCH (18:29)
[2024-08-30] MEDS: KETOROLAC 15 MG/ML 1 ML VIAL IVP PRN (20:59)
[2024-08-31 05:18] LABS: ALT 26 U/L (4-49); African American GFR (CKD) >90 (>60 ml/min/1.73 sqM); Albumin/Globulin Ratio 1.3; Anion Gap 8 mmol/L; Blood Urea Nitrogen 32 mg/dL (9-20); Calcium 8.3 mg/dL (8.4-10.2); Carbon Dioxide 20 mmol/L (22-30); Chloride 112 mmol/L (98-107); Globulin 2.5 g/dL; Glucose 100 mg/dL (74-99); Non-African American GFR(CKD) 89 (>60 ml/min/1.73 sqM); Sodium 140 mmol/L (137-145)
[2024-08-31 05:29] LABS: AST 58 U/L (17-59); Albumin 3.3 g/dL (3.5-5.0); Alkaline Phosphatase 45 U/L (38-126); Potassium 4.9 mmol/L (3.5-5.1); Total Bilirubin 1.2 mg/dL (0.2-1.3); Total Protein 5.8 g/dL (6.3-8.2)
[2024-08-31 06:34] LABS: Basophils # (A) 0.06 10*3/uL (0.00-0.10); Basophils % (A) 0.6 %; Eosinophils # (A) 0.35 10*3/uL (0.04-0.35); Eosinophils % (A) 3.6 %; HCT 41.7 % (39.6-50.0); HGB 13.8 g/dL (13.0-17.0); Lymphocytes # (A) 2.72 10*3/uL (0.90-5.00); Lymphocytes % (A) 28.2 %; MCH 31.2 pg (27.0-32.0); MCHC 33.1 g/dL (32.0-37.0); MCV 94.3 fL (80.0-97.0); Mean Platelet Volume 10.5 fL (9.5-12.2); Monocytes # (A) 0.99 10*3/uL (0.20-1.00); Monocytes % (A) 10.2 %; Platelet Count 175 10*3/uL (140-440); RBC 4.42 10*6/uL (4.40-5.60); RDW 15.6 % (11.5-14.5); WBC 9.66 10*3/uL (4.50-10.00)
[2024-08-31] MEDS: MULTIVITAMINS, THERA 1 EACH TAB PO SCH (08:39)
[2024-08-31] MEDS: LORATADINE 10 MG TAB PO SCH (08:39)
[2024-08-31] MEDS: CHOLECALCIFEROL 125 MCG (5000 IU) TABLET PO SCH (08:39)
[2024-08-31] MEDS: POTASSIUM CHLORIDE ER 10 MEQ TAB.ER.PRT PO SCH (08:39)
[2024-08-31] MEDS: MONTELUKAST 10 MG TAB PO SCH (08:39)
--- NOTE | 2024-08-31 09:02 | CA ---
Transthoracic Echo Report Name: José Mgiuel Moreira Age: 78 Gender: M : 1945 Exam Date: 08/30/2024 13:54 Exam Location: [place] [facility] Ht (in): 73 Wt (lb): 280 Ordering Physician: Beatrice Willett Attending/Referring Phys: [id number], Tamie Hardboard Supervisor Shikha Olea, JAYCEE Procedure CPT: Indications: back pain, hx of Afib Cardiac Hx: Technical Quality: Poor Contrast 1: Definity Total Dose (mL): 2 Contrast 2: Total Dose (mL): MEASUREMENTS (Male / Female) Normal Values 2D ECHO LV Diastolic Diameter PLAX 5.6 cm 4.2 - 5.9 / 3.9 - 5.3 cm LV Systolic Diameter PLAX 4.2 cm IVS Diastolic Thickness 1.2 cm 0.6 - 1.0 / 0.6 - 0.9 cm LVPW Diastolic Thickness 1.1 cm 0.6 - 1.0 / 0.6 - 0.9 cm LV Relative Wall Thickness 0.4 RV Internal Dim ED PLAX 2.8 cm LVOT Diameter 2.3 cm Aortic Root Diameter 3.6 cm LA Systolic Diameter LX 5.4 cm 3.0 - 4.0 / 2.7 - 3.8 cm Ascending Aorta Diameter 3.9 cm M-MODE Aortic Root Diameter MM 3.7 cm LA Systolic Diameter MM 4.6 cm LA Ao Ratio MM 1.2 AV Cusp Separation MM 2.0 cm DOPPLER AV Peak Velocity 111.1 cm/s AV Peak Gradient 4.9 mmHg MV Area PHT 2.5 cm??? Mitral E Point Velocity 100.5 cm/s Mitral A Point Velocity 0.1 cm/s Mitral E to A Ratio 1408.6 MV Deceleration Time 304.7 ms TR Peak Velocity 276.4 cm/s TR Peak Gradient 30.6 mmHg Right Atrial Pressure 8.0 mmHg Pulmonary Artery Systolic Pressu 38.6 mmHg Right Ventricular Systolic Press 38.6 mmHg FINDINGS Left Ventricle Left ventricular ejection fraction is estimated at 45-50 %. Mildly increased septal wall thickness. Left ventricular cavity size normal. Mildly reduced global left ventricular systolic function. Right Ventricle Moderate right ventricular dilatation. Mild pulmonary hypertension. Right Atrium Mild right atrial dilatation. Left Atrium Severely increased left atrial diameter. Mitral Valve Structurally normal mitral valve. Mild mitral regurgitation. No mitral stenosis. Aortic Valve Trileaflet aortic valve. No aortic valve stenosis or regurgitation. Tricuspid Valve Structurally normal tricuspid valve. Mild tricuspid regurgitation. No tricuspid stenosis. Pulmonic Valve Structurally normal pulmonic valve. Trace to mild pulmonic regurgitation. No pulmonic stenosis. Pericardium No pericardial or pleural effusion. Echo free space anterior to the right ventricle likely represents a fat pad. Aorta Mildly dilated proximal ascending aorta (tube). CONCLUSIONS Mild LV systolic dysfunction Mild pulmonary hypertension Moderate right ventricular dilatation Previewed by: Dr. Henri Daniel MD (Electronically Signed) Final Date: 31 August 2024 09:02
--- NOTE | 2024-08-31 09:46 | P.PN ---
Subjective Progress Note Date: 08/31/24 José Miguel Moreira, is a 78-year-old male who presented to [facility] emergency room with a chief complaint of severe back pain with subsequent fall. Patient denies any dizziness or loss of consciousness, he stated that he felt severe sharp pain in his lower back, then he fell down to the floor and was not able to stand up, EMS were called and patient was brought into emergency room. He was evaluated in the emergency room vital examination on presentation revealed a temperature of 97.9 pulse 82 respiration 18 blood pressure 111/73 pulse ox 96% on room air Laboratory data revealed a white blood count of 10.0 hemoglobin 15.6 platelet count 238 BUN 30 creatinine 0.91 troponin level 0.013 urine analysis revealed large blood and 17 white blood cells in high-power field Testing in the emergency room revealed CT scan of the lumbar spine revealed no evidence for spinal fracture, moderate multilevel degenerative changes, and pseudoarthrosis of the spinous processes. Thoracic angiogram revealed no acute aneurysm or dissection. There was evidence of 11 mm right renal stone. Patient was admitted to medical floor for further evaluation and treatment Past medical history is significant for degenerative disc disease with chronic back pain, history of coronary artery disease with history of angioplasty and stent placement, history of paroxysmal atrial fibrillation, history of abdominal aortic aneurysm with endograft repair, history of hypertension, history of hyperlipidemia, and history of morbid obesity. On review of systems patient is alert and oriented x 3 in no apparent distress, he stated that he is having severe back pain, he stated that he is having difficulty standing up and inability to walk, otherwise he denies any complaints there is no fever or chills no headache or dizziness no chest pain no shortness of breath no cough no nausea or vomiting no abdominal pain no diarrhea no urinary symptoms. On 08/31/2024 patient is alert and oriented x 3. Patient continues to complain of some back pain does report relief with pain medication 2D echo completed showing an EF of 45 to 50% awaiting pain services and orthopedic services input. Patient denies chest pain or shortness of breath. Patient denies nausea vomiting or diarrhea. Patient denies any urinary burning or frequency. Current vital signs temp 97.4, heart 81, respiratory rate 20, blood pressure 128/78 with a pulse ox of 98% on room air Objective - Vital Signs Vital signs: Vital Signs Temp 97.4 F L 08/31/24 06:43 Pulse 76 08/31/24 08:32 Resp 20 08/31/24 06:43 BP 128/78 08/31/24 06:43 Pulse Ox 98 08/31/24 06:43 FiO2 Intake & Output 08/30/24 08/31/24 08/31/24 18:59 06:59 18:59 Intake Total 118 Balance 118 Weight 127.006 kg Intake: Oral 118 Other: Voiding Method Toilet Toilet # Voids 1 - Exam In general patient is alert and oriented x 3 in no distress HEENT head normocephalic and atraumatic Neck is supple no JVD no goiter no lymphadenopathy no carotid bruit Chest examination is clear to auscultation no crackles no wheezing Cardiac exam reveals regular heart sounds S1 and S2 no gallops no murmurs Abdomen is soft nontender no organomegaly with normal bowel sounds Extremity exam reveals no edema no cyanosis or clubbing Neurological examination reveals no gross focal deficits - Labs CBC & Chem 7: 08/31/24 04:04 08/31/24 04:04 Labs: Abnormal Lab Results - Last 24 Hours (Table) 08/31/24 08/31/24 Range/Units 04:04 04:04 RDW 15.6 H (11.5-14.5) % Chloride 112 H (98-107) mmol/L Carbon Dioxide 20 L (22-30) mmol/L BUN 32 H (9-20) mg/dL Glucose 100 H (74-99) mg/dL Calcium 8.3 L (8.4-10.2) mg/dL Total Protein 5.8 L (6.3-8.2) g/dL Albumin 3.3 L (3.5-5.0) g/dL Assessment and Plan Plan: Severe acute low back pain on top of chronic back pain Inability to stand or walk Known history of degenerative disc disease Underlying history of hypertension Underlying history of hyperlipidemia Underlying history of paroxysmal atrial fibrillation Underlying history of coronary artery disease with previous history of angioplasty and stent placement Underlying history of abdominal aortic aneurysm with endograft repair Underlying history of morbid obesity At this time patient will be admitted to medical floor Home medications reviewed and reordered Cardiology consultation was requested in the emergency room for possible presyncope with fall At this time will consult pain management and spine surgery Physical therapy and Occupational Therapy Will follow closely, patient may need rehab if he continues to be unable to stand and walk.
--- NOTE | 2024-08-31 10:59 | P.GSCN ---
History of Present Illness Consult date: 08/31/24 History of present illness: 78 yo male admitted to the hospital with severe low back pain. He hwas found to have severer spinal arthritis. Coincidentally on ct scan he was found to have a right renal stone, 12 mm without hydronephrosis. He is afebrile. His wbc are no rmal at 9k, His cr is normal and his urine doesnot look infected Review of Systems All systems: negative - Constitutional Denies fever, Denies weight loss - EENT Eyes: denies blurred vision Ears, nose, mouth and throat: Denies dysphagia - Cardiovascular Denies chest pain, Denies shortness of breath - Respiratory Denies cough, Denies 7 - Gastrointestinal Reports as per HPI - Genitourinary Denies dysuria, Denies hematuria - Integumentary Denies rash, Denies unusual bruising - Neurological Denies headaches, Denies syncope - Hematologic/Lymphatic Denies easy bleeding, Denies easy bruising Past Medical History Past Medical History: Atrial Fibrillation, Asthma, Coronary Artery Disease (CAD), Chest Pain / Angina, Hyperlipidemia, Hypertension, Myocardial Infarction (RI), Musculoskeletal Disorder, Neurologic Disorder, Sleep Apnea/CPAP/BIPAP, Va scular Disorder Additional Past Medical History / Comment(s): Ishemic heart disease, paroxysmal VT, AAA with repair, MS treated experimentally with chemo, bilateral feet numbn ess, [place] with Cpap, cervical and low back pain,. MS Last Myocardial Infarction Date:: 1995 History of Any Multi-Drug Resistant Organisms: None Reported Past Surgical History: Cholecystectomy, Heart Catheterization, Heart Cat heterization With Stent Additional Past Surgical History / Comment(s): AAA repair, bilateral cataract removals, colonoscopy. Past Anesthesia/Blood Transfusion Reactions: No Reported Reaction Date of Last Stent Placement:: 1995 Past Psychological History: No Psychological Hx Reported Additional Psychological History / Comment(s): Pt resides with his spouse. He uses a roller walker. He is independent. He served in the [employer]. Smoking Status: Former smoker Past Alcohol Use History: None Reported Additional Past Alcohol Use History / Comment(s): Pt started smoking as a teen and quit in 1987. He was a 2.5 ppd smoker. Past Drug Use History: None Reported - Past Family History Mother Family Medical History: Cancer Additional Family Medical History / Comment(s): Mother at the age of 58yrs from metastatic cancer. Father Family Medical History: Myocardial Infarction (RI) Additional Family Medical History / Comment(s): Father of a RI at the age of 52 yrs. Medications and Allergies Home Medications Medication Instructions Recorded Confirmed Type Isosorbide Mononitrate ER [Imdur] 30 mg PO DAILY 09/11/13 08/30/24 History Montelukast [Singulair] 10 mg PO DAILY 09/11/13 08/30/24 History Apixaban [Eliquis] 5 mg PO BID 12/10/17 08/30/24 History lisinopriL [Zestril] 10 mg PO DAILY 12/10/17 08/30/24 History Aspirin EC [Ecotrin Low Dose] 81 mg PO DAILY 08/26/20 08/30/24 History Atorvastatin [Lipitor] 20 mg PO DAILY 08/26/20 08/30/24 History Loratadine [Claritin] 10 mg PO DAILY 08/26/20 08/30/24 History Cholecalciferol [Vitamin D3 (125 125 mcg PO DAILY 06/02/22 08/30/24 History Mcg = 5000 Iu)] Furosemide [Lasix] 20 mg PO DAILY 06/02/22 08/30/24 History Potassium Chloride ER [K-Dur 10] 10 meq PO DAILY 06/02/22 08/30/24 History Metoprolol Tartrate [Lopressor] 100 mg PO BID 01/26/23 08/30/24 History Albuterol Sulfate [Albuterol 2 puff INHALATION RT-BID 08/03/23 08/30/24 History Sulfate Hfa] Coffee Xt/Phosphatidyl Serine 1 cap PO DAILY 08/03/23 08/30/24 History [Neuriva Original 100-100Mg Cap] HYDROcodone/APAP 10-325MG [[place] 1 tab PO Q8H PRN 08/03/23 08/30/24 History 10-325] Mv-Min/Folic/K1/Lycopen/Lutein 1 tab PO DAILY 08/03/23 08/30/24 History [Centrum Silver Men Tablet] Empagliflozin [Jardiance] 10 mg PO DAILY 08/30/24 08/30/24 History Nitroglycerin Sl Tabs [Nitrostat] 0.4 mg SUBLINGUAL Q5M PRN 08/30/24 08/30/24 History Allergies Allergy/AdvReac Type Severity Reaction Status Date / Time No Known Allergies Allergy Verified 08/30/24 09:30 Surgical - Exam Vital Signs Temp Pulse Resp BP Pulse Ox 97.9 F 82 18 111/73 96 08/29/24 19:13 08/29/24 19:13 08/29/24 19:13 08/29/24 19:13 08/29/24 19:13 - General well developed, well nourished, no distress - Eyes normal ocular movement, no icteric - ENT no hearing loss, no congestion - Neck no masses, trachea midline - Respiratory normal respiratory effort, clear to auscultation - Abdomen Abdomen: soft, non tender, no guarding, no rigid, no rebound - Integumentary no rash, no abnormal pigmentation - Neurologic no disoriented, no combative - Psychiatric oriented to time, oriented to person, oriented to place, speech is normal, memory intact Results - Labs 08/31/24 04:04 08/31/24 04:04 Abnormal Lab Results - Last 24 Hours (Table) 08/31/24 08/31/24 Range/Units 04:04 04:04 RDW 15.6 H (11.5-14.5) % Chloride 112 H (98-107) mmol/L Carbon Dioxide 20 L (22-30) mmol/L BUN 32 H (9-20) mg/dL Glucose 100 H (74-99) mg/dL Calcium 8.3 L (8.4-10.2) mg/dL Total Protein 5.8 L (6.3-8.2) g/dL Albumin 3.3 L (3.5-5.0) g/dL Diabetes panel 08/31/24 Range/Units 04:04 Sodium 140 (137-145) mmol/L Potassium 4.9 (3.5-5.1) mmol/L Chloride 112 H (98-107) mmol/L Carbon Dioxide 20 L (22-30) mmol/L BUN 32 H (9-20) mg/dL Creatinine 0.74 (0.66-1.25) mg/dL Glucose 100 H (74-99) mg/dL Calcium 8.3 L (8.4-10.2) mg/dL AST 58 (17-59) U/L ALT 26 (4-49) U/L Alkaline Phosphatase 45 (38-126) U/L Total Protein 5.8 L (6.3-8.2) g/dL Albumin 3.3 L (3.5-5.0) g/dL Calcium panel 08/31/24 Range/Units 04:04 Calcium 8.3 L (8.4-10.2) mg/dL Albumin 3.3 L (3.5-5.0) g/dL Pituitary panel 08/31/24 Range/Units 04:04 Sodium 140 (137-145) mmol/L Potassium 4.9 (3.5-5.1) mmol/L Chloride 112 H (98-107) mmol/L Carbon Dioxide 20 L (22-30) mmol/L BUN 32 H (9-20) mg/dL Creatinine 0.74 (0.66-1.25) mg/dL Glucose 100 H (74-99) mg/dL Calcium 8.3 L (8.4-10.2) mg/dL Adrenal panel 08/31/24 Range/Units 04:04 Sodium 140 (137-145) mmol/L Potassium 4.9 (3.5-5.1) mmol/L Chloride 112 H (98-107) mmol/L Carbon Dioxide 20 L (22-30) mmol/L BUN 32 H (9-20) mg/dL Creatinine 0.74 (0.66-1.25) mg/dL Glucose 100 H (74-99) mg/dL Calcium 8.3 L (8.4-10.2) mg/dL Total Bilirubin 1.2 (0.2-1.3) mg/dL AST 58 (17-59) U/L ALT 26 (4-49) U/L Alkaline Phosphatase 45 (38-126) U/L Total Protein 5.8 L (6.3-8.2) g/dL Albumin 3.3 L (3.5-5.0) g/dL - Imaging CT scan - abdomen: report reviewed, image reviewed CT scan - pelvis: report reviewed, image reviewed Assessment and Plan Assessment: Impression: back pain non urologic. Asx, non obstructing right renal stone Recommendations: nothing urologic needs to be done this admission. He can fu in the office for further discussion of eective treatment of this stone
[2024-08-31] MEDS: HYDROcodone/APAP 10-325MG 1 EACH TAB PO PRN (11:27)
--- NOTE | 2024-08-31 13:05 | P.PN ---
Subjective Progress Note Date: 08/31/24 HISTORY OF PRESENT ILLNESS: This is a 78-year-old male with a past medical history significant for AAA with endograft repair, atrial fibrillation, hypertension, hyperlipidemia, and coronary artery disease with previous stenting. Patient follows in the office with Dr. Rodriguez. We have been asked to see the patient in consultation for presyncope. Patient examined at the bedside in the emergency room. Patient states yesterday he was at the gym when he was experiencing back pain. He states he fell into the lockers and hurt his hand. He denied having any chest pain or pressure. Denied having any shortness of breath. Patient continues to report back pain this morning and states he was unable to lay on the stretcher yesterday due to worsening back pain. DIAGNOSTICS: - EKG reveals atrial fibrillation with controlled ventricular rate. - Thoracic aorta CT: No aortic aneurysm or dissection - Laboratory data: WBC 10.6. Hemoglobin 15.6. Platelet count 238. Sodium 141. Potassium 5.1. BUN 30. Creatinine 0.91. Troponin negative x 3. - Current home cardiac medications include lisinopril 10 mg daily, Jardiance 10 mg daily, metoprolol tartrate 100 mg twice daily, Imdur 30 mg daily, Lasix 20 mg daily, Lipitor 20 mg daily, aspirin 81 mg daily, Eliquis 5 mg twice a day. - Most recent echocardiogram obtained in July 2023 revealed ejection fraction 45 to 50%, mild to moderate mitral regurgitation, mild tricuspid digitation - Cardiac catheterization history: 2018 revealing 50% proximal LAD, 100% distal circumflex, 60% proximal OM1, normal FFR of left circumflex. 08/31/2024 Patient seen and examined. Patient denies dizziness. He denies chest pain or chest pressure. Blood pressure 128/78, heart rate 81, pulse ox 98% on room air. Repeat blood work reveals hemoglobin 13.8, WBC 9.6. BUN 32 creatinine 0.74. Echocardiogram reveals mild LV systolic dysfunction with EF of 45 to 50%, mild pulmonary hypertension, moderate right ventricular dilatation. He states he has a follow-up appointment with Dr. Rodriguez in January. Patient may cancel his outpatient echocardiogram scheduled in the near future as this does not need to be redone before his appointment.. PHYSICAL EXAM: VITAL SIGNS: Reviewed. GENERAL: Well-developed in no acute distress. HEENT: Head is normocephalic. Pupils are equal, round. Sclerae anicteric. Mucous membranes of the mouth are moist. Neck supple. No JVD or thyromegaly LUNGS: Respirations even and unlabored. Lungs essentially clear to auscultation bilaterally. HEART: Irregular rate and rhythm. S1 and S2 heard. ABDOMEN: Soft. Nondistended. Nontender. EXTREMITIES: Normal range of motion. No clubbing or cyanosis. Peripheral pulses intact. No lower extremity edema NEUROLOGIC: Awake and alert. Oriented x 3. ASSESSMENT: Back pain No evidence of presyncope/syncope Paroxysmal atrial fibrillation History of AAA with endograft repair Coronary artery disease with previous stenting Hypertension Hyperlipidemia Obesity: BMI 36.9 PLAN: Patient without evidence of presyncope or syncope Continue home cardiac medications Evaluation and management of patient's back pain per primary medicine Patient is stable from a cardiac standpoint No further cardiac workup at this time Patient to follow-up postdischarge in the office with Dr. Rodriguez Cardiology will sign off this case and follow on an as-needed basis. Please reconsult for any new concerns. Nurse practitioner note has been reviewed by physician. Signing provider agrees with the documented findings, assessment, and plan of care documented by P[employer]MENT [employer]ER as a scribe. Objective - Vital Signs Vital signs: Vital Signs Temp 97.4 F L 08/31/24 06:43 Pulse 76 08/31/24 08:32 Resp 20 08/31/24 06:43 BP 128/78 08/31/24 06:43 Pulse Ox 98 08/31/24 06:43 FiO2 Intake & Output 08/30/24 08/31/24 08/31/24 18:59 06:59 18:59 Intake Total 118 Balance 118 Weight 127.006 kg Intake: Oral 118 Other: Voiding Method Toilet Toilet # Voids 1 - Labs CBC & Chem 7: 08/31/24 04:04 08/31/24 04:04 Labs: Abnormal Lab Results - Last 24 Hours (Table) 08/31/24 08/31/24 Range/Units 04:04 04:04 RDW 15.6 H (11.5-14.5) % Chloride 112 H (98-107) mmol/L Carbon Dioxide 20 L (22-30) mmol/L BUN 32 H (9-20) mg/dL Glucose 100 H (74-99) mg/dL Calcium 8.3 L (8.4-10.2) mg/dL Total Protein 5.8 L (6.3-8.2) g/dL Albumin 3.3 L (3.5-5.0) g/dL
[2024-09-01 08:17] LABS: Basophils # (A) 0.07 X 10*3/uL (0.00-0.10); Basophils % (A) 1.1 %; Eosinophils # (A) 0.39 X 10*3/uL (0.04-0.35); Eosinophils % (A) 5.9 %; HCT 46.6 % (39.6-50.0); HGB 14.7 g/dL (13.0-17.0); Lymphocytes # (A) 2.22 X 10*3/uL (0.90-5.00); Lymphocytes % (A) 33.7 %; MCH 30.2 pg (27.0-32.0); MCHC 31.5 g/dL (32.0-37.0); MCV 95.9 FL (80.0-97.0); Mean Platelet Volume 10.4 FL (9.5-12.2); Monocytes # (A) 0.78 X 10*3/uL (0.20-1.00); Monocytes % (A) 11.8 %; NRBC Per 100 WBC 0 X 10*3/uL (0.00-0.01); Neutrophils # (A) 3.11 X 10*3/uL (1.80-7.70); Neutrophils % (A) 47.2 %; Platelet Count 171 X 10*3/uL (140-440); RBC 4.86 X 10*6/uL (4.40-5.60); RDW 15.4 % (11.5-14.5); WBC 6.59 X 10*3/uL (4.50-10.00)
[2024-09-01 10:41] LABS: ALT 30 U/L (10-49); AST 55 U/L (14-35); Albumin 3.5 g/dL (3.8-4.9); Albumin/Globulin Ratio 1.59 Ratio (1.60-3.17); Alkaline Phosphatase 64 U/L (41-126); BUN/Creat Ratio 34.25 Ratio (12.00-20.00); Blood Urea Nitrogen 27.4 mg/dL (9.0-27.0); Calcium 8.3 mg/dL (8.7-10.3); Carbon Dioxide 21.1 mmol/L (21.6-31.8); Chloride 109 mmol/L (96-109); Globulin 2.2 g/dL (1.6-3.3); Glucose 95 mg/dL (70-110); Potassium 4.8 mmol/L (3.5-5.5); Sodium 142 mmol/L (135-145); Total Bilirubin 0.5 mg/dL (0.3-1.2); Total Protein 5.7 g/dL (6.2-8.2)
--- NOTE | 2024-09-01 11:28 | P.PAINPG ---
Objective - Vital Signs Vital signs: Vital Signs Temp 97.7 F 09/01/24 07:25 Pulse 88 09/01/24 09:46 Resp 18 09/01/24 09:46 BP 131/63 09/01/24 07:25 Pulse Ox 97 09/01/24 07:25 FiO2 Intake & Output 08/31/24 09/01/24 09/01/24 18:59 06:59 18:59 Intake Total 945 118 Balance 945 118 Intake: Oral 945 118 Other: Voiding Method Toilet # Voids 3 1 - Labs CBC & Chem 7: 09/01/24 04:58 09/01/24 04:58 Labs: Abnormal Lab Results - Last 24 Hours (Table) 09/01/24 09/01/24 Range/Units 04:58 04:58 MCHC 31.5 L (32.0-37.0) g/dL RDW 15.4 H (11.5-14.5) % Eosinophils # 0.39 H (0.04-0.35) X 10*3/uL Carbon Dioxide 21.1 L (21.6-31.8) mmol/L BUN 27.4 H (9.0-27.0) mg/dL BUN/Creatinine Ratio 34.25 H (12.00-20.00) Ratio Calcium 8.3 L (8.7-10.3) mg/dL AST 55 H (14-35) U/L Total Protein 5.7 L (6.2-8.2) g/dL Albumin 3.5 L (3.8-4.9) g/dL Albumin/Globulin Ratio 1.59 L (1.60-3.17) Ratio Microbiology - Last 24 Hours (Table) 08/29/24 06:00 Urine Culture - Final Urine,Voided PQRS Measure Charge Sheet Comment: HISTORY OF PRESENT ILLNESS: A 78 yr old inaptient male as a referral from Dr Galaviz presents today w severe acute LBP secondary to radiculopathy, spondylosis and facet arthropathy without myelopathy for evaluation. Pt states pain level is provoked at 8 /10 in intensity, constant, localized in the R lower lumbar spine, predominantly axial, sharp in character w occasional shooting pain towards the R hip and RLE. Pain is provoked by twisting, bending, sitting up from a supine position. Pain is alleviated by medications (Dilaudid 1mg IVP q3h prn, [place] 10/325mg q6h prn, ASA, Toradol), repositioning and rest . Complains of constipation x 2 days so will give sennokot prn. Oswestry axial pain score at 38. PMH: OA, aFib, Asthma, CAD, Angina, Hyperlipidemia, HTN, [place](1995), [place], PVD PSH: Cholecystectomy, Heart Catheterization, Heart Catheterization With Stent (1995), AAA w Repair, BL Cataract Excisions, Colonoscopy SH: Former tobacco user, No ETOH abuse, No illicit drug use FH: Mo- Metastatic [place]. Fa- [place], age 53 All: See list Medications include REVIEW OF ORGAN SYSTEMS: CONSTITUTIONAL: No fevers or chills. No recent weight loss. NEUROLOGICAL: + numbness and tingling along the distal extremities. No seizure disorders or headaches. MUSCULOSKELETAL: + pain PSYCHIATRIC: Denies current depression or suicidal thoughts. Physical Examinations : Constitutional : Cooperative , not in acute distress . Neurologic : Cranial nerve II to XII intact. No focal neurological deficits. Psychiatric : alert & oriented x 3. Matching mood & appropriate affect. Judgment & insight intact. Musculoskeletal : Cervical Spine Motor strength in the deltoid and biceps: Normal right side. Normal Left side Motor strength biceps and the wrist extensors: Normal right side . Normal left side Motor strength in the triceps muscle: Normal right side. Normal left side Deep tendon reflexes: Normal at the biceps. Normal at Brachioradialis. Normal at triceps Vertebral body tenderness to deep palpation over Cervical facet loading test: positive bilaterally Spurling test: positive bilaterally Neck distraction test: positive bilaterally Shanti sign: positive bilaterally Lumbar spine Motor strength lower extremities ,thigh and legs 5/5 Right side , 5/5 Left side Deep tendon reflexes : Normal Knee Jerk. Normal Ankle Jerk Vertebral body tenderness over L5 Perez Test positive R L4-L5, L5-S1 Lumbar facet Loading Test: positive Right / positive Left Range of motion of the lumbar spine Flexion 30 degrees, extension 10 degrees Straight Leg Raise test: Left/ Right positive at degrees Clint test: positive right / positive left. Severe tenderness over the Sacroiliac joint on the Right / Left sides Gaenslen test: positive bilaterally Seated flexion test: positive bilaterally. Sacral spine : Severe tenderness over the Sacroiliac joint: right side / left side Range of motion: Flexion of the lumbar spine <60 degrees Range of motion: Extension of the lumbar spine <20 degrees Gaenslen's Test positive Clint test: positive right side / left side Thigh Thrust Test Sacral Thrust Test Imaging: CT non contrast abd/ pelvis from 08/30/24 reviewed Assessment/ Plan : Lumbar radiculopathy Recommendation of R TFESI L4-L5, L5-S1 . Risks, benefits of procedure discussed and patient verbalized understanding. Admits to anti- coagulant use or medical history of diabetes. Protocol for discontinuation/ continuation of medications tomasz procedure discussed. All questions answered. I have spent greater than 30 minutes on patient care today. Dr Huerta was available by phone for the evaluation of this patient. The time was used to review the medical records including relevant urine studies and Prescription history (MAPs), review of the available imaging, evaluation and examination of the patient, coordination of care with the medical staff and if applicable referring physicians, as well as creation of the medical record - Pain Location Lower Back Non-Pharmacological Interventions: Darkened Room, Environmental Control Pharmacological Interventions: PRN Medication Pain Comment: see MAR PQRS Narrative: Smoking Status Former smoker Blood Pressure [Left Arm] 131/63 Blood Pressure [Right Arm] 152/69 Blood Pressure 105/70 Pain Intensity [Lower Back] 7 Pain Intensity 7 Pain Scale Used Numeric (1 - 10) Scale Used Numeric (1 - 10) Home Medications: Ambulatory Orders Isosorbide Mononitrate ER [Imdur] 30 mg PO DAILY 09/11/13 Montelukast [Singulair] 10 mg PO DAILY 09/11/13 Apixaban [Eliquis] 5 mg PO BID 12/10/17 lisinopriL [Zestril] 10 mg PO DAILY 12/10/17 Aspirin EC [Ecotrin Low Dose] 81 mg PO DAILY 08/26/20 Atorvastatin [Lipitor] 20 mg PO DAILY 08/26/20 Loratadine [Claritin] 10 mg PO DAILY 08/26/20 Cholecalciferol [Vitamin D3 (125 Mcg = 5000 Iu)] 125 mcg PO DAILY 06/02/22 Furosemide [Lasix] 20 mg PO DAILY 06/02/22 Potassium Chloride ER [K-Dur 10] 10 meq PO DAILY 06/02/22 Metoprolol Tartrate [Lopressor] 100 mg PO BID 01/26/23 Albuterol Sulfate [Albuterol Sulfate Hfa] 2 puff INHALATION RT-BID 08/03/23 Coffee Xt/Phosphatidyl Serine [Neuriva Original 100-100Mg Cap] 1 cap PO DAILY 08/03/23 HYDROcodone/APAP 10-325MG [[place] 10-325] 1 tab PO Q8H PRN 08/03/23 Mv-Min/Folic/K1/Lycopen/Lutein [Centrum Silver Men Tablet] 1 tab PO DAILY 08/03/23 Empagliflozin [Jardiance] 10 mg PO DAILY 08/30/24 Nitroglycerin Sl Tabs [Nitrostat] 0.4 mg SUBLINGUAL Q5M PRN 08/30/24 Controlled Substance Measures - Controlled Substance Measures Is patient prescribed a controlled substance at discharge?: No
[2024-09-01] MEDS: SENNOSIDES 8.6 MG TAB PO PRN (14:18)
[2024-09-01] MEDS: BACLOFEN 10 MG TAB PO PRN (16:56)
--- NOTE | 2024-09-01 17:08 | P.CNOR ---
History of Present Illness - [facility] Consult date: 09/01/24 Consult reason: low back pain History of present illness: Patient is seen at bedside today in consultation for low back pain. He states that he was getting dressed at the gym this past Sunday when he fell back due to sudden onset of low back pain. He was able to get dressed and leave however the low back pain continued. He has no current radicular symptoms or no new numbness in groin or legs. No loss of bowel or bladder. Pain management is scheduled to perform Lumbar ARON this coming Sunday per the patient and nurse. He has no other complaints Review of Systems All systems: negative Constitutional: Denies chills, Denies fever Eyes: denies blurred vision, denies pain Ears, nose, mouth and throat: Denies headache, Denies sore throat Cardiovascular: Denies chest pain, Denies shortness of breath Respiratory: Denies cough Gastrointestinal: Denies abdominal pain, Denies diarrhea, Denies nausea, Denies vomiting Musculoskeletal: Denies myalgias Integumentary: Denies pruritus, Denies rash Neurological: Denies numbness, Denies weakness Psychiatric: Denies anxiety, Denies depression Endocrine: Denies fatigue, Denies weight change Past Medical History Past Medical History: Atrial Fibrillation, Asthma, Coronary Artery Disease (CAD), Chest Pain / Angina, Hyperlipidemia, Hypertension, Myocardial Infarction (IA), Musculoskeletal Disorder, Neurologic Disorder, Sleep Apnea/CPAP/BIPAP, Vascular Disorder Additional Past Medical History / Comment(s): Ishemic heart disease, paroxysmal VT, AAA with repair, MS treated experimentally with chemo, bilateral feet numbness, [place] with Cpap, cervical and low back pain,. MS Last Myocardial Infarction Date:: 1995 History of Any Multi-Drug Resistant Organisms: None Reported Past Surgical History: Cholecystectomy, Heart Catheterization, Heart Catheterization With Stent Additional Past Surgical History / Comment(s): AAA repair, bilateral cataract removals, colonoscopy. Past Anesthesia/Blood Transfusion Reactions: No Reported Reaction Date of Last Stent Placement:: 1995 Past Psychological History: No Psychological Hx Reported Additional Psychological History / Comment(s): Pt resides with his spouse. He uses a roller walker. He is independent. He served in the [employer]. Smoking Status: Former smoker Past Alcohol Use History: None Reported Additional Past Alcohol Use History / Comment(s): Pt started smoking as a teen and quit in 1987. He was a 2.5 ppd smoker. Past Drug Use History: None Reported - Past Family History Mother Family Medical History: Cancer Additional Family Medical History / Comment(s): Mother at the age of 58yrs from metastatic cancer. Father Family Medical History: Myocardial Infarction (IA) Additional Family Medical History / Comment(s): Father of a IA at the age of 52 yrs. Medications and Allergies Home Medications Medication Instructions Recorded Confirmed Type Isosorbide Mononitrate ER [Imdur] 30 mg PO DAILY 09/11/13 08/30/24 History Montelukast [Singulair] 10 mg PO DAILY 09/11/13 08/30/24 History Apixaban [Eliquis] 5 mg PO BID 12/10/17 08/30/24 History lisinopriL [Zestril] 10 mg PO DAILY 12/10/17 08/30/24 History Aspirin EC [Ecotrin Low Dose] 81 mg PO DAILY 08/26/20 08/30/24 History Atorvastatin [Lipitor] 20 mg PO DAILY 08/26/20 08/30/24 History Loratadine [Claritin] 10 mg PO DAILY 08/26/20 08/30/24 History Cholecalciferol [Vitamin D3 (125 125 mcg PO DAILY 06/02/22 08/30/24 History Mcg = 5000 Iu)] Furosemide [Lasix] 20 mg PO DAILY 06/02/22 08/30/24 History Potassium Chloride ER [K-Dur 10] 10 meq PO DAILY 06/02/22 08/30/24 History Metoprolol Tartrate [Lopressor] 100 mg PO BID 01/26/23 08/30/24 History Albuterol Sulfate [Albuterol 2 puff INHALATION RT-BID 08/03/23 08/30/24 History Sulfate Hfa] Coffee Xt/Phosphatidyl Serine 1 cap PO DAILY 08/03/23 08/30/24 History [Neuriva Original 100-100Mg Cap] HYDROcodone/APAP 10-325MG [[place] 1 tab PO Q8H PRN 08/03/23 08/30/24 History 10-325] Mv-Min/Folic/K1/Lycopen/Lutein 1 tab PO DAILY 08/03/23 08/30/24 History [Centrum Silver Men Tablet] Empagliflozin [Jardiance] 10 mg PO DAILY 08/30/24 08/30/24 History Nitroglycerin Sl Tabs [Nitrostat] 0.4 mg SUBLINGUAL Q5M PRN 08/30/24 08/30/24 History Allergies Allergy/AdvReac Type Severity Reaction Status Date / Time No Known Allergies Allergy Verified 08/30/24 09:30 Physical Examination Osteopathic Statement: *. No significant issues noted on an osteopathic structural exam other than those noted in the History and Physical/Consult. Inspection of the Lumbar spine is bening. There is some paravertebral spasm. T here is no erythema or deformity. No midline tenderness. No stepoff. Lower extremities are grossly intact L2-S1 bilaterally with myotomes and dermatomes. Reflexes are 1+. Calves are SNT. There is adequate perfusion distally. Results - Labs Labs: Abnormal Lab Results - Last 24 Hours (Table) 09/01/24 09/01/24 Range/Units 04:58 04:58 MCHC 31.5 L (32.0-37.0) g/dL RDW 15.4 H (11.5-14.5) % Eosinophils # 0.39 H (0.04-0.35) X 10*3/uL Carbon Dioxide 21.1 L (21.6-31.8) mmol/L BUN 27.4 H (9.0-27.0) mg/dL BUN/Creatinine Ratio 34.25 H (12.00-20.00) Ratio Calcium 8.3 L (8.7-10.3) mg/dL AST 55 H (14-35) U/L Total Protein 5.7 L (6.2-8.2) g/dL Albumin 3.5 L (3.8-4.9) g/dL Albumin/Globulin Ratio 1.59 L (1.60-3.17) Ratio Microbiology - Last 24 Hours (Table) 08/29/24 06:00 Urine Culture - Final Urine,Voided H & H 08/29/24 08/31/24 09/01/24 Range/Units 21:15 04:04 04:58 Hgb 15.6 13.8 14.7 (13.0-17.0) g/dL Hct 47.1 41.7 46.6 (39.6-50.0) % Coagulation 08/29/24 Range/Units 21:15 INR 1.0 (<1.2) Result Diagrams: 09/01/24 04:58 09/01/24 04:58 - Diagnostic results Lumbar AP/lateral x-ray: report reviewed, image reviewed CT Scan - lumbar: report reviewed, image reviewed Assessment and Plan (1) Back pain Narrative/Plan: There are no plans for immediate surgical intervention. He has multilevel spondylosis and degenerative disc disease. Recommend continued pain management, PT, and medical management. Will sign off for now. He may f/u as outpatient. Thank you I have reviewed the case and the imaging. The patient does have chronic degenerative spondylosis and had an exacerbation and some strain in his back. He does not need any acute further imaging or surgical intervention at this point. He should make some progress with expectant management. We can follow him up on outpatient basis. Current Visit: Yes Status: Acute Code(s): M54.9 - DORSALGIA, UNSPECIFIED SNOMED Code(s): 080428323 Time with Patient: Less than 30
--- NOTE | 2024-09-01 18:08 | P.PN ---
Subjective Progress Note Date: 09/01/24 José Miguel Moreira, is a 78-year-old male who presented to [facility] emergency room with a chief complaint of severe back pain with subsequent fall. Patient denies any dizziness or loss of consciousness, he stated that he felt severe sharp pain in his lower back, then he fell down to the floor and was not able to stand up, EMS were called and patient was brought into emergency room. He was evaluated in the emergency room vital examination on presentation revealed a temperature of 97.9 pulse 82 respiration 18 blood pressure 111/73 pulse ox 96% on room air Laboratory data revealed a white blood count of 10.0 hemoglobin 15.6 platelet count 238 BUN 30 creatinine 0.91 troponin level 0.013 urine analysis revealed large blood and 17 white blood cells in high-power field Testing in the emergency room revealed CT scan of the lumbar spine revealed no evidence for spinal fracture, moderate multilevel degenerative changes, and pseudoarthrosis of the spinous processes. Thoracic angiogram revealed no acute aneurysm or dissection. There was evidence of 11 mm right renal stone. Patient was admitted to medical floor for further evaluation and treatment Past medical history is significant for degenerative disc disease with chronic back pain, history of coronary artery disease with history of angioplasty and stent placement, history of paroxysmal atrial fibrillation, history of abdominal aortic aneurysm with endograft repair, history of hypertension, history of hyperlipidemia, and history of morbid obesity. On review of systems patient is alert and oriented x 3 in no apparent distress, he stated that he is having severe back pain, he stated that he is having difficulty standing up and inability to walk, otherwise he denies any complaints there is no fever or chills no headache or dizziness no chest pain no shortness of breath no cough no nausea or vomiting no abdominal pain no diarrhea no urinary symptoms. On 08/31/2024 patient is alert and oriented x 3. Patient continues to complain of some back pain does report relief with pain medication 2D echo completed showing an EF of 45 to 50% awaiting pain services and orthopedic services input. Patient denies chest pain or shortness of breath. Patient denies nausea vomiting or diarrhea. Patient denies any urinary burning or frequency. Current vital signs temp 97.4, heart 81, respiratory rate 20, blood pressure 128/78 with a pulse ox of 98% on room air On 09/01/2024 patient was seen and examined on the medical floor he is alert and oriented x 3 in no apparent distress there is no fever or chills no headache or dizziness no chest pain no shortness of breath no cough no nausea or vomiting no abdominal pain no diarrhea and no urinary symptoms. He is still complaining of severe low back pain with difficulty standing and walking . he was evaluated by urology, no intervention recommended at this time for kidney stone. He was evaluated by pain management and plan is for epidural injection on Sunday, at this time Eliquis and aspirin are on hold. Objective - Vital Signs Vital signs: Vital Signs Temp 97.7 F 09/01/24 07:25 Pulse 88 09/01/24 09:46 Resp 18 09/01/24 09:46 BP 131/63 09/01/24 07:25 Pulse Ox 97 09/01/24 07:25 FiO2 Intake & Output 08/31/24 09/01/24 09/01/24 18:59 06:59 18:59 Intake Total 945 118 Balance 945 118 Intake: Oral 945 118 Other: Voiding Method Toilet # Voids 3 1 - Exam In general patient is alert and oriented x 3 in no distress HEENT head normocephalic and atraumatic Neck is supple no JVD no goiter no lymphadenopathy no carotid bruit Chest examination is clear to auscultation no crackles no wheezing Cardiac exam reveals regular heart sounds S1 and S2 no gallops no murmurs Abdomen is soft nontender no organomegaly with normal bowel sounds Extremity exam reveals no edema no cyanosis or clubbing Neurological examination reveals no gross focal deficits - Labs CBC & Chem 7: 09/01/24 04:58 09/01/24 04:58 Labs: Abnormal Lab Results - Last 24 Hours (Table) 09/01/24 09/01/24 Range/Units 04:58 04:58 MCHC 31.5 L (32.0-37.0) g/dL RDW 15.4 H (11.5-14.5) % Eosinophils # 0.39 H (0.04-0.35) X 10*3/uL Carbon Dioxide 21.1 L (21.6-31.8) mmol/L BUN 27.4 H (9.0-27.0) mg/dL BUN/Creatinine Ratio 34.25 H (12.00-20.00) Ratio Calcium 8.3 L (8.7-10.3) mg/dL AST 55 H (14-35) U/L Total Protein 5.7 L (6.2-8.2) g/dL Albumin 3.5 L (3.8-4.9) g/dL Albumin/Globulin Ratio 1.59 L (1.60-3.17) Ratio Microbiology - Last 24 Hours (Table) 08/29/24 06:00 Urine Culture - Final Urine,Voided Assessment and Plan Plan: Severe acute low back pain on top of chronic back pain Inability to stand or walk Known history of degenerative disc disease Underlying history of hypertension Underlying history of hyperlipidemia Underlying history of paroxysmal atrial fibrillation Underlying history of coronary artery disease with previous history of angioplasty and stent placement Underlying history of abdominal aortic aneurysm with endograft repair Underlying history of morbid obesity At this time patient will be admitted to medical floor Home medications reviewed and reordered Cardiology consultation was requested in the emergency room for possible presyncope with fall At this time will consult pain management and spine surgery Physical therapy and Occupational Therapy Will follow closely, patient may need rehab if he continues to be unable to stand and walk.
--- NOTE | 2024-09-02 09:52 | P.PN ---
Subjective Progress Note Date: 09/02/24 José Miguel Moreira, is a 78-year-old male who presented to [facility] emergency room with a chief complaint of severe back pain with subsequent fall. Patient denies any dizziness or loss of consciousness, he stated that he felt severe sharp pain in his lower back, then he fell down to the floor and was not able to stand up, EMS were called and patient was brought into emergency room. He was evaluated in the emergency room vital examination on presentation revealed a temperature of 97.9 pulse 82 respiration 18 blood pressure 111/73 pulse ox 96% on room air Laboratory data revealed a white blood count of 10.0 hemoglobin 15.6 platelet count 238 BUN 30 creatinine 0.91 troponin level 0.013 urine analysis revealed large blood and 17 white blood cells in high-power field Testing in the emergency room revealed CT scan of the lumbar spine revealed no evidence for spinal fracture, moderate multilevel degenerative changes, and pseudoarthrosis of the spinous processes. Thoracic angiogram revealed no acute aneurysm or dissection. There was evidence of 11 mm right renal stone. Patient was admitted to medical floor for further evaluation and treatment Past medical history is significant for degenerative disc disease with chronic back pain, history of coronary artery disease with history of angioplasty and stent placement, history of paroxysmal atrial fibrillation, history of abdominal aortic aneurysm with endograft repair, history of hypertension, history of hyperlipidemia, and history of morbid obesity. On review of systems patient is alert and oriented x 3 in no apparent distress, he stated that he is having severe back pain, he stated that he is having difficulty standing up and inability to walk, otherwise he denies any complaints there is no fever or chills no headache or dizziness no chest pain no shortness of breath no cough no nausea or vomiting no abdominal pain no diarrhea no urinary symptoms. On 08/31/2024 patient is alert and oriented x 3. Patient continues to complain of some back pain does report relief with pain medication 2D echo completed showing an EF of 45 to 50% awaiting pain services and orthopedic services input. Patient denies chest pain or shortness of breath. Patient denies nausea vomiting or diarrhea. Patient denies any urinary burning or frequency. Current vital signs temp 97.4, heart 81, respiratory rate 20, blood pressure 128/78 with a pulse ox of 98% on room air On 09/01/2024 patient was seen and examined on the medical floor he is alert and oriented x 3 in no apparent distress there is no fever or chills no headache or dizziness no chest pain no shortness of breath no cough no nausea or vomiting no abdominal pain no diarrhea and no urinary symptoms. He is still complaining of severe low back pain with difficulty standing and walking . he was evaluated by urology, no intervention recommended at this time for kidney stone. He was evaluated by pain management and plan is for epidural injection on Sunday, at this time Eliquis and aspirin are on hold. On 2024 patient is alert and oriented x 3. Patient still complaining of some pain plans for epidural injection on Sunday Eliquis currently on hold. No surgical intervention recommended at this time. Patient also evaluated by urology services no intervention at this time. Current vital signs temp 98.0, heart rate 73, respiratory rate 17, blood pressure 129/84 with pulse ox of 98% on room air Objective - Vital Signs Vital signs: Vital Signs Temp 97.4 F L 09/02/24 07:00 Pulse 88 09/02/24 08:05 Resp 17 09/02/24 07:00 BP 155/86 09/02/24 07:00 Pulse Ox 97 09/02/24 07:00 FiO2 Intake & Output 09/01/24 09/02/24 09/02/24 18:59 06:59 18:59 Intake Total 236 Balance 236 Intake: Oral 236 Other: Voiding Method Toilet Toilet # Voids 3 2 - Exam In general patient is alert and oriented x 3 in no distress HEENT head normocephalic and atraumatic Neck is supple no JVD no goiter no lymphadenopathy no carotid bruit Chest examination is clear to auscultation no crackles no wheezing Cardiac exam reveals regular heart sounds S1 and S2 no gallops no murmurs Abdomen is soft nontender no organomegaly with normal bowel sounds Extremity exam reveals no edema no cyanosis or clubbing Neurological examination reveals no gross focal deficits - Labs CBC & Chem 7: 09/01/24 04:58 09/01/24 04:58 Labs: Abnormal Lab Results - Last 24 Hours (Table) 09/01/24 Range/Units 04:58 Carbon Dioxide 21.1 L (21.6-31.8) mmol/L BUN 27.4 H (9.0-27.0) mg/dL BUN/Creatinine Ratio 34.25 H (12.00-20.00) Ratio Calcium 8.3 L (8.7-10.3) mg/dL AST 55 H (14-35) U/L Total Protein 5.7 L (6.2-8.2) g/dL Albumin 3.5 L (3.8-4.9) g/dL Albumin/Globulin Ratio 1.59 L (1.60-3.17) Ratio Assessment and Plan Plan: Severe acute low back pain on top of chronic back pain Inability to stand or walk Known history of degenerative disc disease Underlying history of hypertension Underlying history of hyperlipidemia Underlying history of paroxysmal atrial fibrillation Underlying history of coronary artery disease with previous history of angioplasty and stent placement Underlying history of abdominal aortic aneurysm with endograft repair Underlying history of morbid obesity At this time patient will be admitted to medical floor Home medications reviewed and reordered Cardiology consultation was requested in the emergency room for possible presyncope with fall At this time will consult pain management and spine surgery Plans for epidural injection on 09/05/2024 Physical therapy and Occupational Therapy Will follow closely, patient may need rehab if he continues to be unable to stand and walk.
[2024-09-02] MEDS: HYDROcodone/APAP 10-325MG 1 EACH TAB PO SCH ×2 (14:18→21:00)
[2024-09-02] MEDS: BACLOFEN 10 MG TAB PO SCH ×2 (14:19→14:57)
[2024-09-03 08:46] LABS: ALT 30 U/L (10-49); AST 38 U/L (14-35); Albumin 3.7 g/dL (3.8-4.9); Albumin/Globulin Ratio 1.61 Ratio (1.60-3.17); Alkaline Phosphatase 73 U/L (41-126); Blood Urea Nitrogen 21.2 mg/dL (9.0-27.0); Carbon Dioxide 25.5 mmol/L (21.6-31.8); Chloride 106 mmol/L (96-109); Globulin 2.3 g/dL (1.6-3.3); Glucose 113 mg/dL (70-110); Potassium 4.3 mmol/L (3.5-5.5); Sodium 142 mmol/L (135-145); Total Bilirubin 0.8 mg/dL (0.3-1.2)
[2024-09-03 09:47] LABS: INR 1.02 sec (0.93-1.11); Prothrombin Time 11.6 sec (9.9-11.9)
[2024-09-03 14:29] VITALS: BP 124/72; PULSE 67; RESP 18; TEMP 97.8
--- NOTE | 2024-09-03 14:42 | P.DS ---
Providers Date of admission: 09/01/24 10:10 Expected date of discharge: 09/03/24 Attending physician: Cedric Giraldo Consults: 08/29/24 23:42 Consult Physician Urgent Consulting Provider: [facility] Consult Reason/Comments: hx of CT, near syncope Do you want consulting provider notified?: Yes, Notify in am 08/30/24 12:47 Consult Physician Routine Consulting Provider: Brennon Ovalle Consult Reason/Comments: Low back pain Do you want consulting provider notified?: Yes 08/30/24 12:48 Consult Physician Routine Consulting Provider: Shanique Huerta Consult Reason/Comments: Back pain Do you want consulting provider notified?: Yes 08/30/24 12:49 Consult Physician Routine Consulting Provider: Neno Rust Consult Reason/Comments: Kidney stone Do you want consulting provider notified?: Yes Primary care physician: Cedric Giraldo [facility] Course: Diagnosis on discharge: Severe acute low back pain on top of chronic back pain Inability to stand or walk Known history of degenerative disc disease Underlying history of hypertension Underlying history of hyperlipidemia Underlying history of paroxysmal atrial fibrillation Underlying history of coronary artery disease with previous history of angioplasty and stent placement Underlying history of abdominal aortic aneurysm with endograft repair Underlying history of morbid obesity Hospital course: José Miguel Moreira, is a 78-year-old male who presented to [facility] emergency room with a chief complaint of severe back pain with subsequent fall. Patient denies any dizziness or loss of consciousness, he stated that he felt severe sharp pain in his lower back, then he fell down to the floor and was not able to stand up, EMS were called and patient was brought into emergency room. He was evaluated in the emergency room vital examination on presentation revealed a temperature of 97.9 pulse 82 respiration 18 blood pressure 111/73 pulse ox 96% on room air Laboratory data revealed a white blood count of 10.0 hemoglobin 15.6 platelet count 238 BUN 30 creatinine 0.91 troponin level 0.013 urine analysis revealed large blood and 17 white blood cells in high-power field Testing in the emergency room revealed CT scan of the lumbar spine revealed no evidence for spinal fracture, moderate multilevel degenerative changes, and pseudoarthrosis of the spinous processes. Thoracic angiogram revealed no acute aneurysm or dissection. There was evidence of 11 mm right renal stone. Patient was admitted to medical floor for further evaluation and treatment Past medical history is significant for degenerative disc disease with chronic back pain, history of coronary artery disease with history of angioplasty and stent placement, history of paroxysmal atrial fibrillation, history of abdominal aortic aneurysm with endograft repair, history of hypertension, history of hyperlipidemia, and history of morbid obesity. On review of systems patient is alert and oriented x 3 in no apparent distress, he stated that he is having severe back pain, he stated that he is having difficulty standing up and inability to walk, otherwise he denies any complaints there is no fever or chills no headache or dizziness no chest pain no shortness of breath no cough no nausea or vomiting no abdominal pain no diarrhea no urinary symptoms. On 08/31/2024 patient is alert and oriented x 3. Patient continues to complain of some back pain does report relief with pain medication 2D echo completed showing an EF of 45 to 50% awaiting pain services and orthopedic services input. Patient denies chest pain or shortness of breath. Patient denies nausea vomiting or diarrhea. Patient denies any urinary burning or frequency. Current vital signs temp 97.4, heart 81, respiratory rate 20, blood pressure 128/78 with a pulse ox of 98% on room air On 09/01/2024 patient was seen and examined on the medical floor he is alert and oriented x 3 in no apparent distress there is no fever or chills no headache or dizziness no chest pain no shortness of breath no cough no nausea or vomiting no abdominal pain no diarrhea and no urinary symptoms. He is still complaining of severe low back pain with difficulty standing and walking . he was evaluated by urology, no intervention recommended at this time for kidney stone. He was evaluated by pain management and plan is for epidural injection on Sunday, at this time Eliquis and aspirin are on hold. On 2024 patient is alert and oriented x 3. Patient still complaining of some pain plans for epidural injection on Sunday Eliquis currently on hold. No surgical intervention recommended at this time. Patient also evaluated by urology services no intervention at this time. Current vital signs temp 98.0, heart rate 73, respiratory rate 17, blood pressure 129/84 with pulse ox of 98% on room air On 09/03/2024 patient was seen and examined on the medical floor he is alert and oriented x 3 in no apparent distress, there is no fever or chills no headache or dizziness no chest pain no shortness of breath no cough no nausea or vomiting no abdominal pain no diarrhea and no urinary symptoms. Patient is still having some back pain but has improved significantly, is able to stand up and walk few steps with walker without help. Initially plan was to keep patient till Sunday of his Eliquis and aspirin, to proceed with epidural injection on Sunday. However patient improved significantly with his pain management and muscle relaxer, he does not wish to wait till Sunday and he is asking to be discharged home. At this time will discharge patient to home he was given a prescription for baclofen will follow in the office for further evaluation and treatment. Patient Condition at Discharge: Fair Plan - Discharge Summary Discharge Rx Participant: Yes New Discharge Prescriptions: New Baclofen [Lioresal] 10 mg PO Q8H 10 Days #30 tab Continue Montelukast [Singulair] 10 mg PO DAILY Isosorbide Mononitrate ER [Imdur] 30 mg PO DAILY Apixaban [Eliquis] 5 mg PO BID lisinopriL [Zestril] 10 mg PO DAILY Aspirin EC [Ecotrin Low Dose] 81 mg PO DAILY HYDROcodone/APAP 10-325MG [Stratton 10-325] 1 tab PO Q8H PRN PRN Reason: Pain Albuterol Sulfate [Albuterol Sulfate Hfa] 2 puff INHALATION RT-BID Mv-Min/Folic/K1/Lycopen/Lutein [Centrum Silver Men Tablet] 1 tab PO DAILY Nitroglycerin Sl Tabs [Nitrostat] 0.4 mg SUBLINGUAL Q5M PRN PRN Reason: Chest Pain Atorvastatin [Lipitor] 20 mg PO DAILY Loratadine [Claritin] 10 mg PO DAILY Potassium Chloride ER [K-Dur 10] 10 meq PO DAILY Cholecalciferol [Vitamin D3 (125 Mcg = 5000 Iu)] 125 mcg PO DAILY Furosemide [Lasix] 20 mg PO DAILY Metoprolol Tartrate [Lopressor] 100 mg PO BID Coffee Xt/Phosphatidyl Serine [Neuriva Original 100-100Mg Cap] 1 cap PO DAILY Empagliflozin [Jardiance] 10 mg PO DAILY Discharge Medication List Isosorbide Mononitrate ER [Imdur] 30 mg PO DAILY 09/11/13 [History] Montelukast [Singulair] 10 mg PO DAILY 09/11/13 [History] Apixaban [Eliquis] 5 mg PO BID 12/10/17 [History] lisinopriL [Zestril] 10 mg PO DAILY 12/10/17 [History] Aspirin EC [Ecotrin Low Dose] 81 mg PO DAILY 08/26/20 [History] Atorvastatin [Lipitor] 20 mg PO DAILY 08/26/20 [History] Loratadine [Claritin] 10 mg PO DAILY 08/26/20 [History] Cholecalciferol [Vitamin D3 (125 Mcg = 5000 Iu)] 125 mcg PO DAILY 06/02/22 [History] Furosemide [Lasix] 20 mg PO DAILY 06/02/22 [History] Potassium Chloride ER [K-Dur 10] 10 meq PO DAILY 06/02/22 [History] Metoprolol Tartrate [Lopressor] 100 mg PO BID 01/26/23 [History] Albuterol Sulfate [Albuterol Sulfate Hfa] 2 puff INHALATION RT-BID 08/03/23 [History] Coffee Xt/Phosphatidyl Serine [Neuriva Original 100-100Mg Cap] 1 cap PO DAILY 08/03/23 [History] HYDROcodone/APAP 10-325MG [Stratton 10-325] 1 tab PO Q8H PRN 08/03/23 [History] Mv-Min/Folic/K1/Lycopen/Lutein [Centrum Silver Men Tablet] 1 tab PO DAILY 08/03/23 [History] Empagliflozin [Jardiance] 10 mg PO DAILY 08/30/24 [History] Nitroglycerin Sl Tabs [Nitrostat] 0.4 mg SUBLINGUAL Q5M PRN 08/30/24 [History] Baclofen [Lioresal] 10 mg PO Q8H 10 Days #30 tab 09/03/24 [Rx] Follow up Appointment(s)/Referral(s): Mandy Rodriguez MD [STAFF PHYSICIAN] - 2 Weeks Cedric Giraldo MD [Primary Care Provider] - 1-2 days
[2024-09-03] MEDS: APIXABAN 5 MG TAB PO SCH (15:11)
--- NOTE | 2024-09-05 15:22 | CDI ---
Documentation Clarification Form Date: 09/05/2024 02:54:14 PM From: Jagruti Tejada Phone: Admit Date: 09/01/2024 10:10:00 AM Patient Name: José Miguel Moreira Visit Number: [id number] Discharge Date: 09/03/2024 03:41:00 PM ATTENTION: The Clinical Documentation Specialists (CDI) and [facility] Coding Staff appreciate your assistance in clarifying documentation. Please respond to the clarification below the line at the bottom and electronically sign. The CDI & [facility] Coding staff will review the response and follow-up if needed. Please note: Queries are made part of the Legal Health Record. If you have any questions, please contact the author of this message via ITS. Doctor/Provider: Cedric Giraldo Your patient has diagnostic/radiology results: L2-L3:Facet joint arthropathyand disc bulging result in mildspinal canal stenosisand mild SHERRI neuralforaminal stenosis. L4-L5:Facet joint arthropathyand disc bulging result in mildspinal canal stenosisand mild SHERRI neuralforaminal stenosis. Pseudoarthrosis of the spinous processes. Degenerative disc diseasewithchronic back pain Ankylosisof the bilateral sacroiliac joints Please clarify if there is an additional diagnosis and/or clinical significance related to this result. History/Risk Factors: 78yo M, A/C dorsalgia, DDD, HTN, HLD, PAF, CAD w stenting, Hx AAA s/pendograftrepair, inability to stand or walk,morbid obesity, nonobstructing 11 mm right renal stone, Aortobiiliacstent grafts Clinical indicators: No evidence forspinal fracture. Moderate multilevel degeneration changes throughout the spine. Pseudoarthrosisof the spinous processes. Correlate forBaastrup's disease. Treatment: Initially plan was to keep patient till Sunday of his Eliquis and aspirin, to proceed withepidural injectionon Sunday. However patient improved significantly with hispainmanagement and muscle relaxer, he does not wish to wait till Sunday and he is asking to be discharged home. At this time will discharge patient to home he was given a prescription for Baclofen will follow in the office for furtherevaluationand treatment. Is there an additional diagnosis and/or clinical significance related to the above diagnostic/radiology result? [ xxx] Other, Lumbar spondylosis with radiculopathy, DDD, Ankylosisof the bilateral sacroiliac joints [ ] Degenerative disc diseasewithchronic back pain (please specify vertebrae) [ ] Other, please specify [ ] Unable to determine (Template Last Reviewed: April 2020) MTDD
== END 2024-09-03 15:41 | disposition home or self-care (01) | DRG 552 ==
LOC: EC 18:57 → 6NMEDSUR 23:01 → OBSVTOIN 09-01 10:10
PROVIDERS: ADMIT Internal Medicine; ATTEND Internal Medicine
DX: M47.26 Other spondylosis with radiculopathy, lumbar region (principal); E66.01 Morbid (severe) obesity due to excess calories; I10 Essential (primary) hypertension; I48.0 Paroxysmal atrial fibrillation; M43.28 Fusion of spine, sacral and sacrococcygeal region; M48.061 Spinal stenosis, lumbar region without neurogenic claudication; N20.0 Calculus of kidney; I25.10 Atherosclerotic heart disease of native coronary artery without angina pectoris; K59.00 Constipation, unspecified; E78.5 Hyperlipidemia, unspecified; W18.30XA Fall on same level, unspecified, initial encounter; Z68.36 Body mass index [BMI] 36.0-36.9, adult; Z79.01 Long term (current) use of anticoagulants; Z79.82 Long term (current) use of aspirin; I25.2 Old myocardial infarction; Z79.899 Other long term (current) drug therapy; Z79.51 Long term (current) use of inhaled steroids; Z79.84 Long term (current) use of oral hypoglycemic drugs; Z87.891 Personal history of nicotine dependence; Z95.5 Presence of coronary angioplasty implant and graft; Z86.79 Personal history of other diseases of the circulatory system; Z95.818 Presence of other cardiac implants and grafts
CPT/HCPCS: 36415; 71275; 72131; 74174; 80053; 81001; 84484; 85025; 85610; 85730; 87086; 93005; 93306; 94640; 96361; 96372; 96374; 96375; 99285